=== PATIENT | male | born 1945 | race Caucasian/White ===

== ENCOUNTER 2022-10-22 13:02 | Inpatient (IN) | payer MEDICARE, OTHER, SELFPAY ==
[2022-10-22] VITALS (14 sets, daily range): BP systolic 166–192; BP diastolic 48–86; PULSE 81–95; RESP 14–18; TEMP 36.1–37.3; O2SAT 95–98; BMI 27.6; BMI 28.5; BMI 26.8
--- NOTE | 2022-10-22 13:21 | EKG12_ITS ---
Test Reason : POSS STROKE Blood Pressure : / mmHG Vent. Rate : 085 BPM Atrial Rate : 085 BPM P-R Int : 140 ms QRS Dur : 094 ms QT Int : 400 ms P-R-T Axes : 048 022 076 degrees QTc Int : 476 ms Normal sinus rhythm Nonspecific ST and T wave abnormality Prolonged QT Abnormal ECG Confirmed by AMAYA TAYLOR, JOSELIN ([id number]), commercial production editor MEHNAZ HULL ([id number]) on 10/24/2022 2:11:08 PM Referred By: COLLEEN Confirmed By:JOSELIN CONDE MD
--- NOTE | 2022-10-22 13:21 | CT_ITS ---
STUDY: CTA HEAD AND NECK WITH CONTRAST REASON FOR EXAM: Male, 77 years old. Neuro deficit, acute, stroke suspected RADIATION DOSAGE (If Supplied By Facility): CTDIvol = ( 18.79 ) mGy, DLP = ( 892.96 ) mGycm TECHNIQUE: CT angiography was performed with a multi-detector CT scanner. Data acquisition was obtained from the skull base through the vertex following intravenous administration of IV 100mL [id number]-[id number]. MIP images were reconstructed from the axial data set. Post-processing of the angiographic images was performed, with multiplanar reformation and 3D reconstruction. Individualized dose optimization techniques were used for this CT. COMPARISON: No relevant priors. FINDINGS: Normal bilateral petrous carotid arteries. There is calcified plaque formation of the right cavernous carotid artery, with a moderate stenosis (50-75%). There is calcified plaque formation of the left cavernous carotid artery, without a cross-sectional luminal stenosis. Normal right A1 segments of the anterior cerebral artery. Normal left A1 segments of the anterior cerebral artery. Normal intact anterior communicating artery (ACOM). Normal bilateral A2 segments of the anterior cerebral arteries. Normal right M1 and M2 segments of the middle cerebral arteries, with a normal M1 bifurcation. Normal left M1 and M2 segments of the middle cerebral arteries, with a normal M1 bifurcation. Normal right posterior communicating artery (PCOM). There is a persistent origin of the left posterior cerebral artery with absence of the posterior communicating artery (PCOM). Normal bilateral vertebral arteries. Normal basilar artery with a normal basilar bifurcation. The visualized bilateral superior cerebellar (SCA) arteries are normal. Normal bilateral P1, P2 and visualized P3 segments of the posterior cerebral arteries. There is no demonstrated aneurysm of the [place]. Mucosal thickening of the ethmoid sinuses and maxillary sinuses. AORTIC ARCH: There is atherosclerotic calcific plaque formation of the aortic arch and great vessels arising from the aortic arch, without a hemodynamically significant stenosis. 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 There is a normal origin of the brachiocephalic, left common carotid, and left subclavian arteries. Atherosclerotic plaque formation at the origin of left subclavian artery. RIGHT CAROTID ARTERIES: Normal right common carotid artery (CCA). Normal right common carotid bulb. There is complete occlusion of the origin of the right internal carotid artery without demonstrated arterial flow. Normal visualized cervical portion of the right internal carotid artery. Normal origin of the right external carotid artery (ECA). LEFT CAROTID ARTERIES: Normal left common carotid artery (CCA). Normal left common carotid bulb. There is extensive atherosclerotic plaque formation of the origin of the left internal carotid artery with an estimated stenosis of greater than 70%. Normal visualized cervical portion of the left internal carotid artery. Normal origin of the left external carotid artery (ECA). VERTEBRAL ARTERIES: Normal bilateral vertebral arteries. 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 High-grade stenosis at the origin of left internal carotid artery. N.B. : The above Results were Read Back by Magdi Robertson MD to Dr Marsha MD, and understanding confirmed on 10/22/2022 13:55:48 (ET). Electronically Signed: Magdi Robertson MD at 13:56 EST ,
--- NOTE | 2022-10-22 13:21 | CT_ITS ---
STUDY: CT HEAD STROKE PROTOCOL W/O CONTRAST INJECTION REASON FOR EXAM: Male, 77 years old. Neuro deficit, acute, stroke suspected RADIATION DOSAGE (If Supplied By Facility): CTDIvol = ( 47.06 ) mGy, DLP = ( 855.03 ) mGycm TECHNIQUE: Transaxial CT imaging of the brain was performed without administration of intravenous contrast material. Individualized dose optimization techniques were used for this CT. COMPARISON: No relevant priors. FINDINGS: Normal soft tissue structures. Normal calvarium. There is mild cerebral atrophy with widening of the extra-axial spaces and ventricular dilatation. There are areas of decreased attenuation within the white matter tracts of the supratentorial brain, consistent with microvascular disease changes. Focal decreased attenuation in the right frontal lobe. This may represent subacute ischemic change. Tiny old bilateral lacunar infarcts in the basal ganglia. Normal brainstem. Normal cerebellum. There is no intracranial hemorrhage. There are no findings of an acute ischemic infarction. Atherosclerotic calcification of the cavernous portions of the internal carotid arteries bilaterally. Mucosal thickening of the ethmoid sinuses bilaterally and the maxillary sinuses ASPECT score: 8 CT/STROKE Brain/Head without Cont IMPRESSION: Chronic involutional changes of the brain. Focal area of decreased attenuation in the right frontal lobe. Age of this is indeterminate. N.B. : The above Results were Read Back by Magdi Robertson MD to Dr Marsha MD, and understanding confirmed on 10/22/2022 13:44:34 (ET). Electronically Signed: Magdi Robertson MD at 13:45 EST ,
--- NOTE | 2022-10-22 13:21 | VDLE_ITS ---
Reason For Study: LEG PAIN RIGHT LEFT CFV is compressible, spontaneous, phasic, GSV is normal. competent and demonstrates normal CFV is compressible, spontaneous, phasic, augmentation. competent, and demonstrates normal Procedure augmentation. This is a venous duplex using B-mode, color FV is compressible, spontaneous, phasic, flow and spectral Doppler. competent and demonstrates normal Exam performed portable in ED. augmentation. The exam was diagnostic. POP V is compressible, spontaneous, phasic, The study was technically difficult. competent and demonstrates normal A preliminary report was called and/or faxed augmentation. to Dr. Larson. T/P Trunk is compressible. PTV is compressible. LT PerV is compressible. VL/Venous Duplex US, Unilateral Interpretation Summary Deep veins of the left lower extremity are patent and compressible segmentally. There is no evidence of left lower extremity deep vein thrombosis. The left great saphenous vein estephania ears patent and compressible segmentally. Ordering Physician: Alok Larson Referring Physician: Benjamín Zuluaga Performed By: Vazquez Young RVT
--- NOTE | 2022-10-22 13:21 | RAD_ITS ---
STUDY: X-RAY CHEST REASON FOR EXAM: Male, 77 years old. Neuro deficit, acute, stroke suspected TECHNIQUE: Single AP portable view of the chest. COMPARISON: None. FINDINGS: EKG electrodes are seen. There is hyperinflation of the lungs consistent with chronic obstructive lung disease (COPD). There is no demonstrated pleural abnormality. There is mild cardiac enlargement. Normal mediastinum and adriane. Normal visualized pulmonary arteries. There is atherosclerotic calcification of the aortic arch with tortuosity. Normal visualized thoracic spine. There is degenerative osteoarthritis of the bilateral shoulders. Prior bilateral rotator cuff surgery. Prior fusion in the lower cervical spine. There is no demonstrated abnormality of the visualized soft tissue structures of the upper abdomen. RAD/Chest 1 View IMPRESSION: Hyperinflation. The lungs are clear. Mild cardiomegaly. Electronically Signed: Magdi Robertson MD at 14:30 EST ,
--- NOTE | 2022-10-22 13:22 | EDS_ITS ---
HPI History of Present Illness Chief Complaint: Neuro S/Sx Informant: patient and family Narrative Narrative: Presents with daughter here by private vehicle for stroke evaluation. Remote prostate cancer however recent diagnosed for colorectal cancer followed by o ncologist Dr. Gordon, reporting he finished his last radiation yesterday. He has daily chemo pills. This was diagnosed a few months ago. No surgical intervention at this time. Yesterday 3 PM per daughter 15 minutes of troubles getting his words out. That resolved. No stroke history. This morning he awakened with increasing left leg weakness and reports pain in his calf. Denies trauma. He denies paresthesias. Due to weakness in the leg, he was referred to go to the ED for evaluation. Prior similar symptoms: No PFSH PFSH Medical History (Updated 10/22/22 @ 14:[address] Alok Larson DO) Colorectal cancer History of prostate cancer Allergy/AdvReac Type Severity Reaction Status Date / Time No Known Allergies Allergy Verified 10/22/22 13:04 Social History Smoking Status: Current every day smoker tobacco type: cigarettes ROS ROS ED Constitutional Constitutional ED: Denies chills, fever(s) or sweats Eyes Eyes: Denies change in vision ENT ENT ED: Denies dysphagia or sore throat Cardiovascular Cardiovascular: Denies chest pain, leg edema, palpitations or racing heartbeat Respiratory/Chest Respiratory/Chest: Denies cough, dyspnea or dyspnea on exertion Gastrointestinal Gastrointestinal: Denies abdominal pain, diarrhea, nausea or vomiting Genitourinary Genitourinary ED: Denies dysuria, hematuria or urinary frequency Musculoskeletal Musculoskeletal: Denies back pain, extremity pain or neck pain Integumentary Denies rash or wounds Neurologic Neurologic: Reports weakness; Denies headache(s) or paresthesias EXAM Physical Exam Const Vital Signs: 10/22/22 13:05 10/22/22 13:24 10/22/22 13:28 Temperature 98.2 F Temperature Source Temporal Pulse Rate 95 87 Respiratory Rate 14 18 Blood Pressure 192/76 H 182/67 H Blood Pressure Mean 114 105 Pulse Ox 96 97 Oxygen Delivery Method Room Air Room Air Room Air 10/22/22 13:45 10/22/22 14:15 10/22/22 14:45 Temperature Temperature Source Pulse Rate 81 93 90 Respiratory Rate 18 17 18 Blood Pressure 182/59 H 185/48 H 189/66 H Blood Pressure Mean 100 93 107 Pulse Ox 97 96 98 Oxygen Delivery Method Room Air Room Air Room Air Positive well nourished and well developed General Appearance ED: well developed and NAD HEENT Reports moist mucous membranes normocephalic and atraumatic Eyes PERRL, EOMs intact bilaterally and conjunctivae normal General Eye ED: Yes normal appearance of both eyes Neck no lymphadenopathy and supple General: Negative for tenderness Chest Wall Chest: Negative for tenderness Resp normal respiratory effort and normal air movement Effort and Inspection: symmetric chest movement; Negative for respiratory distress Cardio regular rate, regular rhythm and no murmurs Peripheral Pulses: pulses 2+ throughout GI normal to inspection, nondistended, normoactive bowel sounds and non-tender Palpation: Negative for guarding or rebound tenderness present Back/Spine no CVA tenderness and no thoracic nor lumbar tenderness Extremity normal to inspection General Extremety ED: Negative for edema or tenderness General Extremity: Negative for edema Neuro oriented x3, CN's II-XII intact bilaterally and no sensory deficits noted Neuro Narrative: NIH of 0, however is 4 out of 5 weakness of plantar flexion left leg compared to the right. Sensorium / Orientation: awake and alert Skin no rashes or lesions noted and no wounds MDM MDM MDM Narrative Medical decision making narrative: Patient present increasing left leg weakness 4 out of 5 to plantar flexion left compared to right. He had difficulties with speech lasting 15 minutes yesterday symptoms onset within 24 hours. Speech has resolved. Differentials TIA versus stroke currently. Stroke team will be activated due to timeframe to rule out LVO. Additional left leg ultrasound will be obtained to the calf due to pain with his cancer history. Differential be calf strain versus DVT. Is no chest pains or shortness of breath. 1350: Stroke neurologist Dr. Doll, evaluate the patient. Reports concerns for risk factors for clotting with his cancer history. Reported he has no ataxia is left upper extremity that is been going on for last couple weeks. He is out of the window for tPA. Agrees with LVO evaluation and if positive will rediscuss otherwise he recommends MRI studies with and without contrast both his head and neck. EKG sinus rhythm. CT brain discussion with radiologist is focal decreased attenuation right frontal lobe age-indeterminate. CT angiogram head and neck discussion with radiologist, no LVO, however he has total occlusion right carotid as origin, he has severe stenosis left carotid origin more than 70%. I spoke with vascular surgeon Dr. Riki Perez here, discussed patient's recent history with cancer and findings on CT and CTA. He is available as a consult for evaluation for intervention in the hospital. Therefore spoke with hospitalist Dr. Bauer for admission to PCU. Patient and daughter is updated. Patient's left lower extremity ultrasound negative for DVT. Labs for stable will. EKG is sinus rhythm. I did respeak with stroke neurologist Dr. Doll after CT angiogram results, agrees that patient will need carotid intervention due to symptomatic stroke symptoms and findings. He would still like the MRI studies with and without contrast of the head and neck. Lab Data Attestation: I reviewed the patient's lab results. Labs: Laboratory Results - last 24 hr 10/22/22 10/22/22 10/22/22 13:17 13:17 13:17 WBC 2.6 L RBC 3.49 L Hgb 11.6 L Hct 34.0 L MCV 97.4 H MCH 33.2 H MCHC 34.1 RDW Std Deviation 57.1 H RDW Coeff of Lamin 17.5 H Plt Count 81 L MPV 10.8 Immature Gran % (Auto) 1.200 H Neut % (Auto) 58.6 Lymph % (Auto) 11.7 L [place] % (Auto) 27.7 H Eos % (Auto) 0.4 Baso % (Auto) 0.4 Absolute Neuts (auto) 1.5 L Absolute Lymphs (auto) 0.30 L Nucleated RBC % 0 Diff Path Review May foll Platelet Estimate MOD DEC Hypochromasia 1+ Anisocytosis 2+ PT 14.1 INR 1.1 APTT 39.1 H Sodium 135 L Potassium 3.6 Chloride 101 Carbon Dioxide 25.0 Anion Gap 9 BUN 22 H Creatinine 0.81 Estim Creat Clear Calc 69.14 Est GFR (MDRD) Af Amer 118 Est GFR (MDRD) Non-Af 97 BUN/Creatinine Ratio 27.1 H Glucose 120 H Calcium 9.1 Troponin I High Sens 21 POC Glucose 10/22/22 13:36 WBC RBC Hgb Hct MCV MCH MCHC RDW Std Deviation RDW Coeff of [place] Plt Count MPV Immature Gran % (Auto) Neut % (Auto) Lymph % (Auto) [place] % (Auto) Eos % (Auto) Baso % (Auto) Absolute Neuts (auto) Absolute Lymphs (auto) Nucleated RBC % Diff Path Review Platelet Estimate Hypochromasia Anisocytosis PT INR APTT Sodium Potassium Chloride Carbon Dioxide Anion Gap BUN Creatinine Estim Creat Clear Calc Est GFR (MDRD) Af Amer Est GFR (MDRD) Non-Af BUN/Creatinine Ratio Glucose Calcium Troponin I High Sens POC Glucose 119 H Radiography Diagnostic Testing: Clinical Impression(s) from Imaging Studies Brain CT 10/22/22 13:21 IMPRESSION: Chronic involutional changes of the brain. Focal area of decreased attenuation in the right frontal lobe. Age of this is indeterminate. N.B. : The above Results were Read Back by Magdi Robertson MD to Dr Marsha MD, and understanding confirmed on 10/22/2022 13:44:34 (ET). Electronically Signed: Magdi Robertson MD at 13:45 EST , ADDENDUM: 10/22/22 1352 IMPRESSION: Chronic involutional changes of the brain. Focal area of decreased attenuation in the right frontal lobe. Age of this is indeterminate. N.B. : The above Results were Read Back by Magdi Robertson MD to Dr Marsha MD, and understanding confirmed on 10/22/2022 13:44:34 (ET). Electronically Signed: Magdi Robertson MD at 13:45 EST , Chest X-Ray 10/22/22 13:21 IMPRESSION: Hyperinflation. The lungs are clear. Mild cardiomegaly. Electronically Signed: Magdi Robertson MD at 14:30 EST , Head/Neck CTA 10/22/22 13:21 IMPRESSION: Occlusion of the right internal carotid artery at its origin. High-grade stenosis at the origin of left internal carotid artery. N.B. : The above Results were Read Back by Magdi Robertson MD to Dr Marsha MD, and understanding confirmed on 10/22/2022 13:55:48 (ET). Electronically Signed: Magdi Robertson MD at 13:56 EST , ADDENDUM: 10/22/22 1403 IMPRESSION: Occlusion of the right internal carotid artery at its origin. High-grade stenosis at the origin of left internal carotid artery. N.B. : The above Results were Read Back by Magdi Robertson MD to Dr Marsha MD, and understanding confirmed on 10/22/2022 13:55:48 (ET). Electronically Signed: Magdi Robertson MD at 13:56 EST , EKG Initial EKG: Attestation: I personally reviewed and interpreted this EKG as follows: Comments: EKG: Sinus rate 85, no ST or T wave changes. Stroke Documentation Questions Stroke Team Activated: Yes Reviewed Inclusion/Exclusion criteria: Yes Was Patient considered for Endovascular Intervention?: No-CTA negative, determined not to be an endovascular candidate IV Thrombolytic Administered: No (outside [facility]) Critical Care Time Critical Care Time: Yes Critical care time (excluding procedures): 30-74 minutes, Discussing w/Patient &/or Family/Neck Band Operator, Discussing w/Consultants, Arranging Admission or Transfer, Performing Direct Patient Care at Bedside and - (30 minutes) Discharge Plan Dx/Rx/DC Orders Clinical Impression: Brain TIA, Carotid occlusion, right, Carotid stenosis, left, Rectal cancer Disposition Disposition: Acute Care [facility]
[2022-10-22 13:45] LABS: Absolute Neutrophil Count 1.5 X10^3/uL (2.0-7.7); Basophil# 0.01 X10^3/uL; Basophil% 0.4 % (0-1); Eosinophil# 0.01 X10^3/uL; Eosinophils% 0.4 % (0-5); Hemoglobin 11.6 g/dL (13.0-16.5); Lymphocyte % 11.7 % (19-41); Mean Corp Hgb Conc 34.1 g/dL (32-36); Mean Corpuscular Hgb 33.2 pg (27.0-32.0); Mean Corpuscular Volume 97.4 fL (80-94); Mean Platelet Vol. 10.8 fl (6.2-12.0); Monocyte# 0.71 X10^3/uL; Monocyte% 27.7 % (0-10); NRBC Flagged by Analyzer 0 % (0-5); Neutrophil % 58.6 % (47-70); POSITIVE COUNT YES; POSITIVE DIFFERENTIAL YES; Platelet Count 81 K/mm3 (150-450); RBC Distribution Width CV 17.5 % (11.6-14.6); RBC Distribution Width SD 57.1 fl (35.1-43.9); Red Blood Count 3.49 M/mm3 (4.6-6.2); White Blood Count 2.6 K/mm3 (4.4-11.0)
[2022-10-22 13:46] LABS: Differential Indicated SCAN CRITERIA MET
[2022-10-22 13:52] LABS: International Normalized Ratio 1.1; Prothrombin Time (Protime)PT. 14.1 SECONDS (11.7-14.9)
[2022-10-22 13:53] LABS: Partial Thromboplast Time 39.1 Seconds (24.1-36.2)
[2022-10-22 13:55] LABS: Bedside Glucose 119 mg/dL (74-106)
--- NOTE | 2022-10-22 13:58 | ED.RN ---
PT UP AND WALKING TO BATHROOM
[2022-10-22 14:02] LABS: Anion Gap 9 (5-15); BUN 22 mg/dL (7-18); BUN/Creat Ratio 27.1 RATIO (10-20); Calcium,Total 9.1 mg/dL (8.5-10.1); Chloride 101 mmol/L (98-107); Creatinine, Serum 0.81 mg/dL (0.70-1.30); EST Glomerular Filtration Rate 97 mL/min (>60); Est Glom Filt Rate - Afr Amer 118 mL/min (>60); Estimated Creatinine Clearance 69.14 ml/min; Glucose 120 mg/dL (74-106); Potassium 3.6 mmol/L (3.5-5.1); Sodium Level 135 mmol/L (136-145); Troponin-I HS 21 pg/mL (3.0-78.0)
[2022-10-22 14:03] LABS: Anisocytosis 2+; Hypochromasia 1+
[2022-10-22 14:04] LABS: Platelet Estimate MOD DEC (ADEQ)
--- NOTE | 2022-10-22 15:21 | PCM.HP.STD ---
[facility] - General General Date of Service: 10/22/22 Chief Complaint: left sided weakness. HPI Narrative MERLENE SINGH, is a 77 M who presents awakening with his left leg over the bed and it was weak. Patient said it was painful in his knee below. Difficult to walk. Saw his oncologist who sent him to the emergency room. Patient had a head CT is unremarkable and then a CT of the head and neck that showed occlusion of the right internal carotid at the origin and high-grade stenosis at the origin of the left internal carotid. Neurology was notified of that and recommend patient remaining here to be seen by vascular surgery. Dr. Perez, vascular surgery, was contacted and will see the patient in consultation. Patient yesterday did have some trouble speaking and has not had some intermittent left arm weakness and swelling trigger when he gets infusions with his chemotherapy. [facility] Medical History (Updated 10/22/22 @ 15:[address] Riki Bauer DO) AAA (abdominal aortic aneurysm) Colorectal cancer History of prostate cancer Allergy/AdvReac Type Severity Reaction Status Date / Time No Known Allergies Allergy Verified 10/22/22 13:04 Family History (Updated 10/22/22 @ 15:[address] Riki Bauer DO) Mother CVA (cerebral vascular accident) Surgical History (Updated 10/22/22 @ 15:[address] Riki Bauer DO) History of endovascular stent graft for abdominal aortic aneurysm (AAA) Social History (Updated 10/22/22 @ 15:[address] Riki Bauer DO) Smoking Status: Light Smoker (<10/day) alcohol intake: current alcohol intake frequency: holidays/special occasions only substance use type: does not use ROS ROS Narrative Complains of pain and swelling in his left knee. All review of systems were negative except as mentioned above in the history of present illness and the other review of systems. Vital Signs Vital Signs Vital Signs: 10/22/22 13:05 10/22/22 13:24 10/22/22 13:28 Temperature 36.8 C Temperature Source Temporal Pulse Rate 95 87 Respiratory Rate 14 18 Blood Pressure 192/76 H 182/67 H Blood Pressure Mean 114 105 Pulse Ox 96 97 Oxygen Delivery Method Room Air Room Air Room Air 10/22/22 13:45 10/22/22 14:15 10/22/22 14:45 Temperature Temperature Source Pulse Rate 81 93 90 Respiratory Rate 18 17 18 Blood Pressure 182/59 H 185/48 H 189/66 H Blood Pressure Mean 100 93 107 Pulse Ox 97 96 98 Oxygen Delivery Method Room Air Room Air Room Air 10/22/22 15:01 10/22/22 15:12 10/22/22 15:12 Temperature 36.1 C L Temperature Source Temporal Pulse Rate 91 88 Respiratory Rate 18 18 16 Blood Pressure 166/62 H 166/62 H Blood Pressure Mean 96 96 Pulse Ox 95 95 Oxygen Delivery Method Room Air Room Air Weight Weight: 82.554 kg Body Mass Index (BMI) 28.5 Physical Exam Const alert and no apparent distress HEENT normocephalic and head/scalp atraumatic Eyes PERRL and EOMs intact bilaterally Neck no lymphadenopathy and no carotid bruits Resp normal respiratory effort, no retractions, no use of accessory muscles and clear to auscultation bilaterally Cardio regular rate, regular rhythm, S1 normal heart sound and S2 normal heart sound GI normal to inspection, nondistended, normoactive bowel sounds, soft to palpation, non-tender and non-distended Extremity normal to inspection Extremity Narrative: Left knee effusion without warmth. Swelling in the posterior aspect of the left knee without was tender to palpation Neuro oriented x3, CN's II-XII intact bilaterally and moves all extremities Neuro Narrative: Muscle tone 5-5 in upper and lower extremities. Patient was able to hold up his left lower extremity but was limited due to pain in his left knee Sensorium / Orientation: awake and alert Coordination / Balance: [id number] test normal Motor Exam: strength 5/5 throughout Psych affect normal Results Lab / Micro Data Attestation: I reviewed the patient's lab results. Result Diagrams: 10/22/22 13:17 10/22/22 13:17 Labs: Laboratory Results - last 24 hr 10/22/22 13:17: WBC 2.6 L, RBC 3.49 L, Hgb 11.6 L, Hct 34.0 L, MCV 97.4 H, MCH 33.2 H, MCHC 34.1, RDW Std Deviation 57.1 H, RDW Coeff of Lamin 17.5 H, Plt Count 81 L, MPV 10.8, Immature Gran % (Auto) 1.200 H, Neut % (Auto) 58.6, Lymph % (Auto) 11.7 L, Crisp % (Auto) 27.7 H, Eos % (Auto) 0.4, Baso % (Auto) 0.4, Absolute Neuts (auto) 1.5 L, Absolute Lymphs (auto) 0.30 L, Nucleated RBC % 0, Diff Path Review May , Platelet Estimate MOD DEC, Hypochromasia 1+, Anisocytosis 2+ 10/22/22 13:17: PT 14.1, INR 1.1, APTT 39.1 H 10/22/22 13:17: Sodium 135 L, Potassium 3.6, Chloride 101, Carbon Dioxide 25.0, Anion Gap 9, BUN 22 H, Creatinine 0.81, Estim Creat Clear Calc 69.14, Est GFR (MDRD) Af Amer 118, Est GFR (MDRD) Non-Af 97, BUN/Creatinine Ratio 27.1 H, Glucose 120 H, Calcium 9.1, Troponin I High Sens 21 10/22/22 13:36: POC Glucose 119 H EKG Initial EKG: Attestation: I personally reviewed and interpreted this EKG as follows: Prior EKG tracings: available for review Radiology Impression Brain CT 10/22/22 13:21 IMPRESSION: Chronic involutional changes of the brain. Focal area of decreased attenuation in the right frontal lobe. Age of this is indeterminate. N.B. : The above Results were Read Back by Magdi Robertson MD to Dr Marsha MD, and understanding confirmed on 10/22/2022 13:44:34 (ET). Electronically Signed: Magdi Robertson MD at 13:45 EST , ADDENDUM: 10/22/22 1352 IMPRESSION: Chronic involutional changes of the brain. Focal area of decreased attenuation in the right frontal lobe. Age of this is indeterminate. N.B. : The above Results were Read Back by Magdi Robertson MD to Dr Marsha MD, and understanding confirmed on 10/22/2022 13:44:34 (ET). Electronically Signed: Magdi Robertson MD at 13:45 EST , Chest X-Ray 10/22/22 13:21 IMPRESSION: Hyperinflation. The lungs are clear. Mild cardiomegaly. Electronically Signed: Magdi Robertson MD at 14:30 EST Reading Location ID and State: [facility] / [place] , Service support , Head/Neck CTA 10/22/22 13:21 IMPRESSION: Occlusion of the right internal carotid artery at its origin. High-grade stenosis at the origin of left internal carotid artery. N.B. : The above Results were Read Back by Magdi Robertson MD to Dr Marsha MD, and understanding confirmed on 10/22/2022 13:55:48 (ET). Electronically Signed: Magdi Robertson MD at 13:56 EST , ADDENDUM: 10/22/22 1403 IMPRESSION: Occlusion of the right internal carotid artery at its origin. High-grade stenosis at the origin of left internal carotid artery. N.B. : The above Results were Read Back by Magdi Robertson MD to Dr Marsha MD, and understanding confirmed on 10/22/2022 13:55:48 (ET). Electronically Signed: Magdi Robertson MD at 13:56 EST , Assessment & Plan Assessment/Plan (1) Carotid occlusion, right: PLAN: Clinically I do not feel the patient has had a stroke but it is concerning the patient may have had some TIAs with his left-sided weakness and expressive aphasia previously. Spoke with Dr. Perez who will see the patient in consultation to evaluate the patient for an outpatient carotid endarterectomy Patient be on aspirin and statin Check an MRI of the brain as well as 2D echocardiogram (2) Carotid stenosis, left: PLAN: As above (3) Effusion, left knee: PLAN: Pain control. She will schedule acetaminophen and then have as needed oxycodone No warm to suggest infection or even gout at this time. Consider x-rays if pain gets more severe or worse. PLAN: Plan Chronic conditions Colorectal cancer: Patient's daughters to bring in his chemotherapy medications. This is the patient's last day of chemotherapy. Patient will follow up to see if he may need surgery for this cancer. PAD: Patient has had an aortic aneurysm stent placed. Currently stable. Tobacco abuse VTE prophylaxis with enoxaparin CODE STATUS: Addressed with the patient. Patient was to be DNR Comfort Care rest no intubation. Charges/Coding Visit Charges Inpatient E&M: 33581 Init Hosp L3
--- NOTE | 2022-10-22 15:21 | CHAPLAIN ---
Type of Pastoral Visit ___ Initial Visit ___ Follow-up Visit ___ On-call Visit ___ General Patient Visit ___ Spiritual Assessment ___ Family Conference ___ Bereavement _x__ Rapid Response ___ Code Blue ___ Other (describe below) Pastoral Care Referral From _x__ Patient ___ Family ___ Nurse ___ Physician ___ Carbon Sequestration Plant Engineer ___ Senior Premium Auditor ___ Other (describe below) Sacrament/Intervention ___ Active listening ___ Anointing ___ Hinduism ___ Bereavement ___ Communion ___ Helen exploration ___ ___ Life review ___ Prayer ___ Reconciliation ___ Sacrament of Sick _x__ Supportive presence ___ Wedding ___ Other (describe below) Pastoral Comments patient was being evaluated by medical team and was responsive; only family member had dropped off patient and left; RN supervisor building maintenance was present and stated that there were no apparent needs at this time
--- NOTE | 2022-10-22 15:44 | ECHOD_ITS ---
Reason For Study: TIA/CVA Procedure This was a 2D Doppler, Color Flow transthoracic echocardiogram. Exam performed portable in patient room. Left Ventricle Normal LV size. Moderate concentric left ventricular hypertrophy. Left ventricular systolic function is normal. The estimated ejection fraction is 60 %. Stage 2 diastolic dysfunction. No regional wall motion abnormalities noted. Right Ventricle Normal RV size. Normal systolic function. Atria Normal left atrium. Normal right atrium. Patent foramen ovale. Mitral Valve Normal mitral valve. Tricuspid Valve Normal tricuspid valve. Aortic Valve Normal aortic valve. Trisinus/trileaflet aortic valve. Pulmonic Valve Normal pulmonic valve. Great Vessels Normal aortic root. The pulmonary artery is normal size. Normal inferior vena cava. Pericardium/Pleural No pericardial effusion. Medication Performed a rapid injection of agitated mix of 9 cc saline and 1cc air to assess for atrial septal defect. MMode/2D Measurements & Calculations LVIDd: 3.8 cm IVSd: 1.6 cm LAV(MOD-sp4): 60.3 ml LVIDs: 2.7 cm LVPWd: 1.5 cm RVDd: 3.2 cm FS: 29.3 % LVAd ap4: 27.9 cm2 SV(MOD-sp4): 53.1 ml SV(sp4-el): 54.1 ml LVLd ap4: 8.5 cm EDV(MOD-sp4): 80.0 ml EDV(sp4-el): 77.9 ml LVAs ap4: 14.2 cm2 LVLs ap4: 7.2 cm ESV(MOD-sp4): 26.9 ml ESV(sp4-el): 23.8 ml EF(MOD-sp4): 66.4 % EF(sp4-el): 69.4 % LA A4 area: 21.5 cm2 LA dimension(2D): 3.2 cm RA A4 area: 15.0 cm2 Time Measurements MV dec time: 0.24 sec Doppler Measurements & Calculations MV E max dgao: 88.2 cm/sec Lat Peak E' Dago: 6.0 cm/sec Med Peak E' Dago: 7.8 cm/sec MV A max dago: 87.8 cm/sec E/E' lat: 14.6 E/E' med: 11.3 MV E/A: 1.0 MV V2 max: 96.4 cm/sec Ao V2 max: 146.6 cm/sec MV max P.7 mmHg MV dec slope: 371.6 cm/sec2 Ao max P.6 mmHg MV V2 mean: 56.8 cm/sec Ao V2 mean: 94.5 cm/sec MV mean P.5 mmHg Ao mean P.2 mmHg MV V2 VTI: 34.0 cm Ao V2 VTI: 29.6 cm AV (velocity ratio): 0.85 LV V1 max: 120.8 cm/sec PA V2 max: 84.2 cm/sec LV V1 max P.9 mmHg PA V2 mean: 58.5 cm/sec LV V1 mean P.4 mmHg LV V1 mean: 87.4 cm/sec LV V1 VTI: 25.2 cm ECHO/Echo Complete Interpretation Summary Normal LV size. Left ventricular systolic function is normal. The estimated ejection fraction is 60 %. Patent foramen ovale. Moderate concentric left ventricular hypertrophy. Stage 2 diastolic dysfunction. Ordering Physician: Riki Bauer Referring Physician: Remington Frederick M.D. Performed By: Jodee Ingram RCS
--- NOTE | 2022-10-22 15:44 | MRI_ITS ---
STUDY: MRI BRAIN WITHOUT CONTRAST REASON FOR EXAM: Male, 77 years old. left sided weakness TECHNIQUE: MRI examination brain CT scan protocol including multiplanar multiecho noncontrast imaging. Contrast: No contrast administered. COMPARISON: CT head [place] 10/22/2022, CTA examination of 10/22/2022 HEMISPHERES, CEREBELLUM AND BRAINSTEM: 1. The cerebral parenchyma, ventricular system, subarachnoid spaces have normal configuration and density. There is a normal gyral pattern. There is normal pierce/white differentiation. No midline shift.. 2. Mild involutional change and moderate chronic microvascular deep white matter disease is present. 3. Multiple focal areas of fluid restriction noted within the RIGHT hemisphere, particularly involving the RIGHT middle frontal gyrus sac, with multiple small focal areas of fluid restriction and ischemia extending to the level of the precentral gyrus on the RIGHT. No evidence of hemosiderin deposition or hemorrhage. Subtle areas of ischemic change also noted within the RIGHT centrum semiovale. 4. The cerebellum, brainstem, basilar and suprasellar cisterns have normal appearance. No Chiari malformation. PITUITARY: Infundibulum and pituitary have normal configuration. Midline structures appear normal. CSF SPACES: Appropriate for age. No hydrocephalus. Basal cisterns are patent. VESSELS: 1. Abnormal signal noted within the petrous and cavernous RIGHT ICA. Slow flow versus occlusion are considerations. ORBITS AND PARANASAL SINUSES: 1. Both globes, extraocular muscles, optic nerves and retrobulbar fat appear unremarkable. 2. Extensive mucosal thickening within the ethmoid and to lesser extent maxillary and frontal sinuses bilaterally. BONY ELEMENTS: Bony elements of the cranial vault, facial skeleton and skull base have normal appearance. SCALP AND SOFT TISSUES: Normal appearance of the soft tissues of the scalp and the visualized face OTHER: None MRI/Brain without Contrast IMPRESSION: 1. Diffuse involutional change and chronic microvascular deep white matter disease. 2. Focal areas of fluid restriction/nonhemorrhagic ischemia/developing infarct within the RIGHT frontal lobe. There are focal areas of acute ischemia within the RIGHT precentral gyrus. No evidence of hemorrhage. The pattern can be seen in the setting of extensive embolic disease involving the RIGHT MCA, however sequelae of watershed ischemic changes are additional considerations. 3. Remaining cerebral parenchyma shows no evidence of mass, hemorrhage, acute territorial infarct. 4. Abnormal appearance of the RIGHT internal carotid artery including the petrous and cavernous segment, slow flow or occlusion are considerations. Findings are consistent with recent CTA findings. Electronically Signed: Chai Bailey MD at 20:03 EST ,
[2022-10-22] MEDS: Aspirin 325 MG Tablet PO (16:37)
[2022-10-22 16:53] LABS: Troponin-I HS 23 pg/mL (3.0-78.0)
[2022-10-22] MEDS: CAPECITABINE 500 MG TABLET 1500 MG PO (18:24)
[2022-10-22] MEDS: Menthol/Lanolin/Calamine/Znox 113 GM Tube 1 APPLIC TOPICAL (21:32)
[2022-10-22] MEDS: Acetaminophen 500 MG Tablet 1000 MG PO (21:34)
[2022-10-22] MEDS: Atorvastatin Calcium 80 MG Tablet PO (21:34)
[2022-10-22] MEDS: oxyCODONE 5 MG Tablet PO (21:54)
[2022-10-22] MEDS: Ondansetron 4 MG/2 ML Vial IV (21:54)
--- NOTE | 2022-10-22 22:46 | TELEMED_ITS ---
[facility] has confirmed receipt of a request for visit. This document confirms receipt of the order initiating the consult. To find the results of the consultation, please view the patient's reports for the scanned Telemed Consult.
--- NOTE | 2022-10-22 22:51 | PCM.HOSP.N ---
Hospitalist Note MRI resulted with significant findings of focal areas of fluid restriction/nonhemorrhagic ischemia/developing infarct within the right frontal lobe with focal areas of acute ischemia within the right precentral gyrus with no evidence of any hemorrhage, pattern potentially seen in the setting of extensive embolic disease involving the right MCA however sequelae of watershed ischemic changes are also consideration. Patient CTA head and neck upon ED evaluation was significant carotid findings with already pending vascular surgery consultation. Patient currently maintained on aspirin, statin, permissive hypertension, echocardiogram ordered, physical and Occupational Therapy also ordered. We will add speech therapy evaluation as well as check mag, TSH, hemoglobin A1c. FLP already ordered for a.m. Echocardiogram also already ordered for a.m. Given severity of findings on imaging study will request neurology consultation at this time to be cautious.
[2022-10-22 23:09] LABS: Magnesium 1.9 mg/dL (1.6-2.6)
[2022-10-22] MEDS: Cephalexin 500 MG Capsule PO (23:30)
[2022-10-23] VITALS (13 sets, daily range): BP systolic 121–194; BP diastolic 49–82; PULSE 69–86; RESP 16–18; TEMP 36.7–37.1; O2SAT 92–95; BMI 26.8
[2022-10-23] MEDS: oxyCODONE 5 MG Tablet PO (04:26)
[2022-10-23 06:24] LABS: Absolute Lymphocyte Count 0.19 X10^3/uL (0.83-4.51); Absolute Neutrophil Count 1.1 X10^3/uL (2.0-7.7); Eosinophil# 0.05 X10^3/uL; Eosinophils% 2.4 % (0-5); Hematocrit 28.1 % (40-54); Hemoglobin 9.8 g/dL (13.0-16.5); Lymphocyte # 0.19 X10^3/ul (0.83-4.51); Lymphocyte % 9.2 % (19-41); Mean Corp Hgb Conc 34.9 g/dL (32-36); Mean Corpuscular Hgb 33.6 pg (27.0-32.0); Mean Corpuscular Volume 96.2 fL (80-94); Monocyte# 0.76 X10^3/uL; Monocyte% 36.9 % (0-10); NRBC Flagged by Analyzer 0 % (0-5); Neutrophil # 1.05 X10^3/uL (2.7-7.7); POSITIVE COUNT YES; POSITIVE DIFFERENTIAL YES; Platelet Count 65 K/mm3 (150-450); RBC Distribution Width CV 17.7 % (11.6-14.6); RBC Distribution Width SD 57.7 fl (35.1-43.9); Red Blood Count 2.92 M/mm3 (4.6-6.2); White Blood Count 2.1 K/mm3 (4.4-11.0)
[2022-10-23 06:25] LABS: Differential Indicated SCAN CRITERIA MET
[2022-10-23] MEDS: Acetaminophen 500 MG Tablet 1000 MG PO ×3 (06:36→21:03)
[2022-10-23] MEDS: Cephalexin 500 MG Capsule PO ×3 (06:36→21:03)
[2022-10-23 06:38] LABS: Differential Comment SCANNED
[2022-10-23 07:03] LABS: ALB/GLOB Ratio 0.9 RATIO (0.9-2.4); AST(SGOT) 16 U/L (15-37); Alanine Aminotransfer ALT/SGPT 25 U/L (16-61); Albumin, Serum 2.7 g/dL (3.2-5.0); Alkaline Phosphatase 56 U/L (45-117); Anion Gap 9 (5-15); BUN 15 mg/dL (7-18); BUN/Creat Ratio 26.8 RATIO (10-20); Calcium,Total 8.2 mg/dL (8.5-10.1); Chloride 103 mmol/L (98-107); Cholesterol 122 mg/dL (200); Creatinine, Serum 0.56 mg/dL (0.70-1.30); EST Glomerular Filtration Rate 149 mL/min (>60); Est Glom Filt Rate - Afr Amer 181 mL/min (>60); Globulin 3.1 g/dL (2.2-4.2); Glucose 107 mg/dL (74-106); High Density Lipoprotein 54 mg/dL; Potassium 3.1 mmol/L (3.5-5.1); Protein, Total 5.8 g/dL (6.4-8.2); Sodium Level 138 mmol/L (136-145); Thyroid Stim Hormone (TSH) 2.92 uIU/mL (0.358-3.74); Triglycerides 62 mg/dL; Very Low Density Lipoprotein 12 mg/dL (5-40)
[2022-10-23] MEDS: Aspirin 81 MG TAB.CHEW PO (07:57)
[2022-10-23] MEDS: Enoxaparin 40 MG/0.4 ML Syringe SC (07:57)
[2022-10-23] MEDS: Potassium Chloride Oral Tablet 20 MEQ PO (08:00)
[2022-10-23 08:07] LABS: Hemoglobin A1c 5.8 % (3.8-5.6)
--- NOTE | 2022-10-23 11:35 | CASEMGMT ---
RN CM Face to Face with patient for initial transition planning/care coordination assessment. RN CM introduced self and role at [facility]. Patient lying in bed, alert and oriented. Patient willing to participate in assessment and is able to answer all questions appropriately. Care providers, pharmacy, and demographics verified. Patient wishes to discharge home, will monitor for HHC vs Outpatient Therapy at discharge. Patient states he has no further needs or concerns at this time. CM to follow for discharge planning needs that may arise. PCP: Otoniel Specialists: Kiley, radiologist; Yasmani, oncologist Preferred Pharmacy: [facility] Insurance: [employer] Ins Prescription Benefit: none Living Will/HPOA: yes, daughter Maylin Mcleod LNOK: daughter Living Arrangements: Patient lives with daughter in a 2 story home. Patient states he is independent and able to ambulate stairs. Transportation: self, daughter DME/HHC: Patient has raised toilet, grab bars, walker at home. Patient denies previous HHC or SNF. Disposition Plan: Patient to discharge home with family support and follow-up plans in place. Will monitor for HHC vs Outpatient Therapy. Miriam MOLINA, RN, CM
[2022-10-23 12:18] LABS: Pathologist Review Reviewed
[2022-10-23 12:19] LABS: Pathologist Review Reviewed
[2022-10-23] MEDS: Menthol/Lanolin/Calamine/Znox 113 GM Tube 1 APPLIC TOPICAL ×2 (14:00→21:04)
--- NOTE | 2022-10-23 14:31 | PN.HOSP_ITS ---
Subjective Subjective Left upper extremity is much stronger today but he still has weakness in his left lower extremity Objective Data Objective Data Vital Signs: Vital Signs Temp Pulse Resp BP Pulse Ox O2 Del Method 98.0 F 73 17 121/60 H 93 Room Air 10/23/22 14:15 10/23/22 14:15 10/23/22 14:15 10/23/22 14:15 10/23/22 14:15 10/23/22 14:15 Oxygen Delivery Method Room Air Weight: 173 lb 15.115 oz Body Mass Index (BMI) 26.8 Intake & Output: Intake and Output for Last 24 Hours 10/22/22 10/23/22 10/24/22 03:59 03:59 03:59 Intake Total 480 / 480 240 / 240 Output Total 150 / 150 Balance 480 / 480 90 / 90 Lab / Micro Data Result Diagrams: 10/23/22 05:26 10/23/22 05:26 Labs: Laboratory Results - last 24 hr 10/22/22 13:17: Diff Path Review Reviewed 10/22/22 16:20: Troponin I High Sens 23 10/22/22 16:20: Magnesium 1.9 10/23/22 05:26: WBC 2.1 L, RBC 2.92 L, Hgb 9.8 L, Hct 28.1 L, MCV 96.2 H, MCH 33.6 H, MCHC 34.9, RDW Std Deviation 57.7 H, RDW Coeff of Lamin 17.7 H, Plt Count 65 L, MPV 11.0, Immature Gran % (Auto) 0.500, Neut % (Auto) 51.0, Lymph % (Auto) 9.2 L, Kinney % (Auto) 36.9 H, Eos % (Auto) 2.4, Baso % (Auto) 0.0, Absolute Neuts (auto) 1.1 L, Absolute Lymphs (auto) 0.19 L, Nucleated RBC % 0, Differential Comment SCANNED, Diff Path Review Reviewed 10/23/22 05:26: Sodium 138, Potassium 3.1 L, Chloride 103, Carbon Dioxide 26.0, Anion Gap 9, BUN 15, Creatinine 0.56 L, Estim Creat Clear Calc 56.00, Est GFR (MDRD) Af Amer 181, Est GFR (MDRD) Non-Af 149, BUN/Creatinine Ratio 26.8 H, Glucose 107 H, Calcium 8.2 L, Total Bilirubin 0.50, AST 16, ALT 25, Alkaline Phosphatase 56, Total Protein 5.8 L, Albumin 2.7 L, Globulin 3.1, Albumin/Globulin Ratio 0.9, Triglycerides 62, Cholesterol 122, LDL Cholesterol 56, VLDL Cholesterol 12, HDL Cholesterol 54, TSH 2.92 10/23/22 05:26: Hemoglobin A1c 5.8 H Radiography Diagnostic Testing: Radiology Impression Chest X-Ray 10/22/22 13:21 IMPRESSION: Hyperinflation. The lungs are clear. Mild cardiomegaly. Electronically Signed: Magdi Robertson MD at 14:30 EST , Venous Doppler Study 10/22/22 13:21 Interpretation Summary Deep veins of the left lower extremity are patent and compressible segmentally. There is no evidence of left lower extremity deep vein thrombosis. The left great saphenous vein appears patent and compressible segmentally. Ordering Physician: Alok Larson Referring Physician: Benjamín Zuluaga Performed By: Vazquez Young RVT Brain MRI 10/22/22 15:44 IMPRESSION: 1. Diffuse involutional change and chronic microvascular deep white matter disease. 2. Focal areas of fluid restriction/nonhemorrhagic ischemia/developing infarct within the RIGHT frontal lobe. There are focal areas of acute ischemia within the RIGHT precentral gyrus. No evidence of hemorrhage. The pattern can be seen in the setting of extensive embolic disease involving the RIGHT MCA, however sequelae of watershed ischemic changes are additional considerations. 3. Remaining cerebral parenchyma shows no evidence of mass, hemorrhage, acute territorial infarct. 4. Abnormal appearance of the RIGHT internal carotid artery including the petrous and cavernous segment, slow flow or occlusion are considerations. Findings are consistent with recent CTA findings. Electronically Signed: Chai Bailey MD at 20:03 EST , Echocardiogram 10/22/22 15:44 Interpretation Summary Normal LV size. Left ventricular systolic function is normal. The estimated ejection fraction is 60 %. Patent foramen ovale. Moderate concentric left ventricular hypertrophy. Stage 2 diastolic dysfunction. Ordering Physician: Riki Bauer Referring Physician: Remington Frederick M.D. Performed By: Jodee Ingram RCS Physical Exam Narrative General: Alert, Oriented x3, Cooperative, No apparent distress HEENT: Atraumatic, PERRLA, EOMI, Normocephalic Oral: Moist Mucosa Neck: Supple, No JVD Lungs: Clear to auscultation, Normal air movement, No rhonchi, No wheeze, No rales Cardiovascular: Regular rate, Regular Rhythm, Normal S1, Normal S2, No murmurs Abdomen: Soft, Non Tender, Non-Distended, No Hepato-splenomegaly Extremities: No edema, Capillary Refill Less than 3 Seconds Skin: No rashes, No breakdown Musculoskeletal: No Tenderness to Palpation of Joints or Extremities Neurological: Cranial nerves II-XII grossly intact, Motor Exam 5/5 strength upper extremities, left lower extremity is a 3 out of 5 with drift, Sensory exam intact to light touch and pain Psych/Mental Status: Normal Affect, Appropriate Assessment & Plan Assessment/Plan (1) Carotid occlusion, right: PLAN: MRI consistent with stroke on the right, symptoms are slowly improving Spoke with Dr. Perez who will see the patient in consultation to evaluate the patient for an outpatient carotid endarterectomy Patient be on aspirin and statin At with a normal EF of 60% with stage II diastolic dysfunction and moderate concentric left ventricular hypertrophy and a patent foramen ovale (2) Carotid stenosis, left: PLAN: Consult pending toe vascular for evaluation (3) Effusion, left knee: PLAN: Pain control. She will schedule acetaminophen and then have as needed oxycodone No warm to suggest infection or even gout at this time. Consider x-rays if pain gets more severe or worse. (4) CVA (cerebral vascular accident): PLAN: As above PLAN: Plan Chronic conditions * Colorectal cancer: He has completed cancer treatment under the follow-up as an outpatient with his cancer doctor * PAD: Patient has had an aortic aneurysm stent placed. Currently stable. * Tobacco abuse VTE prophylaxis with enoxaparin Charges/Coding Visit Charges Inpatient E&M: 31204 Subs Hosp L2
--- NOTE | 2022-10-23 16:22 | CON.PCM.SX_ITS ---
Assessment & Plan Assessment/Plan (1) Carotid stenosis, left: (2) Carotid occlusion, right: PLAN: Plan Right carotid artery noted to be occluded, may be the source for most recent stroke symptoms/evidence of stroke on Brain MRI. No further intervention indicated. Left carotid artery stenosis noted to be about 70% by TeleNeuro consult. Although no identified left-sided infarcts/ischemia and no symptoms attributable to left-sided stenosis, given total occlusion of right internal carotid artery it is reasonable to pursue surgical intervention on an outpatient basis. Patient will follow-up as outpatient in office to discuss surgical options. Would consider patient for TCAR if good candidate, case will be reviewed with TCAR rep. In the meantime, optimize medical management with ASA, atorvastatin, and Plavix daily. Discharge planning per primary team. HPI Consult Data Date of Consult: 10/23/22 HPI Narrative HPI Narrative: MERLENE SINGH, is a 77 M who presented to ED with symptoms concerning for stroke on 10/22/22. Patient reports that day prior to presentation had an episode of difficulty speaking which resolved in about 10 minutes. On day of presentation, patient experienced left-sided weakness and was referred to ED by his oncologist. CT head was unremarkable, CTA Head and Neck revealed occluded right internal carotid artery, and reported 70% stenosis of left internal carotid artery. Brain MRI revealed evidence of acute ischemia/infarcts in right MCA distribution. TeleNeuro consult was obtained which recommended surgical intervention, for which we are consulted to evaluate. Echo was also obtained today which showed PFO, but bilateral venous duplex did not reveal DVT. Patient's past medical history is significant for colorectal cancer (last radiation treatment on 10/22, current PO chemo treatment, follows with [facility] outpatient), endovascular repair/stent of AAA, remote history prostate cancer. He also reports history of C3-C4 surgery with placement of a plate. Patient denies any episode of similar symptoms in the past, no known prior stroke/TIA. He has residual LLE weakness, he feels LUE weakness has resolved. He denies monocular vision loss, any further episodes of aphasia, new focal weakness, ESCALONA, CP, SOB. [facility] Medical History (Updated 10/23/22 @ 14:[address] Dilip Terry MD) AAA (abdominal aortic aneurysm) Colorectal cancer History of prostate cancer Home Medications albuterol sulfate 90 mcg/actuation aerosol inhaler 2 puff inhalation PRN PRN Bronchospasm 10/22/22 [History Last Taken Unknown] capecitabine 500 mg tablet (Xeloda) 1,500 mg PO BID CHEMOTHERAPY 10/22/22 [History Last Taken Unknown] cephalexin 500 mg capsule 500 mg PO TID UTI 10/22/22 [History Last Taken Unknown] docusate sodium 100 mg capsule 100 mg PO BID PRN Constipation 10/22/22 [History Last Taken Unknown] ibuprofen 200 mg tablet (Advil) 800 mg PO PRN PRN Pain 10/22/22 [History Last Taken Unknown] ondansetron HCl 8 mg tablet 8 mg PO PRN PRN Nausea And Vomiting 10/22/22 [History Last Taken Unknown] potassium chloride 20 mEq tablet,extended release(part/cryst) 20 meq PO DAILY Check with primary doctor 10/22/22 [History Last Taken Unknown] Allergy/AdvReac Type Severity Reaction Status Date / Time No Known Allergies Allergy Verified 10/22/22 13:04 Family History (Updated 10/22/22 @ 15:[address] Riki Bauer DO) Mother CVA (cerebral vascular accident) Surgical History (Updated 10/22/22 @ 16:12 by Elena Holden) History of ear, nose, and throat (ENT) surgery History of endovascular stent graft for abdominal aortic aneurysm (AAA) Hx of neck surgery Hx of rotator cuff surgery Social History (Updated 10/22/22 @ 15:[address] Riki Bauer DO) Smoking Status: Light Smoker (<10/day) alcohol intake: current alcohol intake frequency: holidays/special occasions only substance use type: does not use ROS Constitutional Constitutional: Denies change in weight, chills, difficulty sleeping, fatigue, fever(s), frequent falls, lethargy, night sweats or weakness Eyes Eyes: Denies blindness, blurry vision, change in vision, eye pain or ptosis ENT HEENT: Denies abnormal hearing, change in voice, hearing loss, loss taste/smell or vertigo Cardiovascular Cardiovascular: Denies abdominal pain, chest pain, claudication, cold extremities, cyanosis, diaphoresis, dyspnea, dyspnea on exertion, fatigue, hype rtension, irregular heart rhythm, leg edema, leg ulcers, orthopnea, palpitations, radiating jaw, neck or arm pain or syncope Respiratory/Chest Respiratory/Chest: Denies cough, dyspnea, hemoptysis, nail bed cyanosis, sae- oral cyanosis, portable oxygen @ home, productive cough or wheezing Gastrointestinal Gastrointestinal: Denies abdominal pain, change in bowel habits, change in stool character, coffee ground emesis, melena, rectal bleeding or weight changes Genitourinary Genitourinary: Denies abdominal discomfort, burning urination, difficulty uri nating or flank pain Musculoskeletal Musculoskeletal: Reports joint pain; Denies abnormal gait, difficulty walking, joint swelling, muscle cramps, muscle weakness or numbness Integumentary Integumentary: Denies change in pigmentation, changing lesions, erythema, lesions, rash, skin ulcer, unusual bruising or wounds Neurologic Neurologic: Denies abnormal gait, abnormal movements, abnormal speech, behavior changes, frequent falls, syncope, tingling or weakness Psychiatric Psychiatric: Denies behavioral changes, cognitive impairment or depression Endocrine Endocrinology: Denies change in body appearance, cold intolerance, excessive sweating, flushing, heat intolerance, palpitations, polydipsia, polyphagia or polyuria Hematologic/Lymphatic Hematologic/Lymphatic: Denies anemia, easy bleeding, easy bruising or lymphadenopathy Allergic/Immunologic Allergic/Immunologic: Denies seasonal rhinorrhea, throat swelling, tongue swelling, hives or asthma Physical Exam Const alert, oriented x3 and no apparent distress General Appearance: cooperative and comfortable HEENT normocephalic, head/scalp atraumatic, hearing grossly normal bilaterally, external ears normal and external nose normal Eyes EOMs intact bilaterally General Eye: normal appearance of both eyes Neck full ROM General: normal visual inspection and trachea midline; Negative for anterior neck swelling Resp normal respiratory effort, normal air movement, no retractions, no use of accessory muscles and clear to auscultation bilaterally Effort and Inspection: able to speak in complete sentences and symmetric chest movement; Negative for respiratory distress, stridor or audible wheezes Cardio regular rate and regular rhythm Extremity normal to inspection Peripheral Pulses: Yes brachial pulses present and radial pulses present Skin no rashes or lesions noted and no wounds Neuro oriented x3, CN's II-XII intact bilaterally and no sensory deficits noted Neuro Narrative: LLE with weakness against resistance, LUE with good strength comparable to RUE. Speech: speech normal Psych mental status grossly normal, cooperative, affect normal, speech normal and activity/motor behavior normal Lab / Micro Data Result Diagrams: 10/23/22 05:26 10/23/22 05:26 Labs: Laboratory Results - last 24 hr 10/22/22 13:17: Diff Path Review Reviewed 10/22/22 16:20: Troponin I High Sens 23 10/22/22 16:20: Magnesium 1.9 10/23/22 05:26: WBC 2.1 L, RBC 2.92 L, Hgb 9.8 L, Hct 28.1 L, MCV 96.2 H, MCH 33.6 H, MCHC 34.9, RDW Std Deviation 57.7 H, RDW Coeff of Lamin 17.7 H, Plt Count 65 L, MPV 11.0, Immature Gran % (Auto) 0.500, Neut % (Auto) 51.0, Lymph % (Auto) 9.2 L, [place] % (Auto) 36.9 H, Eos % (Auto) 2.4, Baso % (Auto) 0.0, Absolute Neuts (auto) 1.1 L, Absolute Lymphs (auto) 0.19 L, Nucleated RBC % 0, Differential Comment SCANNED, Diff Path Review Reviewed 10/23/22 05:26: Sodium 138, Potassium 3.1 L, Chloride 103, Carbon Dioxide 26.0, Anion Gap 9, BUN 15, Creatinine 0.56 L, Estim Creat Clear Calc 56.00, Est GFR (MDRD) Af Amer 181, Est GFR (MDRD) Non-Af 149, BUN/Creatinine Ratio 26.8 H, Glucose 107 H, Calcium 8.2 L, Total Bilirubin 0.50, AST 16, ALT 25, Alkaline Phosphatase 56, Total Protein 5.8 L, Albumin 2.7 L, Globulin 3.1, Albumin/Globulin Ratio 0.9, Triglycerides 62, Cholesterol 122, LDL Cholesterol 56, VLDL Cholesterol 12, HDL Cholesterol 54, TSH 2.92 10/23/22 05:26: Hemoglobin A1c 5.8 H Radiology Impression Venous Doppler Study 10/22/22 13:21 Interpretation Summary Deep veins of the left lower extremity are patent and compressible segmentally. There is no evidence of left lower extremity deep vein thrombosis. The left great saphenous vein appears patent and compressible segmentally. Ordering Physician: Alok Larson Referring Physician: Benjamín Zuluaga Performed By: Vazquez Young RVT Brain MRI 10/22/22 15:44 IMPRESSION: 1. Diffuse involutional change and chronic microvascular deep white matter disease. 2. Focal areas of fluid restriction/nonhemorrhagic ischemia/developing infarct within the RIGHT frontal lobe. There are focal areas of acute ischemia within the RIGHT precentral gyrus. No evidence of hemorrhage. The pattern can be seen in the setting of extensive embolic disease involving the RIGHT MCA, however sequelae of watershed ischemic changes are additional considerations. 3. Remaining cerebral parenchyma shows no evidence of mass, hemorrhage, acute territorial infarct. 4. Abnormal appearance of the RIGHT internal carotid artery including the petrous and cavernous segment, slow flow or occlusion are considerations. Findings are consistent with recent CTA findings. Electronically Signed: Chai Bailey MD at 20:03 EST , Echocardiogram 10/22/22 15:44 Interpretation Summary Normal LV size. Left ventricular systolic function is normal. The estimated ejection fraction is 60 %. Patent foramen ovale. Moderate concentric left ventricular hypertrophy. Stage 2 diastolic dysfunction. Ordering Physician: Riki Bauer Referring Physician: Remington Frederick M.D. Performed By: Jodee Ingram RCS Charges/Coding Visit Charges Inpatient E&M: 00150 Init Hosp L1
--- NOTE | 2022-10-23 19:00 | NURSING ---
emergency documentation effective now 10/23/2022, 1900
[2022-10-23] MEDS: Atorvastatin Calcium 80 MG Tablet PO (21:03)
[2022-10-24] VITALS (7 sets, daily range): BP systolic 101–122; BP diastolic 67–76; PULSE 76–83; RESP 16–18; TEMP 36.6–36.7; O2SAT 93–95; BMI 26.8
[2022-10-24] MEDS: Acetaminophen 500 MG Tablet 1000 MG PO (05:52)
[2022-10-24] MEDS: Cephalexin 500 MG Capsule PO (05:52)
[2022-10-24 06:04] LABS: Anion Gap 7 (5-15); BUN 13 mg/dL (7-18); BUN/Creat Ratio 24.5 RATIO (10-20); Calcium,Total 8.8 mg/dL (8.5-10.1); Chloride 105 mmol/L (98-107); Creatinine, Serum 0.53 mg/dL (0.70-1.30); EST Glomerular Filtration Rate 159 mL/min (>60); Est Glom Filt Rate - Afr Amer 192 mL/min (>60); Glucose 106 mg/dL (74-106); Potassium 3.1 mmol/L (3.5-5.1); Sodium Level 139 mmol/L (136-145)
[2022-10-24 07:55] LABS: Magnesium 2.1 mg/dL (1.6-2.6); Phosphorus 2.6 mg/dL (2.5-4.9)
[2022-10-24] MEDS: Menthol/Lanolin/Calamine/Znox 113 GM Tube 1 APPLIC TOPICAL (08:06)
[2022-10-24] MEDS: Potassium Chloride Oral Tablet 20 MEQ 40 MEQ PO (09:08)
[2022-10-24] MEDS: Aspirin 81 MG TAB.CHEW PO (09:09)
[2022-10-24] MEDS: Clopidogrel Bisulfate 75 MG Tablet PO (09:10)
[2022-10-24] MEDS: Enoxaparin 40 MG/0.4 ML Syringe SC (09:10)
--- NOTE | 2022-10-24 11:07 | CASEMGMT ---
RN CM updated by therapy that no therapy recommended at discharge. RN CM in to discuss needs at discharge. Patient declines needs at this time. Patient had no further questions or concerns at this time.
--- NOTE | 2022-10-24 13:31 | PCM.DC ---
Discharge Instructions Diet Discharge Diet: Low fat / Low cholesterol Activity Discharge Activity: Return to Normal Activity Dressing / Incision Call your doctor if you observe: Fever of 101 or Higher, Shortness of breath, Dizziness, Fainting spells, Swelling in the ankles, Chest pain and Increased palpitations (irregular heartbeat) Follow Up Care Test Results: Test results from this visit will be discussed in further detail at your follow-up appointment, if applicable. Discharge Plan Admission Admit Date/Time: 10/22/22 15:14 Attending Provider: Dilip Terry Primary Care Provider: Remington Frederick Consulting Providers: Riki Perez ; Riki Bauer Instructions Additional Instructions / Restrictions: Follow-up with your PCP to obtain a referral for neurology evaluation as an outpatient Discharge Orders/Prescriptions Prescriptions: New atorvastatin 80 mg Tablet 80 mg PO QHS Qty: 30 0RF clopidogrel 75 mg Tablet 75 mg PO DAILY Qty: 30 0RF aspirin 81 mg Tablet,Chewable 81 mg PO BREAKFAST Qty: 30 0RF Continued cephalexin 500 mg capsule 500 mg PO TID Label Comments: Take 1 capsule by mouth three times daily for 10 days. ibuprofen [Advil] 200 mg Tablet 800 mg PO PRN PRN (Reason: Pain) ondansetron HCl 8 mg tablet 8 mg PO PRN PRN (Reason: Nausea And Vomiting) Label Comments: Take 1 tablet by mouth every 12 hours as needed. capecitabine [Xeloda] 500 mg Tablet 1,500 mg PO BID Rx Instructions: ON RADIATION DAYS ONLY potassium chloride 20 mEq tablet,ER particles/crystals 20 meq PO DAILY Label Comments: Take 1 tablet by mouth once daily. albuterol sulfate 90 mcg/actuation HFA aerosol inhaler 2 puff INHALATION PRN PRN (Reason: Bronchospasm) Label Comments: inhale 2 puffs by mouth and INTO THE LUNGS every 4 hours if neede... (REFER TO PRESCRIPTION NOTES). docusate sodium 100 mg Capsule 100 mg PO BID PRN (Reason: Constipation) Referrals / Follow Up: Benjamín Zuluaga DO [Med Staff - Inventory Control Analyst] - Remington Frederick MD [Primary Care Provider] - Disposition Disposition (needs filled in before D/C Order can be placed): Home, Self Care
--- NOTE | 2022-10-24 15:06 | PHA.DC.MC ---
Addendum entered and electronically signed by Regina Cleveland 10/24/22 15:07: Patient did not want his medications filled at [facility], wants them filled at [facility]. Called [facility] and requested prescriptions be transferred. Original Note: Pharmacy Service has performed discharge medication reconciliation and counseling for this patient. 1. ASPIRIN 81MG PO BREAKFAST 2. ATORVASTATIN 80MG PO QHS 3. CLOPIDOGREL 75MG PO DAILY The patient's discharge medication list was reviewed for discrepancies and discrepancies were resolved. Home Medications albuterol sulfate 90 mcg/actuation aerosol inhaler 2 puff inhalation PRN PRN Bronchospasm 10/22/22 capecitabine 500 mg tablet (Xeloda) 1,500 mg PO BID CHEMOTHERAPY 10/22/22 cephalexin 500 mg capsule 500 mg PO TID UTI 10/22/22 docusate sodium 100 mg capsule 100 mg PO BID PRN Constipation 10/22/22 ibuprofen 200 mg tablet (Advil) 800 mg PO PRN PRN Pain 10/22/22 ondansetron HCl 8 mg tablet 8 mg PO PRN PRN Nausea And Vomiting 10/22/22 potassium chloride 20 mEq tablet,extended release(part/cryst) 20 meq PO DAILY Check with primary doctor 10/22/22 aspirin 81 mg chewable tablet 81 mg PO BREAKFAST #30 tabs 10/24/22 atorvastatin 80 mg tablet 80 mg PO QHS #30 tabs 10/24/22 clopidogrel 75 mg tablet 75 mg PO DAILY #30 tabs 10/24/22 The patient was counseled on the following discharge medications and changes in medications for homegoing were reviewed. The Reason for Use, instructions for use, and potential side effects were reviewed for all new medications. The patient's questions regarding all of their medications were answered. The patient was able to verbally demonstrate an understanding of their discharge medications.
--- NOTE | 2022-10-24 16:28 | PCM.DC.SUM ---
Providers Date of Admission: 10/22/22 Primary Care Physician: Dr. Remington Frederick MD Consultations 10/22/22 15:44 Consult: Vascular Surgery Routine Consulting Provider: Riki Perez Reason for Consult: carotid occlusion EMERGENT Consult: No MD Notified: Yes Date Notified: 10/22/22 Time Notified: 15:17 Method of Notification: Verbal Reason For Visit: CAROTID OCCLUSION Diagnosis Discharge Diagnosis (1) Carotid stenosis, left: Status: Acute Code(s): I65.22 - Occlusion and stenosis of left carotid artery Plan: Consult pending toe vascular for evaluation (2) Carotid occlusion, right: Status: Acute Code(s): I65.21 - Occlusion and stenosis of right carotid artery Plan: MRI consistent with stroke on the right, symptoms are slowly improving Spoke with Dr. Perez who will see the patient in consultation to evaluate the patient for an outpatient carotid endarterectomy Patient be on aspirin and statin At with a normal EF of 60% with stage II diastolic dysfunction and moderate concentric left ventricular hypertrophy and a patent foramen ovale Plan Chronic conditions Colorectal cancer: He has completed cancer treatment under the follow-up as an outpatient with his cancer doctor PAD: Patient has had an aortic aneurysm stent placed. Currently stable. Tobacco abuse VTE prophylaxis with enoxaparin Medications at Discharge Home Medications albuterol sulfate 90 mcg/actuation aerosol inhaler 2 puff inhalation PRN PRN Bronchospasm 10/22/22 capecitabine 500 mg tablet (Xeloda) 1,500 mg PO BID CHEMOTHERAPY 10/22/22 cephalexin 500 mg capsule 500 mg PO TID UTI 10/22/22 docusate sodium 100 mg capsule 100 mg PO BID PRN Constipation 10/22/22 ibuprofen 200 mg tablet (Advil) 800 mg PO PRN PRN Pain 10/22/22 ondansetron HCl 8 mg tablet 8 mg PO PRN PRN Nausea And Vomiting 10/22/22 potassium chloride 20 mEq tablet,extended release(part/cryst) 20 meq PO DAILY Check with primary doctor 10/22/22 aspirin 81 mg chewable tablet 81 mg PO BREAKFAST #30 tabs 10/24/22 atorvastatin 80 mg tablet 80 mg PO QHS #30 tabs 10/24/22 clopidogrel 75 mg tablet 75 mg PO DAILY #30 tabs 10/24/22 Hospital Course Operations None Procedures 2-D Echocardiogram Summary of Care Provided Minutes Spent on Discharge: 38 Hospital Course: Per HPI: MERLENE SINGH, is a 77 M who presents awakening with his left leg over the bed and it was weak.? Patient said it was painful in his knee below.? Difficult to walk.? Saw his oncologist who sent him to the emergency room.? Patient had a head CT is unremarkable and then a CT of the head and neck that showed occlusion of the right internal carotid at the origin and high-grade stenosis at the origin of the left internal carotid.? Neurology was notified of that and recommend patient remaining here to be seen by vascular surgery.? Dr. Perez, vascular surgery, was contacted and will see the patient in consultation.? Patient yesterday did have some trouble speaking and has not had some intermittent left arm weakness and swelling trigger when he gets infusions with his chemotherapy. Hospital Course: 1. Right-sided infarct within the right frontal lobe as well as the precentral gyrus on the right, consistent with embolic disease involving the right MCA/occluded right internal carotid artery as well as a 70% stenotic left internal carotid artery?77-year-old male presented with left-sided symptoms consistent with a stroke. Both his left arm and left leg weakness have resolved and he was ambulated by physical therapy and they did not recommend any inpatient therapy treatments. I discussed with him the possibility of going home and he expressed understanding of the risks and benefits of going home and would like to go today. He will need aspirin Plavix as well as follow-up with vascular GI now patient. We will do with Lipitor as well at night for secondary prevention. Cardiogram did demonstrate an EF of 60% with a patent foramen ovale as well as stage II diastolic dysfunction, he did have a Doppler of his lower extremity which was negative for DVT. 2. Pancytopenia secondary to rectal cancer status postchemotherapy and radiation complicates his medical care. Physical Exam Narrative General: Alert, Oriented x3, Cooperative, No apparent distress HEENT: Atraumatic, PERRLA, EOMI, Normocephalic Oral: Moist Mucosa Neck: Supple, No JVD Lungs: Clear to auscultation, Normal air movement, No rhonchi, No wheeze, No rales Cardiovascular: Regular rate, Regular Rhythm, Normal S1, Normal S2, No murmurs Abdomen: Soft, Non Tender, Non-Distended, No Hepato-splenomegaly Extremities: No edema, Capillary Refill Less than 3 Seconds Skin: No rashes, No breakdown Musculoskeletal: No Tenderness to Palpation of Joints or Extremities Neurological: Cranial nerves II-XII grossly intact, Motor Exam 5/5 strength upper extremities, left lower extremity is a 4+ out of 5, Sensory exam intact to light touch and pain Psych/Mental Status: Normal Affect, Appropriate Weight / BMI Weight Weight: 173 lb 15.115 oz Body Mass Index (BMI) 26.8 ABG / Lab / Microbiology Data Result Diagrams: 10/23/22 05:26 10/24/22 04:56 Laboratory: Laboratory Results - last 24 hr 10/24/22 04:56: Sodium 139, Potassium 3.1 L, Chloride 105, Carbon Dioxide 27.0, Anion Gap 7, BUN 13, Creatinine 0.53 L, Estim Creat Clear Calc 56.00, Est GFR (MDRD) Af Amer 192, Est GFR (MDRD) Non-Af 159, BUN/Creatinine Ratio 24.5 H, Glucose 106, Calcium 8.8 10/24/22 04:56: Phosphorus 2.6, Magnesium 2.1 D/C Instructions Discharge Diet: Low fat / Low cholesterol Call your doctor if you observe: Fever of 101 or Higher, Shortness of breath, Dizziness, Fainting spells, Swelling in the ankles, Chest pain and Increased palpitations (irregular heartbeat) Meaningful Use Info Meaningful Use Diagnoses (Choose all that apply): None applicable Discharge Plan Admission Admit Date/Time: 10/22/22 15:14 Attending Provider: Dilip Terry Primary Care Provider: Remington Frederick Consulting Providers: Riki Perez ; Riki Bauer Instructions Additional Instructions / Restrictions: Follow-up with your PCP to obtain a referral for neurology evaluation as an outpatient Discharge Orders/Prescriptions Prescriptions: New atorvastatin 80 mg Tablet 80 mg PO QHS Qty: 30 0RF clopidogrel 75 mg Tablet 75 mg PO DAILY Qty: 30 0RF aspirin 81 mg Tablet,Chewable 81 mg PO BREAKFAST Qty: 30 0RF Continued cephalexin 500 mg capsule 500 mg PO TID Label Comments: Take 1 capsule by mouth three times daily for 10 days. ibuprofen [Advil] 200 mg Tablet 800 mg PO PRN PRN (Reason: Pain) ondansetron HCl 8 mg tablet 8 mg PO PRN PRN (Reason: Nausea And Vomiting) Label Comments: Take 1 tablet by mouth every 12 hours as needed. capecitabine [Xeloda] 500 mg Tablet 1,500 mg PO BID Rx Instructions: ON RADIATION DAYS ONLY potassium chloride 20 mEq tablet,ER particles/crystals 20 meq PO DAILY Label Comments: Take 1 tablet by mouth once daily. albuterol sulfate 90 mcg/actuation HFA aerosol inhaler 2 puff INHALATION PRN PRN (Reason: Bronchospasm) Label Comments: inhale 2 puffs by mouth and INTO THE LUNGS every 4 hours if neede... (REFER TO PRESCRIPTION NOTES). docusate sodium 100 mg Capsule 100 mg PO BID PRN (Reason: Constipation) Referrals / Follow Up: Benjamín Zuluaga DO [Med Staff - Cosmetics And Toiletries Salesperson] - Remington Frederick MD [Primary Care Provider] - Riki Perez MD [Med Staff - Active Staff] - Within 1 Month Disposition Disposition (needs filled in before D/C Order can be placed): Home, Self Care Charges/Coding Visit Charges Inpatient E&M: 96632 Disch Hosp >30min
== END 2022-10-24 15:55 | disposition home or self-care (01) | DRG 65 ==
LOC: ED 15:17 → PCU 15:26
PROVIDERS: Family Medicine; Emergency Provider Emergency Medicine; PCP Internal Medicine; Visit Provider Family Medicine
DX: I63.411 Cerebral infarction due to embolism of right middle cerebral artery (principal); D61.818 Other pancytopenia; G81.94 Hemiplegia, unspecified affecting left nondominant side; Q21.12 Patent foramen ovale; C18.9 Malignant neoplasm of colon, unspecified; C19 Malignant neoplasm of rectosigmoid junction; I73.9 Peripheral vascular disease, unspecified; I65.23 Occlusion and stenosis of bilateral carotid arteries; F17.210 Nicotine dependence, cigarettes, uncomplicated; M79.662 Pain in left lower leg; M25.462 Effusion, left knee; E78.5 Hyperlipidemia, unspecified; R47.01 Aphasia; R29.700 NIHSS score 0; R29.702 NIHSS score 2; Z66 Do not resuscitate; Z79.02 Long term (current) use of antithrombotics/antiplatelets; Z79.82 Long term (current) use of aspirin; Z79.899 Other long term (current) drug therapy; Z85.46 Personal history of malignant neoplasm of prostate; Z82.3 Family history of stroke
CPT/HCPCS: 36415; 70450; 70496; 70498; 70551; 71045; 80048; 80053; 80061; 82962; 83036; 83735; 84100; 84443; 84484; 85025; 85610; 85730; 92610; 93005; 93306; 93971; 94762; 97110; 97162; 97166; 97530; 97535; 97802; 99285; Q9967; A4216; J2405

== ENCOUNTER → 2022-11-30 | Outpatient (CLI) | payer MEDICARE, OTHER, SELFPAY ==
--- NOTE | 2022-11-30 10:29 | STRESSREP ---
Stress Test Report Date: 11/30/2022 Procedure: Pharmacologic stress nuclear imaging study Indications: Preop cardiac evaluation Consent: Per the patient Procedure: The patient underwent pharmacologic (Regadenoson 0.4mg ) evaluation with a peak heart rate of 90 beats per minute (63%predicted maximal heart rate) and a peak blood pressure of 170/62 mmHg. The baseline ECG demonstrated normal sinus rhythm with nonspecific ST changes. The peak pharmacologic ECG demonstrated did not show any ischemic changes. There were no cardiac dysrhythmias pretest, during pharmacologic infusion, or recovery. There was no complaint of chest discomfort during pharmacologic infusion or recovery. The patient was injected with 15.0 millicuries of technetium 99m Cardiolite and subsequently rest SPECT Cardiolite nuclear imaging was obtained in the horizontal long, vertical long, and short axis views. The patient underwent pharmacologic (Regadenoson) evaluation. The patient was injected with 45.0 millicuries of technetium 99m Cardiolite and subsequently stress SPECT Cardiolite nuclear imaging was obtained in the horizontal long, vertical long, and short axis views. A gated Cardiolite study at peak stress was obtained. The examination was stopped secondary to completion of protocol. Rest and stress SPECT Cardiolite nuclear imaging status post realignment, normalization, and attenuation correction demonstrate uniform tracer uptake. There is end systolic thickening and brightening. The gated Cardiolite study demonstrates myocardial thickening and inward wall motion. The reported LVEF is 63%. Impression: 1. Pharmacologic (Regadenoson) evaluation 2. Peak pharmacologic ECG with no ischemic changes. 3. There were no cardiac dysrhythmias pretest, during pharmacologic infusion, or recovery. 5. No fixed or reversible perfusion defects. 6. The gated Cardiolite study reports an LVEF of 63%. This note was generated with [employer] technologyation software. It may contain incorrect words, spelling, and punctuation that were not noted in checking the note before signing.
== END | disposition home or self-care (01) ==
LOC: CVS 06:43
PROVIDERS: PCP Internal Medicine; Visit Provider Internal Medicine Cardiovascular Disease
DX: Z01.810 Encounter for preprocedural cardiovascular examination (principal); I63.9 Cerebral infarction, unspecified; Q21.12 Patent foramen ovale
CPT/HCPCS: 78452; 93017; A9500; A4216; J2785

== ENCOUNTER 2022-12-26 05:52 | Inpatient (IN) | payer MEDICARE, OTHER, SELFPAY ==
[2022-12-18 15:27] LABS: Hematocrit 37.9 % (40-54); Hemoglobin 12.7 g/dL (13.0-16.5); Mean Corp Hgb Conc 33.5 g/dL (32-36); Mean Corpuscular Hgb 35.6 pg (27.0-32.0); Mean Corpuscular Volume 106.2 fL (80-94); Platelet Count 203 K/mm3 (150-450); RBC Distribution Width CV 14.6 % (11.6-14.6); RBC Distribution Width SD 57.3 fl (35.1-43.9); Red Blood Count 3.57 M/mm3 (4.6-6.2); White Blood Count 6.2 K/mm3 (4.4-11.0)
[2022-12-18 17:01] LABS: Anion Gap 7 (5-15); BUN 19 mg/dL (7-18); Chloride 109 mmol/L (98-107); EST Glomerular Filtration Rate 115 mL/min (>60); Est Glom Filt Rate - Afr Amer 139 mL/min (>60); Glucose 115 mg/dL (74-106); Potassium 3.9 mmol/L (3.5-5.1); Sodium Level 141 mmol/L (136-145)
[2022-12-26] VITALS (28 sets, daily range): BP systolic 94–161; BP diastolic 29–91; PULSE 51–79; RESP 12–18; TEMP 35.6–36.7; O2SAT 94–98; BMI 25.4; BMI 25.1
[2022-12-26] MEDS: Lactated Ringers 1,000 ML 15 ML IV ×4 (06:45→12:00)
--- NOTE | 2022-12-26 07:58 | HP.PCM_ITS ---
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 Stroke neurologist from [facility] [place] felt that he would benefit from treating his left carotid for stroke prevention. He was found to have anatomy appropriate for TCAR. [facility] Medical History (Updated 12/13/22 @ 13:36 by Lindy Urena) AAA (abdominal aortic aneurysm) Alcohol use Arthritis BPH with obstruction/lower urinary tract symptoms Cancer Cardiology follow-up encounter Carotid occlusion, right Carotid stenosis, left Centrilobular emphysema Cigarette smoker Colorectal cancer CVA (cerebral vascular accident) Depression as late effect of cerebrovascular accident (CVA) Effusion, left knee Essential (primary) hypertension General weakness Gross hematuria Heartburn History of prostate cancer Hx of cardiovascular stress test Hx of echocardiogram Hx of edema Hx of flexible sigmoidoscopy Hypertension Loss of hearing Lung nodule Malignant neoplasm of pelvis Pancytopenia Patent foramen ovale PVD (peripheral vascular disease) Rectal cancer Shortness of breath Unsteady gait Walker as ambulation aid Wears dentures Home Medications docusate sodium 100 mg capsule 100 mg PO BID PRN Constipation 10/22/22 [History Last Taken 12/25/22] potassium chloride 20 mEq tablet,extended release(part/cryst) 20 meq PO DAILY Check with primary doctor 10/22/22 [History Last Taken 12/25/22] albuterol sulfate 90 mcg/actuation aerosol inhaler 2 puff inhalation Q4H PRN Bronchospasm 11/21/22 [History Last Taken 12/25/22] ondansetron HCl 8 mg tablet 8 mg PO Q12H PRN Nausea And Vomiting 11/21/22 [History Last Taken 12/25/22] amlodipine 5 mg tablet 5 mg PO DAILY BP 12/13/22 [History Last Taken 12/26/22] aspirin 81 mg chewable tablet 81 mg PO BREAKFAST SUPPLEMENT 12/13/22 [History Last Taken 12/25/22] atorvastatin 80 mg tablet 80 mg PO QHS CJHOLESTEROL 12/13/22 [History Last Taken 12/25/22] clopidogrel 75 mg tablet 75 mg PO DAILY BLOOD THINNER 12/13/22 [History Last Taken 12/25/22] Allergy/AdvReac Type Severity Reaction Status Date / Time tamsulosin AdvReac Intermediate UNABLE TO Verified 12/26/22 06:59 VOID Family History Mother CVA (cerebral vascular accident) Father Cancer Brother Diabetes Heart disease Surgical History (Updated 12/13/22 @ 13:36 by Lindy Urena) History of endovascular stent graft for abdominal aortic aneurysm (AAA) (~2018) Hx of colonoscopy Hx of nasal septoplasty Hx of neck surgery Hx of rotator cuff surgery Hx of vasectomy Social History Smoking Status: Current every day smoker tobacco type: cigarettes alcohol intake: current alcohol intake frequency: holidays/special occasions only substance use type: does not use caffeine: Yes Type: coffee Number of servings: 1 ROS Constitutional Constitutional: Denies chills, fever(s), frequent falls, lethargy or weakness Eyes Eyes: Denies blind spots, change in vision or loss of vision ENT HEENT: Denies bleeding gums, hoarseness or sore throat Cardiovascular Cardiovascular: Denies abdominal pain, bluish discoloration of hand/feet, chest pain with activity, claudication, cold extremities, cyanosis, dyspnea on exertion, erythema on extremities, irregular heart rhythm, leg edema, leg ulcers, numbness in extremities or weakness in extremities Respiratory/Chest Respiratory/Chest: Denies cough, excessive phlegm production, shortness of breath at rest, shortness of breath with exertion or wheezing Gastrointestinal Gastrointestinal: Denies anorexia, change in stool character, constipation, diarrhea, melena or rectal bleeding Genitourinary Genitourinary: Denies dysuria or hematuria Musculoskeletal Musculoskeletal: Denies abnormal gait Integumentary Integumentary: Reports other Details: ; Denies erythema, non-healing lesions or wounds Neurologic Neurologic: Denies abnormal speech, focal weakness, headache(s), loss of vision, numbness, paresthesias or sensory deficit Hematologic/Lymphatic Hematologic/Lymphatic: Denies easy bleeding, easy bruising or lymphadenopathy Vital Signs Vital Signs Vital Signs: 12/26/22 06:20 12/26/22 06:20 Temperature 97.5 F L Temperature Source Temporal Pulse Rate 72 Respiratory Rate 18 Respiratory Pattern Normal Blood Pressure 155/63 H Blood Pressure Mean 93 Blood Pressure Source Monitor Blood Pressure Position Sitting Pulse Ox 95 Oxygen Delivery Method Room Air Weight Weight: 165 lb 5.547 oz Body Mass Index (BMI) 25.4 Physical Exam Const alert, oriented x3, no apparent distress and healthy appearing General Appearance: cooperative; Negative for combative or lethargic Orientation / Consciousness: awake Exam Limitations: no limitations HEENT Head and Scalp: normocephalic and atraumatic Eyes EOMs intact bilaterally General Eye: normal appearance of both eyes Neck full ROM, no lymphadenopathy and thyroid normal General: trachea midline; Negative for lymphadenopathy Thyroid: thyroid normal Resp normal respiratory effort and no use of accessory muscles Effort and Inspection: Negative for labored, stridor or audible wheezes Cardio regular rate, regular rhythm and no murmurs Peripheral Pulses: radial pulses present Back/Spine Cervical Spine: cervical ROM normal Extremity full ROM, normal capillary refill and no clubbing, cyanosis or edema Skin no rashes or lesions noted and no wounds Neuro oriented x3, CN's II-XII intact bilaterally, no focal motor deficits and no sen sam deficits noted Psych thought process normal, cooperative, affect normal, speech normal and activity/motor behavior normal Results Lab / Micro Data Result Diagrams: 12/18/22 13:46 12/18/22 13:46 Assessment & Plan Assessment/Plan (1) Carotid stenosis: PLAN: -left TCAR
--- NOTE | 2022-12-26 10:32 | PCM.OPRPT ---
Report of Operation Date of Procedure: 12/26/22 Pre-Operative Diagnosis: left carotid stenosis Post-Operative Diagnosis: same Surgery/Procedure Performed:: left carotid stent with distal protection Surgeon: Riki Perez Type of Anesthesia: General Drains: 19 Fr MOISÉS Estimated Blood Loss (mL): 5 Description of Procedure: HPI: Patient is a 77-year-old male who has known right carotid artery occlusion recently had suffered a watershed ischemic stroke with a right hemispheric and was found to have severe stenosis of the left internal carotid artery. Stroke neurology felt that the internal carotid artery in the left contributed in part to his poor perfusion of the contralateral hemisphere and the recommendation was for treatment of the carotid either surgically or with stenting. He is significant comorbidities and anatomy that was felt to be appropriate for stenting so he is taken now for elective carotid artery stenting with flow reversal. Description of procedure: Upon obtaining form consent and verification correct patient procedure site patient was taken to the [facility] where he was placed under general anesthesia. He was then positioned prepped and draped in usual sterile fashion a timeout was performed. Transverse incision was made superior to the left clavicle and Bovie electrocautery used to dissect down through subcutaneous tissue to the platysma which was divided and self-retaining retractors put in position. Further dissection was carried down to the sternocleidomastoid which was freed along its lateral border and then retracted medially exposing the jugular vein. Sharp dissection then used to dissect free the jugular vein which was then retracted laterally exposing the common carotid artery. Care was taken to identify and protect the vagus nerve, and sharp dissection used to dissect free the common carotid artery circumferentially and a vessel loop placed. A 5-0 Prolene pursestring suture was then placed in the proximal common carotid artery and the patient heparinized and allowed to circulate for 5 minutes. ACT was performed to confirm satisfactory anticoagulation effect and no further heparin dosing required. We then accessed the right common femoral vein under ultrasound guidance with a micropuncture needle wire. This was then exchanged for micropuncture sheath through which a J-wire was advanced and the micropuncture sheath exchanged for the 8 [place] flow reversal sheath. Next to the left common carotid artery was accessed in antegrade fashion using the procedure specific micropuncture needle and wire. This was then exchanged out for micropuncture sheath through which hand-injection carotid angiogram was performed confirming satisfactory positioning with no extravasation or dissection, as well as determined position of the carotid bifurcation. The micropuncture wire was then advanced into the external carotid artery and the micropuncture sheath advanced further to place the tip within the distal external carotid artery. The dilator and microwire were then withdrawn and the J-wire advanced into the external carotid artery. The micropuncture sheath was then withdrawn and the silk Road flow reversal sheath then advanced over the wire into position with the help flush with the vessel. The sheath was then secured with suture in position and the flow reversal filtration conduit and then attached to both the arterial and venous sheaths with confirmation of flow reversal visualized with flow direction in the tubing. The proximal common carotid artery was then occluded with a DeBakey clamp and repeat angiography of the carotid bifurcation performed confirming again bifurcation positioning as well as distal extent of the plaque. We then traversed the carotid lesion with an 014 wire and predilated with a 5 x 25 angioplasty balloon which was inflated to nominal and then deflated withdrawn. Next an 8 x 40 Enroute carotid stent was advanced in the position and deployed. After 2 minutes of flow reversal repeat angiography was performed which confirmed satisfactory stent positioning, with no extravasation or dissection or significant residual stenosis. There was some spasm in the distal vessels likely cause mild wire which was felt would be self-limiting so no further manipulation or intervention was undertaken. The flow reversal system was then detached and blood flow returned via the femoral vein. The carotid sheath was then withdrawn and the pursestring suture secured with satisfactory stasis noted. Patient was then reversed with protamine and the femoral vein sheath withdrawn followed by 10 minutes of manual pressure with satisfactory stasis. Surgicel topical hemostatic was applied and 19 [place] channel MOISÉS placed via separate stab incision. The incision was closed with 3-0 Vicryl, 4-0 Monocryl and Dermabond for the skin. At the conclusion of case patient was awakened anesthesia moving all extremities to command. He was then taken to the recovery room with anticipated admission to the intensive care unit for hemodynamic and neurologic monitoring. Grafts/Implants Used: 8 x 40 Enroute stent
[2022-12-26] MEDS: Nitroglycerin Infusion 250 ML 60 MG CONT INF (10:50)
[2022-12-26] MEDS: Labetalol (Prefilled) 20 MG/4 ML 10 MG IV (11:52)
[2022-12-26 13:06] LABS: ACT Activated Clotting Time 263 sec (74-137)
[2022-12-26] MEDS: Acetaminophen 500 MG Tablet 1000 MG PO ×2 (14:54→21:17)
[2022-12-26] MEDS: Cefazolin 1 GM/50 ML BAG IV ×2 (16:02→23:05)
[2022-12-26] MEDS: Aspirin 81 MG TAB.CHEW PO (18:58)
[2022-12-26] MEDS: Clopidogrel Bisulfate 75 MG Tablet PO (18:58)
[2022-12-26] MEDS: Atorvastatin Calcium 80 MG Tablet PO (21:12)
[2022-12-26] MEDS: Mag Hydrox/Al Hydrox/Simeth 30 ML UDC PO (21:40)
[2022-12-26] MEDS: Albumin Human 25% (100 mL) 25 GM/100 ML BAG IV (23:04)
[2022-12-27] VITALS (14 sets, daily range): BP systolic 104–159; BP diastolic 35–85; PULSE 62–89; RESP 14–20; TEMP 36.2–37.1; O2SAT 92–97; BMI 26.6
[2022-12-27] MEDS: Acetaminophen 500 MG Tablet 1000 MG PO (05:49)
[2022-12-27 06:09] LABS: Absolute Lymphocyte Count 0.52 X10^3/uL (0.83-4.51); Absolute Neutrophil Count 3.4 X10^3/uL (2.0-7.7); Basophil# 0.01 X10^3/uL; Basophil% 0.2 % (0-1); Eosinophil# 0.11 X10^3/uL; Eosinophils% 2.5 % (0-5); Hematocrit 28.5 % (40-54); Hemoglobin 9.7 g/dL (13.0-16.5); Lymphocyte # 0.52 X10^3/ul (0.83-4.51); Lymphocyte % 11.7 % (19-41); Mean Corpuscular Hgb 35.8 pg (27.0-32.0); Mean Corpuscular Volume 105.2 fL (80-94); Mean Platelet Vol. 10.8 fl (6.2-12.0); Monocyte# 0.37 X10^3/uL; Monocyte% 8.3 % (0-10); NRBC Flagged by Analyzer 0 % (0-5); Neutrophil # 3.42 X10^3/uL (2.7-7.7); Neutrophil % 77.1 % (47-70); POSITIVE DIFFERENTIAL YES; Platelet Count 143 K/mm3 (150-450); RBC Distribution Width CV 13.4 % (11.6-14.6); Red Blood Count 2.71 M/mm3 (4.6-6.2); White Blood Count 4.4 K/mm3 (4.4-11.0)
[2022-12-27 06:15] LABS: Differential Indicated SCAN CRITERIA MET
[2022-12-27 06:23] LABS: Platelet Estimate ADEQUATE (ADEQ); Red Cell Morphology NORM C+C NORMAL (NORM C&C)
[2022-12-27 08:30] LABS: Anion Gap 4 (5-15); BUN 12 mg/dL (7-18); BUN/Creat Ratio 15.4 RATIO (10-20); Calcium,Total 8.3 mg/dL (8.5-10.1); Chloride 108 mmol/L (98-107); Creatinine, Serum 0.78 mg/dL (0.70-1.30); EST Glomerular Filtration Rate 102 mL/min (>60); Est Glom Filt Rate - Afr Amer 124 mL/min (>60); Estimated Creatinine Clearance 57.95 ml/min; Glucose 123 mg/dL (74-106); Potassium 3.3 mmol/L (3.5-5.1); Sodium Level 140 mmol/L (136-145)
[2022-12-27] MEDS: Aspirin 81 MG TAB.CHEW PO (08:56)
[2022-12-27] MEDS: Clopidogrel Bisulfate 75 MG Tablet PO (08:56)
[2022-12-27] MEDS: amLODIPine 5 MG Tablet PO (08:57)
[2022-12-27] MEDS: Enoxaparin 40 MG/0.4 ML Syringe SC (08:57)
[2022-12-27] MEDS: Pantoprazole Sodium 40 MG Tablet PO (08:57)
[2022-12-27] MEDS: Potassium Chloride Oral Tablet 20 MEQ PO (08:57)
--- NOTE | 2022-12-27 12:00 | CASEMGMT ---
RN GIANA Face to Face with patient for initial transition planning/care coordination assessment. RN CM introduced self and role at [facility]. Patient sitting in chair, alert and oriented. Patient willing to participate in assessment and is able to answer all questions appropriately. Care providers, pharmacy, and demographics verified. Patient wishes to discharge home, denies need for home health at this time. Patient states she has no further needs or concerns at this time. CM to follow for discharge planning needs that may arise. PCP: Otoniel Specialists: shiraz Perez Pharmacy[facility] Prescription Benefit: none Living Will/HPOA: none LNOK: daughter Living Arrangements: Patient lives with daughter in a 2 story home. Patient is independent and able to ambulate stairs. Transportation: self, daughter DME/HHC: Patient has shower chair, raised toilet, grab bars, and rollator. No previous HHC or SNF. Disposition Plan: Patient to discharge home with family support and follow-up plans in place. Miriam MOLINA, RN, CM
--- NOTE | 2022-12-27 12:21 | PCM.DC.SUM ---
Providers Date of Admission: 12/26/22 Date of Discharge: 12/27/22 Primary Care Physician: Dr. Remington Frederick MD Reason For Visit: CAROTID STENOSIS Diagnosis Discharge Diagnosis (1) Carotid stenosis: Status: Chronic Code(s): I65.29 - Occlusion and stenosis of unspecified carotid artery Medications at Discharge Home Medications docusate sodium 100 mg capsule 100 mg PO BID PRN Constipation 10/22/22 potassium chloride 20 mEq tablet,extended release(part/cryst) 20 meq PO DAILY Check with primary doctor 10/22/22 albuterol sulfate 90 mcg/actuation aerosol inhaler 2 puff inhalation Q4H PRN Bronchospasm 11/21/22 ondansetron HCl 8 mg tablet 8 mg PO Q12H PRN Nausea And Vomiting 11/21/22 amlodipine 5 mg tablet 5 mg PO DAILY BP 12/13/22 aspirin 81 mg chewable tablet 81 mg PO BREAKFAST SUPPLEMENT 12/13/22 atorvastatin 80 mg tablet 80 mg PO QHS CJHOLESTEROL 12/13/22 clopidogrel 75 mg tablet 75 mg PO DAILY BLOOD THINNER 12/13/22 oxycodone 5 mg tablet 5 mg PO Q8H PRN Pain Score 4-10 3 days #9 tabs 12/27/22 Hospital Course Operations - (Left TCAR) Summary of Care Provided Hospital Course: Patient had left transcarotid artery stenting performed on 12/26/2022 and was routinely admitted post-operatively for hemodynamic and neurological monitoring. The procedure was without complications. A MOISÉS drain was in place following surgery and was removed POD #1 without issue. He had some low blood pressures immediately postop and was on a nitro drip but was able to be weaned off of this a few hours later. Today, patient is voiding without difficulty, tolerating diet, pain is well controlled, ambulating well, hemodynamically and neurologically stable. He is medically stable for discharge home. He will continue Plavix and ASA. He will f/u with our office in 2-3 weeks. Physical Exam Const alert, oriented x3, no apparent distress and healthy appearing General Appearance: cooperative; Negative for combative or lethargic Orientation / Consciousness: awake Exam Limitations: no limitations HEENT Head and Scalp: normocephalic and atraumatic Eyes EOMs intact bilaterally General Eye: normal appearance of both eyes Neck full ROM, no lymphadenopathy and thyroid normal General: trachea midline; Negative for lymphadenopathy Thyroid: thyroid normal Resp normal respiratory effort and no use of accessory muscles Effort and Inspection: Negative for labored, stridor or audible wheezes Cardio regular rate, regular rhythm and no murmurs Peripheral Pulses: radial pulses present Back/Spine Cervical Spine: cervical ROM normal Extremity full ROM, normal capillary refill and no clubbing, cyanosis or edema Skin no rashes or lesions noted and no wounds Neuro oriented x3, CN's II-XII intact bilaterally, no focal motor deficits and no sensory deficits noted Psych thought process normal, cooperative, affect normal, speech normal and activity/motor behavior normal Weight / BMI Weight Weight: 176 lb 2.389 oz Body Mass Index (BMI) 26.6 ABG / Lab / Microbiology Data Result Diagrams: 12/27/22 03:16 12/27/22 03:16 Laboratory: Laboratory Results - last 24 hr 12/26/22 09:25: Activated Clotting Time 263 H 12/27/22 03:16: WBC 4.4, RBC 2.71 L, Hgb 9.7 L, Hct 28.5 L, MCV 105.2 H, MCH 35.8 H, MCHC 34.0, RDW Std Deviation 52.0 H, RDW Coeff of Lamin 13.4, Plt Count 143 L, MPV 10.8, Immature Gran % (Auto) 0.200, Neut % (Auto) 77.1 H, Lymph % (Auto) 11.7 L, [place] % (Auto) 8.3, Eos % (Auto) 2.5, Baso % (Auto) 0.2, Absolute Neuts (auto) 3.4, Absolute Lymphs (auto) 0.52 L, Nucleated RBC % 0, Platelet Estimate ADEQUATE, RBC Morphology NORM C+C, Jovany Cells 12/27/22 03:16: Sodium 140, Potassium 3.3 L, Chloride 108 H, Carbon Dioxide 28.0, Anion Gap 4 L, BUN 12, Creatinine 0.78, Estim Creat Clear Calc 57.95, Est GFR (MDRD) Af Amer 124, Est GFR (MDRD) Non-Af 102, BUN/Creatinine Ratio 15.4, Glucose 123 H, Calcium 8.3 L D/C Instructions Discharge Diet: No restrictions May shower in (days): 1 Weight Bearing Status: Weight bearing as tolerated Lifting Restricted to (Lbs): 20 Lifting Restrictions: Do not lift greater than 20 pounds for 3 weeks Call your doctor if your incision/area has: Sudden Increased Bleeding and Increased Pain/ Swelling Call your doctor if you observe: Fever of 101 or Higher and Uncontrolled pain Remove Dressing in: 1 day Additional Dressing/Incision Instructions: You may remove the dressings over your incision sites tomorrow. If there is still some drainage, you may cover with band-aid or dry gauze. If there is no drainage, no need to cover. Additional Instructions: You may shower tomorrow. Do not take a bath or submerge the incision sites for 3 weeks. Do not lift greater than 20 pounds for 3 weeks. Continue to take your Plavix and Aspirin as prescribed. Prescription pain medication oxycodone 5mg has been sent to your pharmacy. Take only as directed. Do not drive when taking this medication. Please contact our office with any questions or concerns. Please Follow Up With: Riki Perez MD When: 01/15/23 Meaningful Use Info Meaningful Use Diagnoses (Choose all that apply): None applicable Discharge Plan Admission Admit Date/Time: 12/26/22 05:52 Primary Reason for Your Visit: left TCAR Attending Provider: Riki Perez Primary Care Provider: Remington Frederick Consulting Providers: Lorraine Umana ; Jeff White Discharge Orders/Prescriptions Prescriptions: New oxycodone 5 mg Tablet 5 mg PO Q8H PRN (Reason: Pain Score 4-10) 3 Days Qty: 9 0RF Continued potassium chloride 20 mEq tablet,ER particles/crystals 20 meq PO DAILY Label Comments: Take 1 tablet by mouth once daily. docusate sodium 100 mg Capsule 100 mg PO BID PRN (Reason: Constipation) albuterol sulfate 90 mcg/actuation HFA aerosol inhaler 2 puff INHALATION Q4H PRN (Reason: Bronchospasm) Label Comments: inhale 2 puffs by mouth and INTO THE LUNGS every 4 hours if neede... (REFER TO PRESCRIPTION NOTES). ondansetron HCl 8 mg tablet 8 mg PO Q12H PRN (Reason: Nausea And Vomiting) Label Comments: Take 1 tablet by mouth every 12 hours as needed. atorvastatin 80 mg tablet 80 mg PO QHS clopidogrel 75 mg tablet 75 mg PO DAILY amlodipine 5 mg tablet 5 mg PO DAILY aspirin 81 mg tablet,chewable 81 mg PO BREAKFAST Referrals / Follow Up: Remington Frederick MD [Primary Care Provider] - Disposition Disposition (needs filled in before D/C Order can be placed): Home, Self Care
== END 2022-12-27 14:00 | disposition home or self-care (01) | DRG 35 ==
LOC: ACINP 09:01 → ICU 12:09
PROVIDERS: Anesthesiology; Physician Assistant; Admitting Provider Surgery Trauma Surgery; PCP Internal Medicine; Referring Provider Surgery Trauma Surgery; Visit Provider Surgery Trauma Surgery
PROC: 037J3DZ Dilation of Left Common Carotid Artery with Intraluminal Device, Percutaneous Approach (ICD-10-PCS; CPT 37236; principal; 2022-12-26 07:30)
DX: I65.22 Occlusion and stenosis of left carotid artery (principal); Q21.12 Patent foramen ovale; F17.210 Nicotine dependence, cigarettes, uncomplicated; I10 Essential (primary) hypertension; I95.81 Postprocedural hypotension; Z79.02 Long term (current) use of antithrombotics/antiplatelets; Z79.82 Long term (current) use of aspirin; Z79.899 Other long term (current) drug therapy; Z86.73 Personal history of transient ischemic attack (TIA), and cerebral infarction without residual deficits
CPT/HCPCS: 36415; 37215; 76937; 80048; 85025; 85027; 85347; 86850; 86900; 86901; 94668; 94762; 97802; 99252; 99406; C1725; C1769; C1876; C1884; C1894; J7030; J7050; J7120; P9047; Q9967; G0463; J2405

== ENCOUNTER → 2023-01-28 | Outpatient (CLI) | payer MEDICARE, OTHER, SELFPAY ==
--- NOTE | 2023-01-28 08:48 | AAVD_ITS ---
Reason For Study: Endograft Aorta Measurements Aorta Doppler Measurements Proximal aorta measures1.80 x 1.84cm. in cross- Peak systolic flow velocities within the proximal sectional axis. aorta measure 90.4 cm/sec. Proximal aorta measures1.76cm. in longitudinal Peak systolic flow velocities within the mid aorta axis. measure 114.0 cm/sec. Mid aorta measures1.53 x 1.59cm. in cross- Rt Endograft limb has a PSV of 80.1cm/s at prox. sectional axis. Rt Endograft limb has a PSV of 66.2 cm/s at dist. Mid aorta measures1.44cm. in longitudinal axis. Lt Endograft limb has a PSV of 72.3 cm/s at prox Aorta Endograft noted at mid measuring 2.51cm x Rt Endograft limb has a PSV of 45.3 cm/s at dist. 2.65cm in transverse view. Original Aneurysm visualized measuring 4.54cm x 4.23cm. Rt Endograft limb measures 1.21cm x 1.25 cm in transverse and 1.20 in long view. Lt Endograft limb measures 1.23cm x 1.20 cm in transverse and 1.23 in long view. Both limbs show no sign of leak. Left Iliac Artery Left iliac artery measures 1.64 x 1.63 cm. in the cross-sectional axis. Left iliac artery measures 1.65 cm. in the longitudinal axis. Peak systolic velocity in the left iliac artery measures 184.0 cm/sec. Lt External Iliac A has a PSV of 519.5cm/s at prox. Right Iliac Artery Right iliac artery measures 1.46 x 1.44 cm. in the cross-sectional axis. Right iliac artery measures 1.47 cm. in the longitudinal axis. Peak systolic velocity in the right iliac artery measures 50.2 cm/sec. Procedure Aorta IVC Iliac vasculature or bypass grafts 94439. The exam was diagnostic. Technically difficult exam due to calcific shadowing and bowel gas. Exam performed in department. VL/Abd Aortic/IVC Duplex scan Interpretation Summary Patent aortic endograft with 4.54 cm residual sac and no endoleak visualized. Left external iliac artery with stenosis. Ordering Physician: Lorraine Umana Referring Physician: Remington Frederick M.D. Performed By: Vazquez Young RVT
--- NOTE | 2023-01-28 08:48 | CDU_ITS ---
Reason For Study: Lt Carotid Stent Rt. Velocities/BP Lt. Velocities/BP Prox CCA 70.2/9.7 cm/sec. Prox CCA 119.8/26.7 cm/sec. Mid CCA 56.3/8.1 cm/sec. Mid CCA 72.3/15.7 cm/sec. Dist CCA 37.4/8.1 cm/sec. Dist CCA 110.7/24.8 cm/sec. Prox ICA 252.4/25.5 cm/sec. PROX ICA Mid ICA 0.0/0.0 cm/sec. Prox stent - 103.4/21.2 cm/s Dist ICA 0.0/0.0 cm/sec. Mid stent - 108.9/21.2 cm/s Known total occlusion. Distal stent - 176.5/37.5. Prox ECA 483.2/45.9 cm/sec. Mid ICA 89.1/24.8 cm/sec. Rt. Vert. 105.2/27.5 cm/sec. Dist ICA 95.6/25.1 cm/sec. Lt. ICA/CCA = 2.44. Prox ECA 379.7/25.5 cm/sec. Lt. Vert. 52.9/11.0 cm/sec. Right Extracranial There is heterogeneous, irregular atherosclerotic plaque noted in the right common carotid artery. There is heterogeneous, irregular atherosclerotic plaque noted in the right internal carotid artery. The right internal carotid artery is occluded. There is heterogeneous, irregular atherosclerotic plaque noted in the right external carotid artery. Antegrade flow is noted in the right vertebral artery. Elevated velocities noted. Left Extracranial There is heterogeneous, smooth atherosclerotic plaque noted in the left common carotid artery. Stent noted. There is heterogeneous, irregular atherosclerotic plaque noted in the left internal carotid artery. The atherosclerotic plaque causes acoustic shadowing. Stent Noted. There is heterogeneous, irregular atherosclerotic plaque noted in the left external carotid artery. Antegrade flow is noted in the left vertebral artery. Procedure Carotid Duplex [id number]. This is a Carotid Duplex examination using B-mode, color flow and specral Doppler. The study was technically difficult due to calcified shadowing. Exam performed in department. VL/Carotid Duplex Ultrasound Interpretation Summary Right internal carotid artery known occlusion. Moderate (50-69%) stenosis left extracranial internal carotid. Patent and antegrade vertebrals bilaterally. Ordering Physician: Lorraine Umana Referring Physician: Remington Frederick M.D. Performed By: Vazquez Young RVT
== END | disposition home or self-care (01) ==
LOC: CVS 08:48
PROVIDERS: PCP Internal Medicine; Referring Provider Physician Assistant; Visit Provider Physician Assistant
DX: I10 Essential (primary) hypertension (principal); I65.21 Occlusion and stenosis of right carotid artery; Z86.79 Personal history of other diseases of the circulatory system
CPT/HCPCS: 93880; 93978

== ENCOUNTER 2023-03-14 10:15 | Outpatient (RCR) | payer MEDICARE, OTHER, SELFPAY ==
--- NOTE | 2023-03-13 10:26 | PCM.CONHBO ---
Assessment & Plan Assessment/Plan (1) Radiation adverse effect: QUALIFIERS: Encounter type: initial encounter Qualified Code(s): T66.XXXA - Radiation sickness, unspecified, initial encounter (2) Rectal cancer: (3) Soft tissue radionecrosis: PLAN: Plan Ordered chest x-ray CBC with differential EKG Ordered HBO treatments to start at [facility] 2.0 hours daily Saturday through Saturday no breaks Patient watched film on the HBO treatments No smoking prior to treatments We will call with results as they come in and get patient then scheduled. History of Present Illness Date of Service: 03/13/23 Chief Complaint: HBO consult for soft tissue radionecrosis of the rectum. History of Wound: 78-year-old white male who appears here with his daughter his last radiation and chemo was September 2022 for his rectal cancer . He also sees urology at the [facility] His biggest complaint is that he is having persistent pain in his rectum that is worse with sitting he also is having intense pain on urination but stops when he completes urination the pain is so intense it becomes cramping in his legs and upper back. The urologist notified the oncologist and told him he needed to take care of the pain so they ordered him Pyridium that caused him severe weakness and is no longer able to take it. They also suggested he get HBO treatments at our facility and that is what he is here today for evaluation Progress of Wound: November 01, 2022 had a repeat MRI of the rectum with and without contrast in comparison with MRI of 08/22/2022 impression was decreased size of the the now 3 cm anal rectal tumor with residual tumor unchanged possible invasion of the right prostatic apex he also found decreased size of the right superior mesorectal node no new pelvic lymphadenopathy since July 2022 So we will go ahead and get a chest x-ray EKG and repeat labs. We will try to do HBO treatments for pain relief. [facility] Medical History AAA (abdominal aortic aneurysm) Alcohol use Arthritis BPH with obstruction/lower urinary tract symptoms Cancer Cardiology follow-up encounter Carotid occlusion, right Carotid stenosis, left Centrilobular emphysema Cigarette smoker Colorectal cancer CVA (cerebral vascular accident) Depression as late effect of cerebrovascular accident (CVA) Effusion, left knee Essential (primary) hypertension General weakness Gross hematuria Heartburn History of prostate cancer Hx of cardiovascular stress test Hx of echocardiogram Hx of edema Hx of flexible sigmoidoscopy Hypertension Loss of hearing Lung nodule Malignant neoplasm of pelvis Pancytopenia Patent foramen ovale PVD (peripheral vascular disease) Rectal cancer Shortness of breath Unsteady gait Walker as ambulation aid Wears dentures Home Medications docusate sodium 100 mg capsule 100 mg PO BID PRN Constipation 10/22/22 [History Last Taken 12/25/22] potassium chloride 20 mEq tablet,extended release(part/cryst) 20 meq PO DAILY Check with primary doctor 10/22/22 [History Last Taken 12/25/22] amlodipine 5 mg tablet 5 mg PO DAILY BP 12/13/22 [History Last Taken 12/26/22] aspirin 81 mg chewable tablet 81 mg PO BREAKFAST SUPPLEMENT 12/13/22 [History Last Taken 12/25/22] atorvastatin 80 mg tablet 80 mg PO QHS CJHOLESTEROL 12/13/22 [History Last Taken 12/25/22] tramadol 50 mg tablet 50 mg PO BID PRN pain 03/13/23 [History Last Taken Unknown] Allergy/AdvReac Type Severity Reaction Status Date / Time tamsulosin AdvReac Intermediate UNABLE TO Verified 01/15/23 13:01 VOID Family History Mother CVA (cerebral vascular accident) Father Cancer Brother Diabetes Heart disease Surgical History History of endovascular stent graft for abdominal aortic aneurysm (AAA) (~2017) Hx of colonoscopy Hx of nasal septoplasty Hx of neck surgery Hx of rotator cuff surgery Hx of vasectomy Social History Smoking Status: Current every day smoker tobacco type: cigarettes alcohol intake: current alcohol intake frequency: holidays/special occasions only substance use type: does not use caffeine: Yes Type: coffee Number of servings: 1 ROS Constitutional Constitutional: Reports systems reviewed and no addt'l complaints, except as documented Eyes Eyes: Reports systems reviewed and no addt'l complaints, except as documented ENT HEENT: Reports systems reviewed and no addt'l complaints, except as documented Cardiovascular Cardiovascular: Reports systems reviewed and no addt'l complaints, except as documented Respiratory/Chest Respiratory/Chest: Reports systems reviewed and no addt'l complaints, except as documented Gastrointestinal Gastrointestinal: Reports systems reviewed and no addt'l complaints, except as documented Genitourinary Genitourinary: Reports abdominal discomfort and burning urination Musculoskeletal Musculoskeletal: Reports back pain, muscle cramps, muscle spasms and radiating pain into limb Integumentary Integumentary: Reports systems reviewed and no addt'l complaints, except as documented Neurologic Neurologic: Reports systems reviewed and no addt'l complaints, except as documented Psychiatric Psychiatric: Reports systems reviewed and no addt'l complaints, except as documented Endocrine Endocrinology: Reports systems reviewed and no addt'l complaints, except as documented Hematologic/Lymphatic Hematologic/Lymphatic: Reports systems reviewed and no addt'l complaints, except as documented Allergic/Immunologic Allergic/Immunologic: Reports systems reviewed and no addt'l complaints, except as documented Physical Exam Physical Exam Const oriented x3 General Appearance: cooperative Exam Limitations: no limitations HEENT normocephalic Head and Scalp: normal to inspection Face and Sinus: normal facial exam Nose: external nose normal General Ear: hearing grossly impaired External Ear: external ears normal External Auditory Canal: EAC's normal Tympanic Membrane: TM's normal bilaterally Mouth: oral and palatal mucosa normal Eyes PERRL General Eye: normal appearance of both eyes Neck full ROM General: normal visual inspection Resp normal respiratory effort Effort and Inspection: able to speak in complete sentences Auscultation: clear to auscultation bilaterally Cardio regular rate and regular rhythm Palpation: normal PMI Rate: regular rate Rhythm: regular rhythm GI Auscultation: normoactive bowel sounds Palpation: soft and no hepatosplenomegaly external exam normal Back/Spine Cervical Spine: cervical ROM normal Thoracic Spine / Upper Back: normal to inspection Lumbar Spine / Lower Back: normal to inspection Extremity normal to inspection General Extremity: normal exam except as noted Skin no rashes or lesions noted Neuro oriented x3 Psych Appearance: grossly normal Speech: normal speech Thought Content: normal thought content Judgement: judgement good Nursing Assessment and Debridement Post-Debridement Measurements and Additional Note: Post-Debridement Measurements/Treatment WC - Nurse 2 - General Ulcer CM Notes Start: 03/13/23 08:52 Freq: Status: Active Protocol: Activity Type Activity Date Activity User E-sign Co-sign Detail Recorded Client Recorded Date Recorded By Document 03/13/23 09:28 MW [id number] 03/13/23 09:36 MW 03/13/23 09:28 Pain Scale: 0-10 Numeric Is Patient Pain Free? Yes
--- NOTE | 2023-03-14 10:25 | RAD_ITS ---
EXAM: XR CHEST, 2 VIEWS CLINICAL INDICATION: LUNG NODULE TECHNIQUE: Frontal and lateral views of the chest. COMPARISON: Previous chest radiographs of 10/22/2022. FINDINGS: LUNGS AND PLEURAL SPACES: Stable circumscribed 9 mm rounded nodule projected over the right lower lung on the frontal view, in good position for a nipple shadow, with a faint nipple shadow also noted on the left. Lungs remain hyperinflated No consolidation or edema. No pneumothorax. No effusion. 2 thin linear metallic densities measuring 4 mm in length are again projected over the right lung, with one overlying the right midlung while the other overlies the right lower lobe posteriorly. HEART: Normal heart size. Pruning of the peripheral pulmonary vascular markings due to pulmonary emphysema. MEDIASTINUM: Stable mild elongation and calcification of the thoracic aorta. BONES/JOINTS: Cervical fixation plate and screws in place. Soft tissue anchor projected over the right humeral head. SOFT TISSUES: Intravascular stent material projecting over the upper abdomen. RAD/Chest PA and Lateral IMPRESSION: Pulmonary emphysema. Probable nipple shadows noted on the frontal view; repeat frontal chest radiograph with nipple markers suggested for confirmation. No acute pulmonary infiltrates. Electronically Signed: Everton Gamboa MD at 16:35 EDT ,
== END 2023-03-22 23:59 | disposition home or self-care (01) ==
LOC: PSN 10:15
PROVIDERS: PCP Internal Medicine; Referring Provider Radiology Radiation Oncology; Visit Provider Nurse Practitioner
DX: L59.8 Other specified disorders of the skin and subcutaneous tissue related to radiation (principal); J43.9 Emphysema, unspecified; C20 Malignant neoplasm of rectum; I73.9 Peripheral vascular disease, unspecified; Z79.82 Long term (current) use of aspirin; F17.210 Nicotine dependence, cigarettes, uncomplicated; R30.9 Painful micturition, unspecified; I10 Essential (primary) hypertension; T66.XXXS Radiation sickness, unspecified, sequela; Y84.2 Radiological procedure and radiotherapy as the cause of abnormal reaction of the patient, or of later complication, without mention of misadventure at the time of the procedure; Z79.899 Other long term (current) drug therapy; N40.0 Benign prostatic hyperplasia without lower urinary tract symptoms
CPT/HCPCS: 71046; 93005; 99203; G0463

== ENCOUNTER 2023-03-22 13:40 | Emergency (ER) | payer MEDICARE, OTHER, SELFPAY ==
[2023-03-22 13:43] VITALS: BP 127/81; PULSE 105; RESP 18; TEMP 36.6; O2SAT 97
[2023-03-22 13:44] VITALS: BP 127/80; PULSE 105; RESP 18; TEMP 36.6; O2SAT 96
--- NOTE | 2023-03-22 14:37 | CT_ITS ---
EXAM: CT ABDOMEN AND PELVIS WITH INTRAVENOUS CONTRAST CLINICAL INDICATION: rectal pain TECHNIQUE: Helically acquired images were obtained of the abdomen and pelvis with intravenous contrast. This CT exam was performed using one or more of the following dose reduction techniques: automated exposure control, adjustment of the mA and/or kV according to patient size, and/or use of iterative reconstruction technique. CONTRAST: IV 100mL [id number] COMPARISON: No relevant prior studies available. FINDINGS: LOWER THORAX: Normal. Lung bases are clear. No cardiomegaly. No pericardial effusion. ABDOMEN: LIVER: Normal. Homogeneous. No focal mass. PANCREAS: Normal. No focal cystic or solid mass. SPLEEN: Normal. Normal size without focal cystic or solid mass. ADRENALS: Normal. No nodules. KIDNEYS AND URETERS: Mild distention of the renal collecting system noted bilaterally which may be due to the distended urinary bladder. Normal renal size and position. No hydronephrosis. STOMACH AND BOWEL: Moderate diffuse stool burden within the large bowel. Rectosigmoid colon is contracted. Underlying proctitis to be excluded. Wall thickening of the gastric antrum may be related to underdistention. Antritis is not excluded. PELVIS: APPENDIX: Appendix is visualized and normal in appearance. BLADDER: Mild urinary bladder wall thickening raises the possibility of cystitis. REPRODUCTIVE: Brachitherapy seeds noted within the prostate gland. ABDOMEN and PELVIS: INTRAPERITONEAL SPACE: Normal. No ascites or other fluid collection. No free air. BONES/JOINTS: No suspicious lytic or blastic abnormality. SOFT TISSUES: Normal. No discrete abdominal or pelvic wall hernia. VASCULATURE: Aortobiiliac stent graft in place within the infrarenal aorta. Abdominal aorta is non-dilated. LYMPH NODES: Normal. No enlarged lymph nodes. CT/Abdomen/Pelvis W IV Cont ONLY IMPRESSION: 1. Wall thickening of the distal sigmoid colon and rectum suggestive of a proctocolitis, possibly related to treatment changes. Associated fecal retention. 2. Question urinary cystitis. Electronically Signed: Saleem Keller MD at 16:05 EDT ,
[2023-03-22] MEDS: Ondansetron 4 MG/2 ML Vial IV (14:50)
[2023-03-22] MEDS: Morphine 4 MG/ML Syringe IV ×2 (14:50→15:40)
[2023-03-22] MEDS: 0.9% Normal Saline 1,000 ML 1000 ML IV (14:51)
--- NOTE | 2023-03-22 14:52 | EDS_ITS ---
HPI <MONIQUE Terrazas - Last Filed: 03/22/23 19:31> History of Present Illness Chief Complaint: Complaint Narrative Narrative: Patient is an 78-year-old male with history of CVA, rectal cancer last radiation was March 22, 2023, hypertension, COPD who still smokes who takes aspirin daily presents to the emergency department for difficulty urinating, increased rectal pain. Patient states that for the last month, he is having difficulty urinating, emptying his bladder. Patient had an ultrasound of his bladder 4 days ago, showed bladder distention with a thickened wall concerning for urinary retention. Patient denies any fever or chills. Patient has not been eating or drinking well at home, he is also not drinking because he has difficulty urinating. He states that he is urinating quite a bit out of his rectum. He is concerned he might have a fissure. He is here with his daughter who does most of his care and takes him to his doctor's appointments. [facility] <MONIQUE Terrazas - Last Filed: 03/22/23 19:31> [facility] Medical History AAA (abdominal aortic aneurysm) Alcohol use Arthritis BPH with obstruction/lower urinary tract symptoms Cancer Cardiology follow-up encounter Carotid occlusion, right Carotid stenosis, left Centrilobular emphysema Cigarette smoker Colorectal cancer CVA (cerebral vascular accident) Depression as late effect of cerebrovascular accident (CVA) Effusion, left knee Essential (primary) hypertension General weakness Gross hematuria Heartburn History of prostate cancer Hx of cardiovascular stress test Hx of echocardiogram Hx of edema Hx of flexible sigmoidoscopy Hypertension Loss of hearing Lung nodule Malignant neoplasm of pelvis Pancytopenia Patent foramen ovale PVD (peripheral vascular disease) Rectal cancer Shortness of breath Unsteady gait Walker as ambulation aid Wears dentures Home Medications docusate sodium 100 mg capsule 100 mg PO DAILY 10/22/22 [History Last Taken 12/25/22] potassium chloride 20 mEq tablet,extended release(part/cryst) 20 meq PO DAILY Check with primary doctor 10/22/22 [History Last Taken 12/25/22] amlodipine 5 mg tablet 5 mg PO DAILY BP 12/13/22 [History Last Taken 12/26/22] aspirin 81 mg chewable tablet 81 mg PO BREAKFAST SUPPLEMENT 12/13/22 [History Last Taken 12/25/22] atorvastatin 80 mg tablet 80 mg PO QHS CJHOLESTEROL 12/13/22 [History Last Taken 12/25/22] tramadol 50 mg tablet 50 mg PO BID PRN pain 03/13/23 [History Last Taken Unknown] Allergy/AdvReac Type Severity Reaction Status Date / Time tamsulosin AdvReac Intermediate UNABLE TO Verified 03/22/23 13:45 VOID Family History Mother CVA (cerebral vascular accident) Father Cancer Brother Diabetes Heart disease Surgical History History of endovascular stent graft for abdominal aortic aneurysm (AAA) (~2018) Hx of colonoscopy Hx of nasal septoplasty Hx of neck surgery Hx of rotator cuff surgery Hx of vasectomy Social History Smoking Status: Current every day smoker tobacco type: cigarettes alcohol intake: current alcohol intake frequency: holidays/special occasions only substance use type: does not use caffeine: Yes Type: coffee Number of servings: 1 ROS <MONIQUE Terrazas - Last Filed: 03/22/23 19:31> ROS ED ROS Narrative Constitutional: Negative for fever, chills, weight loss. Positive for weakness Eyes: Negative for vision loss, vision change, double vision ENT: Negative for any sore throat, ear pain, congestion Cardiovascular: Negative for any chest pain, tightness, palpitations Respiratory: Negative for any cough, sputum production, hemoptysis, dyspnea, dyspnea on exertion, orthopnea Gastrointestinal: Negative for any nausea, vomiting, diarrhea, constipation, blood in stool, blood in vomit. Positive for lower abdominal pain, rectal pain : Negative for any urinary frequency, dysuria, blood in urine. Positive for urinary retention, urine leaking from the rectum Muscle skeletal: Negative for any muscle joint pain, stiffness, myalgias, arthralgias, neck pain, back pain Neurological: Negative for any headache, syncope, numbness or tingling, dizziness Skin: Negative for any rashes, lumps, itching, abrasions, lacerations Psychiatric: Negative for any depression, anxiety, stress, suicidal ideation, homicidal ideation Hematologic: Negative for any easy bruising, excessive bruising, easy bleeding Allergies: Negative for any eczema, hives, rash EXAM <MONIQUE Terrazas - Last Filed: 03/22/23 19:31> Physical Exam Narrative Exam Narrative: Vital signs reviewed. HEET: Head normocephalic atraumatic, TMs clear bilaterally. Posterior pharynx is clear, dry mucous membranes. Nares clear bilaterally. Neck: Supple with no lymphadenopathy or tenderness. No signs of meningismus, negative jolt sign. Cardiac: Regular rate and rhythm no murmurs gallops or rubs, equal peripheral pulses bilaterally. Respiratory: Lungs clear to auscultation bilaterally. No chest tenderness. Abdomen: Soft. No abdominal bruit or pulsatile masses. No hepatosplenomegaly. Patient does have some distention to the lower abdomen, pain on deep palpation. Extremities: No peripheral edema, no signs of gross trauma or deformity. Active full range of motion of all extremities. Neuro: Cranial nerves II through XII intact, no focal neurological deficits. Skin: Clean dry and intact with no rash, purpura, petechiae, vesicles or pustules. Backs/flank: No CVA tenderness, no midline spinal tenderness, no deformity. Psych: Normal mood and affect. No SI, HI or acute psychosis. Const Vital Signs: 03/22/23 13:43 03/22/23 13:44 03/22/23 15:28 Temperature 98 F 98 F Temperature Source Temporal Oral Pulse Rate 105 H 105 H 104 H Respiratory Rate 18 18 20 H Blood Pressure 127/81 H 127/80 H 138/92 H Blood Pressure Mean 96 95 107 Pulse Ox 97 96 98 Oxygen Delivery Method Room Air Room Air Room Air 03/22/23 18:06 03/22/23 18:42 Temperature Temperature Source Pulse Rate 70 70 Respiratory Rate 18 18 Blood Pressure 166/64 H 166/64 H Blood Pressure Mean 98 98 Pulse Ox 95 95 Oxygen Delivery Method Room Air Positive well nourished and well developed General Appearance ED: well developed <Dr. Jasvir Swartz MD - Last Filed: 03/22/23 15:45> Physical Exam Const Vital Signs: 03/22/23 13:43 03/22/23 13:44 03/22/23 15:28 Temperature 98 F 98 F Temperature Source Temporal Oral Pulse Rate 105 H 105 H 104 H Respiratory Rate 18 18 20 H Blood Pressure 127/81 H 127/80 H 138/92 H Blood Pressure Mean 96 95 107 Pulse Ox 97 96 98 Oxygen Delivery Method Room Air Room Air Room Air 03/22/23 18:06 03/22/23 18:42 Temperature Temperature Source Pulse Rate 70 70 Respiratory Rate 18 18 Blood Pressure 166/64 H 166/64 H Blood Pressure Mean 98 98 Pulse Ox 95 95 Oxygen Delivery Method Room Air [facility] <MONIQUE Terrazas - Last Filed: 03/22/23 19:31> [facility] Lab Data Labs: Laboratory Results - last 24 hr 03/22/23 14:50 WBC 10.1 RBC 3.91 L Hgb 12.1 L Hct 37.1 L MCV 94.9 H MCH 30.9 MCHC 32.6 RDW Std Deviation 50.7 H RDW Coeff of Lamin 14.6 Plt Count 289 MPV 10.3 Immature Gran % (Auto) 0.400 Neut % (Auto) 83.6 H Lymph % (Auto) 6.9 L Yuba % (Auto) 8.5 Eos % (Auto) 0.3 Baso % (Auto) 0.3 Absolute Neuts (auto) 8.4 H Absolute Lymphs (auto) 0.69 L Nucleated RBC % 0 Sodium 140 Potassium 4.1 Chloride 108 H Carbon Dioxide 27.0 Anion Gap 5 BUN 20 H Creatinine 0.69 L Est GFR (MDRD) Af Amer 142 Est GFR (MDRD) Non-Af 117 BUN/Creatinine Ratio 29.0 H Glucose 86 Calcium 8.9 Total Bilirubin 0.30 AST 12 L ALT 17 Alkaline Phosphatase 75 Total Protein 7.0 Albumin 2.8 L Globulin 4.2 Albumin/Globulin Ratio 0.7 L Radiography Diagnostic Testing: Clinical Impression(s) from Imaging Studies Abdomen/Pelvis CT 03/22/23 14:37 IMPRESSION: 1. Wall thickening of the distal sigmoid colon and rectum suggestive of a proctocolitis, possibly related to treatment changes. Associated fecal retention. 2. Question urinary cystitis. Electronically Signed: Saleem Keller MD at 16:05 EDT , Treatment and Re-Evaluation :: Patient appears to be in mild distress secondary to urinary retention, rectal pain. Patient has a history of rectal cancer, as well as rectal cancer. Patient presents to the emergency department for weakness, urinary retention as well as urinary leaking from his rectum. Patient will receive a full work- up.Patient appears nontoxic. Patient received some IV fluids, IV morphine and Zofran. Laboratory eval as well as a urinalysis. Patient received a CT scan of the abdomen pelvis with IV contrast concerning for any mass, fissure, obstructing pathology. Patient's laboratory studies show a normal CBC, patient's white blood count 10.1, hemoglobin 12.1 with a hematocrit 37.1. Patient creatinine is 0.69, glucose [address] shows wall thickening of the distal sigmoid colon and rectum suggestive of proctocolitis, possibly due to treatment changes. Questionable urinary cystitis. There was difficulty placing a urinary catheter to the patient. Patient still has not provided urine sample however patient is having difficulty urinating. Multiple staff members attempted to obtain a urinary catheter however was unsuccessful. I did personally try to place a coud? catheter however was unsuccessful. At this time, I do believe the patient needs to be admitted to [facility] secondary to his urologist being in that system. We do not currently have urology coverage today here at [facility]. I spoke with the patient, the patient's daughter, they are agreeable. There is excepting physician at [facility]. Patient stable for transfer <Dr. Jasvir Swartz MD - Last Filed: 03/22/23 15:45> [facility] Narrative Medical decision making narrative: I have personally performed a face to face assessment of the patient and have reviewed the IVONE Note. I performed a substantive portion of the visit including all aspects of the following. My calvin findings include: History is [78-year-old male history of prior cancer with radiation and chemotherapy. No surgery. States he is unable to urinate and thinks he is having urine come out of his rectum.] Exam is [78-year-old male no acute distress. Vital signs stable afebrile. H EENT exam unremarkable. Lungs clear. Heart regular rhythm. Abdomen soft, nontender, nondistended normal bowel sounds no peritoneal signs. External exam unremarkable. Moving all 4 extremities. No edema. Neurologically is awake and alert.] Medical Decision Making [78-year-old male with concern for urinary retention may have a prostate or other mass. If he is truly having urine from his rectum he may have a fistula from his bladder to his rectum. Will attempt to place a Salguero catheter. CAT scan and labs.] Other additions or changes: [None] Lab Data Labs: Laboratory Results - last 24 hr 03/22/23 14:50 WBC 10.1 RBC 3.91 L Hgb 12.1 L Hct 37.1 L MCV 94.9 H MCH 30.9 MCHC 32.6 RDW Std Deviation 50.7 H RDW Coeff of Lamin 14.6 Plt Count 289 MPV 10.3 Immature Gran % (Auto) 0.400 Neut % (Auto) 83.6 H Lymph % (Auto) 6.9 L [place] % (Auto) 8.5 Eos % (Auto) 0.3 Baso % (Auto) 0.3 Absolute Neuts (auto) 8.4 H Absolute Lymphs (auto) 0.69 L Nucleated RBC % 0 Sodium 140 Potassium 4.1 Chloride 108 H Carbon Dioxide 27.0 Anion Gap 5 BUN 20 H Creatinine 0.69 L Est GFR (MDRD) Af Amer 142 Est GFR (MDRD) Non-Af 117 BUN/Creatinine Ratio 29.0 H Glucose 86 Calcium 8.9 Total Bilirubin 0.30 AST 12 L ALT 17 Alkaline Phosphatase 75 Total Protein 7.0 Albumin 2.8 L Globulin 4.2 Albumin/Globulin Ratio 0.7 L Radiography Diagnostic Testing: Clinical Impression(s) from Imaging Studies Abdomen/Pelvis CT 03/22/23 14:37 IMPRESSION: 1. Wall thickening of the distal sigmoid colon and rectum suggestive of a proctocolitis, possibly related to treatment changes. Associated fecal retention. 2. Question urinary cystitis. Electronically Signed: Saleem Keller MD at 16:05 EDT , Discharge Plan Triage Chief Complaint: Complaint ED Midlevel Provider: Ga Altamirano ED Provider: Jasvir Swartz Dx/Rx/DC Orders Clinical Impression: Difficult Salguero catheter placement, Acute urinary retention, Fissure, anal Prescriptions: No Action potassium chloride 20 mEq tablet,ER particles/crystals 20 meq PO DAILY Patient Comments: Take 1 tablet by mouth once daily. docusate sodium 100 mg Capsule 100 mg PO DAILY atorvastatin 80 mg tablet 80 mg PO QHS amlodipine 5 mg tablet 5 mg PO DAILY aspirin 81 mg tablet,chewable 81 mg PO BREAKFAST tramadol 50 mg Tablet 50 mg PO BID PRN (Reason: pain) Primary Care Provider: Remington Frederick Referrals: Remington Frederick MD [Primary Care Provider] - Disposition Disposition: Acute Care Hospital Discharge Location: [facility] Discharge Date/Time: 03/22/23 19:11
[2023-03-22 15:04] LABS: Absolute Lymphocyte Count 0.69 X10^3/uL (0.83-4.51); Absolute Neutrophil Count 8.4 X10^3/uL (2.0-7.7); Basophil# 0.03 X10^3/uL; Basophil% 0.3 % (0-1); Eosinophil# 0.03 X10^3/uL; Eosinophils% 0.3 % (0-5); Hematocrit 37.1 % (40-54); Hemoglobin 12.1 g/dL (13.0-16.5); Lymphocyte # 0.69 X10^3/ul (0.83-4.51); Lymphocyte % 6.9 % (19-41); Mean Corp Hgb Conc 32.6 g/dL (32-36); Mean Corpuscular Hgb 30.9 pg (27.0-32.0); Mean Corpuscular Volume 94.9 fL (80-94); Mean Platelet Vol. 10.3 fl (6.2-12.0); Monocyte# 0.86 X10^3/uL; Monocyte% 8.5 % (0-10); NRBC Flagged by Analyzer 0 % (0-5); Neutrophil # 8.42 X10^3/uL (2.7-7.7); Neutrophil % 83.6 % (47-70); Platelet Count 289 K/mm3 (150-450); RBC Distribution Width CV 14.6 % (11.6-14.6); RBC Distribution Width SD 50.7 fl (35.1-43.9); Red Blood Count 3.91 M/mm3 (4.6-6.2); White Blood Count 10.1 K/mm3 (4.4-11.0)
[2023-03-22 15:17] LABS: ALB/GLOB Ratio 0.7 RATIO (0.9-2.4); AST(SGOT) 12 U/L (15-37); Alanine Aminotransfer ALT/SGPT 17 U/L (16-61); Albumin, Serum 2.8 g/dL (3.2-5.0); Alkaline Phosphatase 75 U/L (45-117); Anion Gap 5 (5-15); BUN 20 mg/dL (7-18); Calcium,Total 8.9 mg/dL (8.5-10.1); Chloride 108 mmol/L (98-107); Creatinine, Serum 0.69 mg/dL (0.70-1.30); EST Glomerular Filtration Rate 117 mL/min (>60); Est Glom Filt Rate - Afr Amer 142 mL/min (>60); Globulin 4.2 g/dL (2.2-4.2); Glucose 86 mg/dL (74-106); Potassium 4.1 mmol/L (3.5-5.1); Sodium Level 140 mmol/L (136-145)
[2023-03-22 15:28] VITALS: BP 138/92; PULSE 104; RESP 20; O2SAT 98
--- NOTE | 2023-03-22 17:49 | NURSING ---
CALLED [facility] FOR TRANSFER. DR ALEGRIA TALKING TO JOSEPH
[2023-03-22 18:06] VITALS: BP 166/64; PULSE 70; RESP 18; O2SAT 95
[2023-03-22 18:13] VITALS: BMI 25.2
--- NOTE | 2023-03-22 18:17 | NURSING ---
CALLED [facility], ETA IS 45 - 60 MIN
[2023-03-22 18:42] VITALS: BP 166/64; PULSE 70; RESP 18; O2SAT 95
--- NOTE | 2023-03-22 18:45 | ED.RN ---
UPDATED DAUGHTER JACOB ON ETA OF EMS
[2023-03-22] MEDS: morphine 8 MG/ML Syringe 6 MG IV (19:09)
== END 2023-03-22 19:11 | disposition short-term general hospital (02) ==
LOC: ED 14:47
PROVIDERS: Nurse Practitioner; Emergency Provider Emergency Medicine; PCP Internal Medicine; Visit Provider Emergency Medicine
DX: K60.0 Acute anal fissure (principal); C20 Malignant neoplasm of rectum; N40.1 Benign prostatic hyperplasia with lower urinary tract symptoms; R33.8 Other retention of urine; I10 Essential (primary) hypertension; F17.210 Nicotine dependence, cigarettes, uncomplicated; Z79.82 Long term (current) use of aspirin; Z79.899 Other long term (current) drug therapy; Z86.73 Personal history of transient ischemic attack (TIA), and cerebral infarction without residual deficits
CPT/HCPCS: 74177; 80053; 85025; 96361; 96374; 96375; 96376; 99284; Q9967; A4216; J2405

== ENCOUNTER 2023-04-03 12:54 | Day surgery (SDC) | payer MEDICARE, OTHER, SELFPAY ==
[2023-04-03 13:23] VITALS: BP 145/55; PULSE 79; RESP 16; TEMP 36.8; O2SAT 95; BMI 22.1
[2023-04-03] MEDS: Lactated Ringers 1,000 ML 15 ML IV (13:30)
[2023-04-03] MEDS: Cefazolin 2 GM in 0.9% Normal Saline 100 ML IV (15:40)
--- NOTE | 2023-04-03 15:58 | HP.PCM_ITS ---
HPI - General General Date of Service: 04/03/23 Chief Complaint: Severe prostatic urethral stricture HPI Narrative MERLENE SINGH, is a 78 M who presents for placement of a Salguero catheter he has a severe stricture in the prostate in the bulbar urethra has a history of pelvic radiation and lots of scar tissue in the prostate channel he has not been able to empty his bladder and he is in overflow incontinence. [facility] Medical History (Updated 04/02/23 @ 15:09 by Karen Hernandez) AAA (abdominal aortic aneurysm) Alcohol use Arthritis BPH with obstruction/lower urinary tract symptoms Cancer Cardiology follow-up encounter Carotid occlusion, right Carotid stenosis, left Centrilobular emphysema Cigarette smoker Colorectal cancer CVA (cerebral vascular accident) Depression as late effect of cerebrovascular accident (CVA) Effusion, left knee Essential (primary) hypertension General weakness Gross hematuria Heartburn History of left common carotid artery stent placement History of prostate cancer Hx of cardiovascular stress test Hx of echocardiogram Hx of edema Hx of flexible sigmoidoscopy Hypertension Loss of hearing Lung nodule Malignant neoplasm of pelvis Pancytopenia Patent foramen ovale PVD (peripheral vascular disease) Rectal cancer Shortness of breath Stricture of penile urethra Unsteady gait Walker as ambulation aid Wears dentures Home Medications docusate sodium 100 mg capsule 100 mg PO DAILY 10/22/22 [History Last Taken 12/25/22] potassium chloride 20 mEq tablet,extended release(part/cryst) 20 meq PO DAILY Check with primary doctor 10/22/22 [History Last Taken 12/25/22] amlodipine 5 mg tablet 5 mg PO DAILY BP 12/13/22 [History Last Taken 04/03/23 07:30] aspirin 81 mg chewable tablet 81 mg PO BREAKFAST SUPPLEMENT 12/13/22 [History Last Taken 12/25/22] atorvastatin 80 mg tablet 80 mg PO QHS CJHOLESTEROL 12/13/22 [History Last Taken 12/25/22] tramadol 50 mg tablet 50 mg PO BID PRN pain 03/13/23 [History Last Taken Unknown] ciprofloxacin HCl 500 mg tablet (Cipro) 500 mg PO BID #10 tabs 04/03/23 [Rx Last Taken Unknown] Allergy/AdvReac Type Severity Reaction Status Date / Time tamsulosin AdvReac Intermediate UNABLE TO Verified 04/03/23 13:22 VOID Family History Mother CVA (cerebral vascular accident) Father Cancer Brother Diabetes Heart disease Surgical History History of endovascular stent graft for abdominal aortic aneurysm (AAA) (~2018) Hx of colonoscopy Hx of nasal septoplasty Hx of neck surgery Hx of rotator cuff surgery Hx of vasectomy Social History Smoking Status: Current every day smoker tobacco type: cigarettes alcohol intake: current alcohol intake frequency: holidays/special occasions only substance use type: does not use caffeine: Yes Type: coffee Number of servings: 1 Vital Signs Vital Signs Vital Signs: 04/03/23 13:23 04/03/23 13:23 Temperature 98.3 F Temperature Source Temporal Pulse Rate 79 Respiratory Rate 16 Respiratory Pattern Normal Blood Pressure 145/55 H Blood Pressure Mean 85 Blood Pressure Source Monitor Blood Pressure Position Sitting Blood Pressure Location Left Arm Pulse Ox 95 Oxygen Delivery Method Room Air Weight Weight: 66 kg Body Mass Index (BMI) 22.1
--- NOTE | 2023-04-03 15:58 | PCM.DC ---
Discharge Instructions Diet Discharge Diet: No restrictions Activity Discharge Activity: Return to Normal Activity Dressing / Incision Catheter: Salguero to leg bag and Salguero to large bag Drain: [place] Follow Up Care Please Follow Up With: Mansoor Barnett MD When: 6 weeks Test Results: Test results from this visit will be discussed in further detail at your follow-up appointment, if applicable. Discharge Plan Admission Primary Reason for Your Visit: urethral stricture, prostate stricture Attending Provider: Mansoor Barnett Primary Care Provider: Remington Frederick Discharge Orders/Prescriptions Prescriptions: New ciprofloxacin HCl [Cipro] 500 mg tablet 500 mg PO BID Qty: 10 0RF Continued potassium chloride 20 mEq tablet,ER particles/crystals 20 meq PO DAILY Patient Comments: Take 1 tablet by mouth once daily. docusate sodium 100 mg Capsule 100 mg PO DAILY atorvastatin 80 mg tablet 80 mg PO QHS amlodipine 5 mg tablet 5 mg PO DAILY aspirin 81 mg tablet,chewable 81 mg PO BREAKFAST tramadol 50 mg Tablet 50 mg PO BID PRN (Reason: pain) Referrals / Follow Up: Mansoor Barnett MD [Med Staff - Active Staff] - Remington Frederick MD [Primary Care Provider] - Disposition Disposition (needs filled in before D/C Order can be placed): Home, Self Care
--- NOTE | 2023-04-03 15:59 | OP.PCM_ITS ---
Report of Operation Date of Procedure: 04/03/23 Pre-Operative Diagnosis: Dense urethral and prostatic stricture Post-Operative Diagnosis: The same Surgery/Procedure Performed:: Cystoscopy and dilation of stricture over a wire and placement of Mandujano catheter complicated Description of Surgical Findings:: Patient was taken back to the operating room at a smooth induction of general anesthesia he was placed supine on the table the urethral area and penis with testicles were prepped and draped in usual sterile fashion went in the bladder with a 17 Serbian rigid cystourethroscope the entire length the urethra was clear of any strictures or blockages with down in the bulbar urethra and a pinpoint opening is all scarred down and whitish. I then tried to put a wire through and then was able to go wire through and then I got the beak of the scope through the stricture but the wire into the bladder then dilated the stricture and after that side dilated was able to get over the wire into the bladder with the cystoscope and the entire prostate which is all scarred down from prior radiation treatments fairly scarred down extensive very tight, after this was done then over the wire placed a Mandujano catheter in the bladder this was left to gravity drainage and I will see him back in 6 weeks in the office to change it. Surgeon: Mansoor Barnett Type of Anesthesia: General Drains: mandujano Admit VTE Documentation VTE Present on Admission: No VTE Mechan Device Prophylaxis: SCD's VTE Pharm Prophylaxis ordered?: No
[2023-04-03 16:05] VITALS: BP 129/64; BP 145/55; PULSE 76; RESP 18; TEMP 37.1; O2SAT 94
[2023-04-03 16:10] VITALS: BP 139/68; BP 145/55; PULSE 76; RESP 18; O2SAT 94
[2023-04-03 16:20] VITALS: BP 145/55; BP 161/77; PULSE 71; RESP 18; O2SAT 94
[2023-04-03] MEDS: Lactated Ringers 1,000 ML 75 ML IV (16:30)
[2023-04-03 16:32] VITALS: BP 145/55; BP 165/71; PULSE 74; RESP 18; TEMP 36.9; O2SAT 93
[2023-04-03 17:24] VITALS: BP 145/55
== END 2023-04-03 17:33 | disposition home or self-care (01) ==
LOC: SDC 12:55 → AC 13:23
PROVIDERS: PCP Internal Medicine; Referring Provider Urology; Visit Provider Urology
PROC: 0T7D8ZZ Dilation of Urethra, Via Natural or Artificial Opening Endoscopic (ICD-10-PCS; CPT 52281; principal; 2023-04-03 14:50)
DX: N35.912 Unspecified bulbous urethral stricture, male (principal); F17.210 Nicotine dependence, cigarettes, uncomplicated; I10 Essential (primary) hypertension; E78.5 Hyperlipidemia, unspecified; Z79.82 Long term (current) use of aspirin; Z79.899 Other long term (current) drug therapy; Z86.73 Personal history of transient ischemic attack (TIA), and cerebral infarction without residual deficits
CPT/HCPCS: 52281; 00910; J7120

== ENCOUNTER → 2023-07-31 | Outpatient (CLI) | payer MEDICARE, OTHER, SELFPAY ==
[2023-07-31 09:47] LABS: Anion Gap 6 (5-15); BUN 18 mg/dL (7-18); BUN/Creat Ratio 28.3 RATIO (10-20); Chloride 107 mmol/L (98-107); Creatinine, Serum 0.64 mg/dL (0.70-1.30); EST Glomerular Filtration Rate 129 mL/min (>60); Est Glom Filt Rate - Afr Amer 155 mL/min (>60); Glucose 147 mg/dL (74-106); Potassium 3.9 mmol/L (3.5-5.1); Sodium Level 139 mmol/L (136-145)
== END | disposition home or self-care (01) ==
LOC: LAB 09:12
PROVIDERS: PCP Internal Medicine; Referring Provider Internal Medicine Cardiovascular Disease; Visit Provider Internal Medicine Cardiovascular Disease
DX: I10 Essential (primary) hypertension (principal); E78.5 Hyperlipidemia, unspecified
CPT/HCPCS: 36415; 80048

== ENCOUNTER → 2024-01-29 | Outpatient (CLI) | payer MEDICARE, OTHER, SELFPAY ==
--- NOTE | 2024-01-29 08:46 | AAVD_ITS ---
Reason For Study: HX AAA / Endo repair Aorta Measurements Aorta Doppler Measurements Proximal aorta measures2.35 x 2.36cm. in cross- Rt Endograft limb has a PSV of 33.9cm/s at prox. sectional axis. Rt Endograft limb has a PSV of 27.3 cm/s at dist. Pt has multiple ostomy bags Rt Endograft limb has a PSV of 255.8 at dist Unable to visualize Mid AO anastomosis Original Aneurysm visualized measuring 4.54cm x Lt Endograft limb has a PSV of 22.6 cm/s at prox 4.89cm. Lt Endograft limb has a PSV of 53.1 cm/s at dist. Aortic Endograft noted. Lt Endograft limb has a PSV of 315.1 at dist Rt Endograft limb prox measures 1.60cm x 1.57 cm anastomosis. in transverse and 1.57 in long view. Rt Endograft limb dist measures 1.41cm x 1.33 cm in transverse and 1.30 in long view. Lt Endograft limb prox measures 1.45cm x 1.41 cm in transverse and 1.34 in long view. Lt Endograft limb dist measures 1.43cm x 1.49 cm in transverse and 1.43 in long view. Both limbs appear to show no sign of leak. Left Iliac Artery Left iliac artery measures 0.81 x 0.78 cm. in the cross-sectional axis. Left iliac artery measures 0.85 cm. in the longitudinal axis. Peak systolic velocity in the left iliac artery measures 223.7 cm/sec. Right Iliac Artery Right iliac artery measures 0.81 x 0.76 cm. in the cross-sectional axis. Right iliac artery measures 0.75 cm. in the longitudinal axis. Peak systolic velocity in the right iliac artery measures 239.0 cm/sec. Procedure Aorta IVC Iliac vasculature or bypass grafts 33188. Limited Views obtained. Exam performed in department. VL/Abd Aortic/IVC Duplex scan Interpretation Summary Patent aortic endograft with no endoleak identified. Right iliac limb with elevated velocities, >50% stenosis at distal endpoint. Left iliac limb with elevated velocities, >50% stenosis at distal endpoint. Residual aneurysm 4.89 cm Ordering Physician: Lorraine Ojeda Referring Physician: Remington Frederick M.D. Performed By: Vazquez Young RVT and Student
== END | disposition home or self-care (01) ==
LOC: CVS 08:45
PROVIDERS: PCP Internal Medicine; Referring Provider Physician Assistant; Visit Provider Physician Assistant
DX: Z48.812 Encounter for surgical aftercare following surgery on the circulatory system (principal); Z95.828 Presence of other vascular implants and grafts; Z86.79 Personal history of other diseases of the circulatory system
CPT/HCPCS: 93978

== ENCOUNTER → 2024-02-06 | Outpatient (CLI) | payer MEDICARE, OTHER, SELFPAY ==
[2024-02-06 11:10] LABS: Creatinine, Serum 0.78 mg/dL (0.70-1.30); EST Glomerular Filtration Rate 102 mL/min (>60); Est Glom Filt Rate - Afr Amer 123 mL/min (>60)
== END | disposition home or self-care (01) ==
LOC: LAB 09:15
PROVIDERS: PCP Internal Medicine; Referring Provider Physician Assistant; Visit Provider Physician Assistant
DX: I10 Essential (primary) hypertension (principal); Z86.79 Personal history of other diseases of the circulatory system; Z95.828 Presence of other vascular implants and grafts
CPT/HCPCS: 36415; 82565

== ENCOUNTER → 2024-02-27 | Outpatient (CLI) | payer MEDICARE, OTHER, SELFPAY ==
--- NOTE | 2024-02-27 14:46 | CT_ITS ---
STUDY: CTA ABDOMEN AND PELVIS WITH CONTRAST REASON FOR EXAM: Male, 78 years old. Prior AAA repair RADIATION DOSAGE (If Supplied By Facility): CTDIvol = ( 7.15 ) mGy, DLP = ( 459.14 ) mGycm TECHNIQUE: Transaxial images were obtained from the dome of the diaphragm to the symphysis pubis without oral contrast. IV 100mL Isovue-370 was administered. Sagittal and coronal images were reconstructed. Individualized dose optimization techniques were used for this CT. COMPARISON: Comparison is made with prior examination dated March 22, 2023. FINDINGS: The visualized lung bases are unremarkable. The visualized portions of the heart are within normal limits. Normal liver. Normal gallbladder and extrahepatic biliary system. Normal spleen. Normal pancreas. Normal bilateral adrenal glands. Normal right kidney. Moderate degree of left hydronephrosis and left hydroureter. No obstructive uropathy is seen at this time. The stomach is distended with food particles. Normal small intestine. Normal colon. The appendix is visualized and appears normal. Once again, the patient is status post covered stent repair of the aortic aneurysm. The proximal end of the graft is in the aorta and the distal limbs are in the common iliac arteries bilaterally. There is no evidence of endoluminal rupture. Normal inferior vena cava. Normal retroperitoneum. The urinary bladder is empty. Normal abdominal wall. There are diffuse degenerative changes of the visualized lumbar spine. CT/CTA Abd/Pelvis W/WO Contrast IMPRESSION: Status post endoluminal stent grafting of the abdominal aortic aneurysm. The urinary bladder is empty. Electronically Signed: Magdi Robertson MD at 15:33 EDT ,
== END | disposition home or self-care (01) ==
LOC: CT 14:45
PROVIDERS: PCP Internal Medicine; Referring Provider Physician Assistant; Visit Provider Physician Assistant
DX: Z86.79 Personal history of other diseases of the circulatory system (principal); Z95.828 Presence of other vascular implants and grafts; Z48.812 Encounter for surgical aftercare following surgery on the circulatory system
CPT/HCPCS: 74174; Q9967

== ENCOUNTER 2024-05-06 06:54 | Day surgery (SDC) | payer MEDICARE, OTHER, SELFPAY ==
[2024-05-05 08:34] VITALS: BMI 21.9
[2024-05-06 07:16] LABS: Hematocrit 36.7 % (40-54); Hemoglobin 11.3 g/dL (13.0-16.5); Mean Corp Hgb Conc 30.8 g/dL (32-36); Mean Corpuscular Volume 91.1 fL (80-94); Mean Platelet Vol. 10.7 fl (6.2-12.0); Platelet Count 234 K/mm3 (150-450); RBC Distribution Width CV 18.7 % (11.6-14.6); RBC Distribution Width SD 63.1 fl (35.1-43.9); Red Blood Count 4.03 M/mm3 (4.6-6.2); White Blood Count 5.6 K/mm3 (4.4-11.0)
[2024-05-06 07:29] LABS: Anion Gap 7 (5-15); BUN 25 mg/dL (7-18); BUN/Creat Ratio 29.3 RATIO (10-20); Calcium,Total 9.3 mg/dL (8.5-10.1); Chloride 108 mmol/L (98-107); Creatinine, Serum 0.85 mg/dL (0.70-1.30); EST Glomerular Filtration Rate 92 mL/min (>60); Est Glom Filt Rate - Afr Amer 111 mL/min (>60); Estimated Creatinine Clearance 62.97 ml/min; Glucose 90 mg/dL (74-106); Potassium 3.6 mmol/L (3.5-5.1); Sodium Level 140 mmol/L (136-145)
--- NOTE | 2024-05-06 07:53 | PCM.HP.STD ---
HPI - General HPI Narrative MERLENE SINGH, is a 79 M who presents with prior EVAR followed with serial duplex. Most recent imaging revealed significantly elevated velocities distal to the iliac limbs bilateral. CTA confirmed calcified stenosis. He present for angio possible angioplasty. [facility] Medical History Stricture of penile urethra Radiation adverse effect Rectal cancer Soft tissue radionecrosis Aftercare following surgery of the circulatory system Presence of other vascular implants and grafts Loss of hearing Wears dentures Cancer Depression as late effect of cerebrovascular accident (CVA) Alcohol use Walker as ambulation aid Arthritis Heartburn Shortness of breath Hx of edema Hypertension Hx of echocardiogram Hx of cardiovascular stress test Cardiology follow-up encounter Hx of flexible sigmoidoscopy History of abdominal aortic aneurysm (AAA) Dyslipidemia Nicotine dependence Thrombocytopenia Anemia Hypertension Carotid stenosis Pre-operative cardiovascular examination Cigarette smoker Centrilobular emphysema BPH with obstruction/lower urinary tract symptoms Gross hematuria PVD (peripheral vascular disease) General weakness Unsteady gait Malignant neoplasm of pelvis Pancytopenia Lung nodule Essential (primary) hypertension Patent foramen ovale CVA (cerebral vascular accident) Effusion, left knee AAA (abdominal aortic aneurysm) Rectal cancer Carotid stenosis, left Carotid occlusion, right Colorectal cancer History of prostate cancer Home Medications ?Medication ?Instructions ?Recorded ?Last Taken ?Type docusate sodium 100 mg capsule 100 mg PO DAILY 10/22/22 12/25/22 History potassium chloride 20 mEq 20 meq PO DAILY Check with primary 10/22/22 12/25/22 History tablet,extended release(part/cryst) doctor aspirin 81 mg chewable tablet 81 mg PO BREAKFAST SUPPLEMENT 12/13/22 05/06/24 History atorvastatin 80 mg tablet 80 mg PO QHS CJHOLESTEROL 12/13/22 12/25/22 History duloxetine 20 mg capsule,delayed 20 mg PO DAILY 07/23/23 05/06/24 History release (Cymbalta) amlodipine 5 mg tablet 5 mg PO DAILY #90 tabs 03/10/24 05/06/24 Rx carbidopa 25 mg-levodopa 100 mg 2 tab PO TID 03/10/24 05/06/24 History tablet [id number] 300 mcg-K 60 1 tab PO DAILY 03/10/24 Unknown History mcg-lycop 600 mcg-lutein 300 mcg tablet (Centrum Silver Men) Allergy/AdvReac Type Severity Reaction Status Date / Time tamsulosin AdvReac Intermediate UNABLE TO Verified 03/25/24 16:21 VOID Family History Mother CVA (cerebral vascular accident) Father Cancer Brother Diabetes Heart disease Surgical History Hx of cystoscopy (~03/2023) History of left common carotid artery stent placement (~12/2022) Hx of colonoscopy Hx of nasal septoplasty Hx of vasectomy Hx of rotator cuff surgery Hx of neck surgery History of endovascular stent graft for abdominal aortic aneurysm (AAA) (~2018) Social History Smoking Status: Current every day smoker tobacco type: cigarettes alcohol intake: current alcohol intake frequency: holidays/special occasions only substance use type: does not use caffeine: Yes Type: coffee Number of servings: 1 ROS Constitutional Constitutional: Denies chills, fever(s), frequent falls, lethargy or weakness Eyes Eyes: Denies blind spots, change in vision or loss of vision ENT HEENT: Denies bleeding gums, hoarseness or sore throat Cardiovascular Cardiovascular: Denies abdominal pain, bluish discoloration of hand/feet, chest pain with activity, claudication, cold extremities, cyanosis, dyspnea on exertion, erythema on extremities, irregular heart rhythm, leg edema, leg ulcers, numbness in extremities or weakness in extremities Respiratory/Chest Respiratory/Chest: Denies cough, excessive phlegm production, shortness of breath at rest, shortness of breath with exertion or wheezing Gastrointestinal Gastrointestinal: Denies anorexia, change in stool character, constipation, diarrhea, melena or rectal bleeding Genitourinary Genitourinary: Denies dysuria or hematuria Musculoskeletal Musculoskeletal: Denies abnormal gait Integumentary Integumentary: Reports other Details: ; Denies erythema, non-healing lesions or wounds Neurologic Neurologic: Denies abnormal speech, focal weakness, headache(s), loss of vision, numbness, paresthesias or sensory deficit Hematologic/Lymphatic Hematologic/Lymphatic: Denies easy bleeding, easy bruising or lymphadenopathy Vital Signs Vital Signs Vital Signs: Weight Weight: 144 lb Body Mass Index (BMI) 21.9 Physical Exam Const alert, oriented x3, no apparent distress and healthy appearing General Appearance: cooperative; Negative for combative or lethargic Orientation / Consciousness: awake Exam Limitations: no limitations HEENT Head and Scalp: normocephalic and atraumatic Eyes EOMs intact bilaterally General Eye: normal appearance of both eyes Neck full ROM, no lymphadenopathy, thyroid normal and No no carotid bruits General: trachea midline; Negative for lymphadenopathy or tenderness Thyroid: thyroid normal Lymph Lymphatic: Negative for no lymphadenopathy noted Resp normal respiratory effort, no use of accessory muscles and clear to auscultation bilaterally Effort and Inspection: Negative for labored, stridor or audible wheezes Cardio regular rate, regular rhythm and no murmurs Peripheral Pulses: brachial pulses present, radial pulses present, femoral pulses present, popliteal pulses present, posterior tibial pulses present and dorsalis pedis pulses present Back/Spine Cervical Spine: cervical ROM normal Extremity full ROM, normal capillary refill and no clubbing, cyanosis or edema Skin no rashes or lesions noted and no wounds Neuro oriented x3, CN's II-XII intact bilaterally, no focal motor deficits and no sensory deficits noted Psych thought process normal, cooperative, affect normal, speech normal and activity/motor behavior normal Results Lab / Micro Data 05/06/24 07:01 05/06/24 07:01 Labs: Laboratory Results - last 24 hr 05/06/24 07:01: WBC 5.6, RBC 4.03 L, Hgb 11.3 L, Hct 36.7 L, MCV 91.1, MCH 28.0, MCHC 30.8 L, RDW Std Deviation 63.1 H, RDW Coeff of Lamin 18.7 H, Plt Count 234, MPV 10.7, Sodium 140, Potassium 3.6, Chloride 108 H, Carbon Dioxide 25.0, Anion Gap 7, BUN 25 H, Creatinine 0.85, Estim Creat Clear Calc 62.97, Est GFR (MDRD) Af Amer 111, Est GFR (MDRD) Non-Af 92, BUN/Creatinine Ratio 29.3 H, Glucose 90, Calcium 9.3 Assessment & Plan Assessment/Plan (1) AAA (abdominal aortic aneurysm) without rupture: QUALIFIERS: Abdominal aorta location: infrarenal aorta Qualified Code(s): I71.43 - Infrarenal abdominal aortic aneurysm, without rupture PLAN: -angiogram
--- NOTE | 2024-05-06 10:17 | OP.PCM_ITS ---
Report of Operation Date of Procedure: 05/06/24 Pre-Operative Diagnosis: abdominal aortic aneurysm s/p endovascular repair, luis alberto nosis bilateral common iliac arteries Post-Operative Diagnosis: same; no stenosis of left common iliac Surgery/Procedure Performed:: aortogram, pelvic angiogram IVUS aorta, bilateral common iliac, bilateral external iliac arteries angioplasty right common iliac Surgeon: Riki Perez Type of Anesthesia: Local and Sedation,Conscious Estimated Blood Loss (mL): 14 Description of Procedure: HPI: Patient is an 79-year-old male with a previous endovascular aneurysm repair done at outside facility several years prior. He has had a recent surveillance duplex study which revealed satisfactory aneurysm treatment with no evidence of endoleak however there were significantly diminished velocities within the limbs and markedly increased velocities distal to the limb suggesting high-grade stenosis bilaterally. CT angiography ordered inclusive due to tortuosity and calcific artifact but suggested there was high-grade stenosis particularly on the right. He is taken now for angiography with intravascular ultrasound with possible intervention. Description of procedure: Upon obtaining form consent and verification correct patient procedure site patient taken to the catheter he was positioned prepped and draped in usual sterile fashion. Timeout was performed conscious sedation administered Versed and fentanyl. Skin overlying the right common femoral artery was Nestabs 1% lidocaine the vessel accessed with a micropuncture needle wire under ultrasound guidance. This then exchanged for micropuncture sheath through which injection iliofemoral angiogram was performed revealing satisfactory positioning no extravasation or dissection. Through the micropuncture sheath a Bentson wire was advanced and the micropuncture sheath exchanged for a 7 Indonesian sheath. Through the 7 Indonesian sheath an angled Glidewire was advanced and utilizing this wire and a KMP catheter we are to navigate the iliac vessels and traverse the iliac limb ultimately advancing into the abdominal aorta. The KMP catheter was then exchanged for an Omni Flush cath eter and a digital subtraction aortogram pelvic angiogram was performed. This revealed patent bilateral endograft limbs with slow contrast transit and calcified atherosclerosis just beyond the distal extent to be to the limbs. The patient was in heparinized allowed to circulate for 3 minutes after which time an 018 wire was advanced through the catheter and an intravascular ultrasound probe advanced over the wire. A recorded pullback was then performed of the aorta, right common iliac, right external iliac artery. This revealed calcified stenosis of the distal right common iliac artery just beyond the endograft. The ultrasound probe was then withdrawn and an 8 mm x 40 [employer] angio sculpt scoring balloon was then advanced in position and inflated for multiple inflations across the lesion. This was then withdrawn and a Medtronic Admiral Impact paclitaxel coated balloon was advanced in position and inflated to nominal. The balloon burst immediately upon reaching nominal pressure likely due to the calcified nature of the lesion. The balloon was then withdrawn. A Bard conquest 8 x 40 angioplasty balloon was then advanced and inflated to nominal centered on the lesion for 2 minutes and then deflated withdrawn. Repeat angiography revealed improved contrast transit and lumen at the site of the prior stenosis. Intravascular Ortiz probe was advanced and recorded pullback performed which revealed improved lumen caliber though there was still significant irregularity and shadowing from the calcification. Is felt that given the location of the stenosis and the vessel size and tortuosity of the stent it was not advisable so no further intervention was undertaken. Next the skin overlying the left common femoral artery anesthetized 1% lidocaine the patient asked with micropuncture needle wire. This exchanged for micropuncture sheath routine injection iliofemoral angiogram performed revealing satisfactory positioning with no extravasation or dissection. Through the micropuncture sheath a Bentson wire was advanced and the micropuncture sheath exchanged for a 7 Indonesian sheath. Over the Bentson wire a KMP catheter was advanced the wire navigated to the iliac limb and ultimately abdominal aorta. The Bentson wire was exchanged for an 018 wire and intravascular ultrasound probe advanced into the aorta. Recorded pullback was performed of the aorta, left common iliac, left external auditory. This revealed significant caliber change from the stented segment to the [place] distal common iliac with mild atherosclerosis but no stenosis. The intravascular stroke catheter was then withdrawn and the KMP catheter advanced over the wire and pressure measurement obtained through the catheter both proximal to and distal to the area of concern. This revealed no change in systolic pressure which suggested that there was no hemodynamically significant stenosis. Seeing that no lesions were appropriate for intervention the wires and catheters were withdrawn and a minx closure device deployed in the bilateral femoral access sites. Manual pressure was then held for 5 minutes with satisfactory stasis noted. Patient then taken recovery room with plans to discharge home.
[2024-05-06 14:47] LABS: ACT Activated Clotting Time 232 sec (74-137)
[2024-05-06 14:47] LABS: ACT Activated Clotting Time 226 sec (74-137)
== END 2024-05-06 14:15 | disposition home or self-care (01) ==
PROVIDERS: PCP Internal Medicine; Referring Provider Surgery Trauma Surgery; Visit Provider Surgery Trauma Surgery
DX: I70.201 Unspecified atherosclerosis of native arteries of extremities, right leg (principal); J43.2 Centrilobular emphysema; I71.43 Infrarenal abdominal aortic aneurysm, without rupture; I10 Essential (primary) hypertension; N40.1 Benign prostatic hyperplasia with lower urinary tract symptoms; E78.5 Hyperlipidemia, unspecified; F17.210 Nicotine dependence, cigarettes, uncomplicated; Z79.82 Long term (current) use of aspirin; Z79.899 Other long term (current) drug therapy
CPT/HCPCS: 36200; 36415; 37220; 37252; 37253; 75625; 76937; 80048; 85027; 85347; 86850; 86900; 86901; 99152; 99153; C1725; C1760; C1769; C1894; C2623; J7040; Q9967

== ENCOUNTER → 2024-06-05 | Outpatient (CLI) | payer MEDICARE, OTHER, SELFPAY ==
--- NOTE | 2024-06-05 07:42 | CDU_ITS ---
Reason For Study: S/P Lt TCAR Rt. Velocities/BP Lt. Velocities/BP Prox CCA 65.5/6.9 cm/sec. Prox CCA 102.3/22.5 cm/sec. Mid CCA 62.6/7.8 cm/sec. Mid CCA 81.4/28.6 cm/sec. Dist CCA 49.4/7.8 cm/sec. Distal CCA, prox stent, 80.2/23.7 ICA, Known occlusion. cm/sec. Prox ECA 383.6/34.9 cm/sec. Bulb, mid stent, 108.2/22.6 cm/sec. Rt. Vert. 90.5/23.4 cm/sec. ICA prox, distal stent, 205.5/50 cm/sec. Mid ICA 123.8/35 cm/sec. Dist ICA 106.4/27.9 cm/sec. Lt. ICA/CCA = 2.52. Prox ECA 518.1/72 cm/sec. Lt. Vert. 73.6/15.2 cm/sec. Right Extracranial There is heterogeneous, irregular atherosclerotic plaque noted in the right common carotid artery. There is heterogeneous, irregular atherosclerotic plaque noted in the right internal carotid artery. The right internal carotid artery is occluded. There is heterogeneous, irregular atherosclerotic plaque noted in the right external carotid artery. Antegrade flow is noted in the right vertebral artery. Left Extracranial There is heterogeneous, smooth atherosclerotic plaque noted in the left common carotid artery. There is heterogeneous, irregular atherosclerotic plaque noted in the left internal carotid artery. The atherosclerotic plaque causes acoustic shadowing. Distal CCA - Prox ICA stent noted. There is heterogeneous, irregular atherosclerotic plaque noted in the left external carotid artery. Antegrade flow is noted in the left vertebral artery. Procedure Carotid Duplex [id number]. This is a Carotid Duplex examination using B-mode, color flow and specral Doppler. Exam performed in department. VL/Carotid Duplex Ultrasound Interpretation Summary Occlusion of the right extracranial internal carotid. Moderate (50-69%) stenosis left extracranial internal carotid. Patent and antegrade vertebrals bilaterally. Ordering Physician: Lorraine Ojeda Referring Physician: Remington Frederick M.D. Performed By: Miriam Darden RVT
--- NOTE | 2024-06-05 07:42 | ART_ITS ---
Reason For Study: S/P EVAR, angioplasty right common iliac limb Procedure A bilateral lower extremity continuous wave Doppler with analog waveform analysis and ankle brachial indexes. Left Segmental Pressures Left brachial= 86mmHg. Left posterior tibial artery = 146mmHg. Left dorsalis pedis artery = 147mmHg. Left digit = 107 mmHg. The left dorsalis pedis waveforms are triphasic. The left posterior tibial artery waveforms are triphasic. Right Segmental Pressures Right brachial= 124mmHg. Right posterior tibial artery = 95mmHg. Right dorsalis pedis artery = 86mmHg. Right digit = 64 mmHg. The right dorsalis pedis waveforms are monophasic. The right posterior tibial artery waveforms are biphasic. Indices The right ankle brachial index by the dorsalis pedis is 0.69. The right ankle brachial index by the posterior tibial artery is 0.77. The right digital-brachial index is 0.52. The left ankle brachial index by the dorsalis pedis is 1.19. The left ankle brachial index by the posterior tibial artery is 1.18. The left digital-brachial index is 0.86. VL/Ankle Brachial Index Interpretation Summary Right CHANEL 0.77, moderate artrial insufficiency. Doppler/PVR waveforms of the ri ght ankle moderately diminished at rest. Left CHANEL 1.19, normal. Doppler/PVR waveforms of the left ankle normal at rest. Ordering Physician: Lorraine Ojeda Referring Physician: Remington Frederick M.D. Performed By: Miriam Darden RVT
--- NOTE | 2024-06-05 07:42 | AAVD_ITS ---
Reason For Study: S/P EVAR, angioplasty right common iliac limb Aorta Measurements Aorta Doppler Measurements Unable to visualize Prox-Mid Aorta due to multipleDistal arota, Limb 1, 59.6 cm/sec. ostomy bags and gas at prox abdomen. Distal Aorta, Limb 2, 61.4 cm/sec. Distal Aorta, Residual sac, 2.77 x 3.45 cm. Distal Aorta, Limb 1, 1.53 x 1.48 x 1.37 cm. Distal Aorta Limb 2, 1.26 x 1.24 x 1.37 cm. Left Iliac Artery Left iliac artery measures 1.60 x 1.58 cm. in the cross-sectional axis. Left iliac artery measures 1.62 cm. in the longitudinal axis. Peak systolic velocity in the left iliac artery measures 30.1 cm/sec. Left iliac artery distal, 196.7 cm/sec. Right Iliac Artery Right iliac artery measures 1.50 x 1.52 cm. in the cross-sectional axis. Right iliac artery measures 1.42 cm. in the longitudinal axis. Peak systolic velocity in the right iliac artery measures 33 cm/sec. Right iliac artery distal, 57.6 cm/sec. Procedure Aorta IVC Iliac vasculature or bypass grafts [id number]. Exam performed in department. 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 Right iliac limb with continued low velocities throughout, but no longer with e levated velocity distal. Left iliac limb with continued low velocities throughout, and elevated velocity distal. Residual aneurysm 3.45 cm Ordering Physician: Lorraine Ojeda Referring Physician: Remington Frederick M.D. Performed By: Miriam Darden RVT
== END | disposition home or self-care (01) ==
LOC: CVS 07:42
PROVIDERS: PCP Internal Medicine; Referring Provider Physician Assistant; Visit Provider Physician Assistant
DX: Z48.812 Encounter for surgical aftercare following surgery on the circulatory system (principal); I73.9 Peripheral vascular disease, unspecified
CPT/HCPCS: 93880; 93922; 93978

== ENCOUNTER 2024-11-25 13:26 | Inpatient (IN) | payer MEDICARE, OTHER, SELFPAY ==
[2024-11-25 13:28] VITALS: BP 119/39; PULSE 69; RESP 15; TEMP 36.8; O2SAT 90
[2024-11-25 13:31] VITALS: BMI 22.6
--- NOTE | 2024-11-25 14:36 | ED.VIS.FALL ---
HPI HPI - Fall History of Present Illness Chief Complaint: Fall PFSH PFSH Medical History Aftercare following surgery of the circulatory system Stricture of penile urethra Radiation adverse effect Rectal cancer Soft tissue radionecrosis Presence of other vascular implants and grafts Loss of hearing Wears dentures Cancer Depression as late effect of cerebrovascular accident (CVA) Alcohol use Walker as ambulation aid Arthritis Heartburn Shortness of breath Hx of edema Hypertension Hx of echocardiogram Hx of cardiovascular stress test Cardiology follow-up encounter Hx of flexible sigmoidoscopy History of abdominal aortic aneurysm (AAA) Dyslipidemia Nicotine dependence Thrombocytopenia Anemia Hypertension Carotid stenosis Pre-operative cardiovascular examination Cigarette smoker Centrilobular emphysema BPH with obstruction/lower urinary tract symptoms Gross hematuria PVD (peripheral vascular disease) General weakness Unsteady gait Malignant neoplasm of pelvis Pancytopenia Lung nodule Essential (primary) hypertension Patent foramen ovale CVA (cerebral vascular accident) Effusion, left knee AAA (abdominal aortic aneurysm) Rectal cancer Carotid stenosis, left Carotid occlusion, right Colorectal cancer History of prostate cancer Home Medications ?Medication ?Instructions ?Recorded ?Last Taken ?Type docusate sodium 100 mg capsule 100 mg PO DAILY 10/22/22 12/25/22 History potassium chloride 20 mEq 20 meq PO DAILY Check with primary 10/22/22 12/25/22 History tablet,extended release(part/cryst) doctor aspirin 81 mg chewable tablet 81 mg PO BREAKFAST SUPPLEMENT 12/13/22 05/06/24 History atorvastatin 80 mg tablet 80 mg PO QHS CJHOLESTEROL 12/13/22 12/25/22 History duloxetine 20 mg capsule,delayed 20 mg PO DAILY 07/23/23 05/06/24 History release (Cymbalta) amlodipine 5 mg tablet 5 mg PO DAILY #90 tabs 03/10/24 05/06/24 Rx usntcivr-me-apsyf 300 mcg-K 60 1 tab PO DAILY 03/10/24 Unknown History mcg-lycop 600 mcg-lutein 300 mcg tablet (Centrum Silver Men) carbidopa 25 mg-levodopa 100 mg 2.5 tab PO TID 05/21/24 Unknown History tablet clopidogrel 75 mg tablet (Plavix) 75 mg PO DAILY #30 tabs 11/20/24 Unknown Rx Allergy/AdvReac Type Severity Reaction Status Date / Time No Known Allergies Allergy Verified 11/25/24 13:32 Family History Mother CVA (cerebral vascular accident) Father Cancer Brother Diabetes Heart disease Surgical History Hx of cystoscopy (~03/2023) History of left common carotid artery stent placement (~12/2022) Hx of colonoscopy Hx of nasal septoplasty Hx of vasectomy Hx of rotator cuff surgery Hx of neck surgery History of endovascular stent graft for abdominal aortic aneurysm (AAA) (~2018) Social History Smoking Status: Current every day smoker tobacco type: cigarettes alcohol intake: current alcohol intake frequency: holidays/special occasions only substance use type: does not use caffeine: Yes Type: coffee Number of servings: 1 EXAM Physical Exam Const Vital Signs: 11/25/24 13:28 11/25/24 14:59 11/25/24 16:13 Temperature 98.2 F Temperature Source Temporal Pulse Rate 69 74 Respiratory Rate 15 17 Respiratory Effort Normal Respiratory Depth Normal Respiratory Pattern Normal Blood Pressure 119/39 L 150/55 H Blood Pressure Mean 65 86 Pulse Ox 90 93 Oxygen Delivery Method Room Air Room Air Room Air MDM MDM MDM Narrative Medical decision making narrative: HISTORY OF PRESENT ILLNESS: 79-year-old male presents with left hip and left rib pain. Notes he went to sit in the chair and missed. Notes he landed on his hip. He states he landed and hit his head as well. Denies syncope prior to falling. Denies any recent illnesses. Denies chest pain or shortness of breath. REVIEW OF SYSTEMS: Pertinent positives: Hip pain, rib pain Pertinent negatives: Vomiting PHYSICAL EXAM: Nursing triage notes reviewed, Vital signs reviewed Primary Survey Airway: Intact Breathing: Bilateral breath sounds Circulation: Palpable bilateral femorals, Palpable bilateral radial, Palpable bilateral DP and Palpable bilateral PT Disability / Spine precautions GCS Score: Eye Openin Verbal Response: 5 Motor Response: 6 Secondary Survey Constitutional: Please see MDM Head: bruise noted to left orbit midface stable, NO jaw malocclusion, No Cephalohematoma, and No Lacerations noted Eye: Pupils equal round and reactive to light, Extraocular muscles intact and No periorbital ecchymosis or stepoff, no evidence of entrapment ENT: Oropharynx clear, no lacerations, no hemotympanum, no raccoon eyes or cho sign Cervical spine / Neck: No cervical spine bony tenderness, crepitance, or stepoff deformity Trachea midline Lungs: Clear to auscultation, No asymmetric rise and No crepitus, no flail chest, TTP over left ribs Cardiac: Regular rate and rhythm and No murmurs Abdomen: Soft, Nontender and No rebound Pelvis: Pelvis stable to compression : No evidence of genital injury Back: No midline bony tenderness to thoracic/lumbar/sacral spines Neuro: At baseline, intact strength and sensation in bilateral upper and lower extremities. 2+ patellar reflexes bilaterally. Extremities: NO gross Deformities, TTP over left hip, all other extremities without deformities or tenderness to palpation Psych: Normal affect Nursing triage notes reviewed, Vital signs reviewed MEDICAL DECISION MAKING: Chief Complaint: Hip pain, rib pain External records reviewed: Reviewed prior imaging studies Factors affecting care: AAA, Parkinson's disease, rectal cancer, hypertension, hyperlipidemia, peripheral vascular disease Social determinants of health: Elderly History obtained from others: Daughter Consults: Orthopedic surgery (Dr. Malone)?discussed patient's history and case. Reviewed the patient's imaging. He noted he could intervene on the patient's hip fracture urgently the next 24 to 48 hours., internal medicine (Dr. Davies) who agreed to admit the patient MDM Narrative: Patient was initially hemodynamically stable, afebrile and nontoxic-appearing. Exam with TTP over left ribs and left hip. I considered the following differential diagnosis: Intracranial injury, cervical spine injury, rib fracture, hip fracture ALL IMAGES (IF OBTAINED) HAVE BEEN PERSONALLY REVIEWED AND INTERPRETED BY MYSELF. CT scan of the head, neck, chest showed no obvious traumatic injury X-ray of the hip and pelvis was read and reviewed person myself showed evidence of a left femoral neck fracture At this point obtained a CBC BMP, EKG for preop clearance Discussed case orthopedic surgery to intervene on the patient's case. Discussed with hospitalist reviewed admit the patient to [facility]. The patient and/or family, caregivers express understanding. The patient and/or family, caregivers agrees with the plan. Shared decision making: I will have a discussion with the patient and or visitors regarding risk/benefits of further testing or admission. They will be made aware of of the risk/benefits inherent in this decision they will be given the opportunity to voice understanding. Total critical care time today provided was at least 0 minutes. This excludes separately billable procedures. Critical care time (if documented) is secondary to the patient having high probability of clinically significant/life threatening deterioration in the patient's condition which required my urgent intervention. Impression: 1. Fall 2. Acute left hip fracture 3. History of Parkinson's disease Dispo: Admit to [facility] This note was generated with madvertise dictation software. It may contain incorrect words, spelling, and punctuation that were not noted in review of the chart prior to signing. Lab Data Labs: Laboratory Results - last 24 hr 11/25/24 16:42 WBC 12.9 H RBC 3.39 L Hgb 7.4 L Hct 24.9 L MCV 73.5 L MCH 21.8 L MCHC 29.7 L RDW Std Deviation 59.7 H RDW Coeff of Lamin 22.8 H Plt Count 373 MPV 10.2 Immature Gran % (Auto) 0.900 Neut % (Auto) 89.2 H Lymph % (Auto) 3.4 L Swisher % (Auto) 6.2 Eos % (Auto) 0.1 Baso % (Auto) 0.2 Absolute Neuts (auto) 11.5 H Absolute Lymphs (auto) 0.44 L Nucleated RBC % 0 Radiography Diagnostic Testing: Clinical Impression(s) from Imaging Studies Brain CT 11/25/24 15:15 IMPRESSION: No acute abnormality is seen. Reading Location: [facility] Cervical Spine CT 11/25/24 15:15 IMPRESSION: Status post fusion at the C5-C6 and C6-C7 levels. Minimal anterior listhesis of C2 on C3 most likely secondary to degenerative changes. One or more dose reduction techniques were used (e.g., Automated exposure control, adjustment of the mA and/or kV according to patient size, use of iterative reconstruction technique). Reading Location: [facility] Chest CT 11/25/24 15:15 IMPRESSION: Scarring at both lung apices. Atelectasis and/or scarring at the lung bases. Emphysematous changes. One or more dose reduction techniques were used (e.g., Automated exposure control, adjustment of the mA and/or kV according to patient size, use of iterative reconstruction technique). Reading Location: [id number] Hip/Pelvis X-Ray 11/25/24 15:35 IMPRESSION: A mildly impacted FRACTURE with mild valgus angulation is seen of the left femoral neck. Mild bilateral hip joint degenerative changes are seen. No evidence of femoral head osteonecrosis. Partially visualized aorto bi-iliac stent grafts are seen. Prominent arterial calcification is noted. Prominent degenerative changes and dextroscoliosis of the visualized portions of the lumbar spine noted. Mild sacroiliac joint degenerative changes are seen. Reading Location: [id number] Discharge Plan Triage Chief Complaint: Fall ED Provider: Josef Ruiz Dx/Rx/DC Orders Primary Care Provider: Remington Frederick
[2024-11-25] MEDS: oxyCODONE 5 MG Tablet PO ×2 (15:05→20:59)
--- NOTE | 2024-11-25 15:15 | CT_ITS ---
EXAM: BRAIN/HEAD WITHOUT CONTRAST CLINICAL HISTORY: Head injury due to a fall. COMPARISON: Comparison is made with prior examination dated October 22, 2022. TECHNIQUE: Multiple axial tomographic images were obtained without intravenous contrast administration. Coronal and sagittal reconstruction was obtained as well. FINDINGS: Moderate degree of cerebral atrophy. There is evidence of focal encephalomalacia in the right frontal lobe suggestive of old infarction. There is evidence of decreased attenuation in the periventricular region bilaterally in keeping with chronic small-vessel disease. There is evidence of cerebellar atrophy. CT/Brain/Head without Contrast IMPRESSION: No acute abnormality is seen. Reading Location: [id number]
--- NOTE | 2024-11-25 15:15 | CT_ITS ---
PROCEDURE: SPINE CERVICAL WITHOUT CONTRAS REASON FOR EXAM: Neck injury due TECHNIQUE: Cervical spine CT without contrast. COMPARISON: None. FINDINGS: Alignment: Minimal anterior listhesis of C2 on C3 most likely secondary to facet joint osteoarthritis. Vertebrae: No acute fracture Soft Tissues: Unremarkable Findings suggestive of scarring at both lung apices. C1-2: Normal alignment. Dens appears intact.. Degenerative changes at the atlantoaxial joint. C2-3: Minimal anterior listhesis of C2 on C3. Facet joint osteoarthritis. C3-4: Marked degree of disc space narrowing with spondylosis. Uncovertebral arthrosis. Bilateral neural foraminal stenosis. C4-5: Marked degree of disc space narrowing. Spondylosis. Bilateral neural foraminal stenosis. C5-6: The patient is status post anterior fusion with screw and plate fixation. Limited study due to metallic artifact. C6-7: Status post anterior fusion. Limited evaluation due to beam hardening artifact. C7-T1: Unremarkable CT/Spine Cervical without Contras IMPRESSION: Status post fusion at the C5-C6 and C6-C7 levels. Minimal anterior listhesis of C2 on C3 most likely secondary to degenerative ch anges. One or more dose reduction techniques were used (e.g., Automated exposure contr ol, adjustment of the mA and/or kV according to patient size, use of iterative reconstruction technique). Reading Location: [id number]
--- NOTE | 2024-11-25 15:15 | CT_ITS ---
PROCEDURE: CHEST WITHOUT CONTRAST REASON FOR EXAM: Chest trauma secondary to a fall. TECHNIQUE: Chest CT without contrast. COMPARISON: None. FINDINGS: Hardware: None. Lymph nodes: Benign-appearing mediastinal lymph nodes. Heart and Vasculature: Normal heart size. No pericardial effusion. Atherosclerotic calcifications of the thoracic aorta. Thoracic aorta and pulmonary arteries have normal contours; noncontrast technique limits evaluation. Coronary Artery Calcifications: Present Lungs and Airways: Advanced emphysematous changes are present. Findings suggestive of scarring at both lung apices. Findings suggestive of atelectasis and/or scarring at both lung bases. Pleura: No pleural effusion. No pneumothorax. Upper Abdomen: Visualized portions of the upper abdominal viscera are unremarkable. Bones: Bone windows are unremarkable. CT/Chest without Contrast IMPRESSION: Scarring at both lung apices. Atelectasis and/or scarring at the lung bases. Emphysematous changes. One or more dose reduction techniques were used (e.g., Automated exposure contr ol, adjustment of the mA and/or kV according to patient size, use of iterative reconstruction technique). Reading Location: [id number]
--- NOTE | 2024-11-25 15:35 | RAD_ITS ---
PROCEDURE: HIP, UNI W/ PELVIS 2-3 VIEWS REASON FOR EXAM: Left hip pain. TECHNIQUE: Three-view left hip to include the AP pelvis COMPARISON: None. RAD/HIP, UNI W/ Pelvis 2-3 Views IMPRESSION: A mildly impacted FRACTURE with mild valgus angulation is seen of the left femo ral neck. Mild bilateral hip joint degenerative changes are seen. No evidence of femoral head osteonecrosis. Partially visualized aorto bi-iliac stent grafts are seen. Prominent arterial calcification is noted. Prominent degenerative changes and dextroscoliosis of the visualized portions o f the lumbar spine noted. Mild sacroiliac joint degenerative changes are seen. Reading Location: [id number]
[2024-11-25 16:13] VITALS: BP 150/55; PULSE 74; RESP 17; O2SAT 93
--- NOTE | 2024-11-25 16:42 | PCM.HP.STD ---
HPI - General General Date of Admission: 11/25/24 Date of Service: 11/25/24 Chief Complaint: Fall with left hip pain HPI Narrative MERLENE SINGH, is a 79 M who presented to [facility] ED on 11/25/2024 with left hip pain after a fall at home. Patient lives at home with his daughter. He went to sit in a chair this morning and missed the chair and fell on his left side. He also hit his head with the fall. Patient is on both aspirin and Plavix for history of vascular disease with left common carotid artery stent placement in 2022. Patient also had endovascular stent graft for AAA done in 2017 and had repeat procedure done in April [address] Perez with angioplasty of right common iliac artery. Last doses of aspirin and Plavix were morning of 11/25. Hip x-ray confirmed a mildly impacted fracture of the left femoral neck. CT brain and cervical spine imaging was unremarkable. CT chest showed chronic changes but was nonacute. Case was discussed with Dr. Malone who recommended admission to medicine with plan for left hip procedure in the next 1 to 2 days. Hospitalist was then contacted for admission. I saw the patient at bedside in the ED, daughter was present. Patient was fatigued appearing but otherwise sitting up fairly comfortably in bed, answering questions with short appropriate responses, in no acute distress. He denied any hip pain at rest but does have significant left hip pain with any movement. Denies any fevers or chills. Denies any other pain or discomfort currently. No other acute concerns. [facility] Medical History (Updated 11/25/24 @ 21:[address] Sly Davies, ) Aftercare following surgery of the circulatory system Stricture of penile urethra Radiation adverse effect Rectal cancer Soft tissue radionecrosis Presence of other vascular implants and grafts Loss of hearing Wears dentures Cancer Depression as late effect of cerebrovascular accident (CVA) Alcohol use Walker as ambulation aid Arthritis Heartburn Shortness of breath Hx of edema Hypertension Hx of echocardiogram Hx of cardiovascular stress test Cardiology follow-up encounter Hx of flexible sigmoidoscopy History of abdominal aortic aneurysm (AAA) Dyslipidemia Nicotine dependence Thrombocytopenia Anemia Hypertension Carotid stenosis Pre-operative cardiovascular examination Cigarette smoker Centrilobular emphysema BPH with obstruction/lower urinary tract symptoms Gross hematuria PVD (peripheral vascular disease) General weakness Unsteady gait Malignant neoplasm of pelvis Pancytopenia Lung nodule Essential (primary) hypertension Patent foramen ovale CVA (cerebral vascular accident) Effusion, left knee AAA (abdominal aortic aneurysm) Rectal cancer Carotid stenosis, left Carotid occlusion, right Colorectal cancer History of prostate cancer Home Medications ?Medication ?Instructions ?Recorded ?Last Taken ?Type docusate sodium 100 mg capsule 100 mg PO BID ask pcp 10/22/22 12/25/22 History potassium chloride 20 mEq 20 meq PO DAILY Check with primary 10/22/22 12/25/22 History tablet,extended release(part/cryst) doctor aspirin 81 mg chewable tablet 81 mg PO BREAKFAST SUPPLEMENT 12/13/22 05/06/24 History atorvastatin 80 mg tablet 80 mg PO QHS CJHOLESTEROL 12/13/22 12/25/22 History duloxetine 20 mg capsule,delayed 20 mg PO DAILY ask pcp 07/23/23 05/06/24 History release (Cymbalta) amlodipine 5 mg tablet 5 mg PO DAILY ask pcp #90 tabs 03/10/24 05/06/24 Rx mglatuse-ma-xcwya 300 mcg-K 60 1 tab PO DAILY ask pcp 03/10/24 Unknown History mcg-lycop 600 mcg-lutein 300 mcg tablet (Centrum Silver Men) carbidopa 25 mg-levodopa 100 mg 2.5 tab PO TID ask pcp 05/21/24 Unknown History tablet clopidogrel 75 mg tablet (Plavix) 75 mg PO DAILY ask pcp #30 tabs 11/20/24 Unknown Rx albuterol sulfate 90 mcg/actuation 2 inh inhalation Q4H PRN shortness 11/25/24 Unknown History aerosol inhaler (Ventolin HFA) of breath or wheezing famotidine 20 mg tablet 20 mg PO DAILY ask pcp 11/25/24 Unknown History polyethylene glycol 3350 17 4 g PO DAILY ask pcp 11/25/24 Unknown History gram/dose oral powder (ClearLax) tiotropium bromide 1.25 2 inh inhalation DAILY ask pcp 11/25/24 Unknown History mcg/actuation mist for inhalation (Spiriva Respimat) Allergy/AdvReac Type Severity Reaction Status Date / Time No Known Allergies Allergy Verified 11/25/24 13:32 Family History Mother CVA (cerebral vascular accident) Father Cancer Brother Diabetes Heart disease Surgical History Hx of cystoscopy (~03/2023) History of left common carotid artery stent placement (~12/2022) Hx of colonoscopy Hx of nasal septoplasty Hx of vasectomy Hx of rotator cuff surgery Hx of neck surgery History of endovascular stent graft for abdominal aortic aneurysm (AAA) (~2017) Social History Smoking Status: Current every day smoker tobacco type: cigarettes alcohol intake: current alcohol intake frequency: holidays/special occasions only substance use type: does not use caffeine: Yes Type: coffee Number of servings: 1 ROS Constitutional Constitutional: Reports fatigue; Denies chills, fever(s) or weakness Eyes Eyes: Denies change in vision Cardiovascular Cardiovascular: Denies chest pain, dyspnea on exertion or edema Respiratory/Chest Respiratory/Chest: Denies cough or productive cough Gastrointestinal Gastrointestinal: Denies abdominal pain Musculoskeletal Musculoskeletal: Reports joint pain; Denies arthralgias or myalgias Vital Signs Vital Signs Vital Signs: 11/25/24 13:28 11/25/24 14:59 11/25/24 16:13 Temperature 98.2 F Temperature Source Temporal Pulse Rate 69 74 Respiratory Rate 15 17 Respiratory Effort Normal Respiratory Depth Normal Respiratory Pattern Normal Blood Pressure 119/39 L 150/55 H Blood Pressure Mean 65 86 Pulse Ox 90 93 Oxygen Delivery Method Room Air Room Air Room Air Physical Exam Const alert, oriented x3 and no apparent distress Constitutional Narrative: Elderly male, mildly fatigued appearing, somewhat chronically ill-appearing but otherwise sitting up comfortably in bed, answering questions with short appropriate responses, in no acute distress. General Appearance: cooperative and comfortable HEENT normocephalic, head/scalp atraumatic, hearing grossly normal bilaterally, nasal mucous membranes and turbinates normal and moist oral mucous membranes Eyes PERRL, EOMs intact bilaterally and conjunctivae normal Neck full ROM Chest inspection of chest normal Resp normal respiratory effort, normal air movement, no use of accessory muscles and clear to auscultation bilaterally Cardio regular rate, regular rhythm, no murmurs and peripheral pulses 2+ throughout GI normal to inspection, nondistended, normoactive bowel sounds, soft to palpation, non-tender and non-distended Back/Spine normal ROM Extremity Extremity Narrative: Left leg with no shortening or rotation noted. No tenderness to palpation but significant pain with any movement. Skin no rashes or lesions noted Neuro Speech: speech normal Psych mental status grossly normal Psych Narrative: Flat affect. Results Lab / Micro Data 11/25/24 16:42 11/25/24 16:42 Imaging Radiology Impression Brain CT 11/25/24 15:15 IMPRESSION: No acute abnormality is seen. Reading Location: [facility] Cervical Spine CT 11/25/24 15:15 IMPRESSION: Status post fusion at the C5-C6 and C6-C7 levels. Minimal anterior listhesis of C2 on C3 most likely secondary to degenerative changes. One or more dose reduction techniques were used (e.g., Automated exposure control, adjustment of the mA and/or kV according to patient size, use of iterative reconstruction technique). Reading Location: [id number] Chest CT 11/25/24 15:15 IMPRESSION: Scarring at both lung apices. Atelectasis and/or scarring at the lung bases. Emphysematous changes. One or more dose reduction techniques were used (e.g., Automated exposure control, adjustment of the mA and/or kV according to patient size, use of iterative reconstruction technique). Reading Location: [id number] Hip/Pelvis X-Ray 11/25/24 15:35 IMPRESSION: A mildly impacted FRACTURE with mild valgus angulation is seen of the left femoral neck. Mild bilateral hip joint degenerative changes are seen. No evidence of femoral head osteonecrosis. Partially visualized aorto bi-iliac stent grafts are seen. Prominent arterial calcification is noted. Prominent degenerative changes and dextroscoliosis of the visualized portions of the lumbar spine noted. Mild sacroiliac joint degenerative changes are seen. Reading Location: [id number] Assessment & Plan Assessment/Plan (1) Closed left hip fracture: PLAN: Plan Patient is an 79-year-old male who presented [facility] ED on 11/25/2024 with left hip pain after a fall at home. 1. Left hip fracture ? Admit under inpatient status to [facility]. Orthopedic surgery consulted. X-ray on admit showed mildly impacted left femoral neck fracture. Preoperative evaluation as noted below. Will keep patient n.p.o. at midnight but suspect orthopedic surgery will want further washout of Plavix prior to procedure. Pain control with scheduled Tylenol, oxycodone as needed and IV morphine as needed. PT/OT/case management consulted. 2. Preoperative evaluation ? NSQIP score: Patient has slightly above average risk of serious complication and any complication, and has average risk of discharge to intermediate facility given risk factors of age, partially dependent functional status, COPD and hypertension. ? Labs/imaging: Repeat CBC ordered for tonight and tomorrow morning. Suspect transfusion will be needed prior to surgical procedure, will follow blood count closely. Kidney function normal, follow-up postoperative BMP. ? Cardiac eval: EKG on admit stable from previous. Last echo in September 2022 showed EF 60%, stage II diastolic dysfunction, no other significant abnormalities. On room air and euvolemic to slightly hypovolemic, no concern for heart failure. No need for further cardiac workup. ? Medications: Holding home Plavix and aspirin for now. Will plan to restart aspirin on postop day 1 and may discuss further with vascular surgery if Plavix will even need to be restarted postoperatively. ? Previous procedural complications: None. ? Recommendation: Will defer to orthopedic surgery on timing of procedure given patient's last dose of Plavix was on the morning of 11/25. Will also follow-up blood counts closely and transfuse as needed prior to surgical procedure. 3. History of carotid stenosis with carotid stenting, peripheral vascular disease with recent common iliac artery angioplasty, hypertension, hyperlipidemia ? Follows with vascular surgery. Had carotid stenting done back in 12/2022. More recently had right common iliac artery angioplasty done on 05/06/2024. Per vascular surgery, plan was for baby aspirin and Plavix 75 mg daily for 6 months and if follow-up imaging remains satisfactory can likely return to aspirin only. Holding both aspirin and Plavix for now. Okay to continue home amlodipine and statin. 4. Acute on chronic anemia ? Hemoglobin 7.4 on admit. Last hemoglobin was 11.3 in 05/16 and baseline has appeared to be around 10-12. Suspect anemia is in part due to blood loss in setting of fall with hip fracture on aspirin and Plavix. Will repeat CBC tonight and again tomorrow morning. Will transfuse for hemoglobin less than 7. Iron studies with ferritin, folate and B12 ordered. 5. Acute on chronic debility in setting of Parkinson's disease ? PT/OT/case management consulted. Lives at home with his daughter and it is likely he will need SNF on discharge. Appreciate therapy recommendations postoperatively. Continue home Sinemet. Chronic medical conditions: ? COPD: Stable on room air, not in acute exacerbation. Continue home inhalers. ? GERD: Continue home PPI. ? Depression: Continue home duloxetine. ? History of AAA s/p endovascular stent placement DVT prophylaxis: SCDs CODE STATUS: Full code, verified Expected disposition: Likely SNF, TBD Total clinical time spent by myself addressing the patient's medical issues, reviewing all the data, and collaborating with patient's care team: 75 minutes. Charges/Coding Visit Charges Inpatient E&M: 03290 Init Hosp L3
[2024-11-25 16:56] LABS: Absolute Lymphocyte Count 0.44 X10^3/uL (0.83-4.51); Absolute Neutrophil Count 11.5 X10^3/uL (2.0-7.7); Basophil# 0.02 X10^3/uL; Basophil% 0.2 % (0-1); Eosinophil# 0.01 X10^3/uL; Eosinophils% 0.1 % (0-5); Hematocrit 24.9 % (40-54); Hemoglobin 7.4 g/dL (13.0-16.5); Lymphocyte # 0.44 X10^3/ul (0.83-4.51); Lymphocyte % 3.4 % (19-41); Mean Corp Hgb Conc 29.7 g/dL (32-36); Mean Corpuscular Hgb 21.8 pg (27.0-32.0); Mean Corpuscular Volume 73.5 fL (80-94); Mean Platelet Vol. 10.2 fl (6.2-12.0); Monocyte% 6.2 % (0-10); NRBC Flagged by Analyzer 0 % (0-5); Neutrophil # 11.53 X10^3/uL (2.7-7.7); Neutrophil % 89.2 % (47-70); POSITIVE DIFFERENTIAL YES; POSITIVE MORPHOLOGY YES; Platelet Count 373 K/mm3 (150-450); RBC Distribution Width CV 22.8 % (11.6-14.6); RBC Distribution Width SD 59.7 fl (35.1-43.9); Red Blood Count 3.39 M/mm3 (4.6-6.2); White Blood Count 12.9 K/mm3 (4.4-11.0)
[2024-11-25 16:58] LABS: Differential Indicated SCAN CRITERIA MET
[2024-11-25] MEDS: Ketorolac 15 MG/ML Vial IV (17:15)
[2024-11-25] MEDS: Morphine 4 MG/ML Syringe IV (17:15)
[2024-11-25 17:18] VITALS: BP 151/51; PULSE 65; RESP 16; TEMP 36.6; O2SAT 98
[2024-11-25 17:25] LABS: Anisocytosis 1+; Hypochromasia 1+; Microcytosis 1+; Ovalocyte RARE; Platelet Estimate ADEQUATE (ADEQ); Platelet Morphology LARGE; Red Cell Morphology N CHROM NORMAL (NORM C&C)
[2024-11-25 17:46] LABS: Anion Gap 14 (5-15); BUN 14 mg/dL (4-19); BUN/Creat Ratio 16.3 RATIO (10-20); Calcium,Total 8.7 mg/dL (7.6-11.0); Carbon Dioxide 23.4 mmol/L (21.0-32.0); Chloride 98 mmol/L (98-108); Creatinine, Serum 0.86 mg/dL (0.70-1.20); EST Glomerular Filtration Rate 87 (>60); Glucose 85 mg/dL (70-99); Potassium 3.6 mmol/L (3.3-5.1); Sodium Level 135 mmol/L (133-145)
[2024-11-25 19:03] VITALS: BMI 20.4
[2024-11-25 20:00] VITALS: BMI 20.9
[2024-11-25 20:45] VITALS: BP 132/43; PULSE 74; RESP 16; TEMP 37.3; O2SAT 95
[2024-11-25] MEDS: Acetaminophen 500 MG Tablet 1000 MG PO (20:59)
[2024-11-25] MEDS: Atorvastatin Calcium 40 MG Tablet PO (20:59)
[2024-11-25] MEDS: Senna Tablet 1 TABLET PO (20:59)
[2024-11-25] MEDS: Carbidopa/Levodopa 25/100 Tablet PO (21:08)
[2024-11-25] MEDS: 0.9% Saline Lock 10 ML Syringe IV (21:08)
[2024-11-25 22:30] LABS: Hematocrit 22.8 % (40-54); Hemoglobin 6.9 g/dL (13.0-16.5); Mean Corp Hgb Conc 30.3 g/dL (32-36); Mean Corpuscular Hgb 21.7 pg (27.0-32.0); Mean Corpuscular Volume 71.7 fL (80-94); POSITIVE MORPHOLOGY YES; Platelet Count 370 K/mm3 (150-450); RBC Distribution Width CV 22.3 % (11.6-14.6); RBC Distribution Width SD 57.5 fl (35.1-43.9); Red Blood Count 3.18 M/mm3 (4.6-6.2); White Blood Count 9.3 K/mm3 (4.4-11.0)
--- NOTE | 2024-11-25 23:12 | PCM.HOSP.N ---
Hospitalist Note Patient with repeat Hgb 6.9, will request 2 u PRBC, also noted concern for possible hematemesis although may have eaten red fruit prior thus will obtain guiac of gastric contents to be certain, cycle HH, administer protonix bolus and drip until certain, hold baby ASA, and per notes also on plavix but this was held upon admission. If consistent with GI bleed then will request GI involvement.
[2024-11-25 23:24] LABS: Mucous, Urine 0 SEEN /hpf (<or=2+); Squamous Epithelial Cells - UA 0 SEEN /hpf (0-5)
[2024-11-25 23:26] LABS: Color, Urine Brown (Yellow); Glucose, Dipstick Normal (Normal); Ketone-Dipstick 5 mg/dl (Negative); Leukocyte Esterase-Dipstick 500 /ul (Negative); Nitrite-Dipstick Positive (Negative); Occult Blood-Urine 50 /ul (Negative); Protein-Dipstick 30 mg/dl (Negative); Specific Gravity, Urine 1.015 (1.002-1.030); Urine Bilirubin Dipstick Negative (Negative); Urine Clarity Cloudy (Clear); Urine Urobilinogen Normal (Normal)
[2024-11-25 23:53] VITALS: O2SAT 95
[2024-11-26] VITALS (20 sets, daily range): BP systolic 128–175; BP diastolic 45–76; PULSE 59–78; RESP 15–18; TEMP 36.2–37.4; O2SAT 88–98; BMI 20.9
[2024-11-26] MEDS: Pantoprazole Sodium 80 MG in 0.9% Normal Saline (50mL Bag) 15 ML 420 MG IV BOLUS
[2024-11-26] MEDS: Pantoprazole Sodium 80 MG in 0.9% Normal Saline (100mL Bag) 80 ML 10 MG CONT INF (00:14)
[2024-11-26 00:23] LABS: Amorphous Sediment 1+; Bacteria 3+ /hpf (None Seen); Red Blood Cells-Urine 0-5 SEEN /hpf (0-5); White Blood Cells 10-25 SEEN /hpf (0-5)
[2024-11-26] MEDS: Ceftriaxone 1 GM/50 ML BAG IV ×2 (01:07→23:17)
[2024-11-26] MEDS: Carbidopa/Levodopa 25/100 Tablet PO ×3 (05:53→22:43)
[2024-11-26] MEDS: Acetaminophen 500 MG Tablet 1000 MG PO ×2 (05:53→22:55)
[2024-11-26 08:01] LABS: Hemoglobin 8.7 g/dL (13.0-16.5); Mean Corp Hgb Conc 32.2 g/dL (32-36); Mean Corpuscular Volume 74.6 fL (80-94); Mean Platelet Vol. 9.8 fl (6.2-12.0); POSITIVE MORPHOLOGY YES; Platelet Count 307 K/mm3 (150-450); RBC Distribution Width CV 21.4 % (11.6-14.6); RBC Distribution Width SD 58.4 fl (35.1-43.9); Red Blood Count 3.62 M/mm3 (4.6-6.2); White Blood Count 9.9 K/mm3 (4.4-11.0)
[2024-11-26] MEDS: DULoxetine Hcl 20 MG Capsule PO (08:01)
[2024-11-26 08:05] LABS: Scan Indicated on CBC? Y/N YES- FLAGS NOTED
[2024-11-26 08:42] LABS: Anion Gap 13 (5-15); BUN 23 mg/dL (4-19); BUN/Creat Ratio 19.5 RATIO (10-20); Calcium,Total 8.4 mg/dL (7.6-11.0); Carbon Dioxide 22.2 mmol/L (21.0-32.0); Chloride 100 mmol/L (98-108); Creatinine, Serum 1.19 mg/dL (0.70-1.20); EST Glomerular Filtration Rate 61 (>60); Glucose 111 mg/dL (70-99); Potassium 3.8 mmol/L (3.3-5.1); Sodium Level 135 mmol/L (133-145)
[2024-11-26 09:41] LABS: International Normalized Ratio 1.2; Prothrombin Time (Protime)PT. 15.1 SECONDS (11.7-14.9)
[2024-11-26] MEDS: Lactated Ringers 500 ML 250 ML IV (09:41)
[2024-11-26 09:42] LABS: Partial Thromboplast Time 46.3 Seconds (24.1-36.2)
--- NOTE | 2024-11-26 09:48 | CON.PCM.OR_ITS ---
HPI Consult Data Date of Consult: 11/26/24 HPI Narrative Reason for Consultation: left femoral neck fx HPI Narrative: MERLENE SINGH, is a 79 M PMH of AAA, parkinsons, rectal CA, carotid stenosis, HTN, anemia, thrombocytopenia, hyperlipidemia, PVD, PFO, CVA, who presents to the ER 11/25/34 after a fall from home. he lives with his daughter who says he went to center this morning and fell hitting his left side. He is on aspirin and Plavix for PVD and left carotid artery stent placed in 2022. He also has endovascular stent for AAA in 2017 and a repeat procedure in April 2024. Last dose of aspirin and Plavix were the morning of 11/25/2024. Dr. Malone consulted for orthopedics for left hip fracture which was found upon x-rays in the ER. Since being on the floor his hemoglobin was 6.9 they did a 2 unit transfusion for which she responded hemoglobin this morning is 8.7. There was concern for hematemesis overnight although this could also be due to diet with red fruit was eaten. Patient continues to hold aspirin and Plavix in anticipation for left hip ORIF. If his hematemesis is concerning for a consistent GI bleed they will consult GI. [facility] Medical History (Updated 11/25/24 @ 21:[address] 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 (CVA) Alcohol use Walker as ambulation aid Arthritis Heartburn Shortness of breath Hx of edema Hypertension Hx of echocardiogram Hx of cardiovascular stress test Cardiology follow-up encounter Hx of flexible sigmoidoscopy History of abdominal aortic aneurysm (AAA) Dyslipidemia Nicotine dependence Thrombocytopenia Anemia Hypertension Carotid stenosis Pre-operative cardiovascular examination Cigarette smoker Centrilobular emphysema BPH with obstruction/lower urinary tract symptoms Gross hematuria PVD (peripheral vascular disease) General weakness Unsteady gait Malignant neoplasm of pelvis Pancytopenia Lung nodule Essential (primary) hypertension Patent foramen ovale CVA (cerebral vascular accident) Effusion, left knee AAA (abdominal aortic aneurysm) Rectal cancer Carotid stenosis, left Carotid occlusion, right Colorectal cancer History of prostate cancer Home Medications ?Medication ?Instructions ?Recorded ?Last Taken ?Type docusate sodium 100 mg capsule 100 mg PO BID ask pcp 0 10/22/22 12/25/22 History potassium chloride 20 mEq 20 meq PO DAILY Check with p rimary 10/22/22 12/25/22 History tablet,extended release(part/cryst) doctor aspirin 81 mg chewable tablet 81 mg PO BREAKFAST SUPPL EMENT 12/13/22 05/06/24 History atorvastatin 80 mg tablet 80 mg PO QHS CJHOLESTEROL 12/25/22 History duloxetine 20 mg capsule,delayed 20 mg PO DAILY ask pc p 07/23/23 05/06/24 History release (Cymbalta) amlodipine 5 mg tablet 5 mg PO DAILY ask pcp #90 ta bs 03/10/24 05/06/24 Rx [id number] 300 mcg-K 60 1 tab PO DAILY ask pcp 03/10/24 Unknown History mcg-lycop 600 mcg-lutein 300 mcg tablet (Centrum Silver Men) carbidopa 25 mg-levodopa 100 mg 2.5 tab PO TID ask pcp 05/21/24 Unknown History tablet clopidogrel 75 mg tablet (Plavix) 75 mg PO DAILY ask p cp #30 tabs 11/20/24 Unknown Rx albuterol sulfate 90 mcg/actuation 2 inh inhalation Q4 H PRN shortness 11/25/24 Unknown History aerosol inhaler (Ventolin HFA) of breath or wheezing famotidine 20 mg tablet 20 mg PO DAILY ask pcp 11/25 Unknown History polyethylene glycol 3350 17 4 g PO DAILY ask pcp 11/25 Unknown History gram/dose oral powder (ClearLax) tiotropium bromide 1.25 2 inh inhalation DAILY ask p cp 11/25/24 Unknown History mcg/actuation mist for inhalation (Spiriva Respimat) Allergy/AdvReac Type Severity Reaction Status Date / Time No Known Allergies Allergy Verified 11/25/24 13:32 Family History Mother CVA (cerebral vascular accident) Father Cancer Brother Diabetes Heart disease Surgical History Hx of cystoscopy (~03/2023) History of left common carotid artery stent placement (~12/2022) Hx of colonoscopy Hx of nasal septoplasty Hx of vasectomy Hx of rotator cuff surgery Hx of neck surgery History of endovascular stent graft for abdominal aortic aneurysm (AAA) (~2018) Social History Smoking Status: Current every day smoker tobacco type: cigarettes alcohol intake: current alcohol intake frequency: holidays/special occasions only substance use type: does not use caffeine: Yes Type: coffee Number of servings: 1 Vital Signs Vital Signs Vital Signs: 11/25/24 13:28 11/25/24 14:59 11/25/24 16:13 Temperature 98.2 F Temperature Source Temporal Pulse Rate 69 74 Pulse Strength Respiratory Rate 15 17 Respiratory Effort Normal Respiratory Depth Normal Respiratory Pattern Normal Blood Pressure 119/39 L 150/55 H Blood Pressure Mean 65 86 Blood Pressure Source Blood Pressure Position Blood Pressure Location Pulse Ox 90 93 Oxygen Delivery Method Room Air Room Air Room Air Oxygen Flow Rate (L/min) 11/25/24 17:18 11/25/24 19:03 11/25/24 20:45 Temperature 98 F 99.1 F Temperature Source Oral Pulse Rate 65 74 Pulse Strength Respiratory Rate 16 16 Respiratory Effort Normal Non-Labored Respiratory Depth Normal Respiratory Pattern Normal Blood Pressure 151/51 H 132/43 H Blood Pressure Mean 84 72 Blood Pressure Source Monitor Blood Pressure Position Semi-Fowlers Blood Pressure Location Right Arm Pulse Ox 98 95 Oxygen Delivery Method Room Air Nasal Cannula Oxygen Flow Rate (L/min) 2 11/25/24 20:50 11/25/24 22:10 11/25/24 23:53 Temperature Temperature Source Pulse Rate Pulse Strength Normal (2+) Respiratory Rate Respiratory Effort Normal Non-Labored Respiratory Depth Respiratory Pattern Blood Pressure Blood Pressure Mean Blood Pressure Source Blood Pressure Position Blood Pressure Location Pulse Ox 95 Oxygen Delivery Method Nasal Cannula Oxygen Flow Rate (L/min) 2 11/26/24 02:06 11/26/24 02:21 11/26/24 02:45 Temperature 98.6 F 99.2 F H Temperature Source Oral Oral Pulse Rate 73 67 Pulse Strength Respiratory Rate 16 16 Respiratory Effort Normal Non-Labored Respiratory Depth Respiratory Pattern Blood Pressure 148/52 H 144/47 H Blood Pressure Mean 84 79 Blood Pressure Source Monitor Monitor Blood Pressure Position Semi-Fowlers Semi-Fowlers Blood Pressure Location Right Arm Right Arm Pulse Ox 94 96 Oxygen Delivery Method Nasal Cannula Nasal Cannula Nasal Cannula Oxygen Flow Rate (L/min) 3 11/26/24 03:21 11/26/24 04:21 11/26/24 04:21 Temperature 99 F 98.6 F 99.1 F Temperature Source Oral Oral Oral Pulse Rate 70 65 63 Pulse Strength Respiratory Rate 15 16 15 Respiratory Effort Respiratory Depth Respiratory Pattern Blood Pressure 151/54 H 159/57 H 144/51 H Blood Pressure Mean 86 91 82 Blood Pressure Source Monitor Monitor Monitor Blood Pressure Position Semi-Fowlers Semi-Fowlers Supine Blood Pressure Location Right Arm Right Arm Right Arm Pulse Ox 97 96 96 Oxygen Delivery Method Nasal Cannula Nasal Cannula Nasal Cannula Oxygen Flow Rate (L/min) 3 2 2 11/26/24 04:29 11/26/24 04:44 11/26/24 05:44 Temperature 99.1 F 98.9 F 98.6 F Temperature Source Oral Oral Oral Pulse Rate 64 64 67 Pulse Strength Respiratory Rate 16 16 16 Respiratory Effort Respiratory Depth Respiratory Pattern Blood Pressure 139/53 H 142/56 H 143/54 H Blood Pressure Mean 81 84 83 Blood Pressure Source Monitor Monitor Monitor Blood Pressure Position Supine Supine Semi-Fowlers Blood Pressure Location Right Arm Right Arm Right Arm Pulse Ox 96 96 95 Oxygen Delivery Method Nasal Cannula Nasal Cannula Nasal Cannula Oxygen Flow Rate (L/min) 2 2 2 11/26/24 06:44 11/26/24 08:56 11/26/24 09:07 Temperature 99.3 F H Temperature Source Oral Pulse Rate 63 Pulse Strength Normal (2+) Respiratory Rate 16 Respiratory Effort Respiratory Depth Respiratory Pattern Blood Pressure 133/45 H Blood Pressure Mean 74 Blood Pressure Source Monitor Blood Pressure Position Supine Blood Pressure Location Right Arm Pulse Ox 95 95 Oxygen Delivery Method Nasal Cannula Nasal Cannula Oxygen Flow Rate (L/min) 2 2 11/26/24 09:07 11/26/24 09:28 Temperature 98.9 F Temperature Source Oral Pulse Rate 64 Pulse Strength Respiratory Rate 18 Respiratory Effort Normal Respiratory Depth Normal Respiratory Pattern Normal Blood Pressure 131/45 H Blood Pressure Mean 73 Blood Pressure Source Monitor Blood Pressure Position Semi-Fowlers Blood Pressure Location Right Arm Pulse Ox 98 Oxygen Delivery Method Nasal Cannula Nasal Cannula Oxygen Flow Rate (L/min) 2 2 Weight Weight: 62.3 kg Body Mass Index (BMI) 20.9 Physical Exam Narrative Patient resting comfortably in bed No signs of acute distress Satting well on room air Limb is warm to touch, Sensation intact throughout entire lower extremity, including saphenous, sural, superficial and deep peroneal, and tibial distribution. DP/PT pulses bounding. [ ] Dressing [with small amount of sanguinous draining at the most superior aspect] Calf nontender to palpation, no erythema, no edema. Negative Homans Lab / Micro Data 11/26/24 07:53 11/26/24 07:53 Labs: Laboratory Results - last 24 hr 11/25/24 16:42: WBC 12.9 H, RBC 3.39 L, Hgb 7.4 L, Hct 24.9 L, MCV 73.5 L, MCH 21.8 L, MCHC 29.7 L, RDW Std Deviation 59.7 H, RDW Coeff of Lamin 22.8 H, Plt Count 373, MPV 10.2, Immature Gran % (Auto) 0.900, Neut % (Auto) 89.2 H, Lymph % (Auto) 3.4 L, [place] % (Auto) 6.2, Eos % (Auto) 0.1, Baso % (Auto) 0.2, Absolute Neuts (auto) 11.5 H, Absolute Lymphs (auto) 0.44 L, Nucleated RBC % 0, Differential Comment SEE COMMENT, Platelet Estimate ADEQUATE, Plt Morphology Comment LARGE, RBC Morphology N CHROM, Hypochromasia 1+, Anisocytosis 1+, Microcytosis 1+, Ovalocytes RARE, Sodium 135, Potassium 3.6, Chloride 98, Carbon Dioxide 23.4, Anion Gap 14, BUN 14, Creatinine 0.86, Est GFR (MDRD) Non-Af 87, BUN/Creatinine Ratio 16.3, Glucose 85, Calcium 8.7 11/25/24 22:18: WBC 9.3, RBC 3.18 L, Hgb 6.9 L, Hct 22.8 L, MCV 71.7 L, MCH 21.7 L, MCHC 30.3 L, RDW Std Deviation 57.5 H, RDW Coeff of Lamin 22.3 H, Plt Count 370, MPV 10.0 11/25/24 22:55: Urine Color Brown, Urine Clarity Cloudy, Urine pH 9.0, Ur Specific [place] 1.015, Urine Protein 30 H, Urine Glucose (UA) Normal, Urine Ketones 5 H, Urine Occult Blood 50 H, Urine Nitrite Positive H, Urine Bilirubin Negative, Urine Urobilinogen Normal, Ur Leukocyte Esterase 500 H, Urine RBC 0-5 SEEN, Urine WBC 10-25 SEEN, Ur Squamous Epith Cells 0 SEEN, Amorphous Sediment 1+, Urine Bacteria 3+, Urine Mucus 0 SEEN 11/25/24 23:45: Blood Type O POSITIVE, Antibody Screen NEGATIVE, Crossmatch See Detail 11/26/24 07:53: WBC 9.9, RBC 3.62 L, Hgb 8.7 L, Hct 27.0 L, MCV 74.6 L, MCH 24.0 L, MCHC 32.2 D, RDW Std Deviation 58.4 H, RDW Coeff of Lamin 21.4 H, Plt Count 307, MPV 9.8, Differential Comment , PT 15.1 H, INR 1.2, APTT 46.3 H, Sodium 135, Potassium 3.8, Chloride 100, Carbon Dioxide 22.2, Anion Gap 13, BUN 23 H, Creatinine 1.19, Estim Creat Clear Calc 42.90 L, Est GFR (MDRD) Non-Af 61, BUN/Creatinine Ratio 19.5, Glucose 111 H, Calcium 8.4 Micro: Microbiology 11/25/24 23:22 Stool Stool Occult Blood (ASHLIE) - Final Imaging Radiology Impression Brain CT 11/25/24 15:15 IMPRESSION: No acute abnormality is seen. Reading Location: [id number] Cervical Spine CT 11/25/24 15:15 IMPRESSION: Status post fusion at the C5-C6 and C6-C7 levels. Minimal anterior listhesis of C2 on C3 most likely secondary to degenerative changes. One or more dose reduction techniques were used (e.g., Automated exposure control, adjustment of the mA and/or kV according to patient size, use of iterative reconstruction technique). Reading Location: [id number] Chest CT 11/25/24 15:15 IMPRESSION: Scarring at both lung apices. Atelectasis and/or scarring at the lung bases. Emphysematous changes. One or more dose reduction techniques were used (e.g., Automated exposure control, adjustment of the mA and/or kV according to patient size, use of iterative reconstruction technique). Reading Location: [id number] Hip/Pelvis X-Ray 11/25/24 15:35 IMPRESSION: A mildly impacted FRACTURE with mild valgus angulation is seen of the left femoral neck. Mild bilateral hip joint degenerative changes are seen. No evidence of femoral head osteonecrosis. Partially visualized aorto bi-iliac stent grafts are seen. Prominent arterial calcification is noted. Prominent degenerative changes and dextroscoliosis of the visualized portions of the lumbar spine noted. Mild sacroiliac joint degenerative changes are seen. Reading Location: [id number] Assessment & Plan Assessment/Plan (1) Closed left hip fracture: PLAN: 1. after review of imaging Dr. Malone is recommending open duction internal fixation with percutaneous pinning of left hip valgus impacted femoral neck fracture. 2. Continue to hold Plavix and aspirin in anticipation for procedure. 3. Patient to be nonweightbearing at this time. Following procedure likely weightbearing as tolerated however updated recommendations after OR. 4. As long as patient is cleared from a GI standpoint and hemoglobin is stable will likely proceed with percutaneous pinning today.
--- NOTE | 2024-11-26 10:05 | CASEMGMT ---
Addendum entered by Que Cortes 11/26/24 14:57: Pt had told this WILLIAM FARIA this AM that he has never had HHC in the past. Maylin states pt has had [facility] in the past and she does not feel HHC will provide enough therapy for pt initially. Addendum entered by Que Cortes 11/26/24 14:56: Pt's daughter, Maylin, @ bedside. RN GIANA introduced self and role. Maylin states she wants pt to go somewhere for therapy before returning home. She would like [facility] or [facility], either one, and declines wanting a list of other SNF options, unless [facility]CU or [facility] unable to accept him. Maylin states she has discussed this with pt and he is agreeable to go as well. Jamee DEMPSEY, made aware. Original Note: WILLIAM FARIA NOTE RN CM to room to meet with patient for initial transition planning/care coordination assessment. WILLIAM FARIA introduced self and role at [facility]. Patient resting in bed, alert and oriented. Patient willing to participate in assessment and is able to answer all questions appropriately. Care providers, pharmacy, and demographics verified. Strata: 2 PCP: Dr Frederick Specialists: Dr Perez, vascular. [facility]/Cardiology Preferred Pharmacy: [facility] Insurance: [facility], [employer] Insurance Prescription Benefit: none Living Will/HPOA: Has both LW and HCPOA, which are on-file @ [facility]. Dtr, Maylin is HCPOA agent. Son, Arvin, is 1st alternative. LNOK: Daughter, Maylin, HCPOA. Son, Arvin. Pt has another daughter as well. Living Arrangements: Patient lives with daughter and JERICA in a 2 story home w/3 steps to enter. Pt bedroom and bath is in the 2nd floor, where he showers. There is a 1/2 bath on main floor. Patient is able to ambulate stairs. Dtr assists w/showering, pt able to dress self. Dtr manages his medications and take him to appts. She also does IADL's for pt. Pt has an ostomy and an colostomy, that dtr manages. Pt states they get supplies delivered to the home and as far as he knows they have all needed supplies. Pt states his daughter does not work and is often home, stating someone is w/him almost 24/, stating he may be home alone for very short period when dtr goes to cotton picker operator her from work. Transportation: daughter DME: Patient has shower chair, raised toilet, grab bars, rollator. HHC/SNF: No previous HHC or SNF. Discussed discharge plan. Pt states he has not thought about it yet but may consider SNF, if needed, but he is not sure. He states his daughter, Maylin, will be coming in today and RN CM to discuss this w/her as well. Plan: TBD pending surgery and therapy evals. All SOLERN RN CM
--- NOTE | 2024-11-26 10:16 | CASEMGMT ---
Social Work- Pt has directives on file naming dtr, Maylin, as primary agent and son, Arvin, as alternate POA. NATHANIEL Archer
--- NOTE | 2024-11-26 10:56 | PCM.PN.HOSP ---
Reason for Visit Reason for Visit: Diagnoses Fracture of unspecified part of neck of left femur, initial encounter for closed fracture (11/25/24) Subjective Subjective Saw patient at bedside this morning. Patient had slightly improved energy level this morning compared yesterday. Stated today that he felt about the same as yesterday and continued to have significant hip pain with any movement. He otherwise denied any new concerns today. Objective Data Objective Data Vital Signs: Vital Signs Temp Pulse Resp BP Pulse Ox O2 Del Method O2 Flow Rate 98.9 F 64 18 131/45 H 98 Nasal Cannula 2 11/26/24 09:07 11/26/24 09:07 11/26/24 09:07 11/26/24 09:07 11/26/24 09:07 11/26/24 09:28 11/26/24 09:28 Oxygen Flow Rate (L/min) 2 Oxygen Delivery Method Nasal Cannula Weight: 62.3 kg Body Mass Index (BMI) 20.9 Intake & Output: Intake and Output for Last 24 Hours 11/24/24 11/25/24 11/26/24 23:59 23:59 23:59 Intake Total 400 / 400 513 / 513 Output Total 450 / 450 Balance -50 / -50 513 / 513 Lab / Micro Data 11/26/24 07:53 11/26/24 07:53 Labs: Laboratory Results - last 24 hr 11/25/24 16:42: WBC 12.9 H, RBC 3.39 L, Hgb 7.4 L, Hct 24.9 L, MCV 73.5 L, MCH 21.8 L, MCHC 29.7 L, RDW Std Deviation 59.7 H, RDW Coeff of Lamin 22.8 H, Plt Count 373, MPV 10.2, Immature Gran % (Auto) 0.900, Neut % (Auto) 89.2 H, Lymph % (Auto) 3.4 L, [place] % (Auto) 6.2, Eos % (Auto) 0.1, Baso % (Auto) 0.2, Absolute Neuts (auto) 11.5 H, Absolute Lymphs (auto) 0.44 L, Nucleated RBC % 0, Differential Comment SEE COMMENT, Platelet Estimate ADEQUATE, Plt Morphology Comment LARGE, RBC Morphology N CHROM, Hypochromasia 1+, Anisocytosis 1+, Microcytosis 1+, Ovalocytes RARE, Sodium 135, Potassium 3.6, Chloride 98, Carbon Dioxide 23.4, Anion Gap 14, BUN 14, Creatinine 0.86, Est GFR (MDRD) Non-Af 87, BUN/Creatinine Ratio 16.3, Glucose 85, Calcium 8.7 11/25/24 22:18: WBC 9.3, RBC 3.18 L, Hgb 6.9 L, Hct 22.8 L, MCV 71.7 L, MCH 21.7 L, MCHC 30.3 L, RDW Std Deviation 57.5 H, RDW Coeff of Lamin 22.3 H, Plt Count 370, MPV 10.0 11/25/24 22:55: Urine Color Brown, Urine Clarity Cloudy, Urine pH 9.0, Ur Specific [place] 1.015, Urine Protein 30 H, Urine Glucose (UA) Normal, Urine Ketones 5 H, Urine Occult Blood 50 H, Urine Nitrite Positive H, Urine Bilirubin Negative, Urine Urobilinogen Normal, Ur Leukocyte Esterase 500 H, Urine RBC 0-5 SEEN, Urine WBC 10-25 SEEN, Ur Squamous Epith Cells 0 SEEN, Amorphous Sediment 1+, Urine Bacteria 3+, Urine Mucus 0 SEEN 11/25/24 23:45: Blood Type O POSITIVE, Antibody Screen NEGATIVE, Crossmatch See Detail 11/26/24 07:53: WBC 9.9, RBC 3.62 L, Hgb 8.7 L, Hct 27.0 L, MCV 74.6 L, MCH 24.0 L, MCHC 32.2 D, RDW Std Deviation 58.4 H, RDW Coeff of Lamin 21.4 H, Plt Count 307, MPV 9.8, Differential Comment , PT 15.1 H, INR 1.2, APTT 46.3 H, Sodium 135, Potassium 3.8, Chloride 100, Carbon Dioxide 22.2, Anion Gap 13, BUN 23 H, Creatinine 1.19, Estim Creat Clear Calc 42.90 L, Est GFR (MDRD) Non-Af 61, BUN/Creatinine Ratio 19.5, Glucose 111 H, Calcium 8.4 Micro: Microbiology 11/25/24 23:22 Stool Stool Occult Blood (ASHLIE) - Final Radiography Diagnostic Testing: Radiology Impression Brain CT 11/25/24 15:15 IMPRESSION: No acute abnormality is seen. Reading Location: [id number] Cervical Spine CT 11/25/24 15:15 IMPRESSION: Status post fusion at the C5-C6 and C6-C7 levels. Minimal anterior listhesis of C2 on C3 most likely secondary to degenerative changes. One or more dose reduction techniques were used (e.g., Automated exposure control, adjustment of the mA and/or kV according to patient size, use of iterative reconstruction technique). Reading Location: [id number] Chest CT 11/25/24 15:15 IMPRESSION: Scarring at both lung apices. Atelectasis and/or scarring at the lung bases. Emphysematous changes. One or more dose reduction techniques were used (e.g., Automated exposure control, adjustment of the mA and/or kV according to patient size, use of iterative reconstruction technique). Reading Location: [id number] Hip/Pelvis X-Ray 11/25/24 15:35 IMPRESSION: A mildly impacted FRACTURE with mild valgus angulation is seen of the left femoral neck. Mild bilateral hip joint degenerative changes are seen. No evidence of femoral head osteonecrosis. Partially visualized aorto bi-iliac stent grafts are seen. Prominent arterial calcification is noted. Prominent degenerative changes and dextroscoliosis of the visualized portions of the lumbar spine noted. Mild sacroiliac joint degenerative changes are seen. Reading Location: [id number] Physical Exam Const alert, oriented x3 and no apparent distress Constitutional Narrative: Elderly male, somewhat chronically ill-appearing, mildly fatigued appearing but improved from admission, otherwise sitting up comfortably in bed, answering questions with short appropriate responses, in no acute distress. General Appearance: cooperative and comfortable HEENT normocephalic, head/scalp atraumatic, hearing grossly normal bilaterally, nasal mucous membranes and turbinates normal and moist oral mucous membranes Eyes PERRL, EOMs intact bilaterally and conjunctivae normal Neck full ROM Chest inspection of chest normal Resp normal respiratory effort, normal air movement, no use of accessory muscles and clear to auscultation bilaterally Cardio regular rate, regular rhythm, no murmurs and peripheral pulses 2+ throughout GI normal to inspection, nondistended, normoactive bowel sounds, soft to palpation, non-tender and non-distended Back/Spine normal ROM Extremity Extremity Narrative: Left leg with no shortening or rotation noted. No tenderness to palpation but significant pain with any movement. Stable. Skin no rashes or lesions noted Neuro Speech: speech normal Psych mental status grossly normal Psych Narrative: Flat affect. Assessment & Plan Assessment/Plan (1) Closed left hip fracture: PLAN: Plan Patient is an 79-year-old male who presented [facility] [place] ED on 11/25/2024 with left hip pain after a fall at home. 1. Left hip fracture ? Orthopedic surgery following. X-ray on admit showed mildly impacted left femoral neck fracture. See H&P for preoperative evaluation. Planning for left hip pinning this afternoon with Dr. Malone, will remain n.p.o. until procedure. Continue pain control with scheduled Tylenol, oxycodone as needed and IV morphine as needed. Holding aspirin and Plavix, will restart postoperatively per orthopedic recommendations. PT/OT/case management following. 2. Acute on chronic anemia ? Hemoglobin 7.4 on admit, dropped to 6.9 on recheck on evening of 11/26. Was given 2 units of blood with hemoglobin recheck of 8.7. Reportedly had an episode of vomiting with concern for blood, but hemoglobin recheck was very good as noted above and patient had no further episodes of vomiting. Will hold off on GI consult for now and patient is okay for surgery today. 3. History of carotid stenosis with carotid stenting, peripheral vascular disease with recent common iliac artery angioplasty, hypertension, hyperlipidemia ? Follows with vascular surgery. Had carotid stenting done back in 12/2022. More recently had right common iliac artery angioplasty done on 05/06/2024. Per vascular surgery, plan was for baby aspirin and Plavix 75 mg daily for 6 months and if follow-up imaging remains satisfactory can likely return to aspirin only. Holding both aspirin and Plavix for now. Okay to continue home amlodipine and statin. 4. Acute on chronic debility in setting of Parkinson's disease ? PT/OT/case management following. Lives at home with his daughter and it is likely he will need SNF on discharge. Appreciate therapy recommendations postoperatively. Continue home Sinemet. 5. Concern for acute cystitis ? UA on admit showed 500 leukocyte esterase, positive nitrites, 3+ bacteria. Urine culture pending. No other infectious symptoms noted. Will treat empirically with IV ceftriaxone for now, follow-up urine culture. Chronic medical conditions: ? COPD: Stable on room air, not in acute exacerbation. Continue home inhalers. ? GERD: Continue home PPI. ? Depression: Continue home duloxetine. ? History of AAA s/p endovascular stent placement DVT prophylaxis: SCDs CODE STATUS: Full code, verified Expected disposition: Likely SNF, TBD Total clinical time spent by myself addressing the patient's medical issues, reviewing all the data, and collaborating with patient's care team: 35 minutes. Charges/Coding Visit Charges Inpatient E&M: 89378 Subs Hosp L2
--- NOTE | 2024-11-26 11:15 | CASEMGMT ---
Discharge Planning A list of?SNF providers including quality and resource use data and consistent with the patient's preferred geographic region, medical needs, and insurance network was created in [employer] Guide.? This list was provided to the SW. Tracy Montanez Discharge Planning Asst.
--- NOTE | 2024-11-26 15:00 | NURSING ---
pt left for surgery
[2024-11-26] MEDS: 0.9% Normal Saline (1000mL) 1,000 ML 15 ML IV (15:10)
--- NOTE | 2024-11-26 15:21 | CASEMGMT ---
Social Work- SW received notice that pt would like referral to TCU/RU. SW to complete referral when pt has had therapy following surgery. TCU updated of pending referral. NATHANIEL Archer
--- NOTE | 2024-11-26 15:37 | PCM.PRE.AN2 ---
ASA Classification* ASA Classification ASA Classification: 3 Assessment & Plan Anesthesia* Anesthesia Assessment Anesthesia Assessment: Discussed sedation and/or anesthesia options, risks, benefits, and alternatives with patient/parents/legal guardian/POA. Questions invited. The patient/parents/legal guardian/POA seems to understand and agrees to proceed with anesthesia plan. Reviewed the physical assessment, medical history, allergy history and patient home medications list prior to surgery/procedure/anesthetic and documented any changes. Performed airway and anesthesia risk assessments. Anesthesia Type Anesthesia Type: General History Source History Obtained from:: Patient and Chart Anesthesia Focused Assessment* Temperature: 98.2 F Pulse Rate: 60 Blood Pressure: 130/76 Respiratory Rate: 17 Pulse Ox: 91 Oxygen Delivery Method: Room Air Oxygen Flow Rate (L/min): 2 Airway Assessment Mouth opens: >3 cm Mallampati Score: III Teeth Condition: Dentures (Patient has full plate on top. It is out.) and Partial (Partial plate on the bottom. It is out. Rest of the teeth are tight.) Neck Range of motion (ROM): Limited ROM (Somewhat decreased extension) Focused Labs Anesthesia Preop lab: CBC WBC 9.9 K/mm3 (4.4-11.0) 11/26/24 07:53 11/26/24 RBC 3.62 M/mm3 (4.6-6.2) L 11/26/24 07:53 11/26/24 Hgb 8.7 g/dL (13.0-16.5) L 11/26/24 07:53 11/26/24 Hct 27.0 % (40-54) L 11/26/24 07:53 11/26/24 Plt Count 307 K/mm3 (150-450) 11/26/24 07:53 11/26/24 CHEMISTRY Potassium 3.8 mmol/L (3.3-5.1) 11/26/24 07:53 11/26/24 Sodium 135 mmol/L (133-145) 11/26/24 07:53 11/26/24 Magnesium 2.1 mg/dL (1.6-2.6) 10/24/22 04:56 10/24/22 Phosphorus 2.6 mg/dL (2.5-4.9) 10/24/22 04:56 02/01/23 BUN 23 mg/dL (4-19) H 11/26/24 07:53 11/26/24 Creatinine 1.19 mg/dL (0.70-1.20) 11/26/24 07:53 11/26/24 Glucose 111 mg/dL (70-99) H 11/26/24 07:53 11/26/24 POC Glucose 119 mg/dL (74-106) H 10/22/22 13:36 10/22/22 TSH 2.92 uIU/mL (0.358-3.74) 10/23/22 05:26 10/23/22 COAG PT 15.1 SECONDS (11.7-14.9) H 11/26/24 07:53 11/26/24 Pre-Assessment Diagnosis/Proposed Procedure Planned Operative Procedure(s): Left percutaneous screw fixation of the femoral neck. 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 When Was Last Pacemaker Check QUESTION #4 FULL TEXT: You/Your Family Experience fever (hyperthermia) with Anesthesia Last Oral Intake Last Oral intake: Last Oral Intake NPO since 00:00 11/26/24 14:18 Meds taken in AM with sips of Yes 11/26/24 14:18 water? Meds patient instructed to see 11/26/24 14:18 take am of surgery PONV PONV - combine mechanic: PONV - combine mechanic Female HX of Motion Sickness HX of N/V After Surgery Non-Smoker Duration of Surgery greater than 60 minutes Number of Risk Factors PONV Score Height & Weight Height & Weight: Anesthesia: Height & Weight Height 5 ft 8 in 11/26/24 14:18 Weight: 62.3 kg 11/26/24 14:18 Body Mass Index (BMI) 20.9 11/26/24 14:18 Respiratory Assessment Respiratory Assessment - combine mechanic: Respiratory Tract Infection Hx - combine mechanic Hx Respiratory Tract Infection No 11/25/24 20:02 Any additional information?: Yes Hx Respiratory Tract Infection: Yes (Patient has chronic smoker's cough.) STOP Sleep Apnea STOP Sleep Apnea - combine mechanic: STOP Sleep Apnea - combine mechanic Hx Hypertension Yes: ON MED 11/25/24 19:58 Hx Sleep Apnea No 11/25/24 19:58 CPAP No 11/25/24 19:58 BIPAP Do you snore loudly (louder No 11/25/24 19:58 than talking or can be heard Do you often feel tired/ No 11/25/24 19:58 fatigued/ sleepy during daytime? Has anyone observed you stop No 11/25/24 19:58 breathing during sleep? STOP Results Negative 11/25/24 19:58 QUESTION #5 FULL TEXT : Do you snore loudly (louder than talking or can be heard through closed doors)? 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 Specify any problems Hx of Preganancy in last 3 N/A 11/25/24 19:58 Months Nurse Filling Out Transfusion DREDICK 11/25/24 19:58 & Questions: Date: 11/25/24 11/25/24 19:58 Time: 19:58 11/25/24 19:58 Patient unable to answer at this time (ie. confused, unrespo /Reproduction History /Reproductive History - combine mechanic: /Reproductive Hx- combine mechanic Hx Now No 11/25/24 20:02 Gestational Age (in weeks): EDC: Hx Hx Para Hx Section SAB No 11/25/24 20:02 Active Medications Active Medications: Current Medications Generic Name Dose Route Start Last Admin Trade Name Freq PRN Reason Stop Dose Admin Acetaminophen 1,000 mg 11/25/24 22:00 11/26/24 14:22 Acetaminophen 500 Mg Tablet PO Not Given Q8 EFE Albuterol Sulfate 2.5 mg 11/25/24 21:39 Albuterol 2.5 Mg/3 Ml Vial.Neb. INHALATION Q4H PRN PRN shortness of breath or wheezing Atorvastatin Calcium 40 mg 11/25/24 22:00 11/25/24 20:59 Atorvastatin Calcium 40 Mg Tablet PO 40 mg QHS EFE Administration Carbidopa/Levodopa 2 tablet 11/25/24 21:00 11/26/24 11:45 Carbidopa/Levodopa 25/100 Tablet PO 2 tablet TIDAC EFE Administration Docusate Sodium 100 mg 11/26/24 10:00 11/26/24 08:03 Docusate Sodium 100 Mg Capsule PO Not Given DAILY EFE Duloxetine HCl 20 mg 11/26/24 10:00 11/26/24 08:01 Duloxetine Hcl 20 Mg Capsule PO 20 mg DAILY EFE Administration Ceftriaxone Sodium 1 gm in 50 mls @ 100 mls/hr 11/26/24 00:25 11/26/24 01:37 Rocephin IV Infused QHS EFE Infusion Pantoprazole Sodium 40 mg/ 110 mls @ 330 mls/hr 11/26/24 10:00 11/26/24 10:27 Sodium Chloride IV Not Given Q12 EFE Sodium Chloride 1,000 mls @ 15 mls/hr 11/26/24 15:10 11/26/24 15:10 IV 12/02/24 04:29 15 mls/hr .Q48H EFE Administration Protocol Ipratropium [place] 0.5 mg 11/25/24 21:45 Ipratropium 0.5 Mg/2.5 Ml Solution INHALATION Q6HWA.RT EFE Melatonin 3 mg 11/25/24 18:57 Melatonin 3 Mg Tablet PO QHS PRN PRN INSOMNIA Morphine Sulfate 2 mg 11/25/24 18:57 Morphine 2 Mg/Ml Syringe IV Q3H PRN PRN Pain Score 6-10 Ondansetron HCl 4 mg 11/25/24 18:57 Ondansetron 4 Mg/2 Ml Vial IV Q8H PRN PRN NAUSEA/VOMITING Oxycodone HCl 5 mg 11/25/24 18:57 11/25/24 20:59 Oxycodone 5 Mg Tablet PO 5 mg Q4H PRN PRN Administration Pain Score 4-10 Polyethylene Glycol 17 gm 11/25/24 18:57 Polyethylene Glycol 3350 17 Gm Packet PO DAILY PRN CONSTIPATION Senna 1 tablet 11/25/24 22:00 11/26/24 08:04 Senna Tablet PO Not Given BID EFE Sodium Chloride 10 - 40 ml 11/25/24 19:12 11/25/24 21:08 0.9% Saline Lock 10 Ml Syringe IV 10 ml UD PRN Administration SALINE FLUSH PFSH Medical History Aftercare following surgery of the circulatory system Stricture of penile urethra Radiation adverse effect Rectal cancer Soft tissue radionecrosis Presence of other vascular implants and grafts Loss of hearing Wears dentures Cancer Depression as late effect of cerebrovascular accident (CVA) Alcohol use Walker as ambulation aid Arthritis Heartburn Shortness of breath Hx of edema Hypertension Hx of echocardiogram Hx of cardiovascular stress test Cardiology follow-up encounter Hx of flexible sigmoidoscopy History of abdominal aortic aneurysm (AAA) Dyslipidemia Nicotine dependence Thrombocytopenia Anemia Hypertension Carotid stenosis Pre-operative cardiovascular examination Cigarette smoker Centrilobular emphysema BPH with obstruction/lower urinary tract symptoms Gross hematuria PVD (peripheral vascular disease) General weakness Unsteady gait Malignant neoplasm of pelvis Pancytopenia Lung nodule Essential (primary) hypertension Patent foramen ovale CVA (cerebral vascular accident) Effusion, left knee AAA (abdominal aortic aneurysm) Rectal cancer Carotid stenosis, left Carotid occlusion, right Colorectal cancer History of prostate cancer Home Medications ?Medication ?Instructions ?Recorded ?Last Taken ?Type docusate sodium 100 mg capsule 100 mg PO BID ask pcp 10/22/22 12/25/22 History potassium chloride 20 mEq 20 meq PO DAILY Check with primary 10/22/22 12/25/22 History tablet,extended release(part/cryst) doctor aspirin 81 mg chewable tablet 81 mg PO BREAKFAST SUPPLEMENT 12/13/22 05/06/24 History atorvastatin 80 mg tablet 80 mg PO QHS CJHOLESTEROL 12/13/22 12/25/22 History duloxetine 20 mg capsule,delayed 20 mg PO DAILY ask pcp 07/23/23 05/06/24 History release (Cymbalta) amlodipine 5 mg tablet 5 mg PO DAILY ask pcp #90 tabs 03/10/24 05/06/24 Rx [id number] 300 mcg-K 60 1 tab PO DAILY ask pcp 03/10/24 Unknown History mcg-lycop 600 mcg-lutein 300 mcg tablet (Centrum Silver Men) carbidopa 25 mg-levodopa 100 mg 2.5 tab PO TID ask pcp 05/21/24 Unknown History tablet clopidogrel 75 mg tablet (Plavix) 75 mg PO DAILY ask pcp #30 tabs 11/20/24 Unknown Rx albuterol sulfate 90 mcg/actuation 2 inh inhalation Q4H PRN shortness 11/25/24 Unknown History aerosol inhaler (Ventolin HFA) of breath or wheezing famotidine 20 mg tablet 20 mg PO DAILY ask pcp 11/25/24 Unknown History polyethylene glycol 3350 17 4 g PO DAILY ask pcp 11/25/24 Unknown History gram/dose oral powder (ClearLax) tiotropium bromide 1.25 2 inh inhalation DAILY ask pcp 11/25/24 Unknown History mcg/actuation mist for inhalation (Spiriva Respimat) Allergy/AdvReac Type Severity Reaction Status Date / Time No Known Allergies Allergy Verified 11/25/24 13:32 Family History Mother CVA (cerebral vascular accident) Father Cancer Brother Diabetes Heart disease Surgical History Hx of cystoscopy (~03/2023) History of left common carotid artery stent placement (~12/2022) Hx of colonoscopy Hx of nasal septoplasty Hx of vasectomy Hx of rotator cuff surgery Hx of neck surgery History of endovascular stent graft for abdominal aortic aneurysm (AAA) (~2017) Social History Smoking Status: Current every day smoker tobacco type: cigarettes alcohol intake: current alcohol intake frequency: holidays/special occasions only substance use type: does not use caffeine: Yes Type: coffee Number of servings: 1 Review of Systems (Anesthesia) ROS Narrative System reviewed and no additional complaints, except as documented.
--- NOTE | 2024-11-26 16:10 | RAD_ITS ---
PROCEDURE: Intraoperative fluoroscopic services. REASON FOR EXAM: Screw fixation of the left femoral neck. TECHNIQUE: Intraoperative fluoroscopic services were provided. COMPARISON: Comparison is made with prior examination dated November 25, 2024. FINDINGS: Intraoperative imaging provided for nailing of the left femoral neck. 3 screws were placed. RAD/Hip Min 2 Views (Portable) IMPRESSION: Fluoroscopic services provided for fixation of the left femoral neck fracture. There is good alignment. Reading Location: [id number]
[2024-11-26] MEDS: Cefazolin 2 GM in Syringe IV (18:35)
[2024-11-26] MEDS: Ropivacaine 0.5% 30 ML Vial (19:00)
--- NOTE | 2024-11-26 19:31 | PCM.OPRPT ---
Operative Report (Standard) Operative Information Date of Procedure: 11/26/24 Pre-Operative Diagnosis: Left valgus impacted femoral neck fracture Post-Operative Diagnosis: Left valgus impacted femoral neck fracture Surgery/Procedure Performed: Percutaneous screw fixation left femoral neck lumite injector: No Type of Anesthesia: General RN Documented Start/Stop Times: Operation Date: 11/26/24 16:00 Case Time Into Pre-Op 11/26/24 14:54 Anesthesia Start 11/26/24 18:30 Into Room 11/26/24 18:30 Procedure Start 11/26/24 18:57 Procedure End 11/26/24 19:22 Anesthesia End 11/26/24 19:30 Out of Room 11/26/24 19:30 Into Recovery 11/26/24 19:31 Procedure Start Time: 18:57 Procedure Stop Time: 19:22 Select all DRAINS/GRAFTS/IMPLANTS that apply: Implanted device Implanted device details: Synthes 7.3 mm cannulated screws x 3, 1 washer Estimated Blood Loss: 5 cc Specimen collected: No Description of surgery: Prior to the procedure, patient was brought to the preoperative holding area where patient was identified by name, medical record number and date of . I confirmed the side, site, operation to be performed. Informed consent was confirmed. The operative extremity was marked. He was also seen by anesthesia staff and anesthesia consent obtained.At time of the operative procedure, pt was brought to the operative suite. General anesthesia was induced on the hospital bed and LMA placed. After adequate anesthesia and securing the tube, patient was then positioned supine on a fracture table. The operative foot was well-padded and placed in a ski boot attached to the traction unit on the fracture table. The nonoperative leg was extended and secured to the lateral post of the fracture table. A well-padded perineal post was placed and the right upper extremity was brought across patient's torso and secured. We applied minimal traction through the operative extremity. We then prepped and draped the right lower extremity in normal sterile orthopedic fashion after maintained reduction was confirmed on fluoroscopy orthogonal views. We then performed a timeout with all parties in attendance in agreement with the side, site, operation be performed. 2 g Ancef was administered prior to incision by anesthesia staff. I first used fluoroscopy to demetrius out our planned incision with the planned trajectory of the screws. An approximately 2 inch incision was made along the lateral thigh. I then opened the IT band with a scalpel. A threaded K wire was then used to plan my screw trajectory. I placed an inverted triangle configuration just above the level of the lesser trochanter. Position was confirmed on fluoroscopy and appropriate and parallel position. Depth gauge was used to measure the length of screws. Near cortex was drilled with a cannulated drill. Screws were then placed on power and tightened on hand. I did place a washer on the inferior screw for increased purchase. Final fluoroscopic images were obtained. Maintained reduction in placement and size of hardware appeared appropriate. Hemostasis was excellent. I then thoroughly irrigated the wound with normal saline solution. Deep tissues were closed with 0 Vicryl suture and subcutaneous tissue closed with 2-0 Vicryl suture. Field block was administered with 30 cc total 0.5% ropivacaine. Skin was finally closed with isabella. Sterile compression dressings were applied to the wounds. Patient was then taken out of traction entirely and removed from both traction boot and well leg bullock. Patient was transferred back to his hospital bed in stable condition and extubated safely in the operative suite. Patient was then transferred to PACU in stable condition. Post Operative Plan: Weightbearing: Weightbearing as tolerated left lower extremity Antibiotics: Ancef prior to incision DVT Prophylaxis: Okay to restart home aspirin and Plavix postoperative day #1 from my standpoint Salguero: None Dressing: Dry sterile dressing changes daily and as needed for saturation X-Rays: 2 weeks postop in the office Follow-up: 2 weeks in the office with myself Surgical Findings: Valgus impacted left femoral neck fracture. Complications Complications: No Admit VTE Documentation VTE Present on Admission: No VTE Mechan Device Prophylaxis: SCD's and Knee High DENISE Hose VTE Pharm Prophylaxis ordered?: Yes
--- NOTE | 2024-11-26 19:33 | PCM.POST.ANE ---
Anesthesia: Postop Eval I Current Vital Signs Temperature: 98.9 F Pulse Rate: 64 Blood Pressure: 135/48 Respiratory Rate: 16 Pulse Ox: 95 Oxygen Delivery Method: Room Air Assessment Airway patent: Yes Spontaneous unlabored respirations: Yes Mental status: Asleep nausea: No Vomiting: No Anesthesia Complication: No Fluid Hydration Crystalloid volume administer (ml): 700 Total IV fluid infused: 700 Progress Note Anesthesia document: Postop Eval 1 completed: Yes
--- NOTE | 2024-11-26 21:59 | PCM.POSTANE2 ---
Anesthesia Postop Eval I Sum Postop Eval Completion status Anesthesia document: Postop Eval 1 completed: Yes Anesthesia Postop Eval I Summary Anesthesia Postop Eval I Summary: Anesthesia Postop Eval I: Assessment Summary Airway patent Yes 11/26/24 19:35 Spontaneous unlabored Yes 11/26/24 19:35 respirations Mental status Asleep 11/26/24 19:35 nausea No 11/26/24 19:35 Vomiting No 11/26/24 19:35 Anesthesia Postop Eval I: Fluid Summary Crystalloid volume administer 700 11/26/24 19:35 (ml) Colloids volume administered ( ml) Blood Product volume administered (ml) Total IV fluid infused 700 11/26/24 19:35 Anesthesia Postop Eval I: Summary Notes Anesthesia Complication No 11/26/24 19:35 Anesthesia Complication Comment: Post-operative progress note Anesthesia: Postop Eval II Evaluation Mental status: Awake and Calm Pain Level: 1 nausea: No Vomiting: No Complications Anesthesia Complication: No
[2024-11-26] MEDS: Pantoprazole Sodium 40 MG in 0.9% Normal Saline (100mL MB+) 100 ML 330 MG IV (22:42)
[2024-11-26] MEDS: Senna Tablet 1 TABLET PO (22:43)
[2024-11-26] MEDS: Atorvastatin Calcium 40 MG Tablet PO (22:43)
[2024-11-27] VITALS (10 sets, daily range): BP systolic 110–166; BP diastolic 41–60; PULSE 65–78; RESP 16–18; TEMP 36.3–37.4; O2SAT 91–99
[2024-11-27 06:52] LABS: Hemoglobin 8.8 g/dL (13.0-16.5); Mean Corp Hgb Conc 31.4 g/dL (32-36); Mean Corpuscular Hgb 23.7 pg (27.0-32.0); Mean Corpuscular Volume 75.5 fL (80-94); Mean Platelet Vol. 10.3 fl (6.2-12.0); POSITIVE MORPHOLOGY YES; Platelet Count 298 K/mm3 (150-450); RBC Distribution Width CV 22.3 % (11.6-14.6); RBC Distribution Width SD 60.1 fl (35.1-43.9); Red Blood Count 3.71 M/mm3 (4.6-6.2); White Blood Count 9.2 K/mm3 (4.4-11.0)
[2024-11-27 07:05] LABS: Scan Indicated on CBC? Y/N YES- FLAGS NOTED
[2024-11-27] MEDS: Ipratropium 0.5 MG/2.5 ML SOLUTION INHALATION ×3 (07:15→19:43)
[2024-11-27] MEDS: Carbidopa/Levodopa 25/100 Tablet PO ×3 (07:21→16:55)
[2024-11-27] MEDS: Acetaminophen 500 MG Tablet 1000 MG PO ×3 (07:23→22:50)
[2024-11-27 08:00] LABS: Anion Gap 13 (5-15); BUN 18 mg/dL (4-19); BUN/Creat Ratio 19.1 RATIO (10-20); Calcium,Total 8.1 mg/dL (7.6-11.0); Carbon Dioxide 20.8 mmol/L (21.0-32.0); Chloride 102 mmol/L (98-108); Creatinine, Serum 0.95 mg/dL (0.70-1.20); EST Glomerular Filtration Rate 81 (>60); Estimated Creatinine Clearance 53.74 ml/min (50-250); Glucose 127 mg/dL (70-99); Potassium 3.4 mmol/L (3.3-5.1); Sodium Level 136 mmol/L (133-145)
[2024-11-27] MEDS: DULoxetine Hcl 20 MG Capsule PO (09:24)
[2024-11-27] MEDS: Calcium Carbonate 500 MG Tablet PO ×3 (09:24→16:55)
[2024-11-27] MEDS: Docusate Sodium 100 MG Capsule PO (09:24)
[2024-11-27] MEDS: Pantoprazole Sodium 40 MG in 0.9% Normal Saline (100mL MB+) 100 ML 330 MG IV ×2 (09:25→23:30)
[2024-11-27] MEDS: 0.9% Saline Lock 10 ML Syringe IV ×4 (09:25→22:46)
[2024-11-27] MEDS: Senna Tablet 1 TABLET PO ×2 (09:25→22:44)
--- NOTE | 2024-11-27 12:17 | PN_ITS ---
Subjective Subjective Patient seen and examined. He was comfortably eating breakfast. He had no complaints. Pain was well-controlled. Review of systems otherwise negative. Objective Data Objective Data Vital Signs: Vital Signs Temp Pulse Resp BP Pulse Ox O2 Del Method O2 Flow Rate 99 F 66 16 143/55 H 99 Room Air 2 11/27/24 07:20 11/27/24 08:12 11/27/24 11:06 11/27/24 07:20 11/27/24 07:20 11/27/24 08:12 11/27/24 00:50 Oxygen Flow Rate (L/min) 2 Oxygen Delivery Method Room Air Weight: 137 lb 5.568 oz Body Mass Index (BMI) 20.9 Intake & Output: Intake and Output for Last 24 Hours 11/25/24 11/26/24 11/27/24 23:59 23:59 23:59 Intake Total 400 / 400 1279.5 / 1279.5 830 / 830 Output Total 450 / 450 1000 / 1000 350 / 350 Balance -50 / -50 279.5 / 279.5 480 / 480 Lab / Micro Data 11/27/24 05:12 11/27/24 05:12 Labs: Laboratory Results - last 24 hr 11/27/24 05:12: WBC 9.2, RBC 3.71 L, Hgb 8.8 L, Hct 28.0 L, MCV 75.5 L, MCH 23.7 L, MCHC 31.4 L, RDW Std Deviation 60.1 H, RDW Coeff of Lamin 22.3 H, Plt Count 298, MPV 10.3, Sodium 136, Potassium 3.4, Chloride 102, Carbon Dioxide 20.8 L, Anion Gap 13, BUN 18, Creatinine 0.95, Estim Creat Clear Calc 53.74, Est GFR (MDRD) Non-Af 81, BUN/Creatinine Ratio 19.1, Glucose 127 H, Calcium 8.1 Micro: Microbiology 11/26/24 Unknown Urine Catheter - Catheter Urine Culture - Preliminary Gram negative shauna 11/25/24 23:22 Stool Stool Occult Blood (ASHLIE) - Final Radiography Diagnostic Testing: Radiology Impression Hip X-Ray 11/26/24 16:10 IMPRESSION: Fluoroscopic services provided for fixation of the left femoral neck fracture. There is good alignment. Reading Location: [facility] Physical Exam Const alert, oriented x3, no apparent distress and well nourished General Appearance: cooperative and well developed HEENT normocephalic, head/scalp atraumatic, moist oral mucous membranes and oropharynx normal Eyes PERRL and EOMs intact bilaterally Neck no lymphadenopathy, supple and no JVD Lymph Lymphatic: no lymphadenopathy noted and no lymphedema noted Resp Resp Narrative: mildly diminished breath sounds bibasally, no wheezes or crackles. On room air. Cardio regular rate, regular rhythm, S1 normal heart sound, S2 normal heart sound and no murmurs GI normal to inspection, nondistended, normoactive bowel sounds, soft to palpation, non-tender and non-distended Extremity normal capillary refill, no clubbing, cyanosis or edema and no calf tenderness General Extremity: no tenderness to palpation of joints or extremities Skin Skin Narrative: intact dressing over surgical site on right hip Neuro CN's II-XII intact bilaterally, no focal motor deficits and no sensory deficits noted Motor Exam: strength 5/5 throughout and general weakness Psych thought process normal, cooperative and affect normal Appearance: appropriate Assessment & Plan Assessment/Plan (1) Closed left hip fracture: PLAN: Plan #Left hip fracture due to mechanical fall * S/p left hip percutaneous screw fixation by orthopedic surgery. * Pain is well-controlled. On p.o. Tylenol, p.o. oxycodone and IV morphine as needed for pain * Incentive spirometry. * PT OT on board. Fall precautions. #Acute on chronic anemia: Hemoglobin is 8.8 today. Stable. Will monitor. # History of carotid stenosis status post carotid stents * On aspirin and Plavix. Will resume. #History of peripheral vascular disease s/p, Iliac artery angioplasty: Will resume aspirin and Plavix. Also on high intensity statin. #Hypertension: On amlodipine. #History of Parkinson's disease: PT OT on board. On Sinemet. #UTI: Urinalysis showed 3+ bacteria. Urine cultures pending. On IV ceftriaxone. #GERD: PPI #Depression: Duloxetine #History of abdominal aortic aneurysm status post endovascular stent placement, stable DVT prophylaxis: On aspirin Disposition; awaiting placement Charges/Coding Visit Charges Inpatient E&M: 64868 Subs Hosp L2
--- NOTE | 2024-11-27 12:21 | PCM.PN.ORT ---
Subjective Subjective Patient is s/p postop day 1 percutaneous screw fixation left femoral neck fracture with Dr. Malone 11/26/2024.. Patient resting comfortably in bed side chair. Reports pain 6 out of 10.. States taking Tylenol and oxycodone and ice help to relieve pain. Patient has been up with therapy. Walking with the assit of a walker. Afebrile, no chest pain, shortness of breath, negative calf pain/ erythema, and no other signs of DVT. Objective Data Objective Data Vital Signs: Vital Signs Temp Pulse Resp BP Pulse Ox O2 Del Method O2 Flow Rate 99 F 66 16 143/55 H 99 Room Air 2 11/27/24 07:20 11/27/24 08:12 11/27/24 11:06 11/27/24 07:20 11/27/24 07:20 11/27/24 08:12 11/27/24 00:50 Oxygen Flow Rate (L/min) 2 Oxygen Delivery Method Room Air Weight: 62.3 kg Body Mass Index (BMI) 20.9 Intake & Output: Intake and Output for Last 24 Hours 11/25/24 11/26/24 11/27/24 23:59 23:59 23:59 Intake Total 400 / 400 1279.5 / 1279.5 830 / 830 Output Total 450 / 450 1000 / 1000 350 / 350 Balance -50 / -50 279.5 / 279.5 480 / 480 Lab / Micro Data 11/27/24 05:12 11/27/24 05:12 Labs: Laboratory Results - last 24 hr 11/27/24 05:12: WBC 9.2, RBC 3.71 L, Hgb 8.8 L, Hct 28.0 L, MCV 75.5 L, MCH 23.7 L, MCHC 31.4 L, RDW Std Deviation 60.1 H, RDW Coeff of Lamin 22.3 H, Plt Count 298, MPV 10.3, Sodium 136, Potassium 3.4, Chloride 102, Carbon Dioxide 20.8 L, Anion Gap 13, BUN 18, Creatinine 0.95, Estim Creat Clear Calc 53.74, Est GFR (MDRD) Non-Af 81, BUN/Creatinine Ratio 19.1, Glucose 127 H, Calcium 8.1 Micro: Microbiology 11/26/24 Unknown Urine Catheter - Catheter Urine Culture - Preliminary Gram negative shauna 11/25/24 23:22 Stool Stool Occult Blood (ASHLIE) - Final Radiography Diagnostic Testing: Radiology Impression Hip X-Ray 11/26/24 16:10 IMPRESSION: Fluoroscopic services provided for fixation of the left femoral neck fracture. There is good alignment. Reading Location: [id number] Physical Exam Narrative Patient resting comfortably in bed No signs of acute distress Satting well on room air Limb is warm to touch, Sensation intact throughout entire lower extremity, including saphenous, sural, superficial and deep peroneal, and tibial distribution. DP/PT pulses bounding. Dorsiflexion plantarflexion strength 5/5 Dressing small amount of dried blood otherwise remains intact. Calf nontender to palpation, no erythema, no edema. Negative Homans Assessment & Plan Assessment/Plan (1) Closed left hip fracture: PLAN: Patient is postop day 1 status post percutaneous screw fixation left femoral neck fracture with Dr. Malone 11/26/2024 1. Will continue PT today. Weightbearing as tolerated 2. plan for discharge per primary team. Likely rehab per PT recommendations. Cleared from an orthopedic standpoint when medically able. 3. Patient will follow up for post op appointment in 2 weeks with post orthopedics. This will need to be arranged. 4. WBC 9.2 acute reactive leukocytosis: secondary to pre operative decadron. no acute systemic signs of infection. will monitor, and likely self resolve. 5. H/H 8.8/28.0: This is approximately stable from yesterday. Only approximately 5 cc of blood loss. No concern for significant acute postoperative anemia. 6. DVT prophylaxis : May resume aspirin and Plavix today for DVT prophylaxis. 7. Pain control: patient instructed to take tylenol 500mg 2 tablets TID. and oxycodone 1-2 tablets every 4-6 hours only as needed for pain control. 8. ok to remove post op dressing. post op day 7 9. orthopaedics will sign off at this time.
--- NOTE | 2024-11-27 13:11 | CASEMGMT ---
Social Work- SW met with pt to update that referral has been placed to [facility]; pending acceptance. SW remains available to follow and will provide updates as available. NATHANIEL Archer
[2024-11-27] MEDS: Aspirin 81 MG TAB.CHEW PO ×2 (14:05→16:55)
[2024-11-27] MEDS: oxyCODONE 5 MG Tablet PO (20:17)
[2024-11-27] MEDS: Ceftriaxone 1 GM/50 ML BAG IV (22:42)
[2024-11-27] MEDS: tiZANidine HCl 2 MG Tablet PO (22:43)
[2024-11-27] MEDS: Atorvastatin Calcium 40 MG Tablet PO (22:44)
[2024-11-28 02:41] VITALS: BP 127/50; PULSE 63; RESP 18; TEMP 37.2; O2SAT 92
[2024-11-28] MEDS: oxyCODONE 5 MG Tablet PO ×4 (02:46→19:51)
[2024-11-28] MEDS: Acetaminophen 500 MG Tablet 1000 MG PO ×3 (05:55→22:18)
[2024-11-28] MEDS: Carbidopa/Levodopa 25/100 Tablet PO ×3 (05:56→16:20)
[2024-11-28 07:25] VITALS: PULSE 86; RESP 20; O2SAT 95
[2024-11-28] MEDS: Ipratropium 0.5 MG/2.5 ML SOLUTION INHALATION ×2 (07:25→13:32)
[2024-11-28 07:52] VITALS: BP 139/58; PULSE 67; RESP 18; TEMP 36.6; O2SAT 94
[2024-11-28] MEDS: Calcium Carbonate 500 MG Tablet PO ×3 (08:00→16:20)
[2024-11-28] MEDS: Aspirin 81 MG TAB.CHEW PO ×2 (08:00→16:21)
[2024-11-28] MEDS: Polyethylene Glycol 3350 17 GM PACKET PO (08:00)
[2024-11-28] MEDS: DULoxetine Hcl 20 MG Capsule PO (08:01)
[2024-11-28] MEDS: Clopidogrel Bisulfate 75 MG Tablet PO (08:01)
[2024-11-28] MEDS: Senna Tablet 1 TABLET PO ×2 (08:01→22:16)
[2024-11-28] MEDS: Docusate Sodium 100 MG Capsule PO (08:01)
[2024-11-28] MEDS: Pantoprazole Sodium 40 MG in 0.9% Normal Saline (100mL MB+) 100 ML 330 MG IV (09:44)
[2024-11-28] MEDS: 0.9% Saline Lock 10 ML Syringe IV ×2 (09:44→22:29)
[2024-11-28 10:56] LABS: Absolute Neutrophil Count 7.7 X10^3/uL (2.0-7.7); Basophil# 0.03 X10^3/uL; Basophil% 0.3 % (0-1); Eosinophil# 0.28 X10^3/uL; Eosinophils% 3.1 % (0-5); Hematocrit 28.5 % (40-54); Hemoglobin 8.7 g/dL (13.0-16.5); Lymphocyte % 7.7 % (19-41); Mean Corp Hgb Conc 30.5 g/dL (32-36); Mean Corpuscular Hgb 23.8 pg (27.0-32.0); Mean Corpuscular Volume 78.1 fL (80-94); Mean Platelet Vol. 10.2 fl (6.2-12.0); Monocyte# 0.37 X10^3/uL; Monocyte% 4.1 % (0-10); NRBC Flagged by Analyzer 0 % (0-5); Neutrophil # 7.65 X10^3/uL (2.7-7.7); Neutrophil % 84.1 % (47-70); POSITIVE MORPHOLOGY YES; Platelet Count 348 K/mm3 (150-450); RBC Distribution Width CV 22.8 % (11.6-14.6); RBC Distribution Width SD 63.9 fl (35.1-43.9); Red Blood Count 3.65 M/mm3 (4.6-6.2); White Blood Count 9.1 K/mm3 (4.4-11.0)
[2024-11-28 10:59] LABS: Differential Indicated SCAN CRITERIA MET
[2024-11-28 11:27] LABS: Anisocytosis 1+
[2024-11-28 12:25] LABS: Anion Gap 13 (5-15); BUN 15 mg/dL (4-19); BUN/Creat Ratio 16.2 RATIO (10-20); Calcium,Total 8.3 mg/dL (7.6-11.0); Carbon Dioxide 21.4 mmol/L (21.0-32.0); Chloride 104 mmol/L (98-108); Creatinine, Serum 0.93 mg/dL (0.70-1.20); EST Glomerular Filtration Rate 83 (>60); Estimated Creatinine Clearance 54.89 ml/min (50-250); Glucose 118 mg/dL (70-99); Potassium 3.9 mmol/L (3.3-5.1); Sodium Level 138 mmol/L (133-145)
[2024-11-28 13:32] VITALS: PULSE 84; RESP 20
[2024-11-28] MEDS: Magnesium Hydroxide 30 ML UDC PO (13:57)
[2024-11-28 14:06] VITALS: BP 127/51; PULSE 69; RESP 16; TEMP 36.3; O2SAT 95
--- NOTE | 2024-11-28 14:08 | PN_ITS ---
Subjective Subjective Patient seen and examined. He had no complaints. He had an uneventful night. Review of systems otherwise negative. He has been hemodynamically stable. Objective Data Objective Data Vital Signs: Vital Signs Temp Pulse Resp BP Pulse Ox O2 Del Method O2 Flow Rate 97.4 F L 69 16 127/51 H 95 Room Air 2 11/28/24 14:06 11/28/24 14:06 11/28/24 14:06 11/28/24 14:06 11/28/24 14:11/28/24 14:11/27/24 00:50 Oxygen Flow Rate (L/min) 2 Oxygen Delivery Method Room Air Weight: 137 lb 5.568 oz Body Mass Index (BMI) 20.9 Intake & Output: Intake and Output for Last 24 Hours 11/26/24 11/27/24 11/28/24 23:59 23:59 23:59 Intake Total 1279.5 / 1279.5 990 / 1065 885 / 885 Output Total 1000 / 1000 700 / 1050 1000 / 1000 Balance 279.5 / 279.5 290 / 15 -115 / -115 Lab / Micro Data 11/28/24 10:20 11/28/24 10:20 Labs: Laboratory Results - last 24 hr 11/28/24 10:20: WBC 9.1, RBC 3.65 L, Hgb 8.7 L, Hct 28.5 L, MCV 78.1 L, MCH 23.8 L, MCHC 30.5 L, RDW Std Deviation 63.9 H, RDW Coeff of Lamin 22.8 H, Plt Count 348, MPV 10.2, Immature Gran % (Auto) 0.700, Neut % (Auto) 84.1 H, Lymph % (Auto) 7.7 L, Vance % (Auto) 4.1, Eos % (Auto) 3.1, Baso % (Auto) 0.3, Absolute Neuts (auto) 7.7, Absolute Lymphs (auto) 0.70 L, Nucleated RBC % 0, Anisocytosis 1+, Sodium 138, Potassium 3.9, Chloride 104, Carbon Dioxide 21.4, Anion Gap 13, BUN 15, Creatinine 0.93, Estim Creat Clear Calc 54.89, Est GFR (MDRD) Non-Af 83, BUN/Creatinine Ratio 16.2, Glucose 118 H, Calcium 8.3 Micro: Microbiology 11/26/24 Unknown Urine Catheter - Catheter Urine Culture - Preliminary Gram negative shauna Gram negative shauna#2 GNR lactose lead cytogenetic technologist GNR lactose lead cytogenetic technologist#2 11/25/24 23:22 Stool Stool Occult Blood (ASHLIE) - Final Physical Exam Const alert, oriented x3, no apparent distress and well nourished General Appearance: cooperative, comfortable and well developed HEENT normocephalic, head/scalp atraumatic, hearing grossly normal bilaterally, nasal mucous membranes and turbinates normal, moist oral mucous membranes and oropharynx normal Eyes PERRL, EOMs intact bilaterally and conjunctivae normal Neck full ROM, no lymphadenopathy, supple and no JVD Lymph Lymphatic: no lymphadenopathy noted and no lymphedema noted Chest inspection of chest normal Resp normal respiratory effort, normal air movement, no use of accessory muscles and clear to auscultation bilaterally Cardio regular rate, regular rhythm, S1 normal heart sound, S2 normal heart sound, no murmurs and peripheral pulses 2+ throughout GI normal to inspection, nondistended, normoactive bowel sounds, soft to palpation, non-tender and non-distended Back/Spine normal ROM Extremity normal capillary refill, no clubbing, cyanosis or edema and no calf tenderness General Extremity: no tenderness to palpation of joints or extremities Skin no rashes or lesions noted Skin Narrative: intact dressing over surgical site on right hip Neuro CN's II-XII intact bilaterally, no focal motor deficits and no sensory deficits noted Speech: speech normal Motor Exam: strength 5/5 throughout and general weakness Psych mental status grossly normal, thought process normal, cooperative and affect normal Appearance: appropriate Assessment & Plan Assessment/Plan (1) Closed left hip fracture: PLAN: Plan #Left hip fracture due to mechanical fall * S/p left hip percutaneous screw fixation by orthopedic surgery. today is POD 2 * Pain is well-controlled. On p.o. Tylenol, p.o. oxycodone and IV morphine as needed for pain * Incentive spirometry. * PT OT on board. Fall precautions. #Acute on chronic anemia: Hemoglobin is 8.7 today. Stable. Will monitor. # History of carotid stenosis status post carotid stents * On aspirin and Plavix. Will resume. #History of peripheral vascular disease s/p, Iliac artery angioplasty: On aspirin and Plavix. Also on high intensity statin. #Hypertension: On amlodipine. #History of Parkinson's disease: PT OT on board. On Sinemet. #UTI: * Urinalysis showed 3+ bacteria. * Urine cultures growing gram-negative shauna. Speciation is pending. * Continue IV ceftriaxone. #GERD: PPI #Depression: Duloxetine #History of abdominal aortic aneurysm status post endovascular stent placement, stable DVT prophylaxis: On aspirin 81mg bid per orthopedic surgery. TO take that for 4 weeks post op for DVT prophylaxis Disposition; awaiting placement Charges/Coding Visit Charges Inpatient E&M: 88863 Subs Hosp L2
[2024-11-28 20:00] VITALS: BP 138/54; PULSE 62; RESP 16; TEMP 37.2; O2SAT 94
[2024-11-28] MEDS: Ceftriaxone 1 GM/50 ML BAG IV (22:15)
[2024-11-28] MEDS: MELATONIN 3 MG TABLET PO (22:15)
[2024-11-28] MEDS: Pantoprazole Sodium 40 MG Tablet PO (22:16)
[2024-11-28] MEDS: Atorvastatin Calcium 40 MG Tablet PO (22:16)
[2024-11-29] VITALS (7 sets, daily range): BP systolic 130–159; BP diastolic 46–74; PULSE 65–75; RESP 16–20; TEMP 36.1–36.6; O2SAT 90–94
[2024-11-29] MEDS: Carbidopa/Levodopa 25/100 Tablet PO ×3 (05:38→15:04)
[2024-11-29] MEDS: Acetaminophen 500 MG Tablet 1000 MG PO ×3 (05:38→21:19)
[2024-11-29] MEDS: Ipratropium 0.5 MG/2.5 ML SOLUTION INHALATION ×3 (07:36→19:31)
[2024-11-29] MEDS: Calcium Carbonate 500 MG Tablet PO ×3 (09:26→16:24)
[2024-11-29] MEDS: Polyethylene Glycol 3350 17 GM PACKET PO (09:28)
[2024-11-29] MEDS: oxyCODONE 5 MG Tablet PO ×3 (09:28→21:19)
[2024-11-29] MEDS: Magnesium Hydroxide 30 ML UDC PO (09:28)
[2024-11-29] MEDS: Aspirin 81 MG TAB.CHEW PO ×2 (09:30→16:24)
[2024-11-29] MEDS: Clopidogrel Bisulfate 75 MG Tablet PO (09:30)
[2024-11-29] MEDS: Docusate Sodium 100 MG Capsule PO (09:30)
[2024-11-29] MEDS: Pantoprazole Sodium 40 MG Tablet PO ×2 (09:30→21:19)
[2024-11-29] MEDS: DULoxetine Hcl 20 MG Capsule PO (09:31)
[2024-11-29] MEDS: Senna Tablet 1 TABLET PO ×2 (09:31→21:19)
--- NOTE | 2024-11-29 11:23 | PN_ITS ---
Subjective Subjective Patient seen and examined. He had no complaints. He had an uneventful night. Review of symptoms otherwise negative. He is awaiting placement. He has made hemodynamically stable. Objective Data Objective Data Vital Signs: Vital Signs Temp Pulse Resp BP Pulse Ox O2 Del Method O2 Flow Rate 96.9 F L 75 16 130/62 H 93 Room Air 2 11/29/24 09:20 11/29/24 09:20 11/29/24 09:20 11/29/24 09:20 11/29/24 09:20 11/29/24 09:20 11/27/24 00:50 Oxygen Flow Rate (L/min) 2 Oxygen Delivery Method Room Air Weight: 137 lb 5.568 oz Body Mass Index (BMI) 20.9 Intake & Output: Intake and Output for Last 24 Hours 11/27/24 11/28/24 11/30/24 23:59 23:59 00:59 Intake Total 990 / 1065 935 / 935 Output Total 700 / 1050 1300 / 1300 500 / 500 Balance 290 / 15 -365 / -365 -500 / -500 Lab / Micro Data 11/28/24 10:20 11/28/24 10:20 Labs: Laboratory Results - last 24 hr 11/28/24 10:20: WBC 9.1, RBC 3.65 L, Hgb 8.7 L, Hct 28.5 L, MCV 78.1 L, MCH 23.8 L, MCHC 30.5 L, RDW Std Deviation 63.9 H, RDW Coeff of Lamin 22.8 H, Plt Count 348, MPV 10.2, Immature Gran % (Auto) 0.700, Neut % (Auto) 84.1 H, Lymph % (Auto) 7.7 L, Blair % (Auto) 4.1, Eos % (Auto) 3.1, Baso % (Auto) 0.3, Absolute Neuts (auto) 7.7, Absolute Lymphs (auto) 0.70 L, Nucleated RBC % 0, Anisocytosis 1+, Sodium 138, Potassium 3.9, Chloride 104, Carbon Dioxide 21.4, Anion Gap 13, BUN 15, Creatinine 0.93, Estim Creat Clear Calc 54.89, Est GFR (MDRD) Non-Af 83, BUN/Creatinine Ratio 16.2, Glucose 118 H, Calcium 8.3 Micro: Microbiology 11/26/24 Unknown Urine Catheter - Catheter Urine Culture - Preliminary Morganella morganii sp morgani Providencia rettgeri GNR lactose receptionist clerk Escherichia coli 11/25/24 23:22 Stool Stool Occult Blood (ASHLIE) - Final Physical Exam Const alert, oriented x3, no apparent distress and well nourished General Appearance: cooperative, comfortable and well developed HEENT normocephalic, head/scalp atraumatic, hearing grossly normal bilaterally, nasal mucous membranes and turbinates normal, moist oral mucous membranes and oropharynx normal Eyes PERRL, EOMs intact bilaterally and conjunctivae normal Neck full ROM, no lymphadenopathy, supple and no JVD Lymph Lymphatic: no lymphadenopathy noted and no lymphedema noted Chest inspection of chest normal Resp Resp Narrative: mildly diminished breath sounds bibasally, no wheezes or crackles. On room air. Cardio regular rate, regular rhythm, S1 normal heart sound, S2 normal heart sound, no murmurs and peripheral pulses 2+ throughout GI normal to inspection, nondistended, normoactive bowel sounds, soft to palpation, non-tender and non-distended Extremity normal capillary refill, no clubbing, cyanosis or edema and no calf tenderness General Extremity: no tenderness to palpation of joints or extremities Skin no rashes or lesions noted Skin Narrative: intact dressing over surgical site on right hip Neuro CN's II-XII intact bilaterally, no focal motor deficits and no sensory deficits noted Speech: speech normal Motor Exam: strength 5/5 throughout and general weakness Psych mental status grossly normal, thought process normal, cooperative and affect normal Appearance: appropriate Assessment & Plan Assessment/Plan (1) Closed left hip fracture: PLAN: Plan #Left hip fracture due to mechanical fall * S/p left hip percutaneous screw fixation by orthopedic surgery. today is POD 3 * Pain is well-controlled. On p.o. Tylenol, p.o. oxycodone and IV morphine as needed for pain * Incentive spirometry. * PT OT on board. Fall precautions. #Acute on chronic anemia: Hb has remained stable. Will monitor. # History of carotid stenosis status post carotid stents * On aspirin and Plavix. Will resume. #History of peripheral vascular disease s/p, Iliac artery angioplasty: On aspirin and Plavix. Also on high intensity statin. #Hypertension: On amlodipine. #History of Parkinson's disease: PT OT on board. On Sinemet. #UTI: * Urinalysis showed 3+ bacteria. * Urine culture growing Morganella morganii, Providencia rettgeri and E. coli as well as gram-negative shauna lactose receptionist clerk with speciation pending. Will switch switch to p.o. cefdinir and p.o. Bactrim per sensitivity results. * DC ceftriaxone. #GERD: PPI #Depression: Duloxetine #History of abdominal aortic aneurysm status post endovascular stent placement, stable DVT prophylaxis: On aspirin 81mg bid per orthopedic surgery. TO take that for 4 weeks post op for DVT prophylaxis Disposition; awaiting placement Charges/Coding Visit Charges Inpatient E&M: 74789 Subs Hosp L2
[2024-11-29 12:17] LABS: Absolute Lymphocyte Count 0.64 X10^3/uL (0.83-4.51); Absolute Neutrophil Count 7.2 X10^3/uL (2.0-7.7); Basophil# 0.04 X10^3/uL; Basophil% 0.5 % (0-1); Differential Indicated SCAN CRITERIA MET; Eosinophils% 3.5 % (0-5); Hemoglobin 9.4 g/dL (13.0-16.5); Lymphocyte # 0.64 X10^3/ul (0.83-4.51); Lymphocyte % 7.4 % (19-41); Mean Corp Hgb Conc 30.3 g/dL (32-36); Mean Corpuscular Hgb 23.9 pg (27.0-32.0); Mean Corpuscular Volume 78.7 fL (80-94); Mean Platelet Vol. 10.1 fl (6.2-12.0); Monocyte# 0.38 X10^3/uL; Monocyte% 4.4 % (0-10); NRBC Flagged by Analyzer 0 % (0-5); Neutrophil # 7.21 X10^3/uL (2.7-7.7); Neutrophil % 83.6 % (47-70); POSITIVE MORPHOLOGY YES; Platelet Count 396 K/mm3 (150-450); RBC Distribution Width CV 23.5 % (11.6-14.6); RBC Distribution Width SD 65.7 fl (35.1-43.9); Red Blood Count 3.94 M/mm3 (4.6-6.2); White Blood Count 8.6 K/mm3 (4.4-11.0)
[2024-11-29 12:37] LABS: Anisocytosis 1+; Schistocytes 1+
[2024-11-29 12:43] LABS: Anion Gap 12 (5-15); BUN 19 mg/dL (4-19); BUN/Creat Ratio 23.3 RATIO (10-20); Calcium,Total 8.4 mg/dL (7.6-11.0); Chloride 102 mmol/L (98-108); Creatinine, Serum 0.82 mg/dL (0.70-1.20); EST Glomerular Filtration Rate 88 (>60); Estimated Creatinine Clearance 62.26 ml/min (50-250); Glucose 127 mg/dL (70-99); Potassium 4.1 mmol/L (3.3-5.1); Sodium Level 136 mmol/L (133-145)
[2024-11-29] MEDS: tiZANidine HCl 2 MG Tablet PO (21:19)
[2024-11-29] MEDS: Ondansetron 4 MG/2 ML Vial IV (21:19)
[2024-11-29] MEDS: Atorvastatin Calcium 40 MG Tablet PO (21:19)
[2024-11-29] MEDS: Ceftriaxone 1 GM/50 ML BAG IV (21:20)
[2024-11-29] MEDS: 0.9% Saline Lock 10 ML Syringe IV (21:31)
[2024-11-30 02:30] VITALS: BP 158/57; PULSE 63; RESP 16; TEMP 36.8; O2SAT 94
[2024-11-30] MEDS: Carbidopa/Levodopa 25/100 Tablet PO ×2 (05:30→12:13)
[2024-11-30] MEDS: Acetaminophen 500 MG Tablet 1000 MG PO ×2 (05:30→13:53)
[2024-11-30] MEDS: oxyCODONE 5 MG Tablet PO (05:30)
[2024-11-30] MEDS: Ipratropium 0.5 MG/2.5 ML SOLUTION INHALATION (07:26)
[2024-11-30 07:27] VITALS: PULSE 73; RESP 18; O2SAT 94
--- NOTE | 2024-11-30 08:16 | PCM.PN.HOSP ---
Reason for Visit Reason for Visit: Diagnoses Fracture of unspecified part of neck of left femur, initial encounter for closed fracture (11/25/24) Subjective Subjective Feeling well. Some nausea. Objective Data Objective Data Vital Signs: Vital Signs Temp Pulse Resp BP Pulse Ox O2 Del Method O2 Flow Rate 36.8 C 73 18 158/57 H 94 Room Air 2 11/30/24 02:30 11/30/24 07:27 11/30/24 07:27 11/30/24 02:30 11/30/24 07:27 11/30/24 07:27 11/27/24 00:50 Oxygen Flow Rate (L/min) 2 Oxygen Delivery Method Room Air Weight: 62.3 kg Body Mass Index (BMI) 20.9 Intake & Output: Intake and Output for Last 24 Hours 11/28/24 11/30/24 11/30/24 23:59 00:59 23:59 Intake Total 935 / 935 50 / 50 Output Total 1300 / 1300 1500 / 1500 500 / 500 Balance -365 / -365 -1450 / -1450 -500 / -500 Lab / Micro Data 11/29/24 12:03 11/29/24 12:03 Labs: Laboratory Results - last 24 hr 11/29/24 12:03: WBC 8.6, RBC 3.94 L, Hgb 9.4 L, Hct 31.0 L, MCV 78.7 L, MCH 23.9 L, MCHC 30.3 L, RDW Std Deviation 65.7 H, RDW Coeff of Lamin 23.5 H, Plt Count 396, MPV 10.1, Immature Gran % (Auto) 0.600, Neut % (Auto) 83.6 H, Lymph % (Auto) 7.4 L, [place] % (Auto) 4.4, Eos % (Auto) 3.5, Baso % (Auto) 0.5, Absolute Neuts (auto) 7.2, Absolute Lymphs (auto) 0.64 L, Nucleated RBC % 0, Anisocytosis 1+, Schistocytes 1+, Sodium 136, Potassium 4.1, Chloride 102, Carbon Dioxide 22.0, Anion Gap 12, BUN 19, Creatinine 0.82, Estim Creat Clear Calc 62.26, Est GFR (MDRD) Non-Af 88, BUN/Creatinine Ratio 23.3 H, Glucose 127 H, Calcium 8.4 Micro: Microbiology 11/26/24 Unknown Urine Catheter - Catheter Urine Culture - Preliminary Morganella morganii sp morgani Providencia rettgeri 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 non-toxic. HEENT head/scalp atraumatic and moist oral mucous membranes Assessment & Plan Assessment/Plan (1) Closed left hip fracture: PLAN: Perc screw fixation left femoral neck on 11/26 check 25-oh d level ortho recs: Weightbearing as tolerated left lower extremity, DVT Prophylaxis: Okay to restart home aspirin and Plavix postoperative day #1 from my standpoint, Dressing: Dry sterile dressing changes daily and as needed for saturation, X-Rays: 2 weeks postop in the office, Follow-up: 2 weeks in the office with Dr. Malone PLAN: Plan Disposition: DC to rehab unit. VTE prophylaxis: ASA BID.
[2024-11-30] MEDS: Aspirin 81 MG TAB.CHEW PO (08:20)
[2024-11-30] MEDS: Calcium Carbonate 500 MG Tablet PO ×2 (08:20→12:13)
[2024-11-30] MEDS: Docusate Sodium 100 MG Capsule PO (08:21)
[2024-11-30] MEDS: DULoxetine Hcl 20 MG Capsule PO (08:21)
[2024-11-30] MEDS: Magnesium Hydroxide 30 ML UDC PO (08:22)
[2024-11-30] MEDS: Senna Tablet 1 TABLET PO (08:23)
[2024-11-30] MEDS: Pantoprazole Sodium 40 MG Tablet PO (08:23)
[2024-11-30] MEDS: Clopidogrel Bisulfate 75 MG Tablet PO (08:23)
[2024-11-30] MEDS: tiZANidine HCl 2 MG Tablet PO (08:24)
[2024-11-30 08:26] VITALS: BP 131/51; PULSE 64; RESP 16; TEMP 36.8; O2SAT 93
[2024-11-30 08:27] VITALS: RESP 18
[2024-11-30] MEDS: Ondansetron 4 MG/2 ML Vial IV (09:57)
[2024-11-30] MEDS: 0.9% Saline Lock 10 ML Syringe IV (09:57)
--- NOTE | 2024-11-30 10:18 | CASEMGMT ---
Social Work- SW followed up with IRU admissions on status of referral. Referral remains under review. Pt family not in room; pt updated. SW remains available to follow. NATHANIEL Archer
--- NOTE | 2024-11-30 11:53 | PCM.DC.SUM ---
Providers Date of Admission: 11/25/24 Primary Care Physician: Dr. Remington Frederick MD Consultations 11/26/24 07:09 Consult: Orthopedics Routine Consulting Provider: Dilip Malone Reason for Consult: left hip fracture EMERGENT Consult: No MD Notified: Yes Date Notified: 11/26/24 Time Notified: 07:09 Method of Notification: Text Reason For Visit: FALL W/LEFT FRACTURE Diagnosis Discharge Diagnosis (1) Closed left hip fracture: Status: Acute Code(s): S72.002A - Fracture of unspecified part of neck of left femur, initial encounter for closed fracture Plan: Perc screw fixation left femoral neck on 11/26 check 25-oh d level ortho recs: Weightbearing as tolerated left lower extremity, DVT Prophylaxis: Okay to restart home aspirin and Plavix postoperative day #1 from my standpoint, Dressing: Dry sterile dressing changes daily and as needed for saturation, X-Rays: 2 weeks postop in the office, Follow-up: 2 weeks in the office with Dr. Malone Plan Disposition: DC to rehab unit. VTE prophylaxis: ASA BID. UTI: polymicrobial. Morganella has 50-80k cfus and Providencia has 25-50k cfus. Doubt E. coli true infection. Will dc with 5 days of cipro. Hold cymbalta while on ciprofloxacin. Medications at Discharge Home Medications docusate sodium 100 mg capsule 100 mg PO BID ask pcp 10/22/22 aspirin 81 mg chewable tablet 81 mg PO BREAKFAST SUPPLEMENT 12/13/22 Held on 11/30/24. Instructions: Resume on 12/24/24. atorvastatin 80 mg tablet 80 mg PO QHS CJHOLESTEROL 12/13/22 duloxetine 20 mg capsule,delayed release (Cymbalta) 20 mg PO DAILY ask pcp 07/23/23 Held on 11/30/24. Instructions: Resume on 12/06/24. amlodipine 5 mg tablet 5 mg PO DAILY ask pcp #90 tabs 03/10/24 dgxcnhap-ho-cveos 300 mcg-K 60 mcg-lycop 600 mcg-lutein 300 mcg tablet (Centrum Silver Men) 1 tab PO DAILY ask pcp 03/10/24 carbidopa 25 mg-levodopa 100 mg tablet 2.5 tab PO TID ask pcp 05/21/24 clopidogrel 75 mg tablet (Plavix) 75 mg PO DAILY ask pcp #30 tabs 11/20/24 albuterol sulfate 90 mcg/actuation aerosol inhaler (Ventolin HFA) 2 inh inhalation Q4H PRN shortness of breath or wheezing 11/25/24 famotidine 20 mg tablet 20 mg PO DAILY ask pcp 11/25/24 polyethylene glycol 3350 17 gram/dose oral powder (ClearLax) 4 g PO DAILY ask pcp 11/25/24 tiotropium bromide 1.25 mcg/actuation mist for inhalation (Spiriva Respimat) 2 inh inhalation DAILY ask pcp 11/25/24 acetaminophen 500 mg tablet 1,000 mg (2 x 500 mg) PO Q8 #0 tabs 11/30/24 aspirin 81 mg chewable tablet 81 mg PO BIDCM #0 tabs 11/30/24 ciprofloxacin HCl 500 mg tablet 500 mg PO BID #10 tabs 11/30/24 oxycodone 5 mg tablet 5 mg PO Q4H PRN PRN Pain Score 4-10 #0 tabs 11/30/24 Hospital Course Operations - (ORIF right hip. ) Summary of Care Provided Minutes Spent on Discharge: 32 Hospital Course: Patient had a mechanical fall and he had a left hip fracture. Patient underwent a percutaneous screw fixation of the left femoral neck on the [address] Malone. Patient be weightbearing as tolerated left lower extremity. DVT prophylaxis with the aspirin twice daily. Patient to follow-up Dr. Malone in 2 weeks. Patient has been accepted at the rehab unit. Patient had expressed some reticence to using incentive spirometer to nursing. I encouraged the patient to work with therapy as he is mainly having 3 hours of therapy per day to help him get stronger and eventually get home sooner. Weight / BMI Weight Weight: 62.3 kg Body Mass Index (BMI) 20.9 ABG / Lab / Microbiology Data 11/29/24 12:03 11/29/24 12:03 Laboratory: Laboratory Results - last 24 hr 11/29/24 12:03: WBC 8.6, RBC 3.94 L, Hgb 9.4 L, Hct 31.0 L, MCV 78.7 L, MCH 23.9 L, MCHC 30.3 L, RDW Std Deviation 65.7 H, RDW Coeff of Lamin 23.5 H, Plt Count 396, MPV 10.1, Immature Gran % (Auto) 0.600, Neut % (Auto) 83.6 H, Lymph % (Auto) 7.4 L, [place] % (Auto) 4.4, Eos % (Auto) 3.5, Baso % (Auto) 0.5, Absolute Neuts (auto) 7.2, Absolute Lymphs (auto) 0.64 L, Nucleated RBC % 0, Anisocytosis 1+, Schistocytes 1+, Sodium 136, Potassium 4.1, Chloride 102, Carbon Dioxide 22.0, Anion Gap 12, BUN 19, Creatinine 0.82, Estim Creat Clear Calc 62.26, Est GFR (MDRD) Non-Af 88, BUN/Creatinine Ratio 23.3 H, Glucose 127 H, Calcium 8.4 Microbiology: Microbiology 11/26/24 Unknown Urine Catheter - Catheter Urine Culture - Preliminary Morganella morganii sp morgani Providencia rettgeri 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 * Patients 75 years or YOUNGER should receive HIGH intensity statin dose unless contraindicated. You will be required to document reason for non-treatment if statin daily dose does not meet guidelines. HIGH DOSE STATIN THERAPY DAILY Atorvastatin > than or = to 40 mg Rosuvastatin > than or = to 20 mg Amlodipine + Atorvastatin > than or = to 2.5/40 mg Ezetimibe + Simvastatin 10/80 mg Simvastatin 80mg Discharge Plan Admission Admit Date/Time: 11/25/24 16:43 Primary Reason for Your Visit: Left hip fracture. Attending Provider: Riki Bauer Primary Care Provider: Remington Frederick Consulting Providers: Sly Davies; Dilip Malone; Martha Schmid Discharge Orders/Prescriptions Prescriptions: New acetaminophen 500 mg Tablet 1,000 mg PO Q8 Qty: 0 0RF aspirin 81 mg Tablet,Chewable 81 mg PO BIDCM Qty: 0 0RF Rx Instructions: through 12/23/2024 oxycodone 5 mg Tablet 5 mg PO Q4H PRN PRN (Reason: Pain Score 4-10) Qty: 0 0RF ciprofloxacin HCl 500 mg tablet 500 mg PO BID Qty: 10 0RF Continued Centrum Silver Men [id number] mcg tablet 1 tab PO DAILY amlodipine 5 mg tablet 5 mg PO DAILY Qty: 90 3RF carbidopa-levodopa 25-100 mg tablet 2.5 tab PO TID docusate sodium 100 mg Capsule 100 mg PO BID atorvastatin 80 mg tablet 80 mg PO QHS famotidine 20 mg tablet 20 mg PO DAILY polyethylene glycol 3350 [ClearLax] 17 gram/dose powder 4 g PO DAILY Spiriva Respimat 1.25 mcg/actuation mist 2 inh inhalation DAILY albuterol sulfate [Ventolin HFA] 90 mcg/actuation HFA aerosol inhaler 2 inh inhalation Q4H PRN (Reason: shortness of breath or wheezing) clopidogrel [Plavix] 75 mg tablet 75 mg PO DAILY Qty: 30 0RF Held duloxetine [Cymbalta] 20 mg capsule,delayed release(DR/EC) 20 mg PO DAILY Hold Instructions: Resume on 12/06/24. aspirin 81 mg tablet,chewable 81 mg PO BREAKFAST Hold Instructions: Resume on 12/24/24. Discontinued potassium chloride 20 mEq tablet,ER particles/crystals 20 meq PO DAILY Patient Comments: Take 1 tablet by mouth once daily. Referrals / Follow Up: Dilip Malone DO [Med Staff - Active Staff] - Within 2 Weeks Remington Frederick MD [Primary Care Provider] - Within 2 Weeks Disposition Disposition (needs filled in before D/C Order can be placed): Inpatient Rehab Unit/Facility Charges/Coding Visit Charges Inpatient E&M: 61281 Disch Hosp >30min
[2024-11-30 14:05] VITALS: PULSE 82; RESP 18
[2024-11-30 15:21] VITALS: BP 144/54; PULSE 75; RESP 16; TEMP 37; O2SAT 93
--- NOTE | 2024-11-30 16:12 | CASEMGMT ---
Social Work- Physician feels that pt is medically ready for discharge. SW updated RU admissions. Pt and dtr updated. Plan: [facility] NATHANIEL Paz
== END 2024-11-30 15:50 | DRG 481 ==
LOC: ED 16:51 → MS3 17:06
PROVIDERS: Anesthesiology; Family Medicine; Student in an Organized Health Care Education/Training Program; Admitting Provider Hospitalist; Emergency Provider Emergency Medicine; PCP Internal Medicine; Referring Provider Emergency Medicine
PROC: 0QH734Z Insertion of Internal Fixation Device into Left Upper Femur, Percutaneous Approach (ICD-10-PCS; principal; 2024-11-26 15:30)
DX: S72.002A Fracture of unspecified part of neck of left femur, initial encounter for closed fracture (principal); N30.00 Acute cystitis without hematuria; B96.20 Unspecified Escherichia coli [E. coli] as the cause of diseases classified elsewhere; G20.A1 Parkinson's disease without dyskinesia, without mention of fluctuations; J43.2 Centrilobular emphysema; I10 Essential (primary) hypertension; F32.A Depression, unspecified; D64.9 Anemia, unspecified; F17.210 Nicotine dependence, cigarettes, uncomplicated; E78.5 Hyperlipidemia, unspecified; K21.9 Gastro-esophageal reflux disease without esophagitis; W18.39XA Other fall on same level, initial encounter; B96.4 Proteus (mirabilis) (morganii) as the cause of diseases classified elsewhere; B96.89 Other specified bacterial agents as the cause of diseases classified elsewhere; Z79.02 Long term (current) use of antithrombotics/antiplatelets; Z79.82 Long term (current) use of aspirin; Z79.899 Other long term (current) drug therapy; Z86.73 Personal history of transient ischemic attack (TIA), and cerebral infarction without residual deficits
CPT/HCPCS: 36415; 70450; 71250; 72125; 73502; 76000; 80048; 81001; 82274; 85025; 85027; 85610; 85730; 86850; 86900; 86901; 87077; 87086; 87088; 87186; 93005; 94640; 94668; 97110; 97116; 97162; 97166; 97530; 97535; 97802; 99285; 99406; C1713; P9016; A4216; J2405

== ENCOUNTER 2024-11-30 15:55 | Inpatient (IN) | payer MEDICARE, OTHER, SELFPAY ==
[2024-11-30 16:10] VITALS: BP 120/47; PULSE 72; RESP 16; TEMP 37; O2SAT 93; BMI 22.2
[2024-11-30] MEDS: Carbidopa/Levodopa 25/100 Tablet PO (17:41)
[2024-11-30] MEDS: Aspirin 81 MG TAB.CHEW PO (17:41)
[2024-11-30 18:00] VITALS: BP 102/48; PULSE 71; RESP 17; TEMP 36.1; O2SAT 96
--- NOTE | 2024-11-30 18:32 | NURSING ---
Left message with daughter listed on contacts and informed her of the weekly meetings and also provided the nurses station number if any further questions.
[2024-11-30 20:25] VITALS: PULSE 71; RESP 17; O2SAT 96
[2024-11-30] MEDS: Senna/Docusate Sodium 1 Tablet 2 TABLET PO (20:39)
[2024-11-30] MEDS: Atorvastatin Calcium 40 MG Tablet PO (20:39)
[2024-11-30] MEDS: Acetaminophen 500 MG Tablet 1000 MG PO (20:39)
[2024-11-30] MEDS: Ciprofloxacin 500 MG Tablet PO (20:39)
[2024-11-30] MEDS: oxyCODONE 5 MG Tablet PO (22:47)
[2024-12-01 05:12] LABS: Hematocrit 28.1 % (40-54); Hemoglobin 8.7 g/dL (13.0-16.5); Mean Corpuscular Hgb 24.3 pg (27.0-32.0); Mean Corpuscular Volume 78.5 fL (80-94); Mean Platelet Vol. 9.5 fl (6.2-12.0); POSITIVE MORPHOLOGY YES; Platelet Count 371 K/mm3 (150-450); RBC Distribution Width CV 23.9 % (11.6-14.6); RBC Distribution Width SD 68.1 fl (35.1-43.9); Red Blood Count 3.58 M/mm3 (4.6-6.2)
[2024-12-01 05:33] LABS: Scan Indicated on CBC? Y/N YES- FLAGS NOTED
[2024-12-01] MEDS: 0.9% Saline Lock 10 ML Syringe IV ×2 (05:34→15:22)
[2024-12-01 05:35] LABS: ALB/GLOB Ratio 1.1 RATIO (0.9-2.4); AST(SGOT) 18 U/L (<=37); Alanine Aminotransfer ALT/SGPT 10 U/L (<=46); Alkaline Phosphatase 73 U/L (40-129); Anion Gap 9 (5-15); BUN 23 mg/dL (4-19); BUN/Creat Ratio 27.4 RATIO (10-20); Calcium,Total 8.5 mg/dL (7.6-11.0); Carbon Dioxide 23.9 mmol/L (21.0-32.0); Chloride 105 mmol/L (98-108); Creatinine, Serum 0.84 mg/dL (0.70-1.20); EST Glomerular Filtration Rate 87 (>60); Estimated Creatinine Clearance 62.83 ml/min (50-250); Globulin 2.7 g/dL (2.2-4.2); Glucose 98 mg/dL (70-99); Magnesium 2.3 mg/dL (1.5-2.2); Phosphorus 2.9 mg/dL (2.7-4.5); Potassium 4.4 mmol/L (3.3-5.1); Protein, Total 5.7 g/dL (5.9-8.4); Sodium Level 138 mmol/L (133-145); Total Bilirubin 0.23 mg/dL (0.00-1.30)
[2024-12-01] MEDS: Carbidopa/Levodopa 25/100 Tablet PO ×3 (05:35→16:33)
[2024-12-01] MEDS: Acetaminophen 500 MG Tablet 1000 MG PO ×3 (05:35→21:41)
[2024-12-01 06:00] VITALS: BP 116/65; PULSE 77; RESP 16; TEMP 36.3; O2SAT 94
[2024-12-01] MEDS: Umeclidinium Bromide Inhaler 1 PUFF INHALATION (08:47)
[2024-12-01] MEDS: Ciprofloxacin 500 MG Tablet PO (08:47)
[2024-12-01] MEDS: Multivitamins,Ther W-Minerals Tablet 1 TABLET PO (08:47)
[2024-12-01] MEDS: Aspirin 81 MG TAB.CHEW PO ×2 (08:47→16:33)
[2024-12-01] MEDS: Famotidine 20 MG Tablet PO (08:48)
[2024-12-01] MEDS: amLODIPine 5 MG Tablet PO (08:48)
[2024-12-01] MEDS: Clopidogrel Bisulfate 75 MG Tablet PO (08:49)
[2024-12-01] MEDS: Senna/Docusate Sodium 1 Tablet 2 TABLET PO ×2 (08:49→21:41)
[2024-12-01] MEDS: oxyCODONE 5 MG Tablet PO ×2 (08:58→21:41)
--- NOTE | 2024-12-01 09:11 | HP.PCM_ITS ---
HPI - General General Date of Admission: 11/30/24 HPI Narrative MERLENE SINGH, is a 79 YO M with a PMH of colorectal CA, prostate cancer, history of penile urethral stricture, history of rectourethral/bladder fistula, soft tissue radionecrosis, carotid vascular disease (he history of left common carotid stent 2022) , peripheral vascular disease (right common iliac angioplasty in April 2024), abdominal aortic aneurysm (he endovascular stent in 2017), hypertension, patent foramen ovale, history of PFO, centrilobular emphysema, hyperlipidemia, GERD, presbycusis, tobacco dependence and depression who presented to the ED at [facility] on 11/25/24 after a ground level mechanical fall at home. He was c/o Left hip pain. Imaging revealed a mildly impacted fracture of the left femoral neck. He was admitted to the hospitalist service and Dr. Malone was consulted. He was taken to the OR on 11/26/2024 for a percutaneous screw fixation of the left femoral neck fracture. Hemoglobin at admission to the hospital was low at 7.4 with an MCV of 73.5. With hydration the hemoglobin dropped to 6.9 and he was transfused with 2 units of packed red blood cells. Postoperatively the hemoglobin is stable at 8.7. Hemoccult stool was negative. He was transferred to the acute inpatient rehab unit at [facility] on 11/30/2024 for 3 hours of therapy daily to restore function/independence at or near his level prior to the fall/fracture. He has been living with his dtr in a 2 story house. He was independent with ADL's and driving. Told me he was not using an AD prior to the fall but, told PT he was using a RW and WW. Postop day #5 On Cipro - to receive 10 doses for suspected UTI Afebrile VSS - Maintaining appropriate oxygen saturation on RA Oral intake - FOOD adequate FLUIDS poor Discussed with nursing - Mepilex applied to coccyx. Pt requesting something to help him sleep. Reviewed the THERAPY notes Medication list reviewed. All lab from this morning was personally reviewed. The hemoglobin is 8.7 which is stable. Hemoglobin was 7.4 at presentation to the hospital and dropped to 6.9. He received 2 units of packed red blood cells. MCV is low at 78.5 and the RDW is markedly increased at 68.1. Platelets are within normal limits and so is the white blood cell count. Sodium is 138 and the potassium is 4.4. BUN is 23 and the creatinine is 0.84 which is stable. Magnesium is 2.3 and the phosphorus is 2.9. LFTs are unremarkable. UA at admission to the hospital was positive for nitrite and showed 10-25 WBCs with 3+ bacteria. The culture grew multiple organisms including Morganella morganii, Providencia rettgeri, and ESBL Klebsiella oxytoca and E. coli. Not sure this actually reflects infection......he has a urostomy. He may be colonized. Stool at admission was Hemoccult negative. [facility] Medical History (Updated 12/01/24 @ 14:[address] Rachell Quiñonez, ) Presence of urostomy Presence of colostomy Parkinson's disease Microcytic anemia AAA (abdominal aortic aneurysm) without rupture Hip fracture, left Stricture of penile urethra Soft tissue radionecrosis Aftercare following surgery of the circulatory system Presence of other vascular implants and grafts Loss of hearing Wears dentures Cancer Depression as late effect of cerebrovascular accident (CVA) Alcohol use Walker as ambulation aid Arthritis Heartburn Shortness of breath Hx of edema Hypertension Hx of echocardiogram Hx of cardiovascular stress test Cardiology follow-up encounter Hx of flexible sigmoidoscopy Dyslipidemia Nicotine dependence Thrombocytopenia Carotid stenosis Pre-operative cardiovascular examination Centrilobular emphysema BPH with obstruction/lower urinary tract symptoms PVD (peripheral vascular disease) General weakness Unsteady gait Pancytopenia Lung nodule Patent foramen ovale CVA (cerebral vascular accident) Effusion, left knee Carotid stenosis, left Carotid occlusion, right Colorectal cancer Home Medications ?Medication ?Instructions ?Recorded ?Last Taken ?Type atorvastatin 80 mg tablet 80 mg PO QHS CJHOLESTEROL 12/25/22 History duloxetine 20 mg capsule,delayed 20 mg PO DAILY ask pc p 07/23/23 05/06/24 History release (Cymbalta) Held on 11/30/24. Instructions: Resume on 12/06/24. amlodipine 5 mg tablet 5 mg PO DAILY ask pcp #90 ta bs 03/10/24 05/06/24 Rx ljnkebui-jy-tsakt 300 mcg-K 60 1 tab PO DAILY ask pcp 03/10/24 Unknown History mcg-lycop 600 mcg-lutein 300 mcg tablet (Centrum Silver Men) carbidopa 25 mg-levodopa 100 mg 2.5 tab PO TID ask pcp 05/21/24 Unknown History tablet clopidogrel 75 mg tablet (Plavix) 75 mg PO DAILY ask p cp #30 tabs 11/20/24 Unknown Rx albuterol sulfate 90 mcg/actuation 2 inh inhalation Q4 H PRN shortness 11/25/24 Unknown History aerosol inhaler (Ventolin HFA) of breath or wheezing famotidine 20 mg tablet 20 mg PO DAILY ask pcp 11/25 Unknown History polyethylene glycol 3350 17 17 g PO DAILY PRN constipa tion 11/25/24 Unknown History gram/dose oral powder (ClearLax) tiotropium bromide 1.25 2 inh inhalation DAILY ask p cp 11/25/24 Unknown History mcg/actuation mist for inhalation (Spiriva Respimat) acetaminophen 500 mg tablet 1,000 mg (2 x 500 mg) PO Q 8 pain 11/30/24 Unknown Rx #0 tabs aspirin 81 mg chewable tablet 81 mg PO BIDCM blood thi nner #0 11/30/24 Unknown Rx tabs ciprofloxacin HCl 500 mg tablet 500 mg PO BID uti #10 tabs 11/30/24 Unknown Rx oxycodone 5 mg tablet 5 mg PO Q4H PRN PRN Pain Sco re 11/30/24 Unknown Rx 4-10 #0 tabs Allergy/AdvReac Type Severity Reaction Status Date / Time No Known Allergies Allergy Verified 11/25/24 13:32 Family History Mother CVA (cerebral vascular accident) Father Cancer Brother Diabetes Heart disease Surgical History (Updated 12/01/24 @ 14:[address] Rachell Quiñonez DO) History of exploratory laparotomy History of angioplasty of peripheral vessel Hx of cystoscopy (~03/2023) History of left common carotid artery stent placement (~12/2022) Hx of colonoscopy Hx of nasal septoplasty Hx of vasectomy Hx of rotator cuff surgery Hx of neck surgery History of endovascular stent graft for abdominal aortic aneurysm (AAA) (~2017) Social History Smoking Status: Current every day smoker tobacco type: cigarettes alcohol intake: current alcohol intake frequency: holidays/special occasions only substance use type: does not use caffeine: Yes Type: coffee Number of servings: 1 ROS Constitutional Constitutional: Reports fatigue and weakness; Denies anorexia, change in weight, chills, fever(s) or night sweats Eyes Eyes: Denies blurry vision, change in vision, eye pain or loss of vision ENT HEENT: Reports dysphagia; Denies abnormal hearing, headache(s), hearing loss, nasal congestion or sore throat Cardiovascular Cardiovascular: Reports dyspnea, easily tiring during activity and weakness in extremities; Denies chest pain, edema, lightheadedness, orthopnea, palpitations, paroxysmal nocturnal dyspnea or syncope Respiratory/Chest Respiratory/Chest: Reports cough and dyspnea; Denies shortness of breath at rest, shortness of breath with exertion or wheezing Gastrointestinal Gastrointestinal: Reports constipation; Denies abdominal pain, diarrhea, dyspepsia, hematemesis, hematochezia, nausea or vomiting Genitourinary Genitourinary: Reports other Details: Has an ileal conduit ; Denies dysuria or nocturia Musculoskeletal Musculoskeletal: Reports extremity pain, muscle spasms, muscle weakness and other Details: c/o pain in the left quadriceps/spasm ; Denies back pain, joint pain, joint swelling or neck pain Neurologic Neurologic: Reports disequilibrium, tremor(s) and other Details: was walking without a device prior to recent fall ; Denies confusion, dizziness, focal weakness, headache(s), paresthesias or seizures Psychiatric Psychiatric: Reports depression; Denies anxiety, homicidal ideation or suicidal ideation Endocrine Endocrinology: Reports fatigue; Denies change in body appearance, excessive sweating, palpitations, polydipsia or polyuria Hematologic/Lymphatic Hematologic/Lymphatic: Reports easy bleeding and easy bruising; Denies lymphadenopathy Allergic/Immunologic Allergic/Immunologic: Denies rhinitis, eczemia or asthma Vital Signs Vital Signs Vital Signs: 11/30/24 16:10 11/30/24 17:58 11/30/24 18:00 Temperature 98.6 F 96.9 F L Temperature Source Temporal Oral Pulse Rate 72 71 Respiratory Rate 16 17 Respiratory Effort Normal Non-Labored Respiratory Depth Normal Respiratory Pattern Normal Blood Pressure 120/47 L 102/48 L Blood Pressure Mean 71 66 Blood Pressure Source Monitor Monitor Blood Pressure Position Semi-Fowlers Semi-Fowlers Blood Pressure Location Right Arm Right Arm Pulse Ox 93 96 Oxygen Delivery Method Room Air Room Air Room Air 11/30/24 20:25 12/01/24 06:00 Temperature 97.3 F L Temperature Source Temporal Pulse Rate 71 77 Respiratory Rate 17 16 Respiratory Effort Normal Non-Labored Respiratory Depth Normal Respiratory Pattern Normal Blood Pressure 116/65 Blood Pressure Mean 82 Blood Pressure Source Monitor Blood Pressure Position Semi-Fowlers Blood Pressure Location Left Arm Pulse Ox 96 94 Oxygen Delivery Method Room Air Room Air Weight Weight: 142 lb Body Mass Index (BMI) 22.2 Physical Exam Const alert, oriented x3 and no apparent distress Constitutional Narrative: Making good eye contact, appropriate. slow speech. Masked facies. Pale General Appearance: cooperative and frail HEENT head/scalp atraumatic HEENT Narrative: Dry mucous membranes. No facial asymmetry. No evidence of thrush. Masked facies. Eyes PERRL, EOMs intact bilaterally, conjunctivae normal and no scleral icterus Eyes Narrative: No discharge from the eyes. Neck no lymphadenopathy, supple and no JVD Neck Narrative: Bilateral carotid bruits General: trachea midline Chest Chest: symmetrical chest wall rise Resp normal respiratory effort, no use of accessory muscles and clear to auscultation bilaterally Resp Narrative: Not tachypneic and no conversational dyspnea. fair air exchange Effort and Inspection: able to speak in complete sentences Cardio regular rate, regular rhythm, S1 normal heart sound, S2 normal heart sound, no murmurs, no rub and no gallops Cardio Narrative: No ectopy GI normal to inspection, nondistended, normoactive bowel sounds, soft to palpation and non-tender GI Narrative: No guarding with palpation. He has a urostomy and a colostomy present. There is soft stool in the colostomy bag. Urine in the urostomy bag is clear and dark yellow. Narrative: Has had an ileal conduit and there is a urostomy present. Back/Spine General Back: Negative for CVA tenderness Extremity no clubbing, cyanosis or edema and no calf tenderness Extremity Narrative: He has spasm of the left quadriceps muscle which I suspect is related to the recent surgery/positioning. Skin Skin Narrative: Per nursing he has a pressure wound on the sacrum.......will examine when he is done with therapy for today and dressing is changed. Rashes: no rashes Neuro oriented x3, CN's II-XII intact bilaterally and no focal motor deficits Neuro Narrative: Masked facies. Generalized weakness. Resting tremors- worst in the RUE. Bradykinesia. Slow speech. Moves all extremities. No festinating gait per discussion with PT. Fatigues very easily. Psych Psych Narrative: Appropriate, making good eye contact. Able to stay on topic and focus. No flight of ideas. Does not appear anxious or depressed. Flat affect. Results Lab / Micro Data 12/01/24 04:55 12/01/24 04:55 Labs: Laboratory Results - last 24 hr 12/01/24 04:55: WBC 6.5, RBC 3.58 L, Hgb 8.7 L, Hct 28.1 L, MCV 78.5 L, MCH 24.3 L, MCHC 31.0 L, RDW Std Deviation 68.1 H, RDW Coeff of Lamin 23.9 H, Plt Count 371, MPV 9.5, Sodium 138, Potassium 4.4, Chloride 105, Carbon Dioxide 23.9, Anion Gap 9, BUN 23 H, Creatinine 0.84, Estim Creat Clear Calc 62.83, Est GFR (MDRD) Non-Af 87, BUN/Creatinine Ratio 27.4 H, Glucose 98, Calcium 8.5, Phosphorus 2.9, Magnesium 2.3 H, Total Bilirubin 0.23, AST 18, ALT 10, Alkaline Phosphatase 73, Total Protein 5.7 L, Albumin 3.0 L, Globulin 2.7, Albumin/Globulin Ratio 1.1 Assessment & Plan Assessment/Plan (1) Physical debility: (2) Closed left hip fracture: (3) History of open reduction and internal fixation (ORIF) procedure: (4) History of blood transfusion: (5) Microcytic anemia: (6) Iron deficiency: (7) Parkinson's disease: (8) Presence of urostomy: (9) Presence of colostomy: (10) Nicotine dependence: (11) Dyslipidemia: (12) PVD (peripheral vascular disease): (13) Essential (primary) hypertension: (14) Patent foramen ovale: PLAN: Plan PLAN PT for gait stability OT for ADL's ST for evaluation - for swallowing Analgesics as needed Bowel protocol Fall precautions Assess for Anxiety/Depression GI prophylaxis -continue famotidine DVT prophylaxis with aspirin 81 mg twice daily per orthopedics Follow up with PCP, Dr. Malone, oncology following DC from IP Rehab AM lab including CMP, CBC, Mag and Phos Trazodone 50 mg p.o. nightly Flexeril 5 mg twice daily for the next few days for left quadriceps spasm Arthritis compounded cream to the left anterior thigh twice daily The ESBL producing Klebsiella is only intermediately sensitive to Cipro and they E. coli is resistant to Cipro.He has no sx of UTI and he has an ileal conduit. I suspect he is colonized with bacteria. I am going to DC the Cipro and continue to monitor for any signs of infection Charges/Coding Visit Charges Inpatient E&M: 14928 Init Hosp L2
[2024-12-01 09:39] LABS: White Blood Count 6.5 K/mm3 (4.4-11.0)
[2024-12-01 11:47] VITALS: RESP 18
[2024-12-01] MEDS: cycloBENZAPRine HCl 5 MG TABLET PO ×2 (12:34→21:41)
[2024-12-01 13:33] LABS: Ferritin 47 ng/mL (37-417); Iron 22 ug/dL (65-175); Iron Binding Capacity,Unsat 201 ug/dL (228-428); Vitamin B12 413 pg/mL (180-914)
[2024-12-01 14:08] LABS: Iron Binding Capacity,Total 223 ug/dL (250-450); PERCENT IRON SATURATION 9.9 % (9-55)
--- NOTE | 2024-12-01 14:20 | PCM.RU.PYE ---
Admission Information Primary Diagnosis:: Debility secondary to left hip fracture/ORIF Status Changes from Prescreening?: No changes Identified Actual Problem List:: UTI, Falls, Skin Intergrity, Pain, ALteration in Cmfrt, Depression, Alteration in Sleep, Mobility Impaired, Self Care Deficit, Alteration/ Air Exchange and Alteration-Leisure Activ. Potential Problem List:: DVT, Bleeding, Infection, UTI, Aspiration, Falls, Skin Integrity and Depression Risk of Complications DVT: DENISE Hose and - (ASA 81 mg p.o. twice daily per orthopedics) Bleeding: Monitor Lab Values, Nursing to Teach Precautions for anti-coagulation therapy., Wound, if applicable, to be assessed every shift. and Stroke patients assessed for lethargy or change in status. Infection: Clinical Staff to Monitor for S/S of infection: and S/S of infection include fever, redness, warmth, etc. Urinary Tract Infection: Monitor for frequency, burning, discomfort, or incontinence. and Nursing will obtain urine sample for urinalysis and C&S when ordered. Aspiration: Clinical staff will monitor for coughing, drooling, congestion., Speech will evaluate swallowing and dsyphasia. and Nursing will monitor patient swallowing during meals. Falls: Patient will be evaluated for Fall Precautions and Patient will be placed on Fall Precautions as indicated per protocol. Skin Breakdown: Nursing will assess skin daily using assessment tool. and Nursing will place on Skin Breakdown Precautions as indicated. Pain: Clinical staff will assess patient's pain level per protocol., Medications will be given, if needed, and the pain level reassessed. and Other methods: Massage, distraction, decrease stimulus, etc. used PRN. Plan of Care Patient requires physician specializing in physical medicine and rehab oversight to provide close medical supervision of rehab issues including: Pain Management, Sleep Problems, Bowel and Bladder, Medical and co-morbidity Management, DVT prophylaxis, Rehabilitation Leadership and Coordination of treatment team Patient needs Physical Therapy: For a minimum of 1 hour and At least 5 out of 7 days Patient needs Physical Therapy to improve:: Mobility, Strengthening, Transfers, Stretching, ROM, Endurance, Stairs, Gait and Balance Patient needs Occupational Therapy: For a minimum of 1 hour and At least 5 out of 7 days Patient needs Occupational Therapy to improve ADL's incl.: Eating, Grooming, Bathing, Dressing, Toileting, Toilet transfers, Community Reintegration, Higher functioning activities, Household tasks, Adaptive Equipment, Splinting and Other activities as determined Patient requires speech therapy: For a minimum of 1 hour and At least 5 out of 7 days Patient requires speech therapy for: Swallowing, Cognition, Language Skills and Compensatory Strategies Patient requires 24/ Rehabilitation Nursing for: Pain Issues, Identifying and preventing risk factors, Monitoring and reporting current medical conditions, Assisting with ambulation, transfer, and all ADL's, Teaching patients about disease process and medications, Family teaching, Providing safe environment, Bowel and Bladder Issues, Skin integrity and Medication Management Patient needs Carpenter Mate/ Case Management for: Discharge Planning, Arranging Home Equipment or Services and Family Interventions Patient needs Dietary and Nutrition Services for: Adequate Nutrition, Nutritional Supplements and Nutritional Education Goals Goals Patient will perform eating at: MOD I level of assist. Patient will perform bed mobility at: MOD I level of assist. Patient will complete transfers from bed to chair at: - (Supervision) Patient will ambulate: - (125 feet with wheeled walker at contact-guard assist) Patient will complete upper body dressing at: - (Supervision) Patient will complete lower body dressing at: - (Supervision with adaptive equipment as needed) Patient will complete toilet transfer at: - (Has a urostomy and colostomy show does not use the toilet.) Patient will perform bathing at: - (He will complete upper body bathing at supervision and lower body bathing at minimal assistance with adaptive equipment as needed.) Patient will perform Tub/Shower transfer at: - (Supervision using DME as needed) Patient will complete grooming at: - (Supervision while standing at the sink) Patient will achieve: - (16 steps with 1 handrail at standby assist to allow access to his second floor bedroom) Patient will have pain level of: of 3 or less Patient's skin will: remain intact Patient will receive: adequate nutrition. Discharge Planning Pt Prognosis for Sig. Practical Improv. w/in Reasonable Time: Good (PD complicates his recovery from hip fracture ) Estimated Length of stay (days): 21 Anticipated D/C Destination: Home w/ family or friends Was Preadmission Assessment Accurate?: Yes
[2024-12-01] MEDS: Sodium Ferric Gluconat 125 MG in 0.9% Normal Saline 100 ML 110 MG IV (15:18)
[2024-12-01] MEDS: Arthritis Pain Compound 60 CLICK TUBE TOPICAL ×2 (15:24→21:40)
[2024-12-01 18:00] VITALS: BP 143/51; PULSE 66; RESP 16; TEMP 37.1; O2SAT 92
[2024-12-01 21:30] VITALS: PULSE 66; RESP 16; O2SAT 92
[2024-12-01] MEDS: Atorvastatin Calcium 40 MG Tablet PO (21:41)
[2024-12-01] MEDS: traZODone 50 MG Tablet PO (21:41)
[2024-12-02] MEDS: 0.9% Saline Lock 10 ML Syringe IV (05:08)
[2024-12-02] MEDS: Carbidopa/Levodopa 25/100 Tablet PO ×3 (05:10→17:00)
[2024-12-02] MEDS: Acetaminophen 500 MG Tablet 1000 MG PO ×3 (05:10→21:11)
[2024-12-02] MEDS: oxyCODONE 5 MG Tablet PO ×2 (05:15→21:11)
[2024-12-02 06:00] VITALS: BP 140/54; PULSE 65; RESP 16; TEMP 36.3; O2SAT 92
[2024-12-02 07:39] VITALS: O2SAT 92
[2024-12-02] MEDS: Umeclidinium Bromide Inhaler 1 PUFF INHALATION (07:55)
[2024-12-02] MEDS: Cyanocobalamin 500 MCG Tablet 1000 MCG PO (07:56)
[2024-12-02] MEDS: cycloBENZAPRine HCl 5 MG TABLET PO ×2 (07:56→21:11)
[2024-12-02] MEDS: Famotidine 20 MG Tablet PO (07:56)
[2024-12-02] MEDS: Clopidogrel Bisulfate 75 MG Tablet PO (07:56)
[2024-12-02] MEDS: Multivitamins,Ther W-Minerals Tablet 1 TABLET PO (07:57)
[2024-12-02] MEDS: Senna/Docusate Sodium 1 Tablet 2 TABLET PO ×2 (07:57→21:11)
[2024-12-02] MEDS: Aspirin 81 MG TAB.CHEW PO ×2 (07:58→17:01)
[2024-12-02] MEDS: amLODIPine 5 MG Tablet PO (07:58)
[2024-12-02] MEDS: Arthritis Pain Compound 60 CLICK TUBE TOPICAL ×2 (08:00→21:12)
--- NOTE | 2024-12-02 10:06 | PN_ITS ---
Subjective Subjective Afebrile VSS - Maintaining appropriate oxygen saturation on RA -92 to 96%. Oral intake - FOOD good, eating 75 to 100% of his meals. FLUIDS urine output has been exceeding fluid intake. Fluid intake yesterday was 1010 cc and the fluid balance was -520. Overnight he was -500. He is not on a diuretic. Has had 1 bowel movement daily for the past 3 days. Discussed with nursing -nursing reports that the patient stated he did not sleep well last night. He received 50 mg of trazodone at bedtime. Reviewed the THERAPY notes -speech therapy would like to do a modified barium swallow and the patient is hesitant. He will also need a cognitive evaluation at some point. Medication list reviewed. Serum folate was normal yesterday and the B12 was low normal. Serum iron was low at 22 and the percent iron saturation was 9.9% which is low. Ferritin is 47 which is normal however ferritin is an acute phase reactant and it is likely falsely elevated at this time secondary to recent fall/fracture/pain. He tells me that his L thigh is less painful today. Objective Data Objective Data Vital Signs: Vital Signs Temp Pulse Resp BP Pulse Ox O2 Del Method 97.3 F L 65 16 140/54 H 92 Room Air 12/02/24 06:00 12/02/24 06:00 12/02/24 06:00 12/02/24 06:00 12/02/24 06:00 12/02/24 06:00 Oxygen Delivery Method Room Air Weight: 141 lb 15.996 oz Body Mass Index (BMI) 22.2 Intake & Output: Intake and Output for Last 24 Hours 11/30/24 12/01/24 12/02/24 23:59 23:59 23:59 Intake Total 440 / 440 1010 / 1010 400 / 400 Output Total 700 / 700 1530 / 1530 900 / 900 Balance -260 / -260 -520 / -520 -500 / -500 Lab / Micro Data 12/01/24 04:55 12/01/24 04:55 Labs: Laboratory Results - last 24 hr 12/01/24 04:55: Iron 22 L, TIBC 223 L, Iron Saturation 9.9, Unsaturated IBC 201 L, Ferritin 47, Vitamin B12 413 12/01/24 09:31: Serum Folate 16.50 Physical Exam Const alert and no apparent distress Constitutional Narrative: Sitting in the recliner at the bedside. General Appearance: cooperative Resp normal respiratory effort, no use of accessory muscles and clear to auscultation bilaterally Resp Narrative: Not tachypneic and no conversational dyspnea. fair air exchange Effort and Inspection: able to speak in complete sentences Cardio regular rate, regular rhythm, no murmurs, no rub and no gallops Cardio Narrative: No ectopy GI normal to inspection, nondistended, normoactive bowel sounds, soft to palpation and non-tender GI Narrative: No guarding with palpation. He has a urostomy and a colostomy present. There is soft stool in the colostomy bag. Urine in the urostomy bag is clear and dark yellow. Extremity no calf tenderness Extremity Narrative: Marked spasm in the left quadriceps muscle. No erythema no increased warmth to touch some pain with palpation. General Extremity: Negative for edema Skin Wound Narrative: I examined the buttocks/sacrum. there are no pressure injuries. He has a small depression where the anus was sewed shut. There is no DC, no erythema and no opening in the skin. Assessment & Plan Assessment/Plan (1) Physical debility: (2) Closed left hip fracture: (3) History of open reduction and internal fixation (ORIF) procedure: (4) History of blood transfusion: (5) Microcytic anemia: (6) Iron deficiency: (7) Parkinson's disease: QUALIFIERS: Dyskinesia presence: unspecified whether dyskinesia F luctuating manifestations: unspecified whether manifestations fluctuate Q ualified Code(s): G20.A1 - Parkinson's disease without dyskinesia, without mention of fluctuations (8) Presence of urostomy: (9) Presence of colostomy: (10) Nicotine dependence: (11) Dyslipidemia: (12) PVD (peripheral vascular disease): (13) Essential (primary) hypertension: (14) Patent foramen ovale: PLAN: Plan 1. Continue therapy 2. Ice to the L thigh and start arthritis compounded cream to the left thigh BID. Start FLexeril 5 mg BID. 3. Pt is now agreeable to MBS tomorrow. He was unaware that PD can cause problems with swallowin. Charges/Coding Visit Charges Inpatient E&M: 10631 Subs Hosp L1
[2024-12-02 18:00] VITALS: BP 151/49; PULSE 71; RESP 16; TEMP 36.6; O2SAT 93
[2024-12-02] MEDS: Atorvastatin Calcium 40 MG Tablet PO (21:11)
[2024-12-02] MEDS: traZODone 50 MG Tablet PO (21:11)
[2024-12-03 06:00] VITALS: BP 151/49; PULSE 71; RESP 18; TEMP 36.5; O2SAT 95
[2024-12-03] MEDS: Acetaminophen 500 MG Tablet 1000 MG PO ×3 (06:06→21:59)
[2024-12-03] MEDS: Carbidopa/Levodopa 25/100 Tablet PO ×3 (06:58→16:15)
[2024-12-03] MEDS: Senna/Docusate Sodium 1 Tablet 2 TABLET PO ×2 (08:57→21:59)
[2024-12-03] MEDS: Cyanocobalamin 500 MCG Tablet 1000 MCG PO (08:57)
[2024-12-03] MEDS: Arthritis Pain Compound 60 CLICK TUBE TOPICAL ×2 (08:57→22:00)
[2024-12-03] MEDS: Umeclidinium Bromide Inhaler 1 PUFF INHALATION (08:57)
[2024-12-03] MEDS: cycloBENZAPRine HCl 5 MG TABLET PO ×2 (08:57→21:59)
[2024-12-03] MEDS: amLODIPine 5 MG Tablet PO (08:58)
[2024-12-03] MEDS: Clopidogrel Bisulfate 75 MG Tablet PO (08:58)
[2024-12-03] MEDS: Famotidine 20 MG Tablet PO (08:58)
[2024-12-03] MEDS: Multivitamins,Ther W-Minerals Tablet 1 TABLET PO (08:58)
[2024-12-03] MEDS: Aspirin 81 MG TAB.CHEW PO ×2 (08:58→16:15)
--- NOTE | 2024-12-03 10:21 | ST.MBS ---
Modified Barium Swallow Patient Information Study Date: 12/03/24 Study Time: 09:30 Direct Billable Minutes: 110 Total Minutes procedure & reportin Diagnosis: Parkinson's Disease; Oropharyngeal Dysphagia Referring Physician: Rachell Quiñonez Reason for Referral: Wet vocal quality/cough w/ PO intake; given hx of PD, prior CVA and emphysema, objective assessment of swallow function was recommended. Medical History: Lenny Mayorga, an 79-year-old male, has a significant medical history, including: Colorectal cancer, Prostate cancer, History of penile urethral stricture, History of rectourethral/bladder fistula, Soft tissue radionecrosis, Carotid vascular disease (left common carotid stent in 2022), Peripheral vascular disease (right common iliac angioplasty in April 2024), Abdominal aortic aneurysm (endovascular stent in 2017), Hypertension, Patent foramen ovale, Centrilobular emphysema, Hyperlipidemia, GERD, Presbycusis, Tobacco dependence, Depression, Parkinson's disease, Microcytic anemia, Urostomy, Colostomy, AAA without rupture, Hip fracture (left femoral neck), Stricture of penile urethra, Aftercare following circulatory system surgery, Presence of other vascular implants and grafts, Loss of hearing, Wears dentures, Cancer, 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 He presented to the ED at [facility] on 11/25/2024 after a ground-level mechanical fall at home, complaining of left hip pain. Imaging revealed a mildly impacted fracture of the left femoral neck. He was admitted to the hospitalist service and consulted by Dr. Malone. On 11/26/2024, he underwent percutaneous screw fixation of the left femoral neck fracture. Dentition: Upper Dentures and Partials (lower) Mental Status: WNL (sufficiently able to follow commands for participation in MBSS) Respiratory Status: Oxygenating on Room Air Penetration-Aspiration Scale Penetration-Aspiration Scale: OBJECTIVE ASSESSMENT OF SWALLOW FUNCTION (QUANTITATIVE ? PER TRIAL): PENETRATION / ASPIRATION SCALE (WHITING): 1 = does not enter airway 2 = enters airway/above vocal folds/ejected 3 = enters airway/above vocal folds/not ejected 4 = enters airway/contacts vocal folds/ejected 5 = enters airway/contacts vocal folds/not ejected 6 = enters airway/below vocal folds/ejected 7 = enters airway/below vocal folds/not ejected despite effort 8 = enters airway/below vocal folds/no effort VIDEOFLOROSCOPIC SCALE SCORE (WHITING): Grade I = aspiration of material that has penetrated into the laryngeal vestibule, intact cough reflex Grade II = aspiration < 10 % of the bolus, intact cough reflex Grade III = aspiration of < 10 % of the bolus, reduced cough reflex or aspiration of > 10 % of the bolus, intact cough reflex Grade IV = aspiration of > 10 % of the bolus, reduced cough reflex Penetration-Aspiration Scale Score Thin Liquid via teaspoon: Result: 7= enters airways/below vocal folds/not ejected despite effort Comment: Grade I = aspiration of material that has penetrated into the laryngeal vestibule, intact cough reflex Thin Liquid via teaspoon Trial 2: Result: 1= does not enter airway Thin Liquid via small single sip: cup: Result: 2= enter airway/above vocal folds/ejected Thin Liquid via sequential sips: cup: Result: 3= enters airways/above vocal folds/not ejected Thin Liquid via single sip: straw: Result: 2= enter airway/above vocal folds/ejected [place] Thick Liquid via small single sip: cup: Result: 1= does not enter airway Pudding: Result: 1= does not enter airway Cookie: Result: 1= does not enter airway Thin Liquid via small single sip: cup Trial 2: Result: 3= enters airways/above vocal folds/not ejected Thin Liquid via small single sip: cup Trial 3: Result: 2= enter airway/above vocal folds/ejected Oral Phase Labial Seal: No Labial Escape Tongue Control During Bolus Hold: Escape to lateral buccal cavity/floor of mouth Bolus Preparation/Mastication: Timely and efficient chewing and mashing Bolus Transport/Lingual Motion: Repetitive/disorganized tongue motion Oral Residue: Trace residue lining oral structures Pharyngeal Phase Initiation of Pharyngeal Swallow: Bolus head in pyriforms Soft Palate Elevation: No bolus between soft palate and pharyngeal wall Laryngeal Elevation: Partial superior movement thyroid cart/partial apprx aryt-epig petiole Anterior Hyoid Excursion: Partial anterior movement Epiglottic Movement: Complete inversion Laryngeal Vestibule Closure at Height of Swallow: Incomplete; narrow column of air/contrast in laryngeal vestibule Pharyngeal Stripping Wave: Present - diminished Pharyngoesophageal Segment Opening: Complete distension and complete duration; no obstruction of flow Tongue Base Retraction: Wide column of contrast between tongue base & post. pharyngeal wall Pharyngeal Residue: Majority of contrast within or on pharyngeal structures Esophageal Phase Esophageal Clearance: Complete clearance Diagnosis/Impression Diagnosis: mild-moderate oropharyngeal dysphagia Impression: The oral phase is marked by... spillage to the floor of mouth w/ recollection repetitive lingual motion appreciated for AP bolus transportation mild post prandial oral retention The pharyngeal phase is marked by... delayed pharyngeal swallow onset w/ liquid via tsp w/ spillage to the pyriforms prior to onset post prandial aspiration of tongue base residue w/ thin via tsp 1x; cough response was sufficient to eject aspirate from the trachea and laryngeal vestibule minimal anterior hyoid movement w/ reduced hyolaryngeal excursion resulting incomplete laryngeal vestibule closure w/ penetration of thin liquid above the folds w/ partial ejection poor pharyngeal bolus clearance w/ copious vallecular residue appreciated postprandially w/ cookie; patient demonstrated poor sensory awareness of pharyngeal stasis but was able to sufficiently clear a majority w/ a cued second swallow The esophageal phase is unremarkable. ASPIRATION PHARYNGEAL RESIDUE Recommendations Diet: Regular Textures and Thin Liquids Compensatory Strategies: Small Bites, Multiple Swallows (dry second swallow) and Alternate bites/solids and sips/liquids Supervision: Distant Supervision Need for Skilled Speech Therapy Services: Yes Comment: ST to address oral control, pharyngeal swallow onset timing and compensatory strategies to target hyolaryngeal excursion and pharyngeal contraction for improve laryngeal vesituble closure and pharyngeal clearance Education Completed: 1. Described result of evaluation. Status Active ST Patient: Active Contact Information [facility] Speech Therapy:: Lin Frank M.A. TELEPHONE SURVEYOR Speech-Language Pathologist [place] [address] [email or web address] [phone]
[2024-12-03] MEDS: oxyCODONE 5 MG Tablet PO ×2 (11:58→21:58)
[2024-12-03] MEDS: 0.9% Saline Lock 10 ML Syringe IV ×2 (11:59→21:57)
--- NOTE | 2024-12-03 13:07 | CASEMGMT ---
Social Work IDT met with patient at bedside and dtr participated by phone for Team meeting. Discussed patient's progress in PT/OT/ST/SN. Educated to Medicare benefit. Once approves days, SW to update pt/dtr. Will Team weekly. Pt's goal is to return home with dtr. Pt has flight of steps to bed/bath. IDT will assist in recommendations for DC. SW will assist in coordination of DC plans. SW provided resources for Parkinson's classes/support groups. Archana Faustin MSW MEN'S FURNISHINGS SALESPERSON
--- NOTE | 2024-12-03 15:53 | PN_ITS ---
Subjective Subjective Lenny was seen on team rounds today. His daughter Maylin participated by phone. Maylin will be back in town Saturday evening. Afebrile VSS -systolic blood pressure is mildly elevated and since arrival on rehab it has ranged from 140/54 to 151/49. Heart rate is within normal limits. He is on amlodipine 5 mg daily for hypertension. Maintaining appropriate oxygen saturation on - to 95% Oral intake - FOOD good FLUIDS fair - I think he is drinking more than what is reflected in the I&O because staff has been refilling the ice in his cup and not recording. Discussed with nursing - no problems that need addressed. Slept well last night and does not feel hung over. He has been getting trazodone 50 mg at bedtime. Reviewed the THERAPY notes-modified barium swallow today revealed mild to moderate oropharyngeal dysphagia. Cognitive evaluation will occur tomorrow. Medication list reviewed. Seems more alert today. Decreased blink and masked facies persist. Tremoring of the RUE is present at rest. Lenny tells me he slept pretty well last night. He also tells me that the pain in the left quadriceps muscle is better today. He denies cephalgia, lightheadedness, chest pain, shortness of breath, cough, sore throat, nausea/vomiting/abdominal pain and calf tenderness. Urine in the urostomy bag is anant but clear. Objective Data Objective Data Vital Signs: Vital Signs Temp Pulse Resp BP Pulse Ox O2 Del Method 97.7 F L 71 18 151/49 H 95 Room Air 12/03/24 06:00 12/03/24 06:00 12/03/24 06:00 12/03/24 06:00 12/03/24 06:00 12/03/24 13:10 Oxygen Delivery Method Room Air Weight: 141 lb 15.996 oz Body Mass Index (BMI) 22.2 Intake & Output: Intake and Output for Last 24 Hours 12/01/24 12/02/24 12/03/24 23:59 23:59 23:59 Intake Total 1010 / 1010 1070 / 1070 390 / 390 Output Total 1530 / 1530 1200 / 1200 1300 / 1300 Balance -520 / -520 -130 / -130 -910 / -910 Lab / Micro Data 12/01/24 04:55 12/01/24 04:55 Physical Exam Const alert and no apparent distress General Appearance: cooperative Resp normal respiratory effort and clear to auscultation bilaterally Resp Narrative: No conversational dyspnea Effort and Inspection: Negative for tachypneic Cardio regular rate, regular rhythm, no murmurs, no rub and no gallops Cardio Narrative: No ectopy GI normal to inspection, nondistended, normoactive bowel sounds, soft to palpation and non-tender GI Narrative: No guarding with palpation Extremity no calf tenderness Extremity Narrative: He still has some spasm in the left quadriceps muscle but it is softer than yesterday and he states the pain is better. General Extremity: Negative for edema Assessment & Plan Assessment/Plan (1) Physical debility: (2) Closed left hip fracture: (3) History of open reduction and internal fixation (ORIF) procedure: (4) History of blood transfusion: (5) Microcytic anemia: (6) Iron deficiency: (7) Parkinson's disease: QUALIFIERS: Dyskinesia presence: unspecified whether dyskinesia F luctuating manifestations: unspecified whether manifestations fluctuate Q ualified Code(s): G20.A1 - Parkinson's disease without dyskinesia, without mention of fluctuations (8) Presence of urostomy: (9) Presence of colostomy: (10) Nicotine dependence: QUALIFIERS: Nicotine product type: cigarettes Substance use status: unspecified nicotine-induced disorder Qualified Code(s): F17.219 - Nicotine dependence, cigarettes, with unspecified nicotine-induced disorders (11) Dyslipidemia: (12) PVD (peripheral vascular disease): (13) Essential (primary) hypertension: (14) Patent foramen ovale: PLAN: Plan 1. Continue therapy Charges/Coding Visit Charges Inpatient E&M: 06174 Subs Hosp L2
[2024-12-03 17:54] VITALS: BP 142/49; PULSE 79; RESP 16; TEMP 36.4; O2SAT 97
[2024-12-03] MEDS: traZODone 50 MG Tablet PO (21:59)
[2024-12-03] MEDS: Atorvastatin Calcium 40 MG Tablet PO (21:59)
[2024-12-03 22:00] VITALS: RESP 15; O2SAT 97
[2024-12-04 05:06] VITALS: BMI 22.1
[2024-12-04 06:00] VITALS: BP 146/39; PULSE 60; RESP 16; TEMP 36.5; O2SAT 96
[2024-12-04] MEDS: Acetaminophen 500 MG Tablet 1000 MG PO ×3 (06:03→20:55)
[2024-12-04] MEDS: Carbidopa/Levodopa 25/100 Tablet PO ×3 (06:03→17:28)
[2024-12-04 07:09] VITALS: O2SAT 95
[2024-12-04] MEDS: Aspirin 81 MG TAB.CHEW PO ×2 (08:58→17:28)
[2024-12-04] MEDS: Multivitamins,Ther W-Minerals Tablet 1 TABLET PO (08:58)
[2024-12-04] MEDS: cycloBENZAPRine HCl 5 MG TABLET PO ×2 (08:59→20:55)
[2024-12-04] MEDS: Arthritis Pain Compound 60 CLICK TUBE TOPICAL ×2 (08:59→20:48)
[2024-12-04] MEDS: Cyanocobalamin 500 MCG Tablet 1000 MCG PO (08:59)
[2024-12-04] MEDS: Umeclidinium Bromide Inhaler 1 PUFF INHALATION (08:59)
[2024-12-04] MEDS: amLODIPine 5 MG Tablet PO (09:00)
[2024-12-04] MEDS: Famotidine 20 MG Tablet PO (09:00)
[2024-12-04] MEDS: Clopidogrel Bisulfate 75 MG Tablet PO (09:00)
[2024-12-04] MEDS: Senna/Docusate Sodium 1 Tablet 2 TABLET PO ×2 (09:00→20:55)
[2024-12-04 09:34] VITALS: RESP 14; O2SAT 97
[2024-12-04] MEDS: Sodium Ferric Gluconat/Sucrose 250 MG in 0.9% Normal Saline (250mL Bag) 250 ML 135 MG IV (09:51)
[2024-12-04] MEDS: 0.9% Saline Lock 10 ML Syringe IV ×2 (09:51→19:56)
--- NOTE | 2024-12-04 12:07 | CASEMGMT ---
Social Work SW phoned dtr to notify of Medicare approval of days 14 days with a DC date of 12/14. Dtr appreciative of update. Archana Faustin PAPER PRODUCTS SUPERVISOR NUTRITION THERAPIST
[2024-12-04 18:00] VITALS: BP 137/38; PULSE 74; RESP 16; TEMP 37.2; O2SAT 93
[2024-12-04 20:30] VITALS: BP 141/42; PULSE 71; PULSE 74; RESP 16; O2SAT 93
[2024-12-04] MEDS: traZODone 50 MG Tablet PO (20:56)
[2024-12-04] MEDS: Atorvastatin Calcium 40 MG Tablet PO (20:56)
[2024-12-05] MEDS: oxyCODONE 5 MG Tablet PO ×2 (05:36→21:33)
[2024-12-05] MEDS: Acetaminophen 500 MG Tablet 1000 MG PO ×3 (05:36→21:29)
[2024-12-05] MEDS: Carbidopa/Levodopa 25/100 Tablet PO ×3 (05:52→16:12)
[2024-12-05 05:58] VITALS: BP 159/42; PULSE 69; RESP 18; TEMP 36.8; O2SAT 92
[2024-12-05] MEDS: Cyanocobalamin 500 MCG Tablet 1000 MCG PO (08:05)
[2024-12-05] MEDS: Famotidine 20 MG Tablet PO (08:05)
[2024-12-05] MEDS: Aspirin 81 MG TAB.CHEW PO ×2 (08:06→16:12)
[2024-12-05] MEDS: Clopidogrel Bisulfate 75 MG Tablet PO (08:07)
[2024-12-05] MEDS: Senna/Docusate Sodium 1 Tablet 2 TABLET PO ×2 (08:07→21:29)
[2024-12-05] MEDS: Arthritis Pain Compound 60 CLICK TUBE TOPICAL ×2 (08:08→21:28)
[2024-12-05] MEDS: Multivitamins,Ther W-Minerals Tablet 1 TABLET PO (08:08)
[2024-12-05] MEDS: cycloBENZAPRine HCl 5 MG TABLET PO ×2 (08:08→21:28)
[2024-12-05] MEDS: amLODIPine 5 MG Tablet PO (08:09)
[2024-12-05] MEDS: Umeclidinium Bromide Inhaler 1 PUFF INHALATION (08:09)
[2024-12-05] MEDS: Sodium Ferric Gluconat/Sucrose 250 MG in 0.9% Normal Saline (250mL Bag) 250 ML 135 MG IV (10:31)
[2024-12-05] MEDS: 0.9% Saline Lock 10 ML Syringe IV ×2 (10:31→21:37)
[2024-12-05 18:00] VITALS: BP 128/40; PULSE 90; RESP 15; TEMP 37.2; O2SAT 96
[2024-12-05] MEDS: traZODone 50 MG Tablet PO (21:28)
[2024-12-05] MEDS: Atorvastatin Calcium 40 MG Tablet PO (21:29)
--- NOTE | 2024-12-05 23:20 | NURSING ---
2315 Patient calls out requesting something for heartburn. No distress noted. Dr. Douglas updated on same. New order received.
[2024-12-05] MEDS: Calcium Carbonate 500 MG Tablet 1000 MG PO (23:33)
[2024-12-06 06:20] VITALS: BP 144/53; PULSE 78; RESP 16; TEMP 36.8; O2SAT 95
[2024-12-06] MEDS: Carbidopa/Levodopa 25/100 Tablet PO ×3 (06:29→16:22)
[2024-12-06] MEDS: Acetaminophen 500 MG Tablet 1000 MG PO ×3 (06:30→21:15)
[2024-12-06] MEDS: Multivitamins,Ther W-Minerals Tablet 1 TABLET PO (08:04)
[2024-12-06] MEDS: amLODIPine 5 MG Tablet PO (08:04)
[2024-12-06] MEDS: Clopidogrel Bisulfate 75 MG Tablet PO (08:05)
[2024-12-06] MEDS: Aspirin 81 MG TAB.CHEW PO ×2 (08:05→16:23)
[2024-12-06] MEDS: cycloBENZAPRine HCl 5 MG TABLET PO ×2 (08:05→21:14)
[2024-12-06] MEDS: Cyanocobalamin 500 MCG Tablet 1000 MCG PO (08:05)
[2024-12-06] MEDS: Senna/Docusate Sodium 1 Tablet 2 TABLET PO ×2 (08:05→21:15)
[2024-12-06] MEDS: Famotidine 20 MG Tablet PO (08:05)
[2024-12-06] MEDS: DULoxetine Hcl 20 MG Capsule PO (08:06)
[2024-12-06] MEDS: Arthritis Pain Compound 60 CLICK TUBE TOPICAL ×2 (08:06→21:14)
[2024-12-06] MEDS: Umeclidinium Bromide Inhaler 1 PUFF INHALATION (08:07)
[2024-12-06] MEDS: Sodium Ferric Gluconat/Sucrose 250 MG in 0.9% Normal Saline (250mL Bag) 250 ML 135 MG IV (11:29)
[2024-12-06] MEDS: 0.9% Saline Lock 10 ML Syringe IV ×2 (11:29→17:38)
[2024-12-06 12:03] LABS: Mucous, Urine 0 SEEN /hpf (<or=2+); Squamous Epithelial Cells - UA 0 SEEN /hpf (0-5)
[2024-12-06 12:05] LABS: Color, Urine Yellow (Yellow); Glucose, Dipstick Normal (Normal); Ketone-Dipstick Negative (Negative); Leukocyte Esterase-Dipstick 500 /ul (Negative); Nitrite-Dipstick Negative (Negative); Occult Blood-Urine 150 /ul (Negative); Protein-Dipstick 100 mg/dl (Negative); Urine Bilirubin Dipstick Negative (Negative); Urine Clarity Cloudy (Clear); Urine Urobilinogen Normal (Normal)
[2024-12-06 12:39] LABS: White Blood Cells >100 SEEN /hpf (0-5)
[2024-12-06 12:43] LABS: Bacteria 3+ /hpf (None Seen); Red Blood Cells-Urine 5-10 SEEN /hpf (0-5)
[2024-12-06] MEDS: Ondansetron 4 MG/2 ML Vial IV (17:38)
[2024-12-06] MEDS: Meropenem 1 GM in 0.9% Normal Saline (100mL MB+) 100 ML IV (17:40)
[2024-12-06] MEDS: 0.9% Normal Saline (100mL Bag) 100 ML 15 ML IV (17:41)
[2024-12-06 18:00] VITALS: BP 155/52; PULSE 92; RESP 15; TEMP 36.9
[2024-12-06] MEDS: traZODone 50 MG Tablet PO (21:14)
[2024-12-06] MEDS: Atorvastatin Calcium 80 MG Tablet PO (21:15)
[2024-12-07 05:22] VITALS: BP 148/43; PULSE 73; RESP 16; TEMP 37.1; O2SAT 96
[2024-12-07] MEDS: 0.9% Saline Lock 10 ML Syringe IV ×2 (05:34→14:53)
[2024-12-07] MEDS: Meropenem 1 GM in 0.9% Normal Saline (100mL MB+) 100 ML IV ×3 (05:34→21:35)
[2024-12-07] MEDS: Acetaminophen 500 MG Tablet 1000 MG PO ×3 (05:34→21:31)
[2024-12-07] MEDS: Carbidopa/Levodopa 25/100 Tablet PO ×3 (05:36→16:01)
[2024-12-07 05:50] LABS: Absolute Lymphocyte Count 0.73 X10^3/uL (0.83-4.51); Absolute Neutrophil Count 3.2 X10^3/uL (2.0-7.7); Basophil# 0.03 X10^3/uL; Basophil% 0.6 % (0-1); Eosinophil# 0.16 X10^3/uL; Eosinophils% 3.4 % (0-5); Hematocrit 26.9 % (40-54); Hemoglobin 8.1 g/dL (13.0-16.5); Lymphocyte # 0.73 X10^3/ul (0.83-4.51); Lymphocyte % 15.5 % (19-41); Mean Corp Hgb Conc 30.1 g/dL (32-36); Mean Corpuscular Hgb 24.3 pg (27.0-32.0); Mean Corpuscular Volume 80.5 fL (80-94); Mean Platelet Vol. 9.7 fl (6.2-12.0); Monocyte# 0.54 X10^3/uL; Monocyte% 11.5 % (0-10); NRBC Flagged by Analyzer 0 % (0-5); Neutrophil # 3.21 X10^3/uL (2.7-7.7); Neutrophil % 68.2 % (47-70); POSITIVE MORPHOLOGY YES; Platelet Count 355 K/mm3 (150-450); RBC Distribution Width CV 26.3 % (11.6-14.6); RBC Distribution Width SD 74.5 fl (35.1-43.9); Red Blood Count 3.34 M/mm3 (4.6-6.2); White Blood Count 4.7 K/mm3 (4.4-11.0)
[2024-12-07 05:59] LABS: Differential Indicated SCAN CRITERIA MET
[2024-12-07 06:28] LABS: Anion Gap 12 (5-15); BUN 32 mg/dL (4-19); BUN/Creat Ratio 32.1 RATIO (10-20); Carbon Dioxide 23.8 mmol/L (21.0-32.0); Chloride 104 mmol/L (98-108); Creatinine, Serum 0.99 mg/dL (0.70-1.20); EST Glomerular Filtration Rate 77 (>60); Estimated Creatinine Clearance 53.14 ml/min (50-250); Glucose 86 mg/dL (70-99); Potassium 3.8 mmol/L (3.3-5.1); Sodium Level 139 mmol/L (133-145)
[2024-12-07 06:40] LABS: Anisocytosis 2+
[2024-12-07] MEDS: cycloBENZAPRine HCl 5 MG TABLET PO ×2 (08:14→21:31)
[2024-12-07] MEDS: Aspirin 81 MG TAB.CHEW PO ×2 (08:14→16:01)
[2024-12-07] MEDS: amLODIPine 5 MG Tablet PO (08:14)
[2024-12-07] MEDS: DULoxetine Hcl 20 MG Capsule PO (08:14)
[2024-12-07] MEDS: Famotidine 20 MG Tablet PO (08:15)
[2024-12-07] MEDS: Multivitamins,Ther W-Minerals Tablet 1 TABLET PO (08:15)
[2024-12-07] MEDS: Clopidogrel Bisulfate 75 MG Tablet PO (08:15)
[2024-12-07] MEDS: Senna/Docusate Sodium 1 Tablet 2 TABLET PO ×2 (08:15→21:32)
[2024-12-07] MEDS: Cyanocobalamin 500 MCG Tablet 1000 MCG PO (08:15)
[2024-12-07] MEDS: Arthritis Pain Compound 60 CLICK TUBE TOPICAL ×2 (08:16→21:29)
[2024-12-07] MEDS: Umeclidinium Bromide Inhaler 1 PUFF INHALATION (10:20)
--- NOTE | 2024-12-07 10:30 | PN_ITS ---
Subjective Subjective Day #2 meropenem Afebrile VSS -blood pressure over the past 48 hours has ranged from 128/40 to 159/42. Systolic is more often than not mildly elevated. Heart rate is within normal limits. Maintaining appropriate oxygen saturation on RA-95 to 96% Oral intake - FOOD refused lunch and supper yesterday but ate 75 to 100% of his breakfast this morning. Intake is variable. FLUIDS good Discussed with nursing - Nursing reported to me yesterday that his urine was foul smelling and had a lot of mucous in it. He also had 2 episodes of emesis yesterday. Reviewed the THERAPY notes Medication list reviewed. Has received a total of 700 mg of intravenous iron sucrose and has been started on oral ferrous sulfate every other day and vitamin C. Lab from this morning was personally reviewed. White blood cell count is normal at 4.7 with 68% neutrophils. No left shift. Platelets are within normal limits. Hemoglobin is 8.1 which is down from 8.7 on 12/01/2024. Sodium is normal at 139 and the potassium is 3.8. BUN is up to 32 with a creatinine of 0.99 which is up from 0.84 on 12/01/2024. UA yesterday was positive for urine occult blood 150. He had 5-10 RBCs per high-power field and greater than 100 WBCs per high-power field. Once again 3+ bacteria was seen. The urine culture is pending. Lenny denies lightheadedness, cephalgia, chest pain, palpitations, shortness of breath, nausea/vomiting/abdominal pain, dysuria and calf tenderness. He has an occasional cough but this is chronic for him and there has been no change in his cough recently. Objective Data Objective Data Vital Signs: Vital Signs Temp Pulse Resp BP Pulse Ox O2 Del Method 98.7 F 73 16 148/43 H 96 Room Air 12/07/24 05:22 12/07/24 05:22 12/07/24 05:22 12/07/24 05:22 12/07/24 05:22 12/07/24 05:22 Oxygen Delivery Method Room Air Weight: 141 lb 8.588 oz Body Mass Index (BMI) 22.1 Intake & Output: Intake and Output for Last 24 Hours 12/05/24 12/06/24 12/07/24 23:59 23:59 23:59 Intake Total 1820 / 1820 1912.5 / 1912.5 620 / 620 Output Total 1675 / 1675 2300 / 2300 800 / 800 Balance 145 / 145 -387.5 / -387.5 -180 / -180 Lab / Micro Data 12/07/24 05:36 12/07/24 05:36 Labs: Laboratory Results - last 24 hr 12/06/24 11:20: Urine Color Yellow, Urine Clarity Cloudy, Urine pH 6.0, Ur Specific [place] 1.020, Urine Protein 100 H, Urine Glucose (UA) Normal, Urine Ketones Negative, Urine Occult Blood 150 H, Urine Nitrite Negative, Urine Bilirubin Negative, Urine Urobilinogen Normal, Ur Leukocyte Esterase 500 H, Urine RBC 5-10 SEEN, Urine WBC >100 SEEN, Ur Squamous Epith Cells 0 SEEN, Urine Bacteria 3+, Urine Mucus 0 SEEN 12/07/24 05:36: WBC 4.7, RBC 3.34 L, Hgb 8.1 L, Hct 26.9 L, MCV 80.5, MCH 24.3 L , MCHC 30.1 L, RDW Std Deviation 74.5 H, RDW Coeff of Lamin 26.3 H, Plt Count 355, MPV 9.7, Immature Gran % (Auto) 0.800, Neut % (Auto) 68.2, Lymph % (Auto) 15.5 L , [place] % (Auto) 11.5 H, Eos % (Auto) 3.4, Baso % (Auto) 0.6, Absolute Neuts (auto) 3.2, Absolute Lymphs (auto) 0.73 L, Nucleated RBC % 0, Anisocytosis 2+, Sodium 139, Potassium 3.8, Chloride 104, Carbon Dioxide 23.8, Anion Gap 12, BUN 32 H, Creatinine 0.99, Estim Creat Clear Calc 53.14, Est GFR (MDRD) Non-Af 77, B UN/Creatinine Ratio 32.1 H, Glucose 86, Calcium 9.0 Physical Exam Const alert and no apparent distress General Appearance: cooperative Resp normal respiratory effort and clear to auscultation bilaterally Resp Narrative: No conversational dyspnea Effort and Inspection: Negative for tachypneic Cardio regular rate, regular rhythm, no murmurs, no rub and no gallops Cardio Narrative: No ectopy GI normal to inspection, nondistended, normoactive bowel sounds, soft to palpation and non-tender GI Narrative: No guarding with palpation Extremity no calf tenderness Extremity Narrative: He is no longer complaining of pain in the left anterior thigh and the spasm is much improved. May be able to discontinue the muscle relaxer in a few days. General Extremity: Negative for edema Skin General Skin Exam: no breakdown Rashes: no rashes Psych cooperative and affect normal Psych Narrative: Makes good eye contact with me when we are talking and he is engaged in the conversation. Asks appropriate questions. Appearance: appropriate Assessment & Plan Assessment/Plan (1) Physical debility: (2) Closed left hip fracture: (3) History of open reduction and internal fixation (ORIF) procedure: (4) History of blood transfusion: (5) Microcytic anemia: (6) Iron deficiency: (7) Parkinson's disease: QUALIFIERS: Dyskinesia presence: unspecified whether dyskinesia F luctuating manifestations: unspecified whether manifestations fluctuate Q ualified Code(s): G20.A1 - Parkinson's disease without dyskinesia, without mention of fluctuations (8) Presence of urostomy: (9) Presence of colostomy: (10) Nicotine dependence: QUALIFIERS: Nicotine product type: cigarettes Substance use status: unspecified nicotine-induced disorder Qualified Code(s): F17.219 - Nicotine dependence, cigarettes, with unspecified nicotine-induced disorders (11) Dyslipidemia: (12) PVD (peripheral vascular disease): (13) Essential (primary) hypertension: (14) Patent foramen ovale: PLAN: Plan 1. Continue therapy 2. Check a Hemoccult 3. Continue meropenem and await the results of the urine culture 4. He is on Famotidine for GI prophylaxis........continue for now.....if the hemoccult is + will likely increase dose or transition to a PPI Charges/Coding Visit Charges Inpatient E&M: 58278 Subs Hosp L1
[2024-12-07] MEDS: Ferrous Sulfate 325 MG Tablet PO (11:37)
[2024-12-07] MEDS: Ascorbic Acid 500 MG Tablet PO (11:37)
[2024-12-07 18:00] VITALS: BP 126/40; PULSE 68; RESP 16; TEMP 36.5; O2SAT 97
[2024-12-07] MEDS: Atorvastatin Calcium 80 MG Tablet PO (21:31)
[2024-12-07] MEDS: traZODone 50 MG Tablet PO (21:31)
[2024-12-07] MEDS: oxyCODONE 5 MG Tablet PO (21:43)
[2024-12-08] MEDS: Meropenem 1 GM in 0.9% Normal Saline (100mL MB+) 100 ML IV (05:57)
[2024-12-08] MEDS: Acetaminophen 500 MG Tablet 1000 MG PO ×3 (05:57→20:11)
[2024-12-08] MEDS: Carbidopa/Levodopa 25/100 Tablet PO ×3 (05:57→16:56)
[2024-12-08 06:00] VITALS: BP 135/41; PULSE 60; RESP 16; TEMP 37.1; O2SAT 96
[2024-12-08] MEDS: cycloBENZAPRine HCl 5 MG TABLET PO ×2 (08:03→21:41)
[2024-12-08] MEDS: Senna/Docusate Sodium 1 Tablet 2 TABLET PO ×2 (08:03→20:11)
[2024-12-08] MEDS: Multivitamins,Ther W-Minerals Tablet 1 TABLET PO (08:04)
[2024-12-08] MEDS: Famotidine 20 MG Tablet PO (08:04)
[2024-12-08] MEDS: Aspirin 81 MG TAB.CHEW PO ×2 (08:04→16:55)
[2024-12-08] MEDS: DULoxetine Hcl 20 MG Capsule PO (08:04)
[2024-12-08] MEDS: Arthritis Pain Compound 60 CLICK TUBE TOPICAL ×2 (08:04→20:07)
[2024-12-08] MEDS: amLODIPine 5 MG Tablet PO (08:04)
[2024-12-08] MEDS: Cyanocobalamin 500 MCG Tablet 1000 MCG PO (08:04)
[2024-12-08] MEDS: Umeclidinium Bromide Inhaler 1 PUFF INHALATION (08:04)
[2024-12-08] MEDS: Clopidogrel Bisulfate 75 MG Tablet PO (08:04)
--- NOTE | 2024-12-08 11:26 | PCM.PROGNOTE ---
Subjective Subjective Afebrile VSS - Maintaining appropriate oxygen saturation on RA Oral intake - FOOD good FLUIDS good Discussed with nursing - no problems that need addressed. Slept well last night. Reviewed the THERAPY notes Medication list reviewed. Urine culture grew only 1 bacteria this time and it was an ESBL Klebsiella pneumoniae, 80,000-100,000 colonies. It is resistant to meropenem. Intermediately sensitive to Levaquin and sensitive to nitrofurantoin. Lenny denies lightheadedness, cephalgia, change in his chronic cough, chest pain, shortness of breath, nausea/vomiting/abdominal pain, flank pain and calf pain. He is progressing well in therapy. Objective Data Objective Data Vital Signs: Vital Signs Temp Pulse Resp BP Pulse Ox O2 Del Method 98.7 F 60 16 135/41 H 96 Room Air 12/08/24 06:00 12/08/24 06:00 12/08/24 06:00 12/08/24 06:00 12/08/24 06:00 12/08/24 06:00 Oxygen Delivery Method Room Air Weight: 141 lb 8.588 oz Body Mass Index (BMI) 22.1 Intake & Output: Intake and Output for Last 24 Hours 12/06/24 12/07/24 12/08/24 23:59 23:59 23:59 Intake Total 1912.5 / 1912.5 1288 / 1288 800 / 800 Output Total 2300 / 2300 1050 / 1300 1190 / 1190 Balance -387.5 / -387.5 238 / -12 -390 / -390 Lab / Micro Data 12/07/24 05:36 12/07/24 05:36 Micro: Microbiology 12/06/24 11:20 Urine Catheter - Salguero Urine Culture - Preliminary ESBL Klebsiella pneumoniae pne 12/07/24 11:14 Stool Stool Occult Blood (ASHLIE) - Final Physical Exam Const alert and no apparent distress Constitutional Narrative: Sitting in the recliner at the bedside. General Appearance: cooperative HEENT head/scalp atraumatic Eyes PERRL, EOMs intact bilaterally, conjunctivae normal and no scleral icterus Eyes Narrative: No discharge from the eyes. Neck no lymphadenopathy, supple and no JVD Neck Narrative: Bilateral carotid bruits General: trachea midline Chest Chest: symmetrical chest wall rise Resp normal respiratory effort and clear to auscultation bilaterally Resp Narrative: No conversational dyspnea Effort and Inspection: Negative for tachypneic Cardio regular rate, regular rhythm, no murmurs, no rub and no gallops Cardio Narrative: No ectopy GI normal to inspection, nondistended, normoactive bowel sounds, soft to palpation and non-tender GI Narrative: No guarding with palpation. No flank pain. Narrative: Has had an ileal conduit and there is a urostomy present. Back/Spine General Back: Negative for CVA tenderness Extremity no calf tenderness Extremity Narrative: He is no longer complaining of pain in the left anterior thigh and the spasm is much improved. May be able to discontinue the muscle relaxer in a few days. General Extremity: Negative for edema Skin Skin Narrative: Per nursing he has a pressure wound on the sacrum.......will examine when he is done with therapy for today and dressing is changed. General Skin Exam: no breakdown Rashes: no rashes Wound Narrative: I examined the buttocks/sacrum. there are no pressure injuries. He has a small depression where the anus was sewed shut. There is no DC, no erythema and no opening in the skin. Neuro oriented x3, CN's II-XII intact bilaterally and no focal motor deficits Neuro Narrative: Masked facies. Generalized weakness. Resting tremors- worst in the RUE. Bradykinesia. Slow speech. Moves all extremities. No festinating gait per discussion with PT. Fatigues very easily. Motor Exam: strength 5/5 throughout Psych cooperative and affect normal Psych Narrative: Makes good eye contact with me when we are talking and he is engaged in the conversation. Asks appropriate questions. Appearance: appropriate Assessment & Plan Assessment/Plan (1) Physical debility: (2) Closed left hip fracture: (3) History of open reduction and internal fixation (ORIF) procedure: (4) History of blood transfusion: (5) Microcytic anemia: (6) Iron deficiency: (7) Parkinson's disease: QUALIFIERS: Dyskinesia presence: unspecified whether dyskinesia Fluctuating manifestations: unspecified whether manifestations fluctuate Qualified Code(s): G20.A1 - Parkinson's disease without dyskinesia, without mention of fluctuations (8) Presence of urostomy: (9) Presence of colostomy: (10) Nicotine dependence: QUALIFIERS: Nicotine product type: cigarettes Substance use status: unspecified nicotine-induced disorder Qualified Code(s): F17.219 - Nicotine dependence, cigarettes, with unspecified nicotine-induced disorders (11) Dyslipidemia: (12) PVD (peripheral vascular disease): (13) Essential (primary) hypertension: (14) Patent foramen ovale: (15) UTI due to Klebsiella species: PLAN: I suspect he is colonized and does not have an infection. ID consulted. Defer tx to Dr. Carranza. May not need antibiotics. PLAN: Plan 1. Continue therapy 2. DC meropenem 3. Give a dose of Levaquin 500 mg today and then daily. 4. Consult Dr. Carranza. I am not sure the N/V and increased urinary sediment are due to UTI. He is better and has been on meropenem. He is AF and the WBC is normal. ..the bacteria is resistant to Meropenem. Pts with urostomies frequently have asymptomatic bacteriuria due to colonization. I suspect he is frequently treated with antibiotics and that is why he has multidrug resistance. Will defer treatment to Dr. Carranza. Charges/Coding Visit Charges Inpatient E&M: 22203 Subs Hosp L1
[2024-12-08] MEDS: levoFLOXacin 500 MG Tablet PO (11:50)
[2024-12-08] MEDS: Ascorbic Acid 500 MG Tablet PO (11:50)
[2024-12-08] MEDS: oxyCODONE 5 MG Tablet PO ×2 (12:46→17:17)
[2024-12-08 17:57] VITALS: BP 126/50; PULSE 60; RESP 17; TEMP 36.6; O2SAT 94
[2024-12-08 19:31] VITALS: BP 126/50; PULSE 60; RESP 16; TEMP 36.6; O2SAT 94
[2024-12-08] MEDS: Atorvastatin Calcium 80 MG Tablet PO (20:11)
[2024-12-08 20:17] VITALS: O2SAT 95
[2024-12-08] MEDS: traZODone 50 MG Tablet PO (21:41)
[2024-12-09] MEDS: Acetaminophen 500 MG Tablet 1000 MG PO ×3 (05:52→20:14)
[2024-12-09] MEDS: levoFLOXacin 500 MG Tablet PO (05:52)
[2024-12-09 06:00] VITALS: BP 133/41; PULSE 63; RESP 15; TEMP 36.5; O2SAT 93
[2024-12-09] MEDS: Carbidopa/Levodopa 25/100 Tablet PO ×3 (06:00→16:50)
[2024-12-09] MEDS: Multivitamins,Ther W-Minerals Tablet 1 TABLET PO (08:02)
[2024-12-09] MEDS: Cyanocobalamin 500 MCG Tablet 1000 MCG PO (08:02)
[2024-12-09] MEDS: Aspirin 81 MG TAB.CHEW PO ×2 (08:02→16:50)
[2024-12-09] MEDS: Umeclidinium Bromide Inhaler 1 PUFF INHALATION (08:02)
[2024-12-09] MEDS: Arthritis Pain Compound 60 CLICK TUBE TOPICAL ×2 (08:02→20:13)
[2024-12-09] MEDS: cycloBENZAPRine HCl 5 MG TABLET PO ×2 (08:03→20:13)
[2024-12-09] MEDS: DULoxetine Hcl 20 MG Capsule PO (08:03)
[2024-12-09] MEDS: amLODIPine 5 MG Tablet PO (08:03)
[2024-12-09] MEDS: Famotidine 20 MG Tablet PO (08:03)
[2024-12-09] MEDS: Clopidogrel Bisulfate 75 MG Tablet PO (08:03)
[2024-12-09] MEDS: Senna/Docusate Sodium 1 Tablet 2 TABLET PO ×2 (08:03→20:13)
[2024-12-09] MEDS: Ascorbic Acid 500 MG Tablet PO (11:47)
[2024-12-09] MEDS: Ferrous Sulfate 325 MG Tablet PO (11:47)
[2024-12-09 17:43] VITALS: BP 143/37; PULSE 69; RESP 18; TEMP 36.9; O2SAT 95
[2024-12-09] MEDS: Ondansetron 4 MG/2 ML Vial IV (18:25)
[2024-12-09] MEDS: 0.9% Saline Lock 10 ML Syringe IV (18:25)
[2024-12-09] MEDS: Magnesium Hydroxide 30 ML UDC PO (18:54)
[2024-12-09 20:05] VITALS: PULSE 69; RESP 18; O2SAT 95
[2024-12-09] MEDS: Nitrofurantoin Macrocrystals 100 MG Capsule PO (20:14)
[2024-12-09] MEDS: Atorvastatin Calcium 80 MG Tablet PO (20:14)
[2024-12-09] MEDS: traZODone 50 MG Tablet PO (22:28)
[2024-12-10 05:00] VITALS: BP 140/47; PULSE 68; RESP 16; TEMP 36.2; O2SAT 91
[2024-12-10] MEDS: Acetaminophen 500 MG Tablet 1000 MG PO ×3 (05:26→20:25)
[2024-12-10] MEDS: Carbidopa/Levodopa 25/100 Tablet PO ×3 (06:29→16:29)
[2024-12-10] MEDS: Umeclidinium Bromide Inhaler 1 PUFF INHALATION (08:32)
[2024-12-10] MEDS: Arthritis Pain Compound 60 CLICK TUBE TOPICAL ×2 (08:32→20:26)
[2024-12-10] MEDS: Multivitamins,Ther W-Minerals Tablet 1 TABLET PO (08:33)
[2024-12-10] MEDS: amLODIPine 5 MG Tablet PO (08:33)
[2024-12-10] MEDS: Nitrofurantoin Macrocrystals 100 MG Capsule PO ×2 (08:33→20:26)
[2024-12-10] MEDS: DULoxetine Hcl 20 MG Capsule PO (08:33)
[2024-12-10] MEDS: Clopidogrel Bisulfate 75 MG Tablet PO (08:33)
[2024-12-10] MEDS: Cyanocobalamin 500 MCG Tablet 1000 MCG PO (08:33)
[2024-12-10] MEDS: Famotidine 20 MG Tablet PO ×3 (08:33→20:25)
[2024-12-10] MEDS: Senna/Docusate Sodium 1 Tablet 2 TABLET PO ×2 (08:33→20:25)
[2024-12-10] MEDS: Aspirin 81 MG TAB.CHEW PO ×2 (08:34→16:29)
[2024-12-10] MEDS: cycloBENZAPRine HCl 5 MG TABLET PO (08:39)
--- NOTE | 2024-12-10 09:50 | PN_ITS ---
Subjective Subjective Lenny was seen on team rounds today. Dtr Maylin was present in the room. All questions were answered to their satisfaction. Afebrile VSS - Maintaining appropriate oxygen saturation on RA Oral intake - FOOD good FLUIDS I think his fluid intake is better than what is documented in the I&O's. staff frequently refills the water vessel and ice and isn' always recording this. fluid balance is most often negative but, he has no lightheadedness and BP and HR are WNL. BUN and Creat went up a tad on 12/07/24. Will recheck in the AM. Discussed with nursing - C/o nausea last night. Due to ASA BID? No BM since 12/06. Given MOM yesterday. Has been getting senna 2 tablets twice daily. MiraLAX was ordered as needed but he has not taken any since it was ordered. Reviewed the THERAPY notes Medication list reviewed. No results from the MOM yesterday. Denies nausea at present....tells me it went away after he drank one of the nutritional supplements he is getting. Denies abd pain. Tells me that he has to empty the colostomy every 2-3 days at home. Has been burping. Urine in the urostomy bag is much clearer with greatly decreased sediment. D/W ID yesterday. they recommend Macrobid 100 mg BID for 7 days. This was started yesterday. He has had a problem with constipation in the past and he was taking 2 stool softeners and getting PRN MOM. Objective Data Objective Data Vital Signs: Vital Signs Temp Pulse Resp BP Pulse Ox O2 Del Method 97.2 F L 68 16 140/47 H 91 Room Air 12/10/24 05:00 12/10/24 05:00 12/10/24 05:00 12/10/24 05:00 12/10/24 05:00 12/10/24 08:47 Oxygen Delivery Method Room Air Weight: 141 lb 8.588 oz Body Mass Index (BMI) 22.1 Intake & Output: Intake and Output for Last 24 Hours 12/08/24 12/09/24 12/10/24 23:59 23:59 23:59 Intake Total 1620 / 1740 1050 / 1050 400 / 400 Output Total 1890 / 1890 1950 / 1950 800 / 800 Balance -270 / -150 -900 / -900 -400 / -400 Lab / Micro Data 12/07/24 05:36 12/07/24 05:36 Micro: Microbiology 12/06/24 11:20 Urine Catheter - Salguero Urine Culture - Final ESBL Klebsiella pneumoniae pne 12/07/24 11:14 Stool Stool Occult Blood (ASHLIE) - Final Physical Exam Const alert and no apparent distress Constitutional Narrative: Sitting in the recliner at the bedside. General Appearance: cooperative Resp normal respiratory effort and clear to auscultation bilaterally Resp Narrative: No conversational dyspnea Effort and Inspection: Negative for tachypneic Cardio regular rate, regular rhythm, no murmurs, no rub and no gallops Cardio Narrative: No ectopy GI GI Narrative: Mildly distended with decreased bowel sounds. No guarding with palpation. Nothing in the colostomy bag. Extremity no calf tenderness General Extremity: Negative for edema Skin Rashes: no rashes Wound Narrative: I examined the buttocks/sacrum. There are no pressure injuries. He has a small depression where the anus was sewed shut. There is no DC, no erythema and no opening in the skin. He has pain in the buttocks when he has been sitting in the chair all day.....no radiation into the legs. Assessment & Plan Assessment/Plan (1) Physical debility: (2) Closed left hip fracture: (3) History of open reduction and internal fixation (ORIF) procedure: (4) History of blood transfusion: (5) Microcytic anemia: (6) Iron deficiency: (7) Parkinson's disease: QUALIFIERS: Dyskinesia presence: unspecified whether dyskinesia F luctuating manifestations: unspecified whether manifestations fluctuate Q ualified Code(s): G20.A1 - Parkinson's disease without dyskinesia, without mention of fluctuations (8) Presence of urostomy: (9) Presence of colostomy: (10) Nicotine dependence: QUALIFIERS: Nicotine product type: cigarettes Substance use status: unspecified nicotine-induced disorder Qualified Code(s): F17.219 - Nicotine dependence, cigarettes, with unspecified nicotine-induced disorders (11) Essential (primary) hypertension: (12) UTI due to Klebsiella species: (13) Constipation: QUALIFIERS: Constipation type: unspecified constipation type Q ualified Code(s): K59.00 - Constipation, unspecified PLAN: This is a chronic problem. I suspect it is due to autonomic dysfunction from PD. (14) Autonomic dysfunction: PLAN: Plan 1. Continue therapy 2. BMP in the a.m. 3. Daily weights 4. Increase famotidine to 20 mg twice daily, at least while he is on ASA BID. 5. Dulcolax 10 mg p.o. today 6. Change the polyethylene glycol to scheduled daily. Continue senna. 7. KUB today 8. Change the Flexeril to twice daily as needed muscle spasm. Has not complained about left thigh pain for several days now. I suggested to Lenny and his dtr that they may want to consider follow up with GI to address the problems with constipation. I suspect the constipation is due to autonomic dysfunction related to Parkinson's disease. TSH in 2022 was normal...will recheck a TSH in the AM. Try adding a probiotic.......may due well with Kefir. Encouraged increased fluids. Charges/Coding Visit Charges Inpatient E&M: 95488 Subs Hosp L2
--- NOTE | 2024-12-10 10:02 | RAD_ITS ---
EXAM: XR Abdomen, 2 Views CLINICAL INDICATION: NAUSEA/CONSTIPATION TECHNIQUE: Frontal view of the abdomen/pelvis with upright view of the abdomen. COMPARISON: No relevant prior studies available. FINDINGS: INTRAPERITONEAL SPACE: No free air. GASTROINTESTINAL TRACT: Fecal retention in the colon consistent with constipation. Concentrated contrast opacification of the bowel in the left abdomen. No dilation. BONES/JOINTS: Unremarkable. No acute fracture. VASCULATURE: Indwelling aortic endograft. RAD/Abdomen Single View IMPRESSION: Fecal retention in the colon consistent with constipation. Reading Location: [facility]
[2024-12-10] MEDS: Polyethylene Glycol 3350 17 GM PACKET PO (11:02)
[2024-12-10] MEDS: Bisacodyl 5 MG Tablet 10 MG PO (11:02)
[2024-12-10] MEDS: Ascorbic Acid 500 MG Tablet PO (11:03)
--- NOTE | 2024-12-10 12:43 | CASEMGMT ---
Social Work IDT met with patient and dtr for Team meeting. Discussed patient's progress in PT/OT/ST/SN. Confirmed Medicare issuance of DC 12/14. Offered DC 12/13 d/t no therapy on Saturday or day of DC. Dtr and pt prefers 12/13. Dtr can transport. Recommending skilled HHC. Pt/dtr agrees. SW provided list of skilled HHC agencies within geographical area, INN with insurance, that include quality and resource data via [employer] guide. Dtr states pt has used [facility] prior and would like to use again. SW to make referral. Pt denied needing additional DME. - SW sent referral to [facility] via [employer]. Plan: DC home with dtr 12/13, [facility] PT/OT/ST/SN. 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
[2024-12-10] MEDS: oxyCODONE 5 MG Tablet PO (16:37)
[2024-12-10 18:00] VITALS: BP 137/42; PULSE 69; RESP 15; TEMP 36.3; O2SAT 97
[2024-12-10 20:00] VITALS: PULSE 69; RESP 15
[2024-12-10] MEDS: traZODone 50 MG Tablet PO (20:26)
[2024-12-10] MEDS: Atorvastatin Calcium 80 MG Tablet PO (20:26)
--- NOTE | 2024-12-11 04:51 | NURSING ---
nga knowles, removed 8 isabella and 2 steri strips applied. Pt tolerated well.
[2024-12-11] MEDS: Acetaminophen 500 MG Tablet 1000 MG PO ×3 (04:56→20:46)
[2024-12-11] MEDS: 0.9% Saline Lock 10 ML Syringe IV (04:58)
[2024-12-11 06:00] VITALS: BP 154/64; PULSE 66; RESP 16; TEMP 36.4; O2SAT 93; BMI 21.4
[2024-12-11 06:06] LABS: Hematocrit 27.6 % (40-54); Hemoglobin 8.5 g/dL (13.0-16.5)
[2024-12-11] MEDS: Carbidopa/Levodopa 25/100 Tablet PO ×3 (06:45→16:52)
[2024-12-11 06:57] LABS: Anion Gap 11 (5-15); BUN 21 mg/dL (4-19); BUN/Creat Ratio 29.8 RATIO (10-20); Calcium,Total 8.8 mg/dL (7.6-11.0); Carbon Dioxide 20.9 mmol/L (21.0-32.0); Chloride 106 mmol/L (98-108); Creatinine, Serum 0.71 mg/dL (0.70-1.20); EST Glomerular Filtration Rate 92 (>60); Estimated Creatinine Clearance 63.51 ml/min (50-250); Glucose 93 mg/dL (70-99); Sodium Level 138 mmol/L (133-145)
[2024-12-11] MEDS: Umeclidinium Bromide Inhaler 1 PUFF INHALATION (08:17)
[2024-12-11] MEDS: Nitrofurantoin Macrocrystals 100 MG Capsule PO ×2 (08:18→20:48)
[2024-12-11] MEDS: Multivitamins,Ther W-Minerals Tablet 1 TABLET PO (08:18)
[2024-12-11] MEDS: amLODIPine 5 MG Tablet PO (08:18)
[2024-12-11] MEDS: Famotidine 20 MG Tablet PO ×2 (08:18→20:48)
[2024-12-11] MEDS: Clopidogrel Bisulfate 75 MG Tablet PO (08:18)
[2024-12-11] MEDS: Senna/Docusate Sodium 1 Tablet 2 TABLET PO ×2 (08:18→20:47)
[2024-12-11] MEDS: Polyethylene Glycol 3350 17 GM PACKET PO (08:18)
[2024-12-11] MEDS: DULoxetine Hcl 20 MG Capsule PO (08:18)
[2024-12-11] MEDS: Arthritis Pain Compound 60 CLICK TUBE TOPICAL ×2 (08:19→20:46)
[2024-12-11] MEDS: Aspirin 81 MG TAB.CHEW PO ×2 (08:19→16:52)
[2024-12-11] MEDS: Cyanocobalamin 500 MCG Tablet 1000 MCG PO (08:19)
[2024-12-11 09:53] VITALS: PULSE 63; RESP 16
[2024-12-11] MEDS: Ferrous Sulfate 325 MG Tablet PO (11:28)
[2024-12-11] MEDS: Ascorbic Acid 500 MG Tablet PO (11:28)
--- NOTE | 2024-12-11 16:11 | DCINST_ITS ---
Discharge Instructions Diet Discharge Diet: No restrictions DC O2, CPAP, BIPAP needs Home O2 Discharge instructions: No Dressing / Incision Discharge Activity: May Not Drive and Use Walker Weight Bearing Status: Weight bearing as tolerated Keep extremity elevated above heart level: Legs Dressing / Incision Call your doctor if your incision/area has: Continuous Slow Oozing, Sudden Increased Bleeding, Increased Pain/ Swelling, Increased Redness and Foul Smelling Discharge Call your doctor if you observe: Fever of 101 or Higher, Shortness of breath, Dizziness, Fainting spells, Swelling in the ankles, Chest pain, Increased palpitations (irregular heartbeat), Calf discomfort and Uncontrolled pain Suture Line Care: Avoid Pulling/Pushing and Avoid Pinching/Bending Cleanse incision/area with: Soap & Water and - (No tub baths. Can shower and then dry the incision right after. Do not soak the wound. ) Catheter: - (has urostomy and colostomy bags. ) Additional Dressing/Incision Instructions:: OK to leave the incision open to air with no dressing. Follow Up Care Please Follow Up With: Remington Frederick MD When: Follow up with Dr. Frederick within the next 7-10 days. You will also need to follow up with Dr. Malone. Test Results: Test results from this visit will be discussed in further detail at your follow- up appointment, if applicable. Pending Tests Upon Discharge: none Discharge Plan Admission Admit Date/Time: 11/30/24 15:55 Primary Reason for Your Visit: Debility due to hip fracture. Attending Provider: Rachell Quiñonez Primary Care Provider: Remington Frederick Instructions Patient Instructions: Caring for Your Incision Additional Instructions / Restrictions: 1. Make sure to keep your fluid intake > 1,000 cc/day (34 ounces a day...this is a little over a quart). It will help with constipation. I think the constipation is due to the Parkinson's disease. Parkinson's disease affects the nerves that control the muscles but, it also affects the AUTONOMIC NERVOUS SYSTEM. These nerves control the things you body does automatically without you thinking about it......like controlling the heart rate, controlling the BP, controlling emptying of the bladder and the colon and helping to keep the BP from dropping when you stand up. Some things that help with constipation in patients with Parkinson's disease are stool softeners (you are on Senna and MiraLAX), good fluid intake, walking and probiotics.......fermented probiotics work best. there is a drinkable yogurt product called Kefir that you can buy at the grocery store and drinking this 1-2 times a day can help. You still may need to take some laxatives.......like milk of magnesia, Dulcolax tabs, Ex-Lax or magnesium Citrate. If you do not have a BM then on the third day you should take a laxative. 2. You are anemic. you have actually been anemic since 2022. We checked your iron studies and you were iron deficient. We gave you 700 mg of IV iron. We are not sending you home on iron by mouth because this can decrease the effect of the Parkinson's meds. your doctor should recheck your blood count in 4-6 weeks......it has come up a little since you got the IV iron. You could be losing some blood chronically in the urine and stool. We checked the stool and it had no blood in it when we checked. You may need to periodically get IV iron. You can have an iron infusion at the hospital as an out patient. 3. You did a great job in rehab and have been a pleasure to work with. You need to keep moving and exercising when you get home. People with Parkinson's disease decompensate very quickly when they quit moving and stop exercising. Pretty soon they are so stiff that they can't move and then they have to come back to rehab........keep moving Lenny. There is a program at [employer] for people with Parkinson's.....it can help you keep moving and doing well. 4. If you or Maylin have any questions after you leave rehab please do not hesitate to call me. Good butch Galvez! OFFICE: [phone] CELL: [phone] NURSES STATION ON REHAB: [phone] Discharge Orders/Prescriptions Prescriptions: New cyanocobalamin (vitamin B-12) 1,000 mcg capsule 1,000 mcg PO DAILY Qty: 90 0RF cyclobenzaprine 5 mg Tablet 5 mg PO BID PRN (Reason: muscles spasm) Qty: 10 0RF Rx Instructions: Take 1 tab up to 2 times a day as needed for muscle spasm. sennosides-docusate sodium [Stimulant Laxative Plus] 8.6-50 mg Tablet 2 tab PO BID Qty: 120 0RF nitrofurantoin monohyd/m-cryst 100 mg Capsule 100 mg PO BID Qty: 9 0RF Rx Instructions: Take 1 tab twice a day until gone for urinary tract infection. trazodone 50 mg Tablet 50 mg PO QHS PRN (Reason: insomnia) Qty: 10 0RF polyethylene glycol 3350 [Miralax] 17 gram/dose powder 17 g PO DAILY Qty: 850 0RF Continued duloxetine [Cymbalta] 20 mg capsule,delayed release(DR/EC) 20 mg PO DAILY Centrum Silver Men [id number] mcg tablet 1 tab PO DAILY amlodipine 5 mg tablet 5 mg PO DAILY Qty: 90 3RF carbidopa-levodopa 25-100 mg tablet 2.5 tab PO TID atorvastatin 80 mg tablet 80 mg PO QHS aspirin 81 mg Tablet,Chewable 81 mg PO BIDCM Qty: 0 0RF Rx Instructions: Take twice a day thru 12/23/24 and then decrease to once daily oxycodone 5 mg Tablet 5 mg PO Q4H PRN PRN (Reason: pain 5 or greater) 7 Days Qty: 15 0RF Rx Instructions: take every 4 hours as needed for pain 5 or > famotidine 20 mg tablet 20 mg PO DAILY Spiriva Respimat 1.25 mcg/actuation mist 2 inh inhalation DAILY clopidogrel [Plavix] 75 mg tablet 75 mg PO DAILY Qty: 30 0RF Changed acetaminophen 500 mg Tablet 1,000 mg PO Q8 PRN (Reason: pain) Qty: 0 0RF Rx Instructions: take every 8 hours needed for pain1-4. If pain is 5 or > take an Oxycodone. Discontinued polyethylene glycol 3350 [ClearLax] 17 gram/dose powder 17 g PO DAILY PRN (Reason: constipation) albuterol sulfate [Ventolin HFA] 90 mcg/actuation HFA aerosol inhaler 2 inh inhalation Q4H PRN (Reason: shortness of breath or wheezing) ciprofloxacin HCl 500 mg tablet 500 mg PO BID Qty: 10 0RF Referrals / Follow Up: Dilip Malone DO [Med Staff - Active Staff] - Remington Frederick MD [Primary Care Provider] - Disposition Disposition (needs filled in before D/C Order can be placed): Home Health Service
--- NOTE | 2024-12-11 17:20 | PCM.DC.SUM ---
Providers Date of Admission: 11/30/24 Date of Discharge: 12/13/24 Primary Care Physician: Dr. Remington Frederick MD none Reason For Visit: LEFT HIP FRACTURE Diagnosis Discharge Diagnosis (1) Physical debility: Status: Acute Code(s): R53.81 - Other malaise (2) Closed left hip fracture: Status: Resolved Code(s): S72.002A - Fracture of unspecified part of neck of left femur, initial encounter for closed fracture (3) History of open reduction and internal fixation (ORIF) procedure: Status: Inactive Code(s): Z98.890 - Other specified postprocedural states Plan: Taken to surgery on 11/26/[address] Malone for percutaneous screw fixation of the left femoral neck fracture. Will follow-up with Dr. Malone postdischarge from rehab. (4) Acute blood loss anemia (ABLA): Status: Acute Code(s): D62 - Acute posthemorrhagic anemia (5) History of blood transfusion: Status: Inactive Code(s): Z92.89 - Personal history of other medical treatment Plan: Due to chronic iron deficiency and acute blood loss anemia related to fx/ORIF. He received 700 mg of intravenous iron sucrose while on rehab. We did not initiate therapy with oral iron because there is a drug interaction with Sinemet and it decreases the effectiveness of Sinemet. May need periodoic iron infusion for recurrent iron deficiency. Hemoglobin at admission to the hospital was 7.4 with an MCV of 73.5. He received 2 units of packed red blood cells with a hemoglobin dropped to 6.9. Hemoglobin is stable at 8.5 at discharge with an MCV of 80.5. (6) Microcytic anemia: Status: Chronic Code(s): D50.9 - Iron deficiency anemia, unspecified Plan: Due to iron deficiency (7) Iron deficiency: Status: Chronic Code(s): E61.1 - Iron deficiency (8) Parkinson's disease: Status: Chronic Code(s): G20.A1 - Parkinson's disease without dyskinesia, without mention of fluctuations Qualifiers: Dyskinesia presence: unspecified whether dyskinesia Fluctuating manifestations: unspecified whether manifestations fluctuate Qualified Code(s): G20.A1 - Parkinson's disease without dyskinesia, without mention of fluctuations (9) Presence of urostomy: Status: Chronic Code(s): Z93.6 - Other artificial openings of urinary tract status (10) Presence of colostomy: Status: Chronic Code(s): Z93.3 - Colostomy status (11) Nicotine dependence: Status: Chronic Code(s): F17.200 - Nicotine dependence, unspecified, uncomplicated Qualifiers: Nicotine product type: cigarettes Substance use status: unspecified nicotine-induced disorder Qualified Code(s): F17.219 - Nicotine dependence, cigarettes, with unspecified nicotine-induced disorders Plan: Smoking cessation counseling was given while on rehab. (12) Essential (primary) hypertension: Status: Chronic Code(s): I10 - Essential (primary) hypertension (13) UTI due to Klebsiella species: Status: Acute Code(s): N39.0 - Urinary tract infection, site not specified; B96.89 - Other specified bacterial agents as the cause of diseases classified elsewhere Plan: Urine culture grew ESBL Klebsiella pneumoniae with multidrug resistance. Being treated with 7 days of Macrobid per recommendation of infectious disease. Urine at discharge is clear without sediment. (14) Constipation: Status: Acute Code(s): K59.00 - Constipation, unspecified Qualifiers: Constipation type: unspecified constipation type Qualified Code(s): K59.00 - Constipation, unspecified Plan: This is a chronic problem. I suspect it is due to autonomic dysfunction from PD. He is being discharged on senna/docusate 2 tablets twice daily, polyethylene glycol 17 g daily. Recommended that if he does not have a bowel movement on the third day he should take a laxative. Also recommended fermented probiotic to assist with evacuation. (15) Autonomic dysfunction: Status: Chronic Code(s): G90.9 - Disorder of the autonomic nervous system, unspecified Plan: Secondary to Parkinson's disease. (16) Oropharyngeal dysphagia: Status: Chronic Code(s): R13.12 - Dysphagia, oropharyngeal phase Plan: Related to Parkinson's disease. Plan DC home with family on 12/13/24. Follow up with Dr. Guadalupe and with Dr. Malone. [facility] at discharge for PT/OT/ST/SN. Continue Macrobid at discharge to complete 7 days of treatment. Medications at Discharge Home Medications atorvastatin 80 mg tablet 80 mg PO QHS CJHOLESTEROL 03/23/23 duloxetine 20 mg capsule,delayed release (Cymbalta) 20 mg PO DAILY ask pcp 07/23/23 amlodipine 5 mg tablet 5 mg PO DAILY ask pcp #90 tabs 03/10/24 [id number] 300 mcg-K 60 mcg-lycop 600 mcg-lutein 300 mcg tablet (Centrum Silver Men) 1 tab PO DAILY ask pcp 03/10/24 carbidopa 25 mg-levodopa 100 mg tablet 2.5 tab PO TID ask pcp 05/21/24 clopidogrel 75 mg tablet (Plavix) 75 mg PO DAILY ask pcp #30 tabs 11/20/24 famotidine 20 mg tablet 20 mg PO DAILY ask pcp 11/25/24 tiotropium bromide 1.25 mcg/actuation mist for inhalation (Spiriva Respimat) 2 inh inhalation DAILY ask pcp 11/25/24 acetaminophen 500 mg tablet 1,000 mg (2 x 500 mg) PO Q8 PRN pain #0 tabs 12/11/24 aspirin 81 mg chewable tablet 81 mg PO BIDCM blood thinner #0 tabs 12/11/24 cyanocobalamin (vitamin B-12) 1,000 mcg capsule 1,000 mcg PO DAILY #90 caps 12/11/24 cyclobenzaprine 5 mg tablet 5 mg PO BID PRN muscles spasm #10 tabs 12/11/24 nitrofurantoin monohydrate/macrocrystals 100 mg capsule 100 mg PO BID #9 caps 12/11/24 oxycodone 5 mg tablet 5 mg PO Q4H PRN PRN pain 5 or greater 7 days #15 tabs 12/11/24 polyethylene glycol 3350 17 gram/dose oral powder (Miralax) 17 g PO DAILY #850 grams 12/11/24 sennosides 8.6 mg-docusate sodium 50 mg tablet (Stimulant Laxative Plus) 2 tab PO BID #120 tabs 12/11/24 trazodone 50 mg tablet 50 mg PO QHS PRN insomnia #10 tabs 12/11/24 Hospital Course Operations - (Percutaneous nail fixation on 11/26/[address] Dilip Malone.) Procedures Modified Barium Swallow (12/03/2024-oropharyngeal dysphagia) Summary of Care Provided Minutes Spent on Discharge: 35 Hospital Course: MERLENE SINGH, is a 79 YO M with a PMH of colorectal CA, prostate cancer, history of penile urethral stricture, history of rectourethral/bladder fistula, soft tissue radionecrosis, carotid vascular disease (he history of left common carotid stent 2022) , peripheral vascular disease (right common iliac angioplasty in April 2024), abdominal aortic aneurysm (he had endovascular stent in 2017), hypertension, patent foramen ovale, centrilobular emphysema, hyperlipidemia, GERD, presbycusis, tobacco dependence and depression who presented to the ED at [facility] on 11/25/24 after a ground level mechanical fall at home. He was c/o Left hip pain. Imaging revealed a mildly impacted fracture of the left femoral neck. He was admitted to the hospitalist service and Dr. Malone was consulted. He was taken to the OR on 11/26/2024 for a percutaneous screw fixation of the left femoral neck fracture. Hemoglobin at admission to the hospital was low at 7.4 with an MCV of 73.5. With hydration the hemoglobin dropped to 6.9 and he was transfused with 2 units of packed red blood cells. Postoperatively the hemoglobin is stable at 8.7. Hemoccult stool was negative. He was transferred to the acute inpatient rehab unit at [facility] on 11/30/2024 for 3 hours of therapy daily to restore function/independence at or near his level prior to the fall/fracture. He has been living with his dtr in a 2 story house. He was independent with ADL's and driving. Told me he was not using an AD prior to the fall but, told PT he was using a RW and WW. Iron studies done on rehab showed iron deficiency with a percent iron saturation of only 9.9%. MCV was 73. He was given 700 mg of intravenous iron sucrose. He was not started on oral ferrous sulfate at discharge because there is a drug interaction between iron and Sinemet and the iron inhibits the effectiveness of the Sinemet. Would repeat an iron saturation in 6 to 12 weeks and if it is low recommend intravenous iron supplementation at that time. Hemoglobin at discharge is stable at 8.5 and the MCV is up to 80. He had a modified barium swallow on 12/03/2024 that showed oropharyngeal dysphagia. Diet remained thin liquids and regular textures but he was given instruction on small bites, small sips and double swallows. He will continue to have speech therapy at discharge. Merlene developed a lot of sediment in his urine while on rehab and it had a foul odor. Culture revealed 80,000-100,000 colonies of ESBL Klebsiella pneumoniae which had multiple drug resistance. I discussed with infectious disease and they recommended Macrobid 100 mg twice daily for 7 days. He also received meropenem intravenously while we were awaiting the results of the urine culture and sensitivities. He is likely colonized with bacteria but there was an acute change in his urine. Merlene had problems with constipation while on rehab and this is more likely than not secondary to autonomic dysfunction related to Parkinson's disease. He is being discharged on MiraLAX and senna/docusate. Merlene did well in therapy. At the time of discharge he has ambulated up to 140 feet with a wheeled walker at contact-guard assist. He has walked up to 100 feet with a wheeled walker at contact-guard assist on various surfaces such as area rugs, tile and ramps. He is able to complete 20 steps in the stairwell with 1 handrail ascending and wall/handrail on the other side for descending. He is supervision/set up for eating and grooming and requires only minimal assistance with bathing. He is also min assist for upper body dressing and lower body dressing. He is contact-guard assist for tub/shower transfer. Merlene was discharged from acute rehab on 12/13/2024 and will have home health care for PT/OT/ST. He will follow-up with Dr. Guadalupe for primary care and with Dr. Malone from orthopedics. Physical Exam Const alert and no apparent distress Constitutional Narrative: Sitting in the recliner at the bedside. General Appearance: cooperative HEENT head/scalp atraumatic and moist oral mucous membranes Eyes PERRL, EOMs intact bilaterally, conjunctivae normal and no scleral icterus Eyes Narrative: No discharge from the eyes Neck General: trachea midline Resp normal respiratory effort and clear to auscultation bilaterally Resp Narrative: No conversational dyspnea Effort and Inspection: Negative for tachypneic Cardio regular rate, regular rhythm, no murmurs, no rub and no gallops Cardio Narrative: No ectopy GI normal to inspection, nondistended, normoactive bowel sounds, soft to palpation and non-tender GI Narrative: No guarding with palpation. no CVA tenderness Narrative: Urostomy in place Extremity no calf tenderness General Extremity: Negative for edema Skin Skin Narrative: The incision is intact with no dehiscence, no discharge and no significant sae-incisional erythema. Rashes: no rashes Wound Narrative: I examined the buttocks/sacrum. There are no pressure injuries. He has a small depression where the anus was sewed shut. There is no DC, no erythema and no opening in the skin. He has pain in the buttocks when he has been sitting in the chair all day.....no radiation into the legs. Psych cooperative and affect normal Weight / BMI Weight Weight: 135 lb 9.349 oz Body Mass Index (BMI) 21.2 ABG / Lab / Microbiology Data 12/11/24 06:00 12/11/24 06:00 Laboratory: Laboratory Results - last 24 hr 12/11/24 06:00: Free T4 1.10 Microbiology: Microbiology 12/06/24 11:20 Urine Catheter - Salguero Urine Culture - Final ESBL Klebsiella pneumoniae pne 12/07/24 11:14 Stool Stool Occult Blood (ASHLIE) - Final Radiography Diagnostic Testing: Radiology Impression KUB X-Ray 12/10/24 10:02 IMPRESSION: Fecal retention in the colon consistent with constipation. Reading Location: [facility] D/C Instructions Discharge Diet: No restrictions Weight Bearing Status: Weight bearing as tolerated Keep extremity elevated above heart level: Legs Call your doctor if your incision/area has: Continuous Slow Oozing, Sudden Increased Bleeding, Increased Pain/ Swelling, Increased Redness and Foul Smelling Discharge Call your doctor if you observe: Fever of 101 or Higher, Shortness of breath, Dizziness, Fainting spells, Swelling in the ankles, Chest pain, Increased palpitations (irregular heartbeat), Calf discomfort and Uncontrolled pain Suture Line Care: Avoid Pulling/Pushing and Avoid Pinching/Bending Cleanse incision/area with: Soap & Water and - (No tub baths. Can shower and then dry the incision right after. Do not soak the wound. ) Catheter: - (has urostomy and colostomy bags. ) Additional Dressing/Incision Instructions: OK to leave the incision open to air with no dressing. DC O2, CPAP, BIPAP Needs Home O2 Discharge instructions: No Pending Tests Upon Discharge: none Please Follow Up With: Remington Frederick MD When: Follow up with Dr. Frederick within the next 7-10 days. You will also need to follow up with Dr. Malone. Meaningful Use Info Meaningful Use Meaningful Use Diagnoses (Choose all that apply): None applicable Ischemic Stroke Statin Dosing Therapy Reference: STATIN DOSE THERAPY REFERENCE: * Patients > 75 years receive moderate or high dose statin therapy. * Patients 75 years or YOUNGER should receive HIGH intensity statin dose unless contraindicated. You will be required to document reason for non-treatment if statin daily dose does not meet guidelines. HIGH DOSE STATIN THERAPY DAILY Atorvastatin > than or = to 40 mg Rosuvastatin > than or = to 20 mg Amlodipine + Atorvastatin > than or = to 2.5/40 mg Ezetimibe + Simvastatin 10/80 mg Simvastatin 80mg Discharge Plan Admission Admit Date/Time: 11/30/24 15:55 Primary Reason for Your Visit: Debility due to hip fracture. Attending Provider: Rachell Quiñonez Primary Care Provider: Remington Frederick Instructions Patient Instructions: Caring for Your Incision Additional Instructions / Restrictions: 1. Make sure to keep your fluid intake > 1,000 cc/day (34 ounces a day...this is a little over a quart). It will help with constipation. I think the constipation is due to the Parkinson's disease. Parkinson's disease affects the nerves that control the muscles but, it also affects the AUTONOMIC NERVOUS SYSTEM. These nerves control the things you body does automatically without you thinking about it......like controlling the heart rate, controlling the BP, controlling emptying of the bladder and the colon and helping to keep the BP from dropping when you stand up. Some things that help with constipation in patients with Parkinson's disease are stool softeners (you are on Senna and MiraLAX), good fluid intake, walking and probiotics.......fermented probiotics work best. there is a drinkable yogurt product called Kefir that you can buy at the grocery store and drinking this 1-2 times a day can help. You still may need to take some laxatives.......like milk of magnesia, Dulcolax tabs, Ex-Lax or magnesium Citrate. If you do not have a BM then on the third day you should take a laxative. 2. You are anemic. you have actually been anemic since 2022. We checked your iron studies and you were iron deficient. We gave you 700 mg of IV iron. We are not sending you home on iron by mouth because this can decrease the effect of the Parkinson's meds. your doctor should recheck your blood count in 4-6 weeks......it has come up a little since you got the IV iron. You could be losing some blood chronically in the urine and stool. We checked the stool and it had no blood in it when we checked. You may need to periodically get IV iron. You can have an iron infusion at the hospital as an out patient. 3. You did a great job in rehab and have been a pleasure to work with. You need to keep moving and exercising when you get home. People with Parkinson's disease decompensate very quickly when they quit moving and stop exercising. Pretty soon they are so stiff that they can't move and then they have to come back to rehab........keep moving Merlene. There is a program at [facility] for people with Parkinson's.....it can help you keep moving and doing well. 4. If you or Maylin have any questions after you leave rehab please do not hesitate to call me. Good butch Galvez! OFFICE: [phone] CELL: [phone] NURSES STATION ON REHAB: [phone] Discharge Orders/Prescriptions Prescriptions: New cyanocobalamin (vitamin B-12) 1,000 mcg capsule 1,000 mcg PO DAILY Qty: 90 0RF cyclobenzaprine 5 mg Tablet 5 mg PO BID PRN (Reason: muscles spasm) Qty: 10 0RF Rx Instructions: Take 1 tab up to 2 times a day as needed for muscle spasm. sennosides-docusate sodium [Stimulant Laxative Plus] 8.6-50 mg Tablet 2 tab PO BID Qty: 120 0RF nitrofurantoin monohyd/m-cryst 100 mg Capsule 100 mg PO BID Qty: 9 0RF Rx Instructions: Take 1 tab twice a day until gone for urinary tract infection. trazodone 50 mg Tablet 50 mg PO QHS PRN (Reason: insomnia) Qty: 10 0RF polyethylene glycol 3350 [Miralax] 17 gram/dose powder 17 g PO DAILY Qty: 850 0RF Continued duloxetine [Cymbalta] 20 mg capsule,delayed release(DR/EC) 20 mg PO DAILY Centrum Silver Men [id number] mcg tablet 1 tab PO DAILY amlodipine 5 mg tablet 5 mg PO DAILY Qty: 90 3RF carbidopa-levodopa 25-100 mg tablet 2.5 tab PO TID atorvastatin 80 mg tablet 80 mg PO QHS aspirin 81 mg Tablet,Chewable 81 mg PO BIDCM Qty: 0 0RF Rx Instructions: Take twice a day thru 12/23/24 and then decrease to once daily oxycodone 5 mg Tablet 5 mg PO Q4H PRN PRN (Reason: pain 5 or greater) 7 Days Qty: 15 0RF Rx Instructions: take every 4 hours as needed for pain 5 or > famotidine 20 mg tablet 20 mg PO DAILY Spiriva Respimat 1.25 mcg/actuation mist 2 inh inhalation DAILY clopidogrel [Plavix] 75 mg tablet 75 mg PO DAILY Qty: 30 0RF Changed acetaminophen 500 mg Tablet 1,000 mg PO Q8 PRN (Reason: pain) Qty: 0 0RF Rx Instructions: take every 8 hours needed for pain1-4. If pain is 5 or > take an Oxycodone. Discontinued polyethylene glycol 3350 [ClearLax] 17 gram/dose powder 17 g PO DAILY PRN (Reason: constipation) albuterol sulfate [Ventolin HFA] 90 mcg/actuation HFA aerosol inhaler 2 inh inhalation Q4H PRN (Reason: shortness of breath or wheezing) ciprofloxacin HCl 500 mg tablet 500 mg PO BID Qty: 10 0RF Referrals / Follow Up: Dilip Malone DO [Med Staff - Active Staff] - Remington Frederick MD [Primary Care Provider] - Disposition Disposition (needs filled in before D/C Order can be placed): Home Health Service Charges/Coding Visit Charges Inpatient E&M: 35926 Disch Hosp >30min
[2024-12-11] MEDS: Magnesium Citrate 300 ML PO (17:39)
[2024-12-11 17:46] VITALS: BP 138/68; PULSE 73; RESP 16; TEMP 36.5; O2SAT 95
[2024-12-11] MEDS: Atorvastatin Calcium 80 MG Tablet PO (20:47)
[2024-12-11] MEDS: traZODone 50 MG Tablet PO (20:47)
[2024-12-12] MEDS: Acetaminophen 500 MG Tablet 1000 MG PO ×3 (05:25→20:14)
[2024-12-12] MEDS: Carbidopa/Levodopa 25/100 Tablet PO ×3 (05:26→16:17)
[2024-12-12 05:31] VITALS: BP 138/59; PULSE 80; RESP 16; TEMP 36.8; O2SAT 94
[2024-12-12 05:32] VITALS: BMI 21.2
[2024-12-12] MEDS: Famotidine 20 MG Tablet PO ×2 (09:45→20:13)
[2024-12-12] MEDS: Senna/Docusate Sodium 1 Tablet 2 TABLET PO ×2 (09:45→20:14)
[2024-12-12] MEDS: Multivitamins,Ther W-Minerals Tablet 1 TABLET PO (09:46)
[2024-12-12] MEDS: Polyethylene Glycol 3350 17 GM PACKET PO (09:47)
[2024-12-12] MEDS: Cyanocobalamin 500 MCG Tablet 1000 MCG PO (09:47)
[2024-12-12] MEDS: Clopidogrel Bisulfate 75 MG Tablet PO (09:47)
[2024-12-12] MEDS: DULoxetine Hcl 20 MG Capsule PO (09:48)
[2024-12-12] MEDS: Arthritis Pain Compound 60 CLICK TUBE TOPICAL ×2 (09:48→20:10)
[2024-12-12] MEDS: Umeclidinium Bromide Inhaler 1 PUFF INHALATION (09:48)
[2024-12-12] MEDS: Aspirin 81 MG TAB.CHEW PO ×2 (09:48→16:16)
[2024-12-12] MEDS: Nitrofurantoin Macrocrystals 100 MG Capsule PO ×2 (09:49→20:14)
[2024-12-12] MEDS: amLODIPine 5 MG Tablet PO (09:49)
[2024-12-12] MEDS: Ascorbic Acid 500 MG Tablet PO (13:56)
[2024-12-12 18:00] VITALS: BP 133/40; PULSE 73; RESP 16; TEMP 36.6; O2SAT 94
[2024-12-12] MEDS: Atorvastatin Calcium 80 MG Tablet PO (20:14)
[2024-12-12] MEDS: traZODone 50 MG Tablet PO (20:14)
[2024-12-13] MEDS: Carbidopa/Levodopa 25/100 Tablet PO ×2 (06:19→11:02)
[2024-12-13] MEDS: Acetaminophen 500 MG Tablet 1000 MG PO (06:19)
[2024-12-13 06:31] VITALS: BP 156/59; PULSE 75; RESP 16; TEMP 36.6; O2SAT 94; BMI 21.3
[2024-12-13] MEDS: Multivitamins,Ther W-Minerals Tablet 1 TABLET PO (08:11)
[2024-12-13] MEDS: Aspirin 81 MG TAB.CHEW PO (08:11)
[2024-12-13] MEDS: Cyanocobalamin 500 MCG Tablet 1000 MCG PO (08:11)
[2024-12-13] MEDS: DULoxetine Hcl 20 MG Capsule PO (09:07)
[2024-12-13] MEDS: amLODIPine 5 MG Tablet PO (09:07)
[2024-12-13] MEDS: Nitrofurantoin Macrocrystals 100 MG Capsule PO (09:07)
[2024-12-13] MEDS: Clopidogrel Bisulfate 75 MG Tablet PO (09:07)
[2024-12-13] MEDS: Umeclidinium Bromide Inhaler 1 PUFF INHALATION (09:08)
[2024-12-13] MEDS: Arthritis Pain Compound 60 CLICK TUBE TOPICAL (09:08)
[2024-12-13] MEDS: Polyethylene Glycol 3350 17 GM PACKET PO (09:08)
[2024-12-13] MEDS: Famotidine 20 MG Tablet PO (09:08)
[2024-12-13] MEDS: Senna/Docusate Sodium 1 Tablet 2 TABLET PO (09:09)
[2024-12-13] MEDS: Ascorbic Acid 500 MG Tablet PO (11:03)
[2024-12-13] MEDS: Ferrous Sulfate 325 MG Tablet PO (11:03)
[2024-12-13 12:15] VITALS: BP 145/55; PULSE 76; RESP 16; TEMP 36.6; O2SAT 95
== END 2024-12-13 12:28 | disposition home health service (06) | DRG 560 ==
PROVIDERS: Admitting Provider Internal Medicine; PCP Internal Medicine; Visit Provider Internal Medicine
DX: S72.002D Fracture of unspecified part of neck of left femur, subsequent encounter for closed fracture with routine healing (principal); N39.0 Urinary tract infection, site not specified; D62 Acute posthemorrhagic anemia; Q21.12 Patent foramen ovale; Z16.24 Resistance to multiple antibiotics; G90.9 Disorder of the autonomic nervous system, unspecified; B96.1 Klebsiella pneumoniae [K. pneumoniae] as the cause of diseases classified elsewhere; G20.A1 Parkinson's disease without dyskinesia, without mention of fluctuations; J43.2 Centrilobular emphysema; I10 Essential (primary) hypertension; I73.9 Peripheral vascular disease, unspecified; Z93.3 Colostomy status; F17.210 Nicotine dependence, cigarettes, uncomplicated; E78.5 Hyperlipidemia, unspecified; K21.9 Gastro-esophageal reflux disease without esophagitis; W18.30XD Fall on same level, unspecified, subsequent encounter; K59.09 Other constipation; R13.12 Dysphagia, oropharyngeal phase; Z79.899 Other long term (current) drug therapy; Z79.82 Long term (current) use of aspirin; Z79.02 Long term (current) use of antithrombotics/antiplatelets; Z93.6 Other artificial openings of urinary tract status
CPT/HCPCS: 36415; 74018; 74230; 80048; 80053; 81001; 82274; 82607; 82728; 82746; 83540; 83550; 83735; 84100; 84439; 84443; 85014; 85018; 85025; 85027; 87077; 87086; 87088; 87186; 92507; 92523; 92526; 92610; 92611; 94668; 97110; 97116; 97129; 97130; 97162; 97166; 97530; 97535; 97802; 97803; J2185; A4216; J2405; J2916

== ENCOUNTER → 2024-12-25 | Outpatient (CLI) | payer MEDICARE, OTHER, SELFPAY ==
--- NOTE | 2024-12-25 08:48 | ART_ITS ---
Reason For Study Reason For Study: S/P EVAR, angioplasty right common iliac limb Procedure A bilateral lower extremity continuous wave Doppler with analog waveform analysis and ankle brachial indexes. Left Segmental Pressures Left brachial= 88mmHg. Left posterior tibial artery = 131mmHg. Left dorsalis pedis artery = 144mmHg. Left digit = 86 mmHg. The left dorsalis pedis waveforms are triphasic. The left posterior tibial artery waveforms are triphasic. Right Segmental Pressures Right brachial= 145mmHg. Right posterior tibial artery = 105mmHg. Right dorsalis pedis artery = 101mmHg. Right digit = 65 mmHg. The right dorsalis pedis waveforms are biphasic. The right posterior tibial artery waveforms are biphasic. Indices The right ankle brachial index by the dorsalis pedis is 0.70. The right ankle brachial index by the posterior tibial artery is 0.72. The right digital-brachial index is 0.45. The left ankle brachial index by the dorsalis pedis is 0.99. The left ankle brachial index by the posterior tibial artery is 0.90. The left digital-brachial index is 0.59. VL/Ankle Brachial Index Interpretation Summary Right CHANEL 0.72, moderate arterial insufficiency. Doppler/PVR waveforms of the r ight ankle moderately diminished at rest. Left CHANEL 0.99, mild arterial insufficiency. Doppler/PVR waveforms of the left a nkle normal at rest. Ordering Physician: Lorraine Ojeda Referring Physician: Remington Frederick M.D. Performed By: Miriam Darden RVT
--- NOTE | 2024-12-25 08:48 | AAVD_ITS ---
Reason For Study Reason For Study: S/P EVAR, angioplasty right common iliac limb Aorta Measurements Aorta Doppler Measurements Unable to visualize Prox-Mid Aorta due to multiple ostomy Distal arota, Limb 1, 79.6 cm/sec. bags and gas at prox abdomen. Distal Aorta, Limb 2, 38.4 cm/sec. Distal Aorta, Residual sac, 3.13 x 3.27 x 3.15 cm. Distal Aorta, Limb 1, 1.34 x 1.37 x 1.19 cm. Distal Aorta Limb 2, 1.28 x 1.27 x 1.10 cm. Left Iliac Artery Left iliac artery measures 1.38 x 1.36 cm. in the cross-sectional axis. Left iliac artery measures 1.48 cm. in the longitudinal axis. Peak systolic velocity in the left iliac artery measures 32.9 cm/sec. Left iliac artery distal, 200.1 cm/sec. Right Iliac Artery Right iliac artery measures 1.46 x 1.54 cm. in the cross-sectional axis. Right iliac artery measures 1.49 cm. in the longitudinal axis. Peak systolic velocity in the right iliac artery measures 38.4 cm/sec. Procedure Aorta IVC Iliac vasculature or bypass grafts [id number]. Exam performed in department. VL/Abd Aortic/IVC Duplex scan Interpretation Summary Patent aortic endograft with no evidence of endoleak and residual aneursym sac 3.27 cm Right iliac limb with continued low velocities throughout, but no longer with e levated velocity distal. Left iliac limb with continued low velocities throughout, and elevated velocity distal. Ordering Physician: Lorraine Ojeda Referring Physician: Remington Frederick M.D. Performed By: Miriam Darden RVT
== END | disposition home or self-care (01) ==
LOC: CVS 08:46
PROVIDERS: PCP Internal Medicine; Referring Provider Physician Assistant; Visit Provider Physician Assistant
DX: Z48.812 Encounter for surgical aftercare following surgery on the circulatory system (principal)
CPT/HCPCS: 93922; 93978

== ENCOUNTER → 2025-07-06 | Outpatient (CLI) | payer MEDICARE, OTHER, SELFPAY ==
--- NOTE | 2025-07-06 08:49 | AAVD_ITS ---
Reason For Study Reason For Study: S/P EVAR, angioplasty right common iliac limb Aorta Measurements Aorta Doppler Measurements Unable to visualize Prox-Mid Aorta due to multiple ostomy Distal arota, Limb 1, 63.2 cm/sec. bags and gas at prox abdomen. Distal Aorta, Limb 2, 57.8 cm/sec. Distal Aorta, Residual sac, 3.02 x 2.92 x 2.64 cm. Distal Aorta, Limb 1, 1.16 x 1.16 x 1.17 cm. Distal Aorta Limb 2, 1.17 x 1.17 x 1.29 cm. Left Iliac Artery Left iliac artery measures 1.49 x 1.47 cm. in the cross-sectional axis. Left iliac artery measures 1.47 cm. in the longitudinal axis. Peak systolic velocity in the left iliac artery measures 28.5 cm/sec. Right Iliac Artery Right iliac artery measures 1.49 x 1.42 cm. in the cross-sectional axis. Right iliac artery measures 1.39 cm. in the longitudinal axis. Peak systolic velocity in the right iliac artery measures 36.2 cm/sec. Procedure Aorta IVC Iliac vasculature or bypass grafts [id number]. Exam performed in department. VL/Abd Aortic/IVC Duplex scan Interpretation Summary Patent aortic endograft with no evidence of endoleak and residual aneurysm sac 3.02 cm Right iliac limb with continued low velocities throughout. Left iliac limb with continued low velocities throughout. Limited due to bowel gas, ostomy bags Ordering Physician: Lorraine Ojeda Referring Physician: Remington Frederick M.D. Performed By: Miriam Darden RVT
--- NOTE | 2025-07-06 08:49 | ART_ITS ---
Reason For Study Reason For Study: S/P EVAR, angioplasty right common iliac limb Procedure A bilateral lower extremity continuous wave Doppler with analog waveform analysis and ankle brachial indexes. Left Segmental Pressures Left brachial= 74mmHg. Left posterior tibial artery = 130mmHg. Left dorsalis pedis artery = 124mmHg. Left digit = 96 mmHg. The left dorsalis pedis waveforms are triphasic. The left posterior tibial artery waveforms are biphasic. Right Segmental Pressures Right brachial= 130mmHg. Right posterior tibial artery = 101mmHg. Right dorsalis pedis artery = 88mmHg. Right digit = 66 mmHg. The right dorsalis pedis waveforms are monophasic. The right posterior tibial artery waveforms are biphasic. Indices The right ankle brachial index by the dorsalis pedis is 0.68. The right ankle brachial index by the posterior tibial artery is 0.78. The right digital-brachial index is 0.51. The left ankle brachial index by the dorsalis pedis is 0.95. The left ankle brachial index by the posterior tibial artery is 1.02. The left digital-brachial index is 0.74. VL/Ankle Brachial Index Interpretation Summary Right CHANEL 0.78, moderate arterial insufficiency. Doppler/PVR waveforms of the r ight ankle moderately diminished at rest. Left CHANEL 1.02, normal. Doppler/PVR waveforms of the left ankle normal at rest. TBI diminished, pedal/digit disease vs spasm. Ordering Physician: Lorraine Ojeda Referring Physician: Remington Frederick M.D. Performed By: Miriam Darden RVT
--- NOTE | 2025-07-06 09:31 | CDU_ITS ---
Reason For Study Reason For Study: S/P Lt TCAR, Known Rt ICA occlusion Rt. Velocities/BP Lt. Velocities/BP Prox CCA 59.8/6 cm/sec. Prox CCA 114.6/24.9 cm/sec. Mid CCA 65.5/7.8 cm/sec. Mid CCA 88.8/22.5 cm/sec. Dist CCA 50.7/6.9 cm/sec. CCA distal, prox to stent, 115.8/28.6 cm/sec. Right ICA known occlusion. Bulb, prox stent, 108.4/26.2 cm/sec. Prox ECA 269.3/13.9 cm/sec. Prox ICA, mid stent, 108.2/24.8 cm/sec. Rt. Vert. 94.9/15.1 cm/sec. Prox ICA, distal stent, 228.9/52.6 cm/sec. Mid ICA distal to stent, 149.8/30.4 cm/sec. Dist ICA 92.1/23.3 cm/sec. Lt. ICA/CCA = 2.58. Prox ECA 685.5/99.9 cm/sec. Right Extracranial There is heterogeneous, irregular atherosclerotic plaque noted in the right common carotid artery. There is heterogeneous, irregular atherosclerotic plaque noted in the right internal carotid artery. The right internal carotid artery is occluded. There is heterogeneous, irregular atherosclerotic plaque noted in the right external carotid artery. Antegrade flow is noted in the right vertebral artery. Left Extracranial There is heterogeneous, irregular atherosclerotic plaque noted in the left common carotid artery. There is heterogeneous, irregular atherosclerotic plaque noted in the left internal carotid artery. The atherosclerotic plaque causes acoustic shadowing. Distal CCA - Prox ICA stent noted. There is heterogeneous, irregular atherosclerotic plaque noted in the left external carotid artery. Bidirectional flow noted in the left vertebral artery. Procedure Carotid Duplex 71208. This is a Carotid Duplex examination using B-mode, color flow and specral Doppler. Exam performed in department. VL/Carotid Duplex Ultrasound Interpretation Summary Right internal carotid artery known occlusion. Moderate (<70%) stenosis left extracranial internal carotid. The Right vertebral is patent and antegrade. The Left vertebral flow is bidirectional. Ordering Physician: Lorraine Ojeda Referring Physician: Remington Frederick M.D. Performed By: Miriam Darden RVT
== END | disposition home or self-care (01) ==
PROVIDERS: PCP Internal Medicine; Referring Provider Physician Assistant; Visit Provider Physician Assistant
DX: Z48.812 Encounter for surgical aftercare following surgery on the circulatory system (principal); I65.22 Occlusion and stenosis of left carotid artery
CPT/HCPCS: 93880; 93922; 93978